=== PATIENT | male | born 1960 | race Hispanic/Latino ===

== ENCOUNTER 2016-04-27 18:21 | Inpatient (IN) | payer MEDICAID ==
[2016-04-27] MEDS ORDERED: NACL 0.9% 1000 ML 1,000 ML IV ONE ×2 (19:23→22:28)
[2016-04-27 20:42] LABS: Basophils % (Auto) 0.6 % (0.0-1.8); Eosinophils % (Auto) 0.1 % (0.0-4.3); Hematocrit 34.6 % (35.5-45.6); Hemoglobin 11.7 gm/dl (11.8-15.2); Mean Corpuscular HGB Conc 34 % (32-34); Mean Corpuscular Hemoglobin 34 pg (28-32); Mean Corpuscular Volume 100 fl (84-94); Platelet Count 194 K/mm3 (140-440); Red Blood Count 3.46 M/mm3 (3.65-5.03); Red Cell Distribution Width 13.5 % (13.2-15.2); White Blood Count 9.5 K/mm3 (4.5-11.0)
[2016-04-27 20:55] LABS: INR 0.94 (0.87-1.13)
[2016-04-27 20:56] LABS: Partial Thromboplastin Time 25.5 Sec. (24.2-36.6)
[2016-04-27 21:08] LABS: Alanine Aminotransferase 14 units/L (7-56); Albumin 2.6 g/dL (3.9-5); Albumin/Globulin Ratio 1.2 %; Alkaline Phosphatase 87 units/L (35-129); Anion Gap 9 mmol/L; BUN/Creatinine Ratio 45.71; Bilirubin,Total 0.4 mg/dL (0.1-1.2); Blood Urea Nitrogen 32 mg/dL (9-20); Calcium 9.8 mg/dL (8.4-10.2); Carbon Dioxide 40 mmol/L (22-30); Chloride 85.2 mmol/L (98-107); Glucose 121 mg/dL (75-100); Lipase 40 units/L (13-60); Potassium 5.2 mmol/L (3.6-5.0); Sodium 129 mmol/L (137-145); Total Protein 4.8 g/dL (6.3-8.2)
[2016-04-27] MEDS ORDERED: PROTONIX IV ONE (22:14)
--- NOTE | 2016-04-27 22:14 | Emergency Department Report ---
HPI - General Chief Complaint: GI Bleed Time Seen by Provider: 04/27/16 21:39 - HPI HPI: Room 8 The patient is a 56-year-old male presenting with a chief complaint of hematochezia. The patient states since 02:00 this morning his lower abdominal cramping that feels as though he has to have a bowel movement and when he does he states dark red blood comes out. Patient denies rectal pain except with frequent BMs. Patient denies nausea or vomiting. Patient states the abdominal pain is cramping in nature and gives a score of 8/10. Patient denies any previous episodes of the same Location: Gastrointestinal system Duration: Since 02:00 Quality: Cramping abdominal pain, maroon colored blood Severity: 8/10 Modifying factors: [see above] Context: [see above] Mode of transportation: [not driving] ED Past Medical Hx - Past Medical History Previous Medical History?: Yes Hx COPD: Yes (no home O2) Hx HIV: Yes (no tx x ~september 2015. Unknown CD4 count ) - Surgical History Past Surgical History?: Yes Additional Surgical History: left hip surgery - Family History Family history: no significant - Social History Smoking Status: Current Every Day Smoker Substance Use Type: None (denies illicit drug use), Alcohol (occasional) - Medications Home Medications: Home Medications Medication Instructions Recorded Confirmed Last Taken Type ALBUTEROL Inhaler [ProAir HFA 2 puff IH QID PRN #1 inhalation 04/16/15 Unknown Rx Inhaler] Azithromycin [Zithromax Z-DAMON] 250 mg PO DAILY #6 tab 04/16/15 Unknown Rx predniSONE [Deltasone] 20 mg PO BID #10 tab 04/16/15 Unknown Rx ED Review of Systems ROS: Stated complaint: BLOOD IN STOOL Other details as noted in HPI Comment: All other systems reviewed and negative Constitutional: denies: chills, fever Eyes: denies: eye pain, eye discharge, vision change ENT: denies: ear pain, throat pain Respiratory: denies: cough, shortness of breath, wheezing Cardiovascular: denies: chest pain, palpitations Endocrine: no symptoms reported Gastrointestinal: abdominal pain, diarrhea, hematochezia. denies: nausea, vomiting Genitourinary: denies: urgency, dysuria Musculoskeletal: denies: back pain, joint swelling, arthralgia Skin: denies: rash, lesions Neurological: denies: headache, weakness, paresthesias Psychiatric: denies: anxiety, depression Hematological/Lymphatic: denies: easy bleeding, easy bruising Physical Exam - Physical Exam Vital Signs: Vital Signs 04/27/16 19:18 Temperature 98.0 F Pulse Rate 107 H Respiratory 24 Rate Blood Pressure 84/52 O2 Sat by Pulse 91 Oximetry Physical Exam: GENERAL: The patient is well-developed well-nourished male lying on stretcher not appearing to be in acute distress. [] HEENT: Normocephalic. Atraumatic. Extraocular motions are intact. Patient has moist mucous membranes. NECK: Supple. Trachea midline CHEST/LUNGS: Clear to auscultation. There is no respiratory distress noted. HEART/CARDIOVASCULAR: Regular. There is no tachycardia. There is no gallop rub or murmur. ABDOMEN: Abdomen is soft, with mild discomfort in the lower abdomen to palpation. There is no rebound or guarding. Patient has normal bowel sounds. There is no abdominal distention. SKIN: There is no rash. There is no edema. There is no diaphoresis. NEURO: The patient is awake, alert, and oriented. The patient is cooperative. The patient has normal speech MUSCULOSKELETAL: There is no evidence of acute injury. ED Course Vital Signs 04/27/16 19:18 Temperature 98.0 F Pulse Rate 107 H Respiratory 24 Rate Blood Pressure 84/52 O2 Sat by Pulse 91 Oximetry - Consultations Consultation #1: 04/27/16 22:32 Gastroenterology paged- case discussed with Dr. Hdz. Recommends that the hospitalist orders a bleeding scan. Will consult 04/27/16 22:46 ED Medical Decision Making - Lab Data Result diagrams: 04/27/16 20:21 04/27/16 20:21 Laboratory Tests 04/27/16 04/27/16 04/27/16 20:21 20:21 20:21 WBC 9.5 RBC 3.46 L Hgb 11.7 L Hct 34.6 L MCV 100 H MCH 34 H MCHC 34 RDW 13.5 Plt Count 194 Lymph % (Auto) 13.3 L [place] % (Auto) 13.5 H Eos % (Auto) 0.1 Baso % (Auto) 0.6 Lymph # 1.3 [place] # 1.3 H Eos # 0.0 Baso # 0.1 Seg Neutrophils % 72.5 H Seg Neutrophils # 6.9 PT 12.5 INR 0.94 APTT 25.5 Sodium 129 L Potassium 5.2 H Chloride 85.2 L Carbon Dioxide 40 H Anion Gap 9 BUN 32 H Creatinine 0.7 L Estimated GFR > 60 BUN/Creatinine Ratio 45.71 Glucose 121 H Calcium 9.8 Total Bilirubin 0.4 AST 31 ALT 14 Alkaline Phosphatase 87 Total Protein 4.8 L Albumin 2.6 L Albumin/Globulin Ratio 1.2 Lipase 40 Blood Type Antibody Screen 04/27/16 20:21 WBC RBC Hgb Hct MCV MCH MCHC RDW Plt Count Lymph % (Auto) [place] % (Auto) Eos % (Auto) Baso % (Auto) Lymph # [place] # Eos # Baso # Seg Neutrophils % Seg Neutrophils # PT INR APTT Sodium Potassium Chloride Carbon Dioxide Anion Gap BUN Creatinine Estimated GFR BUN/Creatinine Ratio Glucose Calcium Total Bilirubin AST ALT Alkaline Phosphatase Total Protein Albumin Albumin/Globulin Ratio Lipase Blood Type A POSITIVE Antibody Screen Negative Critical care attestation.: If time is entered above; I have spent that time in minutes in the direct care of this critically ill patient, excluding procedure time. ED Disposition Clinical Impression: GI bleed, HIV disease Disposition: OP ADMITTED IP TO THIS HOSP Is pt being admited?: Yes Does the pt Need Aspirin: No Condition: Serious Referrals: PRIMARY CARE, [Primary Care Provider] - 3-5 Days Forms: Accompanied Note Time of Disposition: 22:33 (GI paged. Hospitalist paged)
[2016-04-27] MEDS ORDERED: NACL 0.9% 500 ML 500 ML IV ONE (22:29)
[2016-04-27] MEDS ORDERED: PROTONIX 80 MG in NACL 0.9% 100 ML IV SCH (23:00)
[2016-04-27] MEDS ORDERED: FLUSH HEPARIN IV ONE (23:34)
[2016-04-27 23:49] LABS: Bacteria,Urine 2+ /HPF (Negative); Bilirubin,Urine NEG (Negative); Blood,Urine SM (Negative); Ketones,Urine NEG (Negative); Leukocyte Esterase,Urine LG (Negative); Nitrite,Urine NEG (Negative); Urobilinogen,Urine < 2.0 mg/dL (<2.0)
[2016-04-27 23:58] LABS: WBC,Urine > 182.0 /HPF (0.0-6.0)
[2016-04-28] MEDS ORDERED: ZOFRAN IV PRN
--- NOTE | 2016-04-28 00:20 | History and Physical Report ---
History of Present Illness Date of examination: 04/27/16 History of present illness: 56-year-old man with a history of HIV, COPD history emergency room because he had lower abdominal pain this morning around 2:00 followed by blood per rectum. Abdominal pain he describes as sharp, intermittent in nature lasting 10-15 minutes, intensity 9/10, no radiation any cannot identify exacerbating or relieving factors. He had 3 episodes of blood per rectum here in the emergency room. No previous bleeding. patient non-compliant with HIV medications Patient denies chest pain, palpitation, shortness of breath, cough, abdominal pain, hematochezia, dysuria, frequency, focal weakness, dysarthria, fever chills , polydipsia polyuria, hot or cold intolerance, easy bruisability, or rash or bleeding from mucosal membrane, rhinorrhea, epistaxis, earache, tinnitus, blurry vision, eye discharge, anxiety, depression. Other review of systems negative PAST SURGICAL HISTORY: Hip surgery SOCIAL HISTORY: Admits to alcohol, tobacco, no drugs FAMILY HISTORY: Hypertension Medications and Allergies Allergies Allergy/AdvReac Type Severity Reaction Status Date / Time No Known Allergies Allergy Verified 04/16/15 01:31 Home Medications Medication Instructions Recorded Confirmed Last Taken Type ALBUTEROL Inhaler [ProAir HFA 2 puff IH QID PRN #1 inhalation 04/16/15 04/28/16 Unknown Rx Inhaler] Azithromycin [Zithromax Z-DAMON] 250 mg PO DAILY #6 tab 04/16/15 04/28/16 Unknown Rx predniSONE [Deltasone] 20 mg PO BID #10 tab 04/16/15 04/28/16 Unknown Rx Active Meds: Active Medications Pantoprazole Sodium 80 mg/ (Sodium Chloride) 100 mls @ 10 mls/hr IV DIRECT ARUNA PRN Reason: 8 MG/HR Sodium Chloride (Nacl 0.9% 1000 Ml) 1,000 mls @ 150 mls/hr IV DIRECT ARUNA Ondansetron HCl (Zofran) 4 mg IV Q4H PRN PRN Reason: N/V unrelieved by Reglan Exam - Physical Exam Narrative exam: Gen. appearance: Patient lying in bed, no apparent distress HEENT: Normocephalic, atraumatic, pupils equally round and reactive to light, extraocular movement intact, and no sclericterus,. No JVD or thyromegaly or nodule,neck supple, no carotid bruit ,mucous membranes moist, no exudate or erythema Heart: S1, S2, regular rate and rhythm Lungs: Clear to auscultation bilaterally, breathing comfortable Abdomen: Positive bowel sounds, nontender, nondistended, no organomegaly Extremity: No edema, cyanosis, clubbing Skin: No rash, nodules, warm, dry Neuro: Oriented 3, cranial nerves II-12 intact, speech is fluent, motor and sensory intact - Constitutional Vitals: Temp Pulse Resp BP Pulse Ox 98.0 F 83 24 117/73 91 04/27/16 19:18 04/27/16 23:22 04/27/16 19:18 04/27/16 23:22 04/27/16 19:18 Results - Labs CBC & Chem 7: 04/27/16 20:21 04/27/16 20:21 Labs: Abnormal lab results 04/27/16 04/27/16 04/27/16 Range/Units 20:21 20:21 20:21 RBC 3.46 L (3.65-5.03) M/mm3 Hgb 11.7 L (11.8-15.2) gm/dl Hct 34.6 L (35.5-45.6) % MCV 100 H (84-94) fl MCH 34 H (28-32) pg Lymph % (Auto) 13.3 L (13.4-35.0) % [place] % (Auto) 13.5 H (0.0-7.3) % [place] # 1.3 H (0.0-0.8) K/mm3 Seg Neutrophils % 72.5 H (40.0-70.0) % Sodium 129 L (137-145) mmol/L Potassium 5.2 H (3.6-5.0) mmol/L Chloride 85.2 L (98-107) mmol/L Carbon Dioxide 40 H (22-30) mmol/L BUN 32 H (9-20) mg/dL Creatinine 0.7 L (0.8-1.5) mg/dL Glucose 121 H (75-100) mg/dL Total Protein 4.8 L (6.3-8.2) g/dL Albumin 2.6 L (3.9-5) g/dL Urine pH (5.0-7.0) Urine WBC (Auto) (0.0-6.0) /HPF Crossmatch See Detail 04/27/16 Range/Units 21:00 RBC (3.65-5.03) M/mm3 Hgb (11.8-15.2) gm/dl Hct (35.5-45.6) % MCV (84-94) fl MCH (28-32) pg Lymph % (Auto) (13.4-35.0) % [place] % (Auto) (0.0-7.3) % [place] # (0.0-0.8) K/mm3 Seg Neutrophils % (40.0-70.0) % Sodium (137-145) mmol/L Potassium (3.6-5.0) mmol/L Chloride (98-107) mmol/L Carbon Dioxide (22-30) mmol/L BUN (9-20) mg/dL Creatinine (0.8-1.5) mg/dL Glucose (75-100) mg/dL Total Protein (6.3-8.2) g/dL Albumin (3.9-5) g/dL Urine pH 9.0 H (5.0-7.0) Urine WBC (Auto) > 182.0 H (0.0-6.0) /HPF Crossmatch Assessment and Plan Lower GI bleed, most likely diverticular UTI HIV COPD Admits medicine Start IV fluid, check serial hemoglobin, bleeding scan is pending Consult GI, Dr. Navas is aware the patient, start Levaquin Start DVT prophylaxis with SCD, continue protonix drip
[2016-04-28] MEDS ORDERED: LEVAQUIN 500MG/100ML 500 MG/100 ML BAG IV ONE (00:53)
--- NOTE | 2016-04-28 01:26 | Nuclear Medicine Report ---
FINAL REPORT PROCEDURE: NM GI BLEEDING SCAN TECHNIQUE: Arterial flow and static planar gamma camera images of the abdomen and pelvis were obtained after the IV administration of 20 mCi Tc-99m tagged red blood cells. Injection site: RIGHT antecubital fossa. CPT 13239 HISTORY: hematochezia, hypotension COMPARISON: No prior studies are available for comparison. FINDINGS: Small and Large bowel activity: Normal. Organs and soft tissues: Normal. IMPRESSION: No active gastrointestinal hemorrhage is identified.
[2016-04-28] MEDS: LEVAQUIN 500MG/100ML 500 MG/100 ML BAG IV SCH (01:45)
[2016-04-28] MEDS: NACL 0.9% 1000 ML 1,000 ML IV SCH ×3 (03:34→18:30)
[2016-04-28 06:09] LABS: Hematocrit 29.9 % (35.5-45.6)
[2016-04-28 07:57] LABS: Hematocrit 30.4 % (35.5-45.6); Hemoglobin 10.2 gm/dl (11.8-15.2)
[2016-04-28 13:35] LABS: Hematocrit 31.1 % (35.5-45.6); Hemoglobin 10.3 gm/dl (11.8-15.2)
--- NOTE | 2016-04-28 15:23 | Progress Note ---
Assessment and Plan Assessment and plan: 56-year-old man with a history of HIV, COPD history emergency room because he had lower abdominal pain this morning around 2:00 followed by blood per rectum. Abdominal pain he describes as sharp, intermittent in nature lasting 10-15 minutes, intensity 9/10, no radiation any cannot identify exacerbating or relieving factors. He had 3 episodes of blood per rectum here in the emergency room. No previous bleeding. patient non-compliant with HIV medications Patient denies chest pain, palpitation, shortness of breath, cough, abdominal pain, hematochezia, dysuria, frequency, focal weakness, dysarthria, fever chills , polydipsia polyuria, hot or cold intolerance, easy bruisability, or rash or bleeding from mucosal membrane, rhinorrhea, epistaxis, earache, tinnitus, blurry vision, eye discharge, anxiety, depression. Other review of systems negative * Lower GI bleed, most likely diverticular * Anemia secondary to blood loss * UTI * Alcohol abuse * Tobacco abuse * Hyponatremia * HIV * COPD * Hyperkalemia * Metabolic alkalosis Plan * Bleeding Scan is negative, awaiting GI evaluation * Clear liquid diet for now * Continue antibiotics with Levaquin monitor for urine cultures * Extensive counseling on alcohol abuse and tobacco abuse greater than 15 minutes spent resources provided with the patient. * Monitor sodium and potassium levels * Monitor H&H * Seizure precautions * [place] CIWA protocol * DVT and GI prophylaxis with SCDs and Protonix * Also recommended an outpatient follow-up with infectious disease for HIV status. * Case discussed in detail with the patient's. History Interval history: Follow-up rectal bleeding Patient seen and examined this morning in no acute distress, was a little upset this morning wants to eat. A little tremulous. Denies any chest pain, nausea, vomiting, diarrhea No fever noted blood pressure on the low side No adverse events reported to me by nursing staff. Patient had refused transfusion Hospitalist Physical - Physical exam Narrative exam: VITAL SIGNS: Reviewed. GENERAL: The patient appeared disheveled appearing, mildly cachectic. Vital signs as documented. HEAD: No signs of head trauma. Temporal wasting EYES: Pupils are equal. Extraocular motions intact. EARS: Hearing grossly intact. MOUTH: Oropharynx is normal. NECK: No adenopathy, no JVD. CHEST: Chest with clear breath sounds bilaterally. No wheezes, rales, or rhonchi. CARDIAC: Regular rate and rhythm. S1 and S2, without murmurs, gallops, or rubs. VASCULAR: No Edema. Peripheral pulses normal and equal in all extremities. ABDOMEN: Soft, without detectable tenderness. No sign of distention. No rebound or guarding, and no masses palpated. Bowel Sounds normal. MUSCULOSKELETAL: Good range of motion of all major joints. Extremities without clubbing, cyanosis or edema. NEUROLOGIC EXAM: Alert and oriented x 3. No focal sensory or strength deficits. Speech normal. Follows commands. PSYCHIATRIC: Mood normal. SKIN: Old crusted lesions bilateral upper extremities - Constitutional Vitals: Temp Pulse Resp BP Pulse Ox 98.0 F 86 20 95/60 94 04/28/16 08:50 04/28/16 08:50 04/28/16 08:50 04/28/16 08:50 04/28/16 10:00 Results - Labs CBC & Chem 7: 04/28/16 12:43 04/27/16 20:21 Labs: Laboratory Last Values WBC 9.5 K/mm3 (4.5-11.0) 04/27/16 20:21 RBC 3.46 M/mm3 (3.65-5.03) L 04/27/16 20:21 Hgb 10.3 gm/dl (11.8-15.2) L 04/28/16 12:43 Hct 31.1 % (35.5-45.6) L 04/28/16 12:43 MCV 100 fl (84-94) H 04/27/16 20:21 MCH 34 pg (28-32) H 04/27/16 20:21 MCHC 34 % (32-34) 04/27/16 20:21 RDW 13.5 % (13.2-15.2) 04/27/16 20:21 Plt Count 194 K/mm3 (140-440) 04/27/16 20:21 Lymph % (Auto) 13.3 % (13.4-35.0) L 04/27/16 20:21 [place] % (Auto) 13.5 % (0.0-7.3) H 04/27/16 20:21 Eos % (Auto) 0.1 % (0.0-4.3) 04/27/16 20:21 Baso % (Auto) 0.6 % (0.0-1.8) 04/27/16 20:21 Lymph # 1.3 K/mm3 (1.2-5.4) 04/27/16 20:21 [place] # 1.3 K/mm3 (0.0-0.8) H 04/27/16 20:21 Eos # 0.0 K/mm3 (0.0-0.4) 04/27/16 20:21 Baso # 0.1 K/mm3 (0.0-0.1) 04/27/16 20:21 Seg Neutrophils % 72.5 % (40.0-70.0) H 04/27/16 20:21 Seg Neutrophils # 6.9 K/mm3 (1.8-7.7) 04/27/16 20:21 PT 12.5 Sec. (12.2-14.9) 04/27/16 20:21 INR 0.94 (0.87-1.13) 04/27/16 20:21 APTT 25.5 Sec. (24.2-36.6) 04/27/16 20:21 Sodium 129 mmol/L (137-145) L 04/27/16 20:21 Potassium 5.2 mmol/L (3.6-5.0) H 04/27/16 20:21 Chloride 85.2 mmol/L (98-107) L 04/27/16 20:21 Carbon Dioxide 40 mmol/L (22-30) H 04/27/16 20:21 Anion Gap 9 mmol/L 04/27/16 20:21 BUN 32 mg/dL (9-20) H 04/27/16 20:21 Creatinine 0.7 mg/dL (0.8-1.5) L 04/27/16 20:21 Estimated GFR > 60 ml/min 04/27/16 20:21 BUN/Creatinine Ratio 45.71 % 04/27/16 20:21 Glucose 121 mg/dL (75-100) H 04/27/16 20:21 Calcium 9.8 mg/dL (8.4-10.2) 04/27/16 20:21 Total Bilirubin 0.4 mg/dL (0.1-1.2) 04/27/16 20:21 AST 31 units/L (5-40) 04/27/16 20:21 ALT 14 units/L (7-56) 04/27/16 20:21 Alkaline Phosphatase 87 units/L (35-129) 04/27/16 20:21 Total Protein 4.8 g/dL (6.3-8.2) L 04/27/16 20:21 Albumin 2.6 g/dL (3.9-5) L 04/27/16 20:21 Albumin/Globulin Ratio 1.2 % 04/27/16 20:21 Lipase 40 units/L (13-60) 04/27/16 20:21 Urine Color Yellow (Yellow) 04/27/16 21:00 Urine Turbidity Turbid (Clear) 04/27/16 21:00 Urine pH 9.0 (5.0-7.0) H 04/27/16 21:00 Ur Specific [place] 1.014 (1.003-1.030) 04/27/16 21:00 Urine Protein 100 mg/dl mg/dL (Negative) 04/27/16 21:00 Urine Glucose (UA) Neg mg/dL (Negative) 04/27/16 21:00 Urine Ketones Neg mg/dL (Negative) 04/27/16 21:00 Urine Blood Sm (Negative) 04/27/16 21:00 Urine Nitrite Neg (Negative) 04/27/16 21:00 Urine Bilirubin Neg (Negative) 04/27/16 21:00 Urine Urobilinogen < 2.0 mg/dL (<2.0) 04/27/16 21:00 Ur Leukocyte Esterase Lg (Negative) 04/27/16 21:00 Urine WBC (Auto) > 182.0 /HPF (0.0-6.0) H 04/27/16 21:00 Urine RBC (Auto) 25.0 /HPF (0.0-6.0) 04/27/16 21:00 U Epithel Cells (Auto) 3.0 /HPF (0-13.0) 04/27/16 21:00 Urine Bacteria (Auto) 2+ /HPF (Negative) 04/27/16 21:00 Plasma/Serum Alcohol < 0.01 gm% (0-0.07) 04/28/16 12:43 Blood Type A POSITIVE 04/27/16 20:21 Antibody Screen Negative 04/27/16 20:21 Crossmatch See Detail 04/27/16 20:21
[2016-04-28] MEDS ORDERED: GOLYTELY PO ONE (18:00)
--- NOTE | 2016-04-28 22:54 | Consultation ---
INDICATION: Rectal bleeding. HISTORY OF PRESENT ILLNESS: The patient is a 56-year-old white male with history of HIV positive and COPD being seen for rectal bleeding. The patient has a known history of HIV and with a reported history of being noncompliant with medication. The patient reports overnight he developed some mild lower abdominal cramping followed by bright red blood per rectum. He reports no fevers or chills. He reports no nausea or vomiting. The patient reports he had a colonoscopy years ago, but he is unclear as to the results. He reports no upper GI symptoms including nausea, vomiting, heartburn, reflux, or ingestion. The patient subsequently came to the Emergency Room where he was noted to have some more rectal bleeding and a bleeding scan was performed, which was negative. The patient subsequently was admitted to the internal medicine service and GI consulted. PAST MEDICAL HISTORY: 1. HIV positive. 2. COPD. PAST SURGICAL HISTORY: Hip. MEDICATIONS: See chart. ALLERGIES: No known drug allergies. SOCIAL HISTORY: Positive alcohol, positive tobacco use. FAMILY HISTORY: Negative for colon cancer, IBD, or liver disease. REVIEW OF SYSTEMS: GENERAL: Reports mild weakness. HEENT: No visual complaints or tinnitus. PULMONARY: Denies shortness of breath. CARDIOVASCULAR: Denies chest pain. GASTROINTESTINAL: Reports rectal bleeding and some abdominal pain. All points of 13-point review of systems otherwise negative. PHYSICAL EXAMINATION: VITAL SIGNS: Temperature of 98.0, pulse 90, respirations 20, blood pressure 150/70. GENERAL: Fairly thin white male, in no acute distress. HEENT: Pupils equal, round, reactive to light and accommodation. Extraocular muscles intact. PULMONARY: Clear to auscultation bilaterally. CARDIOVASCULAR: Regular rate and rhythm. Normal S1, S2. ABDOMEN: Positive bowel sounds. Soft. Mild lower abdominal cramping. No guarding, no rebound. SKIN: No obvious rashes. LABORATORY DATA: Pertinent for white count of 9.5, hemoglobin and hematocrit of 11.7 and 34.6, platelet count of 194. Chem-7: Sodium of 129, potassium 5.2, chloride 85, CO2 of 40, BUN and creatinine of 32 and 1.7. LFTs within normal limits. Coags within normal limits. ASSESSMENT AND PLAN: A 56-year-old HIV positive male presents with rectal bleeding, with mild lower abdominal cramping. Hemoglobin and hematocrit, though anemic is somewhat stable. The patient has a history of HIV and reportedly is noncompliant with medications thereof. Concern for lower gastrointestinal bleed. PLAN: 1. Follow hematocrit and transfuse as needed. 2. Clear liquid diet, n.p.o. after midnight. 3. Plan for colonoscopy in a.m. 4. Consider further intervention sooner based on progress. JOB# [id number] CAB/NTS
[2016-04-29] MEDS: LEVAQUIN 500MG/100ML 500 MG/100 ML BAG IV SCH (01:28)
[2016-04-29 06:30] LABS: Hematocrit 28.1 % (35.5-45.6); Hemoglobin 9.4 gm/dl (11.8-15.2); Mean Corpuscular HGB Conc 33 % (32-34); Mean Corpuscular Hemoglobin 34 pg (28-32); Mean Corpuscular Volume 102 fl (84-94); Platelet Count 145 K/mm3 (140-440); Red Blood Count 2.75 M/mm3 (3.65-5.03); Red Cell Distribution Width 13.5 % (13.2-15.2); White Blood Count 5.4 K/mm3 (4.5-11.0)
[2016-04-29] MEDS: NACL 0.9% 1000 ML 1,000 ML IV SCH ×3 (06:36→15:07)
[2016-04-29 06:47] LABS: Blood Urea Nitrogen 9 mg/dL (9-20); Calcium 7.2 mg/dL (8.4-10.2); Carbon Dioxide 31 mmol/L (22-30); Chloride 94.8 mmol/L (98-107); Glucose 78 mg/dL (75-100); Potassium 3.5 mmol/L (3.6-5.0); Sodium 132 mmol/L (137-145)
[2016-04-29 06:48] LABS: Anion Gap 10 mmol/L
[2016-04-29 08:08] LABS: Blastocytes % (Manual) 0 %; Diff Status Complete; Eosinophils % (Manual) 0 % (0.0-4.3); Hypochromasia Few; Macrocytosis Few; Platelet Estimate Appears Decreased; Polychromasia Few
[2016-04-29] MEDS ORDERED: WATER FOR IRRIG STERILE IR ONE (16:02)
[2016-04-29] MEDS ORDERED: DIPRIVAN 10 MG/ML IV ONE ×2 (16:07)
--- NOTE | 2016-04-29 16:41 | Post Operative Note ---
Pre-op diagnosis: gi bleed Post-op diagnosis: same Findings: Colonoscopy: scattered few diverticulosis - medium internal hemorrhoids - negative other Procedure: colonoscopy Anesthesia: MAC Surgeon: MEJIA LAWS Estimated blood loss: none Condition: stable Disposition: floor
[2016-04-29 16:58] VITALS: BP 110/71
--- NOTE | 2016-04-29 18:24 | Discharge Summary ---
Providers - Providers Date of Admission: 04/27/16 23:59 Date of discharge: 04/29/16 Attending physician: DARSHANA MURPHY MD Primary care physician: JAR FILLER Hospitalization Reason for admission: Rectal bleed Condition: Stable Hospital course: 56-year-old man with a history of HIV, COPD history emergency room because he had lower abdominal pain this morning around 2:00 followed by blood per rectum. Abdominal pain he describes as sharp, intermittent in nature lasting 10-15 minutes, intensity 9/10, no radiation any cannot identify exacerbating or relieving factors. He had 3 episodes of blood per rectum here in the emergency room. No previous bleeding. patient non-compliant with HIV medications Patient denies chest pain, palpitation, shortness of breath, cough, abdominal pain, hematochezia, dysuria, frequency, focal weakness, dysarthria, fever chills , polydipsia polyuria, hot or cold intolerance, easy bruisability, or rash or bleeding from mucosal membrane, rhinorrhea, epistaxis, earache, tinnitus, blurry vision, eye discharge, anxiety, depression. Other review of systems negative. On admission the patient was started on GI bleed protocol with PPI. Gastroenterology was consulted. Patient proceeded to have a colonoscopy which revealed multiple diverticulosis and internal hemorrhoid but no obvious bleed. GI recommended the patient be observed overnight and if hemoglobin remains stable, discharge plan the patient refused and demanded to leave the hospital since there was no evidence of cancer did inform the patient that pathology samples were taken and a decreased the city followed up. At this point he is very insistent on leaving the hospital I did inform him if he has any further bleeding he is to return to the hospital. I also provided counseling about his HIV status and the need to follow-up with primary care physician for establishment with infectious disease and started on treatment. Will also provided extensive counseling greater than 15 minutes on alcohol and tobacco cessation resources were also provided to the patient. Discharge diagnosis * Lower GI bleed, most likely diverticular * Anemia secondary to blood loss * Pyuria * Alcohol abuse * Tobacco abuse * Hyponatremia * HIV * COPD * Hyperkalemia * Metabolic alkalosis Disposition: DISCHARGED TO HOME OR SELFCARE Time spent for discharge: 35 mins Core Measure Documentation - Palliative Care Palliative Care/ Comfort Measures: Not Applicable - Core Measures Any of the following diagnoses?: none - VTE Discharge Requirements Deep Vein Thrombosis/Pulmonary Embolism Present on Admission: No Exam - Physical Exam Narrative exam: VITAL SIGNS: Reviewed. GENERAL: The patient appeared disheveled appearing, cachectic. Vital signs as documented. HEAD: No signs of head trauma. Temporal wasting EYES: Pupils are equal. Extraocular motions intact. EARS: Hearing grossly intact. MOUTH: Oropharynx is normal. NECK: No adenopathy, no JVD. CHEST: Chest with clear breath sounds bilaterally. No wheezes, rales, or rhonchi. CARDIAC: Regular rate and rhythm. S1 and S2, without murmurs, gallops, or rubs. VASCULAR: No Edema. Peripheral pulses normal and equal in all extremities. ABDOMEN: Soft, without detectable tenderness. No sign of distention. No rebound or guarding, and no masses palpated. Bowel Sounds normal. MUSCULOSKELETAL: Good range of motion of all major joints. Extremities without clubbing, cyanosis or edema. NEUROLOGIC EXAM: Alert and oriented x 3. No focal sensory or strength deficits. Speech normal. Follows commands. PSYCHIATRIC: Mood normal. SKIN: Old crusted lesions bilateral upper extremities - Constitutional Vitals: Temp Pulse Resp BP Pulse Ox 97.3 F L 79 20 110/71 98 04/29/16 16:35 04/29/16 16:50 04/29/16 16:50 04/29/16 16:50 04/29/16 16:50 Plan Activity: advance as tolerated, fall precautions Special Instructions: smoking cessation Additional Instructions: Should follow with pcp for Infectious disease referral. Follow up with: PRIMARY CAREMD [Primary Care Provider] - 3-5 Days Forms: Accompanied Note
--- NOTE | 2016-04-30 02:29 | Operative Report ---
PROCEDURE: Colonoscopy. INDICATION: 1. Rectal bleeding. 2. Anemia. MEDICATIONS: Propofol per [employer] SERVICES MANAGER. COMPLICATIONS: None. DESCRIPTION OF PROCEDURE: The patient was brought to the procedure suite. The patient had the procedure discussed with him at length. All risks, complications, and benefits discussed, to which the patient signed for the procedure to be performed. The patient was placed in left lateral decubitus position. Rectal exam was performed prior to insertion of scope. After adequate sedation medication as above, colonoscope inserted into the rectum and brought to the level of the cecum. Ileocecal valve and appendiceal orifice, cecal strap were adequately visualized. Colonoscope was then removed and mucosa visualized. Prep quality was fair. The patient's vital signs remained stable throughout the procedure. FINDINGS: There were no mass lesions or polyps noted during this procedure. There were a few small to medium scattered diverticula. No signs of bleeding was noted throughout the procedure. Retroflexion showed medium to large internal hemorrhoids. Whether or not, this is the source of bleeding was unclear. The patient tolerated the procedure well. No complications during the procedure. ASSESSMENT: 1. Scattered diverticulosis. 2. Internal hemorrhoids. 3. Otherwise, normal colonoscopy with no signs of bleeding noted. RECOMMENDATIONS: 1. High fiber diet. 2. Continue current medication. 3. Follow hematocrit and transfuse as needed. 4. Okay to discharge from GI standpoint if H and H stable in a.m. JOB# [id number] CAB/NTS
[2016-04-30] MEDS ORDERED: PROTONIX PO SCH (10:00)
== END 2016-04-29 20:12 | disposition home or self-care (01) | DRG 378 ==
LOC: ED 18:21 → 4A 23:59
PROVIDERS: ADMIT Internal Medicine; ATTEND Internal Medicine
PROC: 0DJD8ZZ Inspection of Lower Intestinal Tract, Via Natural or Artificial Opening Endoscopic (ICD-10-PCS; principal; 2016-04-29)
DX: K57.91 Diverticulosis of intestine, part unspecified, without perforation or abscess with bleeding (principal); N39.0 Urinary tract infection, site not specified; D62 Acute posthemorrhagic anemia; E87.1 Hypo-osmolality and hyponatremia; E87.3 Alkalosis; J44.9 Chronic obstructive pulmonary disease, unspecified; F17.200 Nicotine dependence, unspecified, uncomplicated; Z96.642 Presence of left artificial hip joint; Z21 Asymptomatic human immunodeficiency virus [HIV] infection status; E87.5 Hyperkalemia; K64.9 Unspecified hemorrhoids; Z71.6 Tobacco abuse counseling; Z82.49 Family history of ischemic heart disease and other diseases of the circulatory system
CPT/HCPCS: 36415; 78278; 80048; 80053; 80320; 81001; 83690; 85007; 85014; 85018; 85025; 85610; 85730; 86850; 86900; 86901; 86920; 87086; 93005; 93010; 96374; 96375; A9560; C9113; G0480; J1642; J1956; J2704; J7030; J7040

== ENCOUNTER 2016-05-09 11:48 | Inpatient (IN) | payer MEDICAID ==
[2016-05-09] MEDS: XYLOCAINE 1%/ EPI 1:100,000 INFILTRATI ONE ×2 (08:30→19:06)
[2016-05-09] MEDS ORDERED: NACL 0.9% 1000 ML 1,000 ML IV ONE (11:58)
[2016-05-09] MEDS ORDERED: NACL 0.9% 1000 ML IV ONE (12:13)
[2016-05-09 12:33] LABS: Mean Corpuscular HGB Conc 30 % (32-34); Mean Corpuscular Hemoglobin 31 pg (28-32); Mean Corpuscular Volume 102 fl (84-94); Platelet Count 104 K/mm3 (140-440); Red Blood Count 1.89 M/mm3 (3.65-5.03); Red Cell Distribution Width 15.8 % (13.2-15.2); White Blood Count 8.2 K/mm3 (4.5-11.0)
[2016-05-09 12:42] LABS: INR 1.35 (0.87-1.13)
[2016-05-09 12:43] LABS: Partial Thromboplastin Time 27.4 Sec. (24.2-36.6)
[2016-05-09] MEDS ORDERED: NACL 0.9% 500 ML 500 ML IV ONE ×2 (12:47→16:52)
[2016-05-09 12:54] LABS: Hemoglobin 5.8 gm/dl (11.8-15.2)
[2016-05-09 12:55] LABS: Hematocrit 19.2 % (35.5-45.6)
[2016-05-09 12:56] LABS: Urine Drugs of Abuse Note Disclamer
[2016-05-09] MEDS ORDERED: SandoSTATIN 500 MCG in NACL 0.9% 100 ML IV ONE (12:57)
[2016-05-09 13:03] LABS: Alanine Aminotransferase 18 units/L (7-56); Albumin 1.9 g/dL (3.9-5); Albumin/Globulin Ratio 1.3 %; Alkaline Phosphatase 68 units/L (35-129); Anion Gap 24 mmol/L; Bilirubin,Total 0.3 mg/dL (0.1-1.2); Blood Urea Nitrogen 17 mg/dL (9-20); Calcium 6.5 mg/dL (8.4-10.2); Carbon Dioxide 20 mmol/L (22-30); Chloride 99.7 mmol/L (98-107); Creatine Kinase 72 units/L (55-170); Creatine Kinase MB 4.9 ng/mL (0.0-4.0); Glucose 191 mg/dL (75-100); Lipase 82 units/L (13-60); Potassium 4.8 mmol/L (3.6-5.0); Sodium 139 mmol/L (137-145); Total Protein 3.4 g/dL (6.3-8.2)
--- NOTE | 2016-05-09 13:11 | Emergency Department Report ---
HPI - General Chief Complaint: Altered Mental Status Time Seen by Provider: 05/09/16 12:10 - HPI HPI: Chief complaint: Altered mental status HPI: Patient with a history of HIV and recent admission for rectal bleeding with diverticulosis he signed out AGAINST MEDICAL ADVICE was noted by bystanders to be unresponsive and EMS was called. EMS states that there was a long [place] bloody emesis from the patient's apartment down the humphries and down the stairs. Patient is known to have HIV and be a heavy drinker. Patient is uncooperative and unwilling to give any history upon his arrival. IO was placed in patient's left tibia by EMS and a left EJ was placed. Patient given IV fluids and upon arrival to the emergency department was becoming more alert. EMS stated they had wide complex rhythm initially which converted prior to arrival in the emergency department. Mode of arrival: EMS Source: Old chart and EMS Began: Unable to assess Duration: Unable to assess Context: See above Quality: Unable to assess Severity: Unable to assess Improved with: Unable to assess Worsened with: Associated signs and symptoms: ED Past Medical Hx - Past Medical History Previous Medical History?: Yes Hx COPD: Yes Hx HIV: Yes - Surgical History Additional Surgical History: left hip surgery - Social History Smoking Status: Current Every Day Smoker Substance Use Type: Alcohol - Medications Home Medications: Home Medications Medication Instructions Recorded Confirmed Last Taken Type ALBUTEROL Inhaler [ProAir HFA 2 puff IH QID PRN #1 inhalation 04/16/15 04/28/16 Unknown Rx Inhaler] ED Review of Systems ROS: Stated complaint: PASSED OUT Other details as noted in HPI Comment: Unobtainable due to pts medical conditions (patient is uncooperative and not fully oriented) Physical Exam - Physical Exam Vital Signs: Vital Signs 05/09/16 05/09/16 05/09/16 11:53 11:56 12:00 Temperature 95.4 F L Pulse Rate 125 H 134 H 127 H Respiratory 14 46 H Rate Blood Pressure 66/46 98/82 O2 Sat by Pulse 97 86 Oximetry Physical Exam: GENERAL: The patient is an emaciated white male with abdominal wheezes and is oriented to his name but still confused as to where he is and what is going on. HEENT: Normocephalic. Atraumatic. Extraocular motions are intact. Patient has moist mucous membranes. Edentulous with occasional bloody emesis. NECK: Supple. No meningitic signs are noted. There is no adenopathy noted. CHEST/LUNGS: He is wheezing. Patient was placed on a Ventimask the pulse ox of 100%. HEART/CARDIOVASCULAR: Regular. There is tachycardia. There is no gallop rub or murmur. ABDOMEN: Abdomen is soft, nontender. Patient has normal bowel sounds. There is no abdominal distention. Patient had brown guaiac-negative stool on the initial exam. SKIN: There is no rash. There is 1+ bilateral pedal edema. There is no diaphoresis. NEURO: The patient is lethargic but arouses to voice oriented to name but not time or situation. Patient complains of being called and asked to be left alone. The patient patient moves all extremities MUSCULOSKELETAL: There is no tenderness or deformity. There is no limitation range of motion. ED Course Vital Signs 05/09/16 05/09/16 05/09/16 11:53 11:56 12:00 Temperature 95.4 F L Pulse Rate 125 H 134 H 127 H Respiratory 14 46 H Rate Blood Pressure 66/46 98/82 O2 Sat by Pulse 97 86 Oximetry - Reevaluation(s) Reevaluation #1: 05/09/16 13:[address] Najera who will come in to see the patient today. 05/09/16 Pt was given 2 liters of ns wide open upon arrival and this was followed by PRBC x2. Pt started on a protonix drip and an octreatide drip and admitted to the hospitalist. - EJ/Peripheral Line Neck R Time Out Performed: No Indications: multiple IV sites needed Skin Cleansed in Sterile Fashion: Yes Size: 20 Dressing Placed: Tegaderm, tape Patient Tolerated Procedure: no complications ED Medical Decision Making - Lab Data Result diagrams: 05/09/16 12:06 05/09/16 12:06 Laboratory Tests 05/09/16 05/09/16 05/09/16 12:06 12:06 12:22 PT 16.6 H INR 1.35 H Lactic Acid 11.4 H* Calcium 6.5 L Ammonia CK-MB (CK-2) 4.9 H CK-MB (CK-2) Rel Index 6.8 H Troponin T 0.095 H Total Protein 3.4 L Albumin 1.9 L Lipase 82 H Plasma/Serum Alcohol 05/09/16 05/09/16 12:22 12:24 PT INR Lactic Acid Calcium Ammonia 41.0 CK-MB (CK-2) CK-MB (CK-2) Rel Index Troponin T Total Protein Albumin Lipase Plasma/Serum Alcohol < 0.01 UDS is negative - EKG Data -: EKG Interpreted by Me EKG shows normal: sinus rhythm Rate: tachycardia (121) - EKG Data Interpretation: other (significant artifact unable to assess baseline appears to be sinus tachycardia.) Critical care time in (mins) excluding proc time.: 45 Critical care attestation.: If time is entered above; I have spent that time in minutes in the direct care of this critically ill patient, excluding procedure time. ED Disposition Clinical Impression: HIV disease GI bleed Qualifiers: GI bleed type/associated pathology: gastrointestinal hemorrhage with hematemesis Qualified Code(s): K92.0 - Hematemesis Disposition: OP ADMITTED IP TO THIS HOSP Is pt being admited?: Yes Does the pt Need Aspirin: No Condition: Critical Time of Disposition: 13:03 (admit to the hospitalist)
[2016-05-09 13:13] LABS: Bacteria,Urine 1+ /HPF (Negative); Bilirubin,Urine NEG (Negative); Blood,Urine NEG (Negative); Ketones,Urine NEG (Negative); Leukocyte Esterase,Urine MOD (Negative); Mucus,Urine FEW /HPF; Nitrite,Urine NEG (Negative); Urobilinogen,Urine < 2.0 mg/dL (<2.0)
[2016-05-09] MEDS ORDERED: NACL 0.9% 250ML 250 ML ONE (13:14)
--- NOTE | 2016-05-09 13:14 | XRay Report ---
Chest: Compared to 04/15/15. History: Shortness of breath. Findings: Normal cardiomediastinal silhouette. Trachea is midline. No consolidation, pneumothorax or pleural effusion. Impression: No acute cardiopulmonary findings.
[2016-05-09 13:15] LABS: WBC,Urine > 182.0 /HPF (0.0-6.0)
[2016-05-09] MEDS ORDERED: ALUM-MAG HYDROX-SIMETH 200-200-20MG/5ML PO PRN (13:20)
[2016-05-09] MEDS ORDERED: REGLAN IV PRN (13:20)
[2016-05-09] MEDS ORDERED: DULCOLAX PR PRN (13:20)
[2016-05-09] MEDS ORDERED: ZOFRAN IV PRN (13:20)
[2016-05-09] MEDS ORDERED: MILK OF MAGNESIA PO PRN (13:20)
--- NOTE | 2016-05-09 13:20 | History and Physical Report ---
History of Present Illness Date of examination: 05/09/16 History of present illness: Dissection male with history of HIV and COPD presents to the hospital with weakness and black stools. Patient stated he recently been in the hospital for rectal bleeding returned today because of weakness and black stools. Patient state that this is gone on for a couple of days where he just was feeling progressively weak and not able to regain his strength. Patient denies any fever or chills. Patient denies chest pain. No shortness of breath. No palpitation. No fever no chills. Past History Past Medical History: COPD, HIV/AIDS Medications and Allergies Allergies Allergy/AdvReac Type Severity Reaction Status Date / Time No Known Allergies Allergy Verified 04/16/15 01:31 Home Medications Medication Instructions Recorded Confirmed Last Taken Type ALBUTEROL Inhaler [ProAir HFA 2 puff IH QID PRN #1 inhalation 04/16/15 04/28/16 Unknown Rx Inhaler] Active Meds: Active Medications Sodium Chloride (Nacl 0.9% 1000 Ml) 1,000 mls @ 250 mls/hr IV ONCE ONE Stop: 05/09/16 15:57 Last Admin: 05/09/16 12:07 Dose: 250 mls/hr Octreotide Acetate 500 mcg/ (Sodium Chloride) 101 mls @ 5.05 mls/hr IV ONCE.ED ONE; 25 MCG/HR PRN Reason: Protocol Stop: 05/10/16 08:56 Pantoprazole Sodium 80 mg/ (Sodium Chloride) 100 mls @ 10 mls/hr IV Q10H ARUNA PRN Reason: 8 MG/HR Review of Systems Constitutional: weakness Gastrointestinal: hematochezia Exam - Constitutional Vitals: Temp Pulse Resp BP Pulse Ox 95.4 F L 127 H 46 H 98/82 86 05/09/16 11:53 05/09/16 12:00 05/09/16 12:00 05/09/16 12:00 05/09/16 11:56 General appearance: Present: mild distress - EENT Eyes: Present: PERRL, EOM intact ENT: hearing intact, clear oral mucosa - Neck Neck: Present: supple, normal ROM - Respiratory Respiratory effort: normal Respiratory: bilateral: CTA - Cardiovascular Rhythm: regular Heart Sounds: Present: S1 & S2 - Abdominal General gastrointestinal: Present: soft, tender, non-distended, normal bowel sounds Localized gastrointestinal: tender: diffuse - Psychiatric Psychiatric: appropriate mood/affect - Neurologic Neurologic: CNII-XII intact Results - Labs CBC & Chem 7: 05/09/16 12:06 05/09/16 12:06 Labs: Laboratory Last Values WBC 8.2 K/mm3 (4.5-11.0) 05/09/16 12:06 RBC 1.89 M/mm3 (3.65-5.03) L 05/09/16 12:06 Hgb 5.8 gm/dl (11.8-15.2) L* 05/09/16 12:06 Hct 19.2 % (35.5-45.6) L* 05/09/16 12:06 MCV 102 fl (84-94) H 05/09/16 12:06 MCH 31 pg (28-32) 05/09/16 12:06 MCHC 30 % (32-34) L 05/09/16 12:06 RDW 15.8 % (13.2-15.2) H 05/09/16 12:06 Plt Count 104 K/mm3 (140-440) L 05/09/16 12:06 PT 16.6 Sec. (12.2-14.9) H 05/09/16 12:06 INR 1.35 (0.87-1.13) H 05/09/16 12:06 APTT 27.4 Sec. (24.2-36.6) 05/09/16 12:06 Sodium 139 mmol/L (137-145) 05/09/16 12:06 Potassium 4.8 mmol/L (3.6-5.0) 05/09/16 12:06 Chloride 99.7 mmol/L (98-107) 05/09/16 12:06 Carbon Dioxide 20 mmol/L (22-30) L 05/09/16 12:06 Anion Gap 24 mmol/L 05/09/16 12:06 BUN 17 mg/dL (9-20) 05/09/16 12:06 Creatinine 1.0 mg/dL (0.8-1.5) 05/09/16 12:06 Estimated GFR > 60 ml/min 05/09/16 12:06 BUN/Creatinine Ratio 17.00 % 05/09/16 12:06 Glucose 191 mg/dL (75-100) H 05/09/16 12:06 Lactic Acid 11.4 mmol/L (0.7-2.0) H* 05/09/16 12:22 Calcium 6.5 mg/dL (8.4-10.2) L 05/09/16 12:06 Total Bilirubin 0.3 mg/dL (0.1-1.2) 05/09/16 12:06 AST 36 units/L (5-40) 05/09/16 12:06 ALT 18 units/L (7-56) 05/09/16 12:06 Alkaline Phosphatase 68 units/L (35-129) 05/09/16 12:06 Ammonia 41.0 umol/L (25-60) 05/09/16 12:22 Total Creatine Kinase 72 units/L (55-170) 05/09/16 12:06 CK-MB (CK-2) 4.9 ng/mL (0.0-4.0) H 05/09/16 12:06 CK-MB (CK-2) Rel Index 6.8 (0-4) H 05/09/16 12:06 Troponin T 0.095 ng/mL (0.00-0.029) H 05/09/16 12:06 Total Protein 3.4 g/dL (6.3-8.2) L 05/09/16 12:06 Albumin 1.9 g/dL (3.9-5) L 05/09/16 12:06 Albumin/Globulin Ratio 1.3 % 05/09/16 12:06 Lipase 82 units/L (13-60) H 05/09/16 12:06 Urine Color Yellow (Yellow) 05/09/16 12:51 Urine Turbidity Slightly-cloudy (Clear) 05/09/16 12:51 Urine pH 6.0 (5.0-7.0) 05/09/16 12:51 Ur Specific [place] 1.019 (1.003-1.030) 05/09/16 12:51 Urine Protein 100 mg/dl mg/dL (Negative) 05/09/16 12:51 Urine Glucose (UA) Neg mg/dL (Negative) 05/09/16 12:51 Urine Ketones Neg mg/dL (Negative) 05/09/16 12:51 Urine Blood Neg (Negative) 05/09/16 12:51 Urine Nitrite Neg (Negative) 05/09/16 12:51 Urine Bilirubin Neg (Negative) 05/09/16 12:51 Urine Urobilinogen < 2.0 mg/dL (<2.0) 05/09/16 12:51 Ur Leukocyte Esterase Mod (Negative) 05/09/16 12:51 Urine WBC (Auto) > 182.0 /HPF (0.0-6.0) H 05/09/16 12:51 Urine RBC (Auto) 9.0 /HPF (0.0-6.0) 05/09/16 12:51 U Epithel Cells (Auto) 1.0 /HPF (0-13.0) 05/09/16 12:51 Urine Bacteria (Auto) 1+ /HPF (Negative) 05/09/16 12:51 Urine Mucus Few /HPF 05/09/16 12:51 Plasma/Serum Alcohol < 0.01 gm% (0-0.07) 05/09/16 12:24 Blood Type A POSITIVE 05/09/16 12:06 Antibody Screen Negative 05/09/16 12:06 Crossmatch See Detail 05/09/16 12:06 Assessment and Plan Assessment and plan: 1. GI bleed--- patient will be started on octreotide drip and Protonix drip. We'll get GI consult. Patient will also transfuse 2 units of blood. We will give aggressive IV fluid hydration. Patient will be admitted to the intensive care unit 2. HIV--we'll get infectious disease consult after the patient is more stable 3. COPD--we'll start her on Atrovent nebulized treatment. 4. EtOH abuse--Will start CIWA protocol
[2016-05-09 13:26] LABS: ISTAT Base Excess -6; ISTAT HCO3 21.4; ISTAT PCO2 51.1 (35-45); ISTAT PH 7.229 (7.35-7.45); ISTAT PO2 125 (80-105); ISTAT SO2 98; ISTAT TCO2 23
[2016-05-09 13:26] LABS: ISTAT Base Excess -9; ISTAT HCO3 20.3; ISTAT PCO2 60.5 (35-45); ISTAT PH 7.132 (7.35-7.45); ISTAT PO2 29 (80-105); ISTAT SO2 38; ISTAT TCO2 22
[2016-05-09] MEDS ORDERED: NACL 0.9% 1000 ML 1,000 ML IV SCH (14:00)
[2016-05-09] MEDS: PROTONIX 80 MG in NACL 0.9% 100 ML IV SCH (14:03)
--- NOTE | 2016-05-09 14:27 | Gastroenterology Consultation ---
History of Present Illness - Reason for Consult Consult date: 05/09/16 Hematemesis Requesting physician: RACHNA BARAKAT - History of Present Illness The patient is a 56 yo male who was here 2 weeks ago with rectal bleeding; a colonoscopy was done that showed tics. He left AMA and no further w/u was done. He returns for a 6-hour onset of hematemesis. This has never happened before, and was large volume/multiple episodes. He has only mild abdominal pain ; it was primarily nausea. He has no CP or SOB. He denies NSAIDs or a hx of PUD. He is not sure if he has ever had an EGD (and I saw none in the old records). He is noncompliant with HIV and other medications. His CD4 is not currently in the chart. He has had no GI surgery. He does drink heavily and daily, and his last EtOH was yesterday. He also smokes heavily on a daily basis , but does not require supplemental oxygen. Past History Past Medical History: COPD, HIV/AIDS (CD4 unknown), other (Noncompliance) Past Surgical History: Other (Hip Surgery). denies: appendectomy, CABG, bowel surgery Social history: smoking, alcohol abuse, full code. denies: prescription drug abuse Family history: no significant family history Medications and Allergies Allergies Allergy/AdvReac Type Severity Reaction Status Date / Time No Known Allergies Allergy Verified 04/16/15 01:31 Home Medications Medication Instructions Recorded Confirmed Last Taken Type ALBUTEROL Inhaler [ProAir HFA 2 puff IH QID PRN #1 inhalation 04/16/15 04/28/16 Unknown Rx Inhaler] Active Meds: Active Medications Al Hydrox/Mg Hydrox/Simethicone (Alum-Mag Hydrox-Simeth 687-943-36ad/5ml) 30 ml PO Q4H PRN PRN Reason: Indigestion Bisacodyl (Dulcolax) 10 mg DE QDAY PRN PRN Reason: constipation unrelieved by MOM Sodium Chloride (Nacl 0.9% 1000 Ml) 1,000 mls @ 250 mls/hr IV ONCE ONE Stop: 05/09/16 15:57 Last Admin: 05/09/16 12:07 Dose: 250 mls/hr Octreotide Acetate 500 mcg/ (Sodium Chloride) 101 mls @ 5.05 mls/hr IV ONCE.ED ONE; 25 MCG/HR PRN Reason: Protocol Stop: 05/10/16 08:56 Last Admin: 05/09/16 13:56 Dose: 5.05 mls/hr Pantoprazole Sodium 80 mg/ (Sodium Chloride) 100 mls @ 10 mls/hr IV Q10H ARUNA PRN Reason: 8 MG/HR Last Admin: 05/09/16 14:03 Dose: 10 mls/hr Sodium Chloride (Nacl 0.9% 1000 Ml) 1,000 mls @ 125 mls/hr IV DIRECT ARUNA Magnesium Hydroxide (Milk Of Magnesia) 30 ml PO Q4H PRN PRN Reason: Constipation Metoclopramide HCl (Reglan) 10 mg IV Q6H PRN PRN Reason: Nausea And Vomiting Ondansetron HCl (Zofran) 4 mg IV Q8H PRN PRN Reason: N/V unrelieved by Reglan Review of Systems - Review of Systems ROS unobtainable: due to mental status Exam - Constitutional Vital Signs: Temp Pulse Resp BP Pulse Ox 97 F L 91 H 16 111/72 100 05/09/16 13:42 05/09/16 13:57 05/09/16 13:57 05/09/16 13:57 05/09/16 13:57 General appearance: temporal muscle wasting, disheveled - EENT Eyes: PERRL, EOM intact ENT: hearing intact, poor dentition, no thrush, other (Blood in mouth) - Neck Neck: supple, normal ROM - Respiratory Respiratory effort: normal Respiratory: bilateral: CTA - Cardiovascular Rhythm: regular Heart Sounds: Present: S1 & S2 Extremities: no ischemia Extremity abnormal: other (IO catheter in place) - Gastrointestinal General gastrointestinal: Present: soft, non-tender, non-distended - Integumentary Integumentary: Present: dry, pale - Neurologic Neurological: oriented to person, oriented to place, strength equal bilaterally - Labs CBC & Chem 7: 05/09/16 12:06 05/09/16 12:06 Assessment and Plan - Patient Problems (1) Hematemesis Current Visit: Yes Status: Acute Qualifiers: Nausea presence: N Plan to address problem: - Likely varices v ulcer. - Continue transfusion to stabilize. - Octreotide and protonix. - EGD when clinically stable. 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 - Continue CIWA and octreotide/MVI/protonix. (3) HIV disease Current Visit: Yes Status: Chronic
[2016-05-09] MEDS ORDERED: ADRENALINE P/F IV ONE (15:45)
[2016-05-09] MEDS ORDERED: DIPRIVAN 10 MG/ML IV ONE (15:45)
[2016-05-09] MEDS ORDERED: XYLOCAINE MPF 2% ONE (15:45)
[2016-05-09 15:48] LABS: Anisocytosis 1+; Blastocytes % (Manual) 0 %; Diff Status Complete; Eosinophils % (Manual) 0 % (0.0-4.3); Platelet Estimate Consistent w Auto
[2016-05-09] MEDS ORDERED: AMIDATE IV ONE (16:15)
[2016-05-09 16:24] LABS: Phosphorous 5.5 mg/dL (2.5-4.5)
[2016-05-09] MEDS ORDERED: NEO SYNEPHRINE/NS Syringe(OR USE) IV ONE ×2 (16:35→20:31)
--- NOTE | 2016-05-09 16:38 | Anesthesia Consultation ---
Anesthesia Consult and Med Hx Date of service: 05/09/16 - Airway Anesthetic Teeth Evaluation: Poor ROM Head & Neck: Adequate Mental/Hyoid Distance: Adequate Intubation Access Assessment: Probably Good - Pulmonary Exam CTA: Yes - Cardiac Exam Cardiac Exam: RRR - Pre-Operative Health Status ASA Pre-Surgery Classification: ASA4, Emergency Proposed Anesthetic Plan: MAC - Pre-Anesthesia Comment Pre-Anesthesia Comments: GI bleeding - Pulmonary Hx Smoking: Yes (every day smoker) Hx Asthma: No COPD: Yes Hx Pneumonia: No - Endocrine Hx End Stage Renal Disease: No - Hematic Hx Anemia: Yes (admitting hgb 5.8. has received 4 units RBC's) - Other Systems Hx Alcohol Use: Yes (heavy)
--- NOTE | 2016-05-09 16:39 | Anesthesia Day of Surgery ---
Anesthesia Day of Surgery - Day of Surgery Patient Examined: Yes Patient H&P Reviewed: Yes Patient is NPO: Yes (FSP , upper GI bleeding)
--- NOTE | 2016-05-09 17:07 | Post Operative Note ---
Pre-op diagnosis: Hematemesis Post-op diagnosis: other (DU (actively bleeding), blood in stomach/duodenum, No varices) Findings: 1. 2cm cratered DU in the bulb (appeared posterior) with a large VV and gross blood in duodenum - Attempted clipping (x1) and submucosal epinephrine (4ml) but ulcer still oozing 2. Large amount of dried blood in fundus, but no obvious ulcer or gastric varices 3. No esophageal varices 4. Blood in oropharynx and cords noted at start of procedure (likely aspirated at home and in ER) Procedure: EGD with endoscopic clipping and epinephrine injection Anesthesia: MAC Surgeon: GABRIELLA FABIAN Estimated blood loss: other (Actively bleeding ulcer, no loss from procedure) Pathology: list (1. Gastric antrum) Specimen disposition: to lab Condition: critical Disposition: ICU (Recs: 1. Discussed with IR. Actively bleeding ulcer in DU; will need further therapy. 2. Consulted IR; given comorbids, would be best served if this was able to control bleeding. 3. If unable to control with IR, will need surgery. 4. Continue NPO and protonix/octreotide gtts. 5. Continue transfusion given hypotension. 6. ICU monitoring. 7. Note made of blood in oropharynx and esophagus (patient probably aspirated at home; will start broad- spectrum abx to cover for pneumonia).)
[2016-05-09] MEDS ORDERED: NACL 0.9% 1000 ML 0 ML ONE (17:21)
[2016-05-09] MEDS ORDERED: VERSED IV ONE (17:43)
[2016-05-09] MEDS ORDERED: HEPARIN/NS 5000 UNIT/500ML(CATH LAB) 1,000 ML IR ONE (17:57)
[2016-05-09] MEDS ORDERED: NACL 0.9% 1000 ML 1,000 ML ONE (17:58)
--- NOTE | 2016-05-09 18:01 | Consultation ---
History of Present Illness - Reason for Consult Consult date: 05/09/16 GI bleed Requesting physician: GABRIELLA RONDON - History of Present Illness 56-year-old male with HIV (CD4 not available, possible AIDS), alcohol abuse, smoking abuse, who denies NSAID abuse who previously presented 2 weeks ago with rectal bleeding, left AMA, and now re-presented with hematemesis. He received 2 unit packed red blood cells, is receiving a third unit now, and will be receiving a fourth unit afterwards. He just had an endoscopy by Dr. rondon demonstrating the following 1. 2cm cratered DU in the bulb (appeared posterior) with a large VV and gross blood in duodenum - Attempted clipping (x1) and submucosal epinephrine (4ml) but ulcer still oozing 2. Large amount of dried blood in fundus, but no obvious ulcer or gastric varices 3. No esophageal varices 4. Blood in oropharynx and cords noted at start of procedure (likely aspirated at home and in ER) I was then contacted by Dr. Rondon for possible embolization. Past History Past Medical History: COPD, HIV/AIDS (CD4 unknown), other (Noncompliance) Past Surgical History: Other (Hip Surgery). denies: appendectomy, CABG, bowel surgery Social history: smoking, alcohol abuse, full code. denies: prescription drug abuse Family history: no significant family history Medications and Allergies Allergies Allergy/AdvReac Type Severity Reaction Status Date / Time No Known Allergies Allergy Verified 04/16/15 01:31 Home Medications Medication Instructions Recorded Confirmed Last Taken Type ALBUTEROL Inhaler [ProAir HFA 2 puff IH QID PRN #1 inhalation 04/16/15 04/28/16 Unknown Rx Inhaler] Active Meds: Active Medications Al Hydrox/Mg Hydrox/Simethicone (Alum-Mag Hydrox-Simeth 184-335-81gb/5ml) 30 ml PO Q4H PRN PRN Reason: Indigestion Bisacodyl (Dulcolax) 10 mg [place] QDAY PRN PRN Reason: constipation unrelieved by MOM Octreotide Acetate 500 mcg/ (Sodium Chloride) 101 mls @ 5.05 mls/hr IV ONCE.ED ONE; 25 MCG/HR PRN Reason: Protocol Stop: 05/10/16 08:56 Last Admin: 05/09/16 13:56 Dose: 5.05 mls/hr Pantoprazole Sodium 80 mg/ (Sodium Chloride) 100 mls @ 10 mls/hr IV Q10H ARUNA PRN Reason: 8 MG/HR Last Admin: 05/09/16 14:03 Dose: 10 mls/hr Sodium Chloride (Nacl 0.9% 1000 Ml) 1,000 mls @ 125 mls/hr IV DIRECT ARUNA Piperacillin Sod/Tazobactam Sod (Zosyn/Ns 4.5gm/100ml) 4.5 gm in 100 mls @ 200 mls/hr IV Q8H ARUNA PRN Reason: Protocol Lorazepam (Ativan) 2 mg PO Q1H PRN PRN Reason: CIWA-Ar 8-15 Lorazepam (Ativan) 4 mg IV Q1H PRN PRN Reason: CIWA-Ar 16-25 Magnesium Hydroxide (Milk Of Magnesia) 30 ml PO Q4H PRN PRN Reason: Constipation Metoclopramide HCl (Reglan) 10 mg IV Q6H PRN PRN Reason: Nausea And Vomiting Ondansetron HCl (Zofran) 4 mg IV Q8H PRN PRN Reason: N/V unrelieved by Reglan Review of Systems ROS unobtainable: due to mental status (slightly drowsy from sedation) Exam - Constitutional Vitals: Temp Pulse Resp BP Pulse Ox 97.1 F L 96 H 14 109/79 100 05/09/16 14:59 05/09/16 15:50 05/09/16 15:50 05/09/16 15:50 05/09/16 15:50 General appearance: Present: no acute distress - EENT ENT: hearing intact - Neck Neck: Present: supple - Respiratory Respiratory effort: other (laying on his side in the position, but breathing nonlabored and regularly with an O2 face mask) - Psychiatric Psychiatric: appropriate mood/affect, cooperative Results - Labs CBC & Chem 7: 05/09/16 12:06 05/09/16 12:06 Assessment and Plan 56-year-old male with HIV (possible AIDS, CD4 not available) who previously presented with rectal bleeding, and now has presented with hematemesis with a 2cm cratered ulcer in the duodenal bulb still bleeding despite clipping and epinephrine injection. Patient is receiving a third unit of packed red blood cells currently, and will subsequently be receiving a fourth unit of packed blood cells. I was contacted by Dr. Rondon for possible embolization. I agree with Dr. Rondon and the patient will be brought down for emergency GI angiography and probable GDA embolization. Anesthesia was at bedside, and will provide assistance during the procedure. Unfortunately, there is no working phone number for a next of kin available. The patient is slightly drowsy, but understood the risks, benefits, and alternatives of the procedure and has agreed to the procedure. Given the emergent nature of the procedure, 2 physician consent was obtained since the patient has been recently sedated. Dr. Rondon also contact general surgery to notify them of the patient's status. If he decompensates further, then patient will need possible open/surgical treatment of the ulcer.
[2016-05-09 19:14] LABS: Hematocrit 36.4 % (35.5-45.6); Hemoglobin 11.8 gm/dl (11.8-15.2)
--- NOTE | 2016-05-09 19:45 | Operative Report ---
Operative Report Operative Report: EXAM: 1. Ultrasound-guided access of the left common femoral artery 2. Selection of the celiac artery with angiography 3. Selection of the right gastroepiploic artery with angiography 4. Selection of the gastroduodenal artery with angiography 5. Coil embolization of the gastroduodenal artery with a 4 mm x 8 cm coil 2, 4 mm x 15 cm coil 1 and 3 mm x 12 mm coil 1 6. Selection of the SMA with angiography 7. Ultrasound-guided access of the right common femoral vein 8. Fluoroscopic guided placement of 7 Angolan non-tunneled non-cuffed triple lumen catheter 9. Selection of the IVC with venography DATE: 05/09/16 [employer] OPERATOR: LUANNE SHOOK MD INDICATION: Duodenal ulcer actively bleeding refractory to endoscopic care with request for embolization. MEDICATIONS: Please see anesthesia report for full details. CONTRAST: 60 mL nonionic contrast DEVICES: 4 mm x 15 cm interlock x 1 4 mm x 8 cm interlock x 2 3 mm x 12 cm interlock x 1 PROCEDURE: The risks, benefits, and alternatives were discussed with the patient. Unfortunately, since the patient had been recently sedated, 2 physician consent was obtained with Dr. Najera. No family was available to provide consent. The phone numbers listed in the chart did not reach any family members. The patient was transported from the operating room from endoscopy to the angiography suite in stable condition. The patient's groins were prepped and draped in a sterile fashion. Under direct ultrasound guidance, the right common femoral artery was evaluated under ultrasound and there are numerous large atherosclerotic plaques. Under direct ultrasound guidance, the left common femoral artery was evaluated and was patent. The area was anesthetized, and a 21-gauge micropuncture needle was inserted into the left common femoral artery. 0.018 inch wire was advanced through the needle into the aorta and the needle was exchanged for transitional dilator. A Esquivel wire was advanced through the transitional dilator after the wire and inner dilator were removed. 5 Angolan sheath was advanced over the Bentson wire. Omni flush catheter was advanced over the Bentson wire and the wire was used to select the right superficial femoral artery. The catheter was exchanged for a Dukes 1 catheter which was formed over the iliac bifurcation. The Dukes 1 catheter was used to select the celiac artery and digital subtraction angiography was performed. Celiac artery demonstrated diminutive size of the vessels arising from the celiac trunk compatible with hemorrhagic shock. The splenic artery, left gastric artery, inferior phrenic arteries, common hepatic artery, hepatic vessels, and gastroduodenal artery was visualized. At this point, no extravasation or pseudoaneurysm was identified. The renegade STC and Choice PT floppy wire were used to select the gastroduodenal artery and then the right gastroepipoloic artery. Digital subtraction angiography was performed which demonstrated no evidence of extravasation or pseudoaneurysm from the right gastroepiploic artery. Then, the gastroduodenal artery was selected distally and digital subtraction angiography was performed which demonstrated no evidence of extravasation or pseudoaneurysm. Catheter was retracted into the proximal gastroduodenal artery and digital subtraction angiography demonstrated some staining of contrast in the expected area of the duodenal bulb. The distal gastroduodenal artery was reselected. Multiple coils listed above were used to occlude the gastroduodenal artery. Microcatheter was retracted into the common hepatic artery and digital subtraction angiography was performed. There was still flow through the gastroduodenal artery and therefore I reselected the gastroduodenal artery with the microcatheter. 3 mm x 12 cm coil was deployed. Microcatheter was retracted back into the common hepatic artery and digital subtraction angiography was performed demonstrating decreased flow through the gastroduodenal artery. Microcatheter was removed. Digital subtraction angiography was performed to the base catheter after the base catheter was double flushed. Digital subtraction angiography demonstrated the beginning of stasis in the gastroduodenal artery. Angiography was performed a few minutes later demonstrating occlusion of the gastroduodenal artery. Base catheter was then used to select the SMA and digital subtraction angiography was performed demonstrating no evidence of pseudoaneurysm or extravasation. No bleeding was identified through pancreaticoduodenal collaterals. Dukes 1 catheter was then removed over Bentson wire. Digital subtraction angiography was performed to the sheath demonstrating patency of the left common iliac artery, but moderate spasm of the left internal iliac artery, external iliac artery, common femoral artery, profunda femoral artery, and proximal superficial femoral artery. This spasm was secondary to recent hemorrhagic shock, and made the vessel not amenable to a closure device due to the high risk of occlusion of a closure device was used. Ultrasound was used to identify the right common femoral vein. The right common femoral vein area was anesthetized with 1% lidocaine, and subsequently a 21-gauge micropuncture needle was passed into the right common femoral vein. 0.018 inch wire was passed into the IVC. This was exchanged for a transitional dilator. Wire was exchanged for 0.035 inch J wire. Transitional dilator was exchanged for serial dilator and subsequently a 7 Angolan triple lumen catheter. The tip of the TLC catheter was used in the IVC, selecting the IVC. Digital subtraction angiography was performed through the triple-lumen catheter with the tip in the IVC demonstrating patency of the IVC in proper position of the catheter. The catheter was secured with 2-0 Ethilon. Biopatch and sterile dressing applied. Left common femoral artery sheath was then removed and pressure was held for 10 minutes until hemostasis was achieved. Mild pressure dressing applied. The patient tolerated the procedure without incident. Patient was transported back to the intensive care unit without issue. FINDINGS: Please see the procedure report above IMPRESSION: 1. Extravasation from the gastroduodenal artery status post coil embolization of the gastroduodenal artery with occlusion of the gastroduodenal artery. Access was from the left common femoral artery. 2. Successful placement of a 7 Angolan triple-lumen catheter in the right common femoral vein.
--- NOTE | 2016-05-09 19:47 | Operative Report ---
PROCEDURE PERFORMED: Esophagogastroduodenoscopy with endoscopic clipping and epinephrine injection. PREOPERATIVE DIAGNOSIS: Hematemesis. POSTOPERATIVE DIAGNOSES: Actively bleeding duodenal ulcer, no evidence of varices, probable aspiration events based on blood in the oropharynx and at the vocal cords at the start of the procedure. ENDOSCOPIST: Neil Najera MD INSTRUMENT: SIGFOX video endoscope. MEDICATIONS: MAC anesthesia by Anesthesia Services. COMPLICATIONS: No apparent complications. ESTIMATED BLOOD LOSS: Minimal. SPECIMENS: Gastric antrum. COMPLICATIONS: No apparent complications. IMPLANTS: Endoscopic clipping x1. ASSISTANTS: None. CONDITION AT COMPLETION: Critical, but no change from baseline. TECHNIQUE: The patient was informed of the risks and benefits of the procedure. He signed the informed consent to proceed. He was placed in the left lateral decubitus position. The above sedative medications were given. His vital signs remained stable throughout the procedure. The instrument was advanced from the mouth to the second portion of the duodenum under direct visualization. At that point, the bowel was insufflated and the endoscope was slowly withdrawn. FINDINGS: 1. A 2 cm cratered duodenal ulcer in the bulb that appeared to be in the posterior area. A. There was a large visible vessel and gross bleeding in the duodenum. B. We attempted endoscopic clipping x1 as well as submucosal epinephrine, 4 mL, but the ulcer was still actively bleeding at the time of the end of the procedure. 2. Large amount of dried blood in the fundus, but no obvious ulcer or gastric varices. 3. No evidence of esophageal varices. 4. Blood in the oropharynx and vocal cords noted at the start of the procedure and the patient likely aspirated either at home or in the Emergency Room. RECOMMENDATIONS: 1. Discussed the case with Interventional Radiology. Given his active bleeding of a duodenal ulcer and he will need further therapy. 2. Given his comorbidities, I would favor interventional radiology rather than General Surgery at the present time. 3. Continue nothing by mouth status with Protonix and octreotide drips. 4. Continue transfusion given the patient's relative hypotension. 5. ICU monitoring. 6. Note made of blood in the oropharynx and the vocal cords at the start of the procedure; the patient probably aspirated at home and we will start broad-spectrum antibiotics to cover for pneumonia. JOB# [id number] JENN/NTS
--- NOTE | 2016-05-09 19:51 | Event Note ---
Date: 05/09/16 H&H provided at the end of the procedure. H&H demonstrates excellent response to blood. Tolerated procedure well. Will need to keep left leg flat until tomorrow AM. Will need to be in restraints until tomorrow AM. If he moves leg in the next 6 hrs, then he may bleed at the arterial puncture site. Discussed with the nurse. TLC okay for use. Discussed findings with Dr. Najera.
[2016-05-09] MEDS ORDERED: LASIX IV ONE (22:59)
[2016-05-09 23:52] LABS: Hematocrit 45.8 % (35.5-45.6); Hemoglobin 14.4 gm/dl (11.8-15.2)
[2016-05-10] MEDS: ATIVAN IV PRN ×2 (00:15→17:58)
[2016-05-10] MEDS: ZOSYN/NS 4.5GM/100ML 4.5 GM/100 ML VIAL IV SCH ×3 (01:04→13:01)
[2016-05-10] MEDS: PROTONIX 80 MG in NACL 0.9% 100 ML IV SCH ×3 (02:05→21:55)
[2016-05-10 03:09] LABS: Hematocrit 44.5 % (35.5-45.6); Mean Corpuscular HGB Conc 32 % (32-34); Mean Corpuscular Hemoglobin 28 pg (28-32); Mean Corpuscular Volume 88 fl (84-94); Red Blood Count 5.05 M/mm3 (3.65-5.03); Red Cell Distribution Width 17.9 % (13.2-15.2)
[2016-05-10 03:10] LABS: Platelet Count 70 K/mm3 (140-440); White Blood Count 22.4 K/mm3 (4.5-11.0)
[2016-05-10 04:40] LABS: Hematocrit 41.5 % (35.5-45.6); Hemoglobin 13.2 gm/dl (11.8-15.2); Mean Corpuscular HGB Conc 32 % (32-34); Mean Corpuscular Hemoglobin 28 pg (28-32); Mean Corpuscular Volume 88 fl (84-94); Red Blood Count 4.74 M/mm3 (3.65-5.03)
[2016-05-10 04:42] LABS: Platelet Count 68 K/mm3 (140-440); White Blood Count 20.7 K/mm3 (4.5-11.0)
[2016-05-10 05:00] LABS: Alanine Aminotransferase 18 units/L (7-56); Albumin 1.8 g/dL (3.9-5); Albumin/Globulin Ratio 1.1 %; Alkaline Phosphatase 54 units/L (35-129); Anion Gap 13 mmol/L; BUN/Creatinine Ratio 26.25; Bilirubin,Total 0.5 mg/dL (0.1-1.2); Blood Urea Nitrogen 21 mg/dL (9-20); Carbon Dioxide 25 mmol/L (22-30); Chloride 110.4 mmol/L (98-107); Glucose 47 mg/dL (75-100); Potassium 4.4 mmol/L (3.6-5.0); Sodium 144 mmol/L (137-145); Total Protein 3.4 g/dL (6.3-8.2)
[2016-05-10 05:03] LABS: Calcium 5.7 mg/dL (8.4-10.2)
[2016-05-10] MEDS: PITRESSin 20 UNIT in NACL 0.9% 100 ML IV SCH ×4 (05:23→20:32)
[2016-05-10 05:51] LABS: Blastocytes % (Manual) 0 %
[2016-05-10 05:52] LABS: Anisocytosis 1+; Basophils % (Manual) 0 % (0.0-1.8); Diff Status Complete; Eosinophils % (Manual) 0 % (0.0-4.3); Platelet Estimate Appears Decreased
[2016-05-10 06:32] LABS: Basophils % (Manual) 0 % (0.0-1.8); Blastocytes % (Manual) 0 %; Eosinophils % (Manual) 0 % (0.0-4.3)
[2016-05-10 06:33] LABS: Anisocytosis 1+
[2016-05-10 06:36] LABS: Diff Status Complete; Platelet Estimate Appears Decreased
--- NOTE | 2016-05-10 08:48 | Consultation ---
History of Present Illness Consult date: 05/10/16 History of present illness: Called to evaluate patient admitted to the ICU with a history of GI bleeding, severe anemia, sepsis, HIV, AMS. Patient currently nonresponsive and sedated from prior procedure and no family available at the bedside. History obtained from chart review. 56-year-old male with HIV (CD4 not available, possible AIDS), alcohol abuse, smoking abuse, who denies NSAID abuse who previously presented 2 weeks ago with rectal bleeding, left AMA, and now re-presented with hematemesis. He received 2 unit packed red blood cells, is receiving a third unit now, and will be receiving a fourth unit afterwards. Probably noncompliant to prior treatments based on prior admission notes. He had an endoscopy by Dr. rondon demonstrating the following 1. 2cm cratered DU in the bulb (appeared posterior) with a large VV and gross blood in duodenum - Attempted clipping (x1) and submucosal epinephrine (4ml) but ulcer still oozing 2. Large amount of dried blood in fundus, but no obvious ulcer or gastric varices 3. No esophageal varices 4. Blood in oropharynx and cords noted at start of procedure (likely aspirated at home and in ER) Interventional radiology was called and the patient had an embolectomy procedure. Currently he is at the ICU on a vasopressin drip after at least 3 units PRBC been transfused. Past History Past Medical History: COPD, HIV/AIDS (CD4 unknown), other (Noncompliance recent GI bleeding,) Past Surgical History: Other (Hip Surgery). denies: appendectomy, CABG, bowel surgery Social history: smoking, alcohol abuse, full code. denies: prescription drug abuse Family history: no significant family history Medications and Allergies Allergies Allergy/AdvReac Type Severity Reaction Status Date / Time No Known Allergies Allergy Verified 04/16/15 01:31 Home Medications Medication Instructions Recorded Confirmed Last Taken Type ALBUTEROL Inhaler [ProAir HFA 2 puff IH QID PRN #1 inhalation 04/16/15 04/28/16 Unknown Rx Inhaler] Active Meds: Active Medications Al Hydrox/Mg Hydrox/Simethicone (Alum-Mag Hydrox-Simeth [id number]/5ml) 30 ml PO Q4H PRN PRN Reason: Indigestion Bisacodyl (Dulcolax) 10 mg NV QDAY PRN PRN Reason: constipation unrelieved by MOM Octreotide Acetate 500 mcg/ (Sodium Chloride) 101 mls @ 5.05 mls/hr IV ONCE.ED ONE; 25 MCG/HR PRN Reason: Protocol Stop: 05/10/16 08:56 Last Admin: 05/09/16 13:56 Dose: 5.05 mls/hr Pantoprazole Sodium 80 mg/ (Sodium Chloride) 100 mls @ 10 mls/hr IV Q10H ARUNA PRN Reason: 8 MG/HR Last Admin: 05/10/16 02:05 Dose: 8 mg/hr, 10 mls/hr Sodium Chloride (Nacl 0.9% 1000 Ml) 1,000 mls @ 0 mls/hr IV DIRECT ARUNA PRN Reason: Wide Open Last Admin: 05/10/16 03:36 Dose: 999 mls/hr Piperacillin Sod/Tazobactam Sod (Zosyn/Ns 4.5gm/100ml) 4.5 gm in 100 mls @ 200 mls/hr IV Q8H ARUNA PRN Reason: Protocol Last Admin: 05/10/16 03:39 Dose: Not Given Vasopressin 20 unit/ Sodium (Chloride) 101 mls @ 12.12 mls/hr IV TITR ARUNA; 0.04 UNITS/MIN PRN Reason: Protocol Last Admin: 05/10/16 05:24 Dose: 0.04 units/min, 12.12 mls/hr Lorazepam (Ativan) 2 mg PO Q1H PRN PRN Reason: CIWA-Ar 8-15 Lorazepam (Ativan) 4 mg IV Q1H PRN PRN Reason: CIWA-Ar 16-25 Last Admin: 05/10/16 00:15 Dose: 2 mg Magnesium Hydroxide (Milk Of Magnesia) 30 ml PO Q4H PRN PRN Reason: Constipation Metoclopramide HCl (Reglan) 10 mg IV Q6H PRN PRN Reason: Nausea And Vomiting Ondansetron HCl (Zofran) 4 mg IV Q8H PRN PRN Reason: N/V unrelieved by Reglan Review of Systems ROS unobtainable: due to mental status Physical Examination Vital signs: Vital Signs Temp Pulse BP Pulse Ox 95.4 F L 125 H 66/46 97 05/09/16 11:53 05/09/16 11:53 05/09/16 11:53 05/09/16 11:53 General appearance: lethargic, appears uncomfortable, other (mild to moderate distress noted) Eyes: non-icteric ENT: oropharynx dry Neck: supple, no JVD Effort: mildly labored Ascultation: Bilateral: clear, rhonchi (occasional transmitted) Cardiovascular: regular rate and rhythm Gastrointestinal: hypoactive bowel sounds, other (possible ascites) Extremities: no cyanosis, edema (+1 both lower extremities) other (lethargic, prior lorazepam on CIOH protocol) Results - Laboratory Findings CBC and BMP: 05/10/16 04:25 05/10/16 04:25 ABG POC ABG pH 7.229 (7.35-7.45) L 05/09/16 13:19 POC ABG pCO2 51.1 (35-45) H 05/09/16 13:19 POC ABG pO2 125 (80-105) H 05/09/16 13:19 POC ABG HCO3 21.4 05/09/16 13:19 POC ABG Total CO2 23 05/09/16 13:19 POC ABG O2 Sat 98 05/09/16 13:19 PT/INR, D-dimer PT 16.6 Sec. (12.2-14.9) H 05/09/16 12:06 INR 1.35 (0.87-1.13) H 05/09/16 12:06 Abnormal lab findings: Abnormal Labs 05/09/16 05/10/16 05/10/16 23:00 02:46 04:25 WBC 22.4 H 20.7 H RBC 5.05 H Hct 45.8 H D RDW 17.9 H 18.0 H Plt Count 70 L 68 L Seg Neuts % (Manual) 92.0 H 92.0 H Lymphocytes % (Manual) 1.0 L 0 L Seg Neutrophils # Man 20.6 H 19.0 H Lymphocytes # (Manual) 0.2 L 0.0 L Chloride BUN Glucose Calcium Total Protein Albumin 05/10/16 04:25 WBC RBC Hct RDW Plt Count Seg Neuts % (Manual) Lymphocytes % (Manual) Seg Neutrophils # Man Lymphocytes # (Manual) Chloride 110.4 H BUN 21 H Glucose 47 L Calcium 5.7 L* Total Protein 3.4 L Albumin 1.8 L - Diagnostic Findings Chest x-ray: image reviewed Assessment and Plan Severe sepsis. Source unknown. Leukocytosis could also be reactive to GI bleeding episodes Shock. Multifactorial GI bleeding episode AMS HIV. Not on treatment Prior history of alcohol abuse. Recommendations Continue pressors. Checks her BP from current central line maintained around 10 Epinephrine drip, maintain MEP over 60 Monitor MAXINE Update lactate Update ABGs Serial H&H and watch for bleeding Albumin replacement Agree with Zosyn will consider adding a second time or ciprofloxacin/Levaquin Monitor cultures and adjust treatment based on culture results Check CD3/CD4 Prognosis poor Critical care time was 40 minutes in oski-zo-flux evaluation and coordination of care
--- NOTE | 2016-05-10 09:38 | Consultation ---
History of Present Illness Consult date: 05/10/16 Requesting physician: RACHNA MARAVILLA Consult reason: elevated troponin History of present illness: The patient is a 56 year old male with a history of COPD, HIV, etoh abuse who was noted by bystanders to be unresponsive and EMS was called. Per ER documentation, there was a long trail of bloody emesis from his apartment down the hallway. He is known to be a heavy drinker and was recently admitted for rectal bleeding and diverticulosis but signed out AMA. Hemoglobin on arrival was 5.8 with a hematocrit of 19.2. INR 1.35. Troponin level is mildly elevated. EGD revealed a bleeding duodenal ulcer and he underwent coil embolization of the gastroduodenal artery. Currently he is minimally responsive on bipap. No acute distress noted. Past History Past Medical History: COPD, HIV/AIDS (CD4 unknown), other (Noncompliance recent GI bleeding) Past Surgical History: Other (Hip Surgery) Social history: smoking, alcohol abuse, full code. denies: prescription drug abuse Family history: no significant family history Medications and Allergies Allergies Allergy/AdvReac Type Severity Reaction Status Date / Time No Known Allergies Allergy Verified 04/16/15 01:31 Home Medications Medication Instructions Recorded Confirmed Last Taken Type ALBUTEROL Inhaler [ProAir HFA 2 puff IH QID PRN #1 inhalation 04/16/15 04/28/16 Unknown Rx Inhaler] Active Meds: Active Medications Al Hydrox/Mg Hydrox/Simethicone (Alum-Mag Hydrox-Simeth [phone]/5ml) 30 ml PO Q4H PRN PRN Reason: Indigestion Bisacodyl (Dulcolax) 10 mg NV QDAY PRN PRN Reason: constipation unrelieved by MOM Pantoprazole Sodium 80 mg/ (Sodium Chloride) 100 mls @ 10 mls/hr IV Q10H ARUNA PRN Reason: 8 MG/HR Last Admin: 05/10/16 02:05 Dose: 8 mg/hr, 10 mls/hr Sodium Chloride (Nacl 0.9% 1000 Ml) 1,000 mls @ 0 mls/hr IV DIRECT ARUNA PRN Reason: Wide Open Last Admin: 05/10/16 03:36 Dose: 999 mls/hr Piperacillin Sod/Tazobactam Sod (Zosyn/Ns 4.5gm/100ml) 4.5 gm in 100 mls @ 200 mls/hr IV Q8H ARUNA PRN Reason: Protocol Last Admin: 05/10/16 03:39 Dose: Not Given Vasopressin 20 unit/ Sodium (Chloride) 101 mls @ 12.12 mls/hr IV TITR ARUNA; 0.04 UNITS/MIN PRN Reason: Protocol Last Admin: 05/10/16 05:24 Dose: 0.04 units/min, 12.12 mls/hr Lorazepam (Ativan) 2 mg PO Q1H PRN PRN Reason: CIWA-Ar 8-15 Lorazepam (Ativan) 4 mg IV Q1H PRN PRN Reason: CIWA-Ar 16-25 Last Admin: 05/10/16 00:15 Dose: 2 mg Magnesium Hydroxide (Milk Of Magnesia) 30 ml PO Q4H PRN PRN Reason: Constipation Metoclopramide HCl (Reglan) 10 mg IV Q6H PRN PRN Reason: Nausea And Vomiting Ondansetron HCl (Zofran) 4 mg IV Q8H PRN PRN Reason: N/V unrelieved by Reglan Review of Systems ROS unobtainable: due to mental status Physical Examination Last Vital Signs Temp 98.4 F 05/10/16 04:25 Pulse 96 H 05/10/16 10:10 Resp 38 H 05/10/16 10:10 BP 86/51 05/10/16 10:10 Pulse Ox 94 05/10/16 10:10 General appearance: no acute distress (minimally responsive on bipap) HEENT: Positive: Normocephaly, Mucus Membranes Moist Neck: Positive: neck supple, trachea midline Cardiac: Positive: Reg Rate and Rhythm, S1/S2 Lungs: Positive: Rhonchi Neuro: Positive: Other (minimally responsive on bipap) Abdomen: Positive: Soft Extremities: Absent: edema Results 05/10/16 04:25 05/10/16 04:25 Cardiac Enzymes 05/10/16 Range/Units 04:25 AST 30 (5-40) units/L CBC 05/09/16 05/09/16 05/10/16 Range/Units 18:59 23:00 02:46 WBC 22.4 H (4.5-11.0) K/mm3 RBC 5.05 H (3.65-5.03) M/mm3 Hgb 11.8 D 14.4 14.0 (11.8-15.2) gm/dl Hct 36.4 D 45.8 H D 44.5 (35.5-45.6) % Plt Count 70 L (140-440) K/mm3 05/10/16 Range/Units 04:25 WBC 20.7 H (4.5-11.0) K/mm3 RBC 4.74 (3.65-5.03) M/mm3 Hgb 13.2 (11.8-15.2) gm/dl Hct 41.5 (35.5-45.6) % Plt Count 68 L (140-440) K/mm3 Comprehensive Metabolic Panel 05/10/16 Range/Units 04:25 Sodium 144 (137-145) mmol/L Potassium 4.4 (3.6-5.0) mmol/L Chloride 110.4 H (98-107) mmol/L Carbon Dioxide 25 (22-30) mmol/L BUN 21 H (9-20) mg/dL Creatinine 0.8 (0.8-1.5) mg/dL Glucose 47 L (75-100) mg/dL Calcium 5.7 L* (8.4-10.2) mg/dL AST 30 (5-40) units/L ALT 18 (7-56) units/L Alkaline Phosphatase 54 (35-129) units/L Total Protein 3.4 L (6.3-8.2) g/dL Albumin 1.8 L (3.9-5) g/dL - Imaging and Cardiology Echo: pending EKG: image reviewed EKG interpretations - Telemetry EKG Rhythm: Sinus Tachycardia - EKG Sinus rhythms and dysrhythmias: sinus rhythm Repolarization changes or abnormalities: nonspecific abnormality, ST segment, and/or T wave Assessment and Plan Elevated troponin-->may be due to demand ischemia will obtain additional sets of enzymes obtain echocardiogram Bleeding duodenal ulcer/Anemia s/p coil embolization of gastroduodenal artery ETOH abuse Tobacco abuse HIV Will obtain additional sets of cardiac enzymes. Obtain echocardiogram. Further recommendations to follow. The patient has been seen in conjunction with Dr. Dias who agrees with the assessment and plan of care. Thank you Dr. Maravilla for allowing us to participate in the care of this patient.
[2016-05-10] MEDS ORDERED: NACL 0.9% 500 ML 500 ML IV SCH ×2 (10:00→13:00)
[2016-05-10 10:37] LABS: Creatine Kinase MB 11.5 ng/mL (0.0-4.0)
[2016-05-10 11:43] LABS: ISTAT Base Excess -6; ISTAT HCO3 22.9; ISTAT PCO2 65.4 (35-45); ISTAT PH 7.152 (7.35-7.45); ISTAT PO2 48 (80-105); ISTAT SO2 70; ISTAT TCO2 25
[2016-05-10] MEDS ORDERED: LEVOPHED 8 MG in NACL 0.9% 250ML 242 ML IV SCH (13:00)
[2016-05-10] MEDS ORDERED: D50W (25GM) IV ONE (13:29)
--- NOTE | 2016-05-10 13:32 | Admit Criteria Form ---
Admission Criteria Documentation: GASTROINTESTINAL BLEEDING Clinical Indications for Inpatient Care (Place 'X' for any and all applicable criteria): Ongoing inpatient care may be indicated for gastrointestinal bleeding with ANY ONE of the following (4)(20)(21)(22)(23)(24): [X]I. Active bleeding (eg, fresh voluminous blood in emesis or nasogastric aspirate, or per rectum) [ ]II. Hemodynamic instability [ ]III. Anticoagulation therapy or coagulopathy ((eg, advanced liver disease, irreversible anticoagulation) [ ]IV. Ischemic colitis (22) [ ]V. Endoscopy showing arterial bleeding, adherent clot, nonbleeding visible vessel, varices, flat red spots, ulcer size greater than 2 cm, or portal hypertensive gastropathy [ ]. High-risk low platelet count [X]VII. Anemia requiring inpatient care as indicated by ANY ONE of the following a)[ ] Cognitive impairment b)[X] Syncope c)[ ] Heart failure d)[ ] Chest pain e)[ ] Dyspnea f)[X] Other findings suggesting inadequate perfusion (eg, peripheral or myocardial ischemia, end organ dysfunction) [ ]VIII. High-risk low platelet count [ ]IX. Suspected variceal cause of bleeding as indicated by ANY ONE of the following(27)(28): a)[ ] Known varices b)[ ] Hepatomegaly or splenomegaly c)[ ] Ascites d)[ ] Jaundice or scleral icterus e)[ ] History of liver disease (eg, cirrhosis) f)[ ] Physical findings of portal hypertension (eg, caput medusa) g)[ ] Comorbid disorder indicating risk for portal vein thrombosis (eg , abdominal surgery, sepsis, shock, exchange transfusion, prior umbilical vein catheterization) Extended stay may be needed until ALL of the following are present(20)(38)(47): [ ]a) Hemodynamic stability [ ]b) No evidence of active bleeding (eg, stable Hematocrit) [ ]c) Platelet count, prothrombin time, and partial thromboplastin time acceptable for next level of care [ ]d) Surgical or other acute intervention not needed [ ]e) Oral hydration and diet tolerated The original [facility] content created by [employer] has been revised. The portions of the content which have been revised are identified through the use of italic text or in bold, and [facility] has neither reviewed nor approved the modified material. All other unmodified content is copyright [facility]. Please see references footnoted in the original [facility] edition 2016 Admission Criteria Met: Yes
--- NOTE | 2016-05-10 13:59 | XRay Report ---
AP CHEST: HISTORY: Endotracheal tube placement. An endotracheal tube has been inserted which terminates 3 cm superior to the madhu. Patchy infiltrate has developed in the left upper lobe and medial left lower lobe since 05/09/16. The right lung remains clear. Heart size is within normal limits. IMPRESSION: Adequate placement of the endotracheal tube. Possible left lung pneumonia as described.
[2016-05-10] MEDS ORDERED: NACL 0.9% 1000 ML 1,000 ML IV SCH (14:00)
--- NOTE | 2016-05-10 14:10 | Gastroenterology Progress Note ---
Assessment and Plan 56yo man with HIV a/w acute blood loss/anemia/hematemesis; s/p EGD with large cratered duodenal ulcer, not amenable to endoscopic therapy. He is s/p IR intervention yesterday with GDA embolization. He became hypotensive and acidotic overnight and is now intubated and on pressors. Rec: 1) Check STAT CT A/P w/o contrast to r/u full thickness perforation from DU; if + for perforation, pt will need emergency surgery 2) STAT Hb 3) D/W Dr. Villalba, who states unlikely for additional IR intervention to be successful from an upper GI standpoint 4) Ischemic colitis is also possible, from low flow state 5) No need to continue Octreotide 6) Cont Protonix Subjective Date of service: 05/10/16 Principal diagnosis: Acute blood loss/anemia/duodenal ulcer Interval history: Pt seen/examined. S/P GDA embolization yesterday. Overnight, pt was hypotensive and was given fluid bolus with unsatisfactory response. Subsequently started on pressors. Pt was intubated at 12 PM today and pH was 7.11 on ABG. Noted to have bloody BM once again, which I was able to see; stool appears more maroon, rather than melenic. Objective - Constitutional Vitals: Temp Pulse Resp BP Pulse Ox 98.4 F 96 H 13 98/56 100 05/10/16 04:25 05/10/16 13:00 05/10/16 13:00 05/10/16 13:00 05/10/16 12:33 General appearance: other (Intubated) - EENT ENT: other (+ETT) - Neck Neck: supple - Respiratory Respiratory: bilateral: other (coarse BS B/L) - Cardiovascular Rhythm: regular Heart Sounds: Present: S1 & S2 (tachycardic) - Extremities Extremities: No edema - Gastrointestinal General gastrointestinal: Present: soft, non-distended, normal bowel sounds - Labs CBC & Chem 7: 05/10/16 04:25 05/10/16 04:25 Labs: Laboratory Results - last 24 hr 05/09/16 05/09/16 05/09/16 18:59 23:00 23:00 WBC RBC Hgb 11.8 D Hct 36.4 D MCV MCH MCHC RDW Plt Count Add Manual Diff Total Counted Seg Neuts % (Manual) Band Neutrophils % Lymphocytes % (Manual) Reactive Lymphs % (Man) Monocytes % (Manual) Eosinophils % (Manual) Basophils % (Manual) Metamyelocytes % Myelocytes % Promyelocytes % Blast Cells % Nucleated RBC % Seg Neutrophils # Man Band Neutrophils # Lymphocytes # (Manual) Abs React Lymphs (Man) Monocytes # (Manual) Eosinophils # (Manual) Basophils # (Manual) Metamyelocytes # Myelocytes # Promyelocytes # Blast Cells # WBC Morphology Hypersegmented Neuts Hyposegmented Neuts Hypogranular Neuts Smudge Cells Toxic Granulation Toxic Vacuolation Dohle Bodies Pelger-Huet Anomaly Amari Rods Platelet Estimate Clumped Platelets Plt Clumps, EDTA Large Platelets Giant Platelets Platelet Satelliting Plt Morphology Comment RBC Morphology Dimorphic RBCs Polychromasia Hypochromasia Poikilocytosis Anisocytosis Microcytosis Macrocytosis Spherocytes Pappenheimer Bodies Sickle Cells Target Cells Tear Drop Cells Ovalocytes Helmet Cells Fenton-[place] Bodies [place] Rings Ron Cells Bite Cells Crenated Cell Elliptocytes Acanthocytes (Spur) Rouleaux Hemoglobin C Crystals Schistocytes Malaria parasites Kasi Bodies Hem Pathologist Commnt POC ABG pH POC ABG pCO2 POC ABG pO2 POC ABG HCO3 POC ABG Total CO2 POC ABG O2 Sat POC ABG Base Excess FiO2 Sodium Potassium Chloride Carbon Dioxide Anion Gap BUN Creatinine Estimated GFR BUN/Creatinine Ratio Glucose Lactic Acid 1.1 Calcium Total Bilirubin AST ALT Alkaline Phosphatase Ammonia 33.0 Total Creatine Kinase CK-MB (CK-2) CK-MB (CK-2) Rel Index Troponin T Total Protein Albumin Albumin/Globulin Ratio Triglycerides Cholesterol LDL Cholesterol Direct HDL Cholesterol Cholesterol/HDL Ratio Hep Bs Antigen Hepatitis C Antibody 05/09/16 05/10/16 05/10/16 23:00 02:46 04:25 WBC 22.4 H 20.7 H RBC 5.05 H 4.74 Hgb 14.4 14.0 13.2 Hct 45.8 H D 44.5 41.5 MCV 88 D 88 MCH 28 28 MCHC 32 32 RDW 17.9 H 18.0 H Plt Count 70 L 68 L Add Manual Diff Complete Complete Total Counted 100 100 Seg Neuts % (Manual) 92.0 H 92.0 H Band Neutrophils % 6.0 3.0 Lymphocytes % (Manual) 1.0 L 0 L Reactive Lymphs % (Man) 0 0 Monocytes % (Manual) 1.0 4.0 Eosinophils % (Manual) 0 0 Basophils % (Manual) 0 0 Metamyelocytes % 0 0 Myelocytes % 0 1.0 Promyelocytes % 0 0 Blast Cells % 0 0 Nucleated RBC % Not Reportable Not Reportable Seg Neutrophils # Man 20.6 H 19.0 H Band Neutrophils # 1.3 0.6 Lymphocytes # (Manual) 0.2 L 0.0 L Abs React Lymphs (Man) 0.0 0.0 Monocytes # (Manual) 0.2 0.8 Eosinophils # (Manual) 0.0 0.0 Basophils # (Manual) 0.0 0.0 Metamyelocytes # 0.0 0.0 Myelocytes # 0.0 0.2 Promyelocytes # 0.0 0.0 Blast Cells # 0.0 0.0 WBC Morphology Not Reportable Not Reportable Hypersegmented Neuts Not Reportable Not Reportable Hyposegmented Neuts Not Reportable Not Reportable Hypogranular Neuts Not Reportable Not Reportable Smudge Cells Not Reportable Not Reportable Toxic Granulation Not Reportable Not Reportable Toxic Vacuolation Not Reportable Not Reportable Dohle Bodies Not Reportable Not Reportable Pelger-Huet Anomaly Not Reportable Not Reportable Amari Rods Not Reportable Not Reportable Platelet Estimate Appears decreased Appears decreased Clumped Platelets Not Reportable Not Reportable Plt Clumps, EDTA Not Reportable Not Reportable Large Platelets Not Reportable Not Reportable Giant Platelets Not Reportable Not Reportable Platelet Satelliting Not Reportable Not Reportable Plt Morphology Comment Not Reportable Not Reportable RBC Morphology Not Reportable Not Reportable Dimorphic RBCs Not Reportable Not Reportable Polychromasia Not Reportable Not Reportable Hypochromasia Not Reportable Not Reportable Poikilocytosis Not Reportable Not Reportable Anisocytosis 1+ 1+ Microcytosis Not Reportable Not Reportable Macrocytosis Not Reportable Not Reportable Spherocytes Not Reportable Not Reportable Pappenheimer Bodies Not Reportable Not Reportable Sickle Cells Not Reportable Not Reportable Target Cells Not Reportable Not Reportable Tear Drop Cells Not Reportable Not Reportable Ovalocytes Not Reportable Not Reportable Helmet Cells Not Reportable Not Reportable Fenton-[place] Bodies Not Reportable Not Reportable [place] Rings Not Reportable Not Reportable Ron Cells Not Reportable Not Reportable Bite Cells Not Reportable Not Reportable Crenated Cell Not Reportable Not Reportable Elliptocytes Not Reportable Not Reportable Acanthocytes (Spur) Not Reportable Not Reportable Rouleaux Not Reportable Not Reportable Hemoglobin C Crystals Not Reportable Not Reportable Schistocytes Not Reportable Not Reportable Malaria parasites Not Reportable Not Reportable Kasi Bodies Not Reportable Not Reportable Hem Pathologist Commnt No No POC ABG pH POC ABG pCO2 POC ABG pO2 POC ABG HCO3 POC ABG Total CO2 POC ABG O2 Sat POC ABG Base Excess FiO2 Sodium Potassium Chloride Carbon Dioxide Anion Gap BUN Creatinine Estimated GFR BUN/Creatinine Ratio Glucose Lactic Acid Calcium Total Bilirubin AST ALT Alkaline Phosphatase Ammonia Total Creatine Kinase CK-MB (CK-2) CK-MB (CK-2) Rel Index Troponin T Total Protein Albumin Albumin/Globulin Ratio Triglycerides Cholesterol LDL Cholesterol Direct HDL Cholesterol Cholesterol/HDL Ratio Hep Bs Antigen Hepatitis C Antibody 05/10/16 05/10/16 05/10/16 04:25 04:25 04:25 WBC RBC Hgb Hct MCV MCH MCHC RDW Plt Count Add Manual Diff Total Counted Seg Neuts % (Manual) Band Neutrophils % Lymphocytes % (Manual) Reactive Lymphs % (Man) Monocytes % (Manual) Eosinophils % (Manual) Basophils % (Manual) Metamyelocytes % Myelocytes % Promyelocytes % Blast Cells % Nucleated RBC % Seg Neutrophils # Man Band Neutrophils # Lymphocytes # (Manual) Abs React Lymphs (Man) Monocytes # (Manual) Eosinophils # (Manual) Basophils # (Manual) Metamyelocytes # Myelocytes # Promyelocytes # Blast Cells # WBC Morphology Hypersegmented Neuts Hyposegmented Neuts Hypogranular Neuts Smudge Cells Toxic Granulation Toxic Vacuolation Dohle Bodies Pelger-Huet Anomaly Amari Rods Platelet Estimate Clumped Platelets Plt Clumps, EDTA Large Platelets Giant Platelets Platelet Satelliting Plt Morphology Comment RBC Morphology Dimorphic RBCs Polychromasia Hypochromasia Poikilocytosis Anisocytosis Microcytosis Macrocytosis Spherocytes Pappenheimer Bodies Sickle Cells Target Cells Tear Drop Cells Ovalocytes Helmet Cells [place] Bodies [place] Rings Ron Cells Bite Cells Crenated Cell Elliptocytes Acanthocytes (Spur) Rouleaux Hemoglobin C Crystals Schistocytes Malaria parasites Kasi Bodies Hem Pathologist Commnt POC ABG pH POC ABG pCO2 POC ABG pO2 POC ABG HCO3 POC ABG Total CO2 POC ABG O2 Sat POC ABG Base Excess FiO2 Sodium 144 Potassium 4.4 Chloride 110.4 H Carbon Dioxide 25 Anion Gap 13 BUN 21 H Creatinine 0.8 Estimated GFR > 60 BUN/Creatinine Ratio 26.25 Glucose 47 L Lactic Acid Calcium 5.7 L* Total Bilirubin 0.5 AST 30 ALT 18 Alkaline Phosphatase 54 Ammonia Total Creatine Kinase CK-MB (CK-2) CK-MB (CK-2) Rel Index Troponin T Total Protein 3.4 L Albumin 1.8 L Albumin/Globulin Ratio 1.1 Triglycerides Cholesterol LDL Cholesterol Direct HDL Cholesterol Cholesterol/HDL Ratio Hep Bs Antigen Non-reactive Hepatitis C Antibody Non-reactive 05/10/16 05/10/16 05/10/16 09:55 09:55 11:13 WBC RBC Hgb Hct MCV MCH MCHC RDW Plt Count Add Manual Diff Total Counted Seg Neuts % (Manual) Band Neutrophils % Lymphocytes % (Manual) Reactive Lymphs % (Man) Monocytes % (Manual) Eosinophils % (Manual) Basophils % (Manual) Metamyelocytes % Myelocytes % Promyelocytes % Blast Cells % Nucleated RBC % Seg Neutrophils # Man Band Neutrophils # Lymphocytes # (Manual) Abs React Lymphs (Man) Monocytes # (Manual) Eosinophils # (Manual) Basophils # (Manual) Metamyelocytes # Myelocytes # Promyelocytes # Blast Cells # WBC Morphology Hypersegmented Neuts Hyposegmented Neuts Hypogranular Neuts Smudge Cells Toxic Granulation Toxic Vacuolation Dohle Bodies Pelger-Huet Anomaly Amari Rods Platelet Estimate Clumped Platelets Plt Clumps, EDTA Large Platelets Giant Platelets Platelet Satelliting Plt Morphology Comment RBC Morphology Dimorphic RBCs Polychromasia Hypochromasia Poikilocytosis Anisocytosis Microcytosis Macrocytosis Spherocytes Pappenheimer Bodies Sickle Cells Target Cells Tear Drop Cells Ovalocytes Helmet Cells Fenton-[place] Bodies [place] Rings Ron Cells Bite Cells Crenated Cell Elliptocytes Acanthocytes (Spur) Rouleaux Hemoglobin C Crystals Schistocytes Malaria parasites Kasi Bodies Hem Pathologist Commnt POC ABG pH 7.152 L POC ABG pCO2 65.4 H POC ABG pO2 48 L POC ABG HCO3 22.9 POC ABG Total CO2 25 POC ABG O2 Sat 70 POC ABG Base Excess -6 FiO2 55 Sodium Potassium Chloride Carbon Dioxide Anion Gap BUN Creatinine Estimated GFR BUN/Creatinine Ratio Glucose Lactic Acid 1.0 Calcium Total Bilirubin AST ALT Alkaline Phosphatase Ammonia Total Creatine Kinase 151 CK-MB (CK-2) 11.5 H CK-MB (CK-2) Rel Index 7.6 H Troponin T 0.105 H* Total Protein Albumin Albumin/Globulin Ratio Triglycerides 77 Cholesterol 56 LDL Cholesterol Direct 13 L HDL Cholesterol 28 L Cholesterol/HDL Ratio 2.00 Hep Bs Antigen Hepatitis C Antibody 05/10/16 11:24 WBC RBC Hgb Hct MCV MCH MCHC RDW Plt Count Add Manual Diff Total Counted Seg Neuts % (Manual) Band Neutrophils % Lymphocytes % (Manual) Reactive Lymphs % (Man) Monocytes % (Manual) Eosinophils % (Manual) Basophils % (Manual) Metamyelocytes % Myelocytes % Promyelocytes % Blast Cells % Nucleated RBC % Seg Neutrophils # Man Band Neutrophils # Lymphocytes # (Manual) Abs React Lymphs (Man) Monocytes # (Manual) Eosinophils # (Manual) Basophils # (Manual) Metamyelocytes # Myelocytes # Promyelocytes # Blast Cells # WBC Morphology Hypersegmented Neuts Hyposegmented Neuts Hypogranular Neuts Smudge Cells Toxic Granulation Toxic Vacuolation Dohle Bodies Pelger-Huet Anomaly Amari Rods Platelet Estimate Clumped Platelets Plt Clumps, EDTA Large Platelets Giant Platelets Platelet Satelliting Plt Morphology Comment RBC Morphology Dimorphic RBCs Polychromasia Hypochromasia Poikilocytosis Anisocytosis Microcytosis Macrocytosis Spherocytes Pappenheimer Bodies Sickle Cells Target Cells Tear Drop Cells Ovalocytes Helmet Cells Fenton-[place] Bodies [place] Rings Ron Cells Bite Cells Crenated Cell Elliptocytes Acanthocytes (Spur) Rouleaux Hemoglobin C Crystals Schistocytes Malaria parasites Kasi Bodies Hem Pathologist Commnt POC ABG pH 7.119 L POC ABG pCO2 71.4 H POC ABG pO2 48 L POC ABG HCO3 23.1 POC ABG Total CO2 25 POC ABG O2 Sat 68 POC ABG Base Excess -6 FiO2 55 Sodium Potassium Chloride Carbon Dioxide Anion Gap BUN Creatinine Estimated GFR BUN/Creatinine Ratio Glucose Lactic Acid Calcium Total Bilirubin AST ALT Alkaline Phosphatase Ammonia Total Creatine Kinase CK-MB (CK-2) CK-MB (CK-2) Rel Index Troponin T Total Protein Albumin Albumin/Globulin Ratio Triglycerides Cholesterol LDL Cholesterol Direct HDL Cholesterol Cholesterol/HDL Ratio Hep Bs Antigen Hepatitis C Antibody
[2016-05-10 14:33] LABS: ISTAT Base Excess -6; ISTAT HCO3 22.2; ISTAT PCO2 56.9 (35-45); ISTAT PH 7.199 (7.35-7.45); ISTAT PO2 67 (80-105); ISTAT SO2 88; ISTAT TCO2 24
[2016-05-10] MEDS ORDERED: FLUARIX QUAD 2016-2017(36 MOS+) IM ONE (15:38)
[2016-05-10] MEDS ORDERED: PREVNAR 13 IM ONE (15:39)
[2016-05-10 16:13] LABS: ISTAT Base Excess -4; ISTAT HCO3 22.2; ISTAT PCO2 44.3 (35-45); ISTAT PH 7.307 (7.35-7.45); ISTAT PO2 97 (80-105); ISTAT SO2 97; ISTAT TCO2 23
[2016-05-10 16:14] LABS: ISTAT Base Excess TNR; ISTAT HCO3 TNR; ISTAT PCO2 TNR (35-45); ISTAT PH TNR (7.35-7.45); ISTAT PO2 TNR (80-105)
[2016-05-10 16:15] LABS: ISTAT SO2 TNR; ISTAT TCO2 TNR
--- NOTE | 2016-05-10 17:24 | Progress Note ---
Assessment and Plan Assessment and plan: 58M who is presented with GIB, and acute blood loss anemia, s/p EGD with large cratered duodenal ulcer, not amenable to endoscopic therapy. He is s/p IR intervention yesterday with GDA embolization. He became hypotensive and acidotic overnight and is now intubated and on pressors. 1. GIB repeat Angiogram is unlikely to be helpful, obtain CT A/P 2. Acute blood loss anemia transfuse to keep Hg above 10 3. Septic Shock -continue levophod, continue IVF, concern for bowel perforation, fup CT abdomen -cont broad spectrum abx -concern for bowel related sepsis, UA concerning for UTI -fup urine and blood cx 4. Hypoglycemia start d5 1/2NS drip critical care time; 32 minutes History Interval history: patient has been hypotensive overnight, has been on and off levophed, intubated and ventilated Hospitalist Physical - Physical exam Narrative exam: General: toxic appearance, sedate and intubated HEENT: MMM, EOMI cardiac: S1-S2 heard lungs: ventilated breath sounds, abdomen: soft, nontender, nondistended bowel sounds positive extremities: no edema clubbing or cyanosis Skin: no rash or lesion Neuro: intubated, drowsy - Constitutional Vitals: Temp Pulse Resp BP Pulse Ox 98.4 F 90 13 110/66 100 05/10/16 04:25 05/10/16 15:46 05/10/16 13:00 05/10/16 15:46 05/10/16 15:46 General appearance: Present: no acute distress (minimally responsive on bipap) Results - Labs CBC & Chem 7: 05/10/16 04:25 05/10/16 04:25 Labs: Laboratory Last Values WBC 20.7 K/mm3 (4.5-11.0) H 05/10/16 04:25 RBC 4.74 M/mm3 (3.65-5.03) 05/10/16 04:25 Hgb 13.2 gm/dl (11.8-15.2) 05/10/16 04:25 Hct 41.5 % (35.5-45.6) 05/10/16 04:25 MCV 88 fl (84-94) 05/10/16 04:25 MCH 28 pg (28-32) 05/10/16 04:25 MCHC 32 % (32-34) 05/10/16 04:25 RDW 18.0 % (13.2-15.2) H 05/10/16 04:25 Plt Count 68 K/mm3 (140-440) L 05/10/16 04:25 Add Manual Diff Complete 05/10/16 04:25 Total Counted 100 05/10/16 04:25 Seg Neuts % (Manual) 92.0 % (40.0-70.0) H 05/10/16 04:25 Band Neutrophils % 3.0 % 05/10/16 04:25 Lymphocytes % (Manual) 0 % (13.4-35.0) L 05/10/16 04:25 Reactive Lymphs % (Man) 0 % 05/10/16 04:25 Monocytes % (Manual) 4.0 % (0.0-7.3) 05/10/16 04:25 Eosinophils % (Manual) 0 % (0.0-4.3) 05/10/16 04:25 Basophils % (Manual) 0 % (0.0-1.8) 05/10/16 04:25 Metamyelocytes % 0 % 05/10/16 04:25 Myelocytes % 1.0 % 05/10/16 04:25 Promyelocytes % 0 % 05/10/16 04:25 Blast Cells % 0 % 05/10/16 04:25 Nucleated RBC % Not Reportable 05/10/16 04:25 Seg Neutrophils # Man 19.0 K/mm3 (1.8-7.7) H 05/10/16 04:25 Band Neutrophils # 0.6 K/mm3 05/10/16 04:25 Lymphocytes # (Manual) 0.0 K/mm3 (1.2-5.4) L 05/10/16 04:25 Abs React Lymphs (Man) 0.0 K/mm3 05/10/16 04:25 Monocytes # (Manual) 0.8 K/mm3 (0.0-0.8) 05/10/16 04:25 Eosinophils # (Manual) 0.0 K/mm3 (0.0-0.4) 05/10/16 04:25 Basophils # (Manual) 0.0 K/mm3 (0.0-0.1) 05/10/16 04:25 Metamyelocytes # 0.0 K/mm3 05/10/16 04:25 Myelocytes # 0.2 K/mm3 05/10/16 04:25 Promyelocytes # 0.0 K/mm3 05/10/16 04:25 Blast Cells # 0.0 K/mm3 05/10/16 04:25 WBC Morphology Not Reportable 05/10/16 04:25 Hypersegmented Neuts Not Reportable 05/10/16 04:25 Hyposegmented Neuts Not Reportable 05/10/16 04:25 Hypogranular Neuts Not Reportable 05/10/16 04:25 Smudge Cells Not Reportable 05/10/16 04:25 Toxic Granulation Not Reportable 05/10/16 04:25 Toxic Vacuolation Not Reportable 05/10/16 04:25 Dohle Bodies Not Reportable 05/10/16 04:25 Pelger-Huet Anomaly Not Reportable 05/10/16 04:25 Amari Rods Not Reportable 05/10/16 04:25 Platelet Estimate Appears decreased 05/10/16 04:25 Clumped Platelets Not Reportable 05/10/16 04:25 Plt Clumps, EDTA Not Reportable 05/10/16 04:25 Large Platelets Not Reportable 05/10/16 04:25 Giant Platelets Not Reportable 05/10/16 04:25 Platelet Satelliting Not Reportable 05/10/16 04:25 Plt Morphology Comment Not Reportable 05/10/16 04:25 RBC Morphology Not Reportable 05/10/16 04:25 Dimorphic RBCs Not Reportable 05/10/16 04:25 Polychromasia Not Reportable 05/10/16 04:25 Hypochromasia Not Reportable 05/10/16 04:25 Poikilocytosis Not Reportable 05/10/16 04:25 Anisocytosis 1+ 05/10/16 04:25 Microcytosis Not Reportable 05/10/16 04:25 Macrocytosis Not Reportable 05/10/16 04:25 Spherocytes Not Reportable 05/10/16 04:25 Pappenheimer Bodies Not Reportable 05/10/16 04:25 Sickle Cells Not Reportable 05/10/16 04:25 Target Cells Not Reportable 05/10/16 04:25 Tear Drop Cells Not Reportable 05/10/16 04:25 Ovalocytes Not Reportable 05/10/16 04:25 Helmet Cells Not Reportable 05/10/16 04:25 Fetnon-[place] Bodies Not Reportable 05/10/16 04:25 [place] Rings Not Reportable 05/10/16 04:25 Ron Cells Not Reportable 05/10/16 04:25 Bite Cells Not Reportable 05/10/16 04:25 Crenated Cell Not Reportable 05/10/16 04:25 Elliptocytes Not Reportable 05/10/16 04:25 Acanthocytes (Spur) Not Reportable 05/10/16 04:25 Rouleaux Not Reportable 05/10/16 04:25 Hemoglobin C Crystals Not Reportable 05/10/16 04:25 Schistocytes Not Reportable 05/10/16 04:25 Malaria parasites Not Reportable 05/10/16 04:25 Kasi Bodies Not Reportable 05/10/16 04:25 Hem Pathologist Commnt No 05/10/16 04:25 PT 16.6 Sec. (12.2-14.9) H 05/09/16 12:06 INR 1.35 (0.87-1.13) H 05/09/16 12:06 APTT 27.4 Sec. (24.2-36.6) 05/09/16 12:06 POC ABG pH 7.307 (7.35-7.45) L 05/10/16 16:02 POC ABG pCO2 44.3 (35-45) 05/10/16 16:02 POC ABG pO2 97 (80-105) 05/10/16 16:02 POC ABG HCO3 22.2 05/10/16 16:02 POC ABG Total CO2 23 05/10/16 16:02 POC ABG O2 Sat 97 05/10/16 16:02 POC ABG Base Excess -4 05/10/16 16:02 FiO2 60 % 05/10/16 16:02 Sodium 144 mmol/L (137-145) 05/10/16 04:25 Potassium 4.4 mmol/L (3.6-5.0) 05/10/16 04:25 Chloride 110.4 mmol/L (98-107) H 05/10/16 04:25 Carbon Dioxide 25 mmol/L (22-30) 05/10/16 04:25 Anion Gap 13 mmol/L 05/10/16 04:25 BUN 21 mg/dL (9-20) H 05/10/16 04:25 Creatinine 0.8 mg/dL (0.8-1.5) 05/10/16 04:25 Estimated GFR > 60 ml/min 05/10/16 04:25 BUN/Creatinine Ratio 26.25 % 05/10/16 04:25 Glucose 47 mg/dL (75-100) L 05/10/16 04:25 Lactic Acid 1.0 mmol/L (0.7-2.0) 05/10/16 09:55 Calcium 5.7 mg/dL (8.4-10.2) L* 05/10/16 04:25 Phosphorus 5.5 mg/dL (2.5-4.5) H 05/09/16 12:07 Magnesium 2.0 mg/dL (1.7-2.3) 05/09/16 12:07 Total Bilirubin 0.5 mg/dL (0.1-1.2) 05/10/16 04:25 AST 30 units/L (5-40) 05/10/16 04:25 ALT 18 units/L (7-56) 05/10/16 04:25 Alkaline Phosphatase 54 units/L (35-129) 05/10/16 04:25 Ammonia 33.0 umol/L (25-60) 05/09/16 23:00 Total Creatine Kinase 151 units/L (55-170) 05/10/16 09:55 CK-MB (CK-2) 11.5 ng/mL (0.0-4.0) H 05/10/16 09:55 CK-MB (CK-2) Rel Index 7.6 (0-4) H 05/10/16 09:55 Troponin T 0.105 ng/mL (0.00-0.029) H* 05/10/16 09:55 Total Protein 3.4 g/dL (6.3-8.2) L 05/10/16 04:25 Albumin 1.8 g/dL (3.9-5) L 05/10/16 04:25 Albumin/Globulin Ratio 1.1 % 05/10/16 04:25 Triglycerides 77 mg/dL (2-149) 05/10/16 09:55 Cholesterol 56 mg/dL (50-199) 05/10/16 09:55 LDL Cholesterol Direct 13 mg/dL (50-130) L 05/10/16 09:55 HDL Cholesterol 28 mg/dL (40-59) L 05/10/16 09:55 Cholesterol/HDL Ratio 2.00 % 05/10/16 09:55 Lipase 82 units/L (13-60) H 05/09/16 12:06 Urine Color Yellow (Yellow) 05/09/16 12:51 Urine Turbidity Slightly-cloudy (Clear) 05/09/16 12:51 Urine pH 6.0 (5.0-7.0) 05/09/16 12:51 Ur Specific [place] 1.019 (1.003-1.030) 05/09/16 12:51 Urine Protein 100 mg/dl mg/dL (Negative) 05/09/16 12:51 Urine Glucose (UA) Neg mg/dL (Negative) 05/09/16 12:51 Urine Ketones Neg mg/dL (Negative) 05/09/16 12:51 Urine Blood Neg (Negative) 05/09/16 12:51 Urine Nitrite Neg (Negative) 05/09/16 12:51 Urine Bilirubin Neg (Negative) 05/09/16 12:51 Urine Urobilinogen < 2.0 mg/dL (<2.0) 05/09/16 12:51 Ur Leukocyte Esterase Mod (Negative) 05/09/16 12:51 Urine WBC (Auto) > 182.0 /HPF (0.0-6.0) H 05/09/16 12:51 Urine RBC (Auto) 9.0 /HPF (0.0-6.0) 05/09/16 12:51 U Epithel Cells (Auto) 1.0 /HPF (0-13.0) 05/09/16 12:51 Urine Bacteria (Auto) 1+ /HPF (Negative) 05/09/16 12:51 Urine Mucus Few /HPF 05/09/16 12:51 Urine Opiates Screen Presumptive negative 05/09/16 12:51 Urine Methadone Screen Presumptive negative 05/09/16 12:51 Ur Barbiturates Screen Presumptive negative 05/09/16 12:51 Ur Phencyclidine Scrn Presumptive negative 05/09/16 12:51 Ur Amphetamines Screen Presumptive negative 05/09/16 12:51 U Benzodiazepines Scrn Presumptive negative 05/09/16 12:51 Urine Cocaine Screen Presumptive negative 05/09/16 12:51 U Marijuana (THC) Screen Presumptive negative 05/09/16 12:51 Drugs of Abuse Note Disclamer 05/09/16 12:51 Plasma/Serum Alcohol < 0.01 gm% (0-0.07) 05/09/16 12:24 Hep Bs Antigen Non-reactive (Negative) 05/10/16 04:25 Hepatitis C Antibody Non-reactive (NonReactive) 05/10/16 04:25 Blood Type A POSITIVE 05/09/16 12:06 Antibody Screen Negative 05/09/16 12:06 Crossmatch See Detail 05/09/16 12:06
[2016-05-10] MEDS ORDERED: VANCOMYCIN/NS 1 GM/250 ML 1 GM/250 ML BAG IV ONE (18:00)
[2016-05-10] MEDS ORDERED: VANCOMYCIN PHARMACY TO DOSE IV SCH (18:00)
[2016-05-10 18:11] LABS: Hematocrit 34.9 % (35.5-45.6); Hemoglobin 11.1 gm/dl (11.8-15.2)
[2016-05-10 18:40] LABS: Creatine Kinase MB 12.2 ng/mL (0.0-4.0)
--- NOTE | 2016-05-10 18:42 | Event Note ---
Date: 05/10/16 CT was ordered with and without IV contrast, but was performed without contrast because no consent was obtainable ; radiology will not perform exam with contrast without consent.
[2016-05-10] MEDS: D5/0.45NS 1,000 ML IV SCH (18:50)
--- NOTE | 2016-05-10 18:54 | Cat Scan Report ---
FINAL REPORT PROCEDURE: CT abdomen and pelvis without contrast. TECHNIQUE: Computerized axial tomography of the abdomen and pelvis was performed without intravenous contrast. This study is performed without intravascular contrast material and its sensitivity for abdominal and pelvic pathology, including neoplasms, inflammation, abscess, free fluid, thrombosis, arterial dissection and infarction, is reduced compared with a contrast enhanced study. HISTORY: Bloody stool and anemia, gastrointestinal bleed. COMPARISON: No prior studies are available for comparison. FINDINGS: There are small bilateral pleural effusions. There is opacity in the left lower lobe. This may represent compressive atelectasis or pneumonia. Clinical correlation is recommended. The heart size is normal. The liver, spleen and pancreas appear normal. The gallbladder is present. The gallbladder lumen has increased attenuation. This is fairly homogeneous and may represent vicarious excretion of contrast from a previous study. Clinical correlation is recommended. There is no biliary dilatation. There are numerous metallic coils near the pancreatic head. These may represent embolization coils within the gastroduodenal artery. The adrenal glands are not enlarged. Both kidneys appear normal in size and configuration. The abdominal aorta has a normal caliber. There is no retroperitoneal adenopathy. The unopacified gastrointestinal tract is unremarkable. A normal appendix is visible. There is a moderate amount of ascites in the abdomen and pelvis. The bladder is decompressed with a Hernández catheter. There is a small amount of contrast within the bladder, presumably from a previous study. There is a right inguinal catheter that terminates in the right common iliac vein. The seminal vesicles and prostate are unremarkable. There is internal fixation hardware in the proximal left femur. IMPRESSION: Bilateral pleural effusions. Left lower lobe atelectasis or pneumonia. Moderate amount of ascites. Right inguinal venous catheter. Probable previous visceral artery embolization.
[2016-05-10] MEDS ORDERED: TPN ADULT 1,800 ML IV SCH (20:00)
--- NOTE | 2016-05-10 20:31 | Consultation ---
History of Present Illness - Reason for Consult Consult date: 05/10/16 SEPSIS Requesting physician: RACHNA BARAKAT - History of Present Illness Patient is a 56 yo man with h/o HIV/AIDS and copd who is admitted to the icu because of severe GI Bleed. Patient is unresponsive at this point and unable to give history. Per documentation, patient said he has been having rectal bleeds and has become severly weak hence he came to the hospital. Systemic review could not be done. PMH copd hiv/aid. PHYSICAL EAXAM Obtunded. Unresponsive. Chest - b/l rhonchi cvs - s1s2 abd - bs+ assessment Sepsis pneumonia hiv/aids respiratory failure copd GI Bleed. Recommendation 1. d/c zosyn and start clindamycin and levaquin 2. cd4 count and hiv vl 3. sputum culture Past History Past Medical History: COPD, HIV/AIDS (CD4 unknown), other (Noncompliance recent GI bleeding) Past Surgical History: Other (Hip Surgery) Social history: smoking, alcohol abuse, full code. denies: prescription drug abuse Family history: no significant family history Medications and Allergies Allergies Allergy/AdvReac Type Severity Reaction Status Date / Time No Known Allergies Allergy Verified 04/16/15 01:31 Home Medications Medication Instructions Recorded Confirmed Last Taken Type ALBUTEROL Inhaler [ProAir HFA 2 puff IH QID PRN #1 inhalation 04/16/15 04/28/16 Unknown Rx Inhaler] Active Meds: Active Medications Al Hydrox/Mg Hydrox/Simethicone (Alum-Mag Hydrox-Simeth [id number]/5ml) 30 ml PO Q4H PRN PRN Reason: Indigestion Bisacodyl (Dulcolax) 10 mg NV QDAY PRN PRN Reason: constipation unrelieved by MOM Pantoprazole Sodium 80 mg/ (Sodium Chloride) 100 mls @ 10 mls/hr IV Q10H ARUNA PRN Reason: 8 MG/HR Last Admin: 05/10/16 13:00 Dose: 8 mg/hr, 10 mls/hr Piperacillin Sod/Tazobactam Sod (Zosyn/Ns 4.5gm/100ml) 4.5 gm in 100 mls @ 200 mls/hr IV Q8H ARUNA PRN Reason: Protocol Last Admin: 05/10/16 13:01 Dose: 200 mls/hr Vasopressin 20 unit/ Sodium (Chloride) 101 mls @ 12.12 mls/hr IV TITR ARUNA; 0.04 UNITS/MIN PRN Reason: Protocol Last Admin: 05/10/16 12:58 Dose: 0.04 units/min, 12.12 mls/hr Sodium Chloride (Nacl 0.9% 500 Ml) 500 mls @ 999 mls/hr IV DIRECT ARUNA Last Admin: 05/10/16 13:04 Dose: 999 mls/hr Norepinephrine 8 mg/ Sodium (Chloride) 250 mls @ 3.75 mls/hr IV TITR ARUNA; 2 MCG /MIN PRN Reason: Protocol Last Admin: 05/10/16 13:50 Dose: 2 mcg/min, 3.75 mls/hr Amino Acids/Electrolytes/Dextrose (Tpn Adult) 1,800 mls @ 75 mls/hr IV DAILY@ 2000 ARUNA PRN Reason: Protocol Stop: 05/11/16 19:59 Dextrose/Sodium Chloride (D5/0.45ns) 1,000 mls @ 100 mls/hr IV DIRECT ARUNA Last Admin: 05/10/16 18:50 Dose: 100 mls/hr Vancomycin HCl 750 mg/ Sodium (Chloride) 250 mls @ 166.667 mls/hr IV Q12H ARUNA Lorazepam (Ativan) 2 mg PO Q1H PRN PRN Reason: CIWA-Ar 8-15 Lorazepam (Ativan) 4 mg IV Q1H PRN PRN Reason: CIWA-Ar 16-25 Last Admin: 05/10/16 17:58 Dose: 4 mg Magnesium Hydroxide (Milk Of Magnesia) 30 ml PO Q4H PRN PRN Reason: Constipation Metoclopramide HCl (Reglan) 10 mg IV Q6H PRN PRN Reason: Nausea And Vomiting Ondansetron HCl (Zofran) 4 mg IV Q8H PRN PRN Reason: N/V unrelieved by Reglan Vancomycin HCl (Vancomycin Pharmacy To Dose) 1 each IV PKCONSULT ARUNA PRN Reason: Protocol Physical Examination - Constitutional Vitals: Vital Signs Temp Pulse Resp BP Pulse Ox 98.4 F 74 16 95/60 100 05/10/16 04:25 05/10/16 17:30 05/10/16 17:30 05/10/16 17:30 05/10/16 17:30 Temperature -Last 24 Hours Temperature 98.4 F Temperature 97.7 F Results - Labs CBC & Chem 7: 05/10/16 17:30 05/10/16 04:25 Labs: Abnormal lab results 05/09/16 05/10/16 05/10/16 Range/Units 23:00 02:46 04:25 WBC 22.4 H 20.7 H (4.5-11.0) K/mm3 RBC 5.05 H (3.65-5.03) M/mm3 Hgb (11.8-15.2) gm/dl Hct 45.8 H D (35.5-45.6) % RDW 17.9 H 18.0 H (13.2-15.2) % Plt Count 70 L 68 L (140-440) K/mm3 Seg Neuts % (Manual) 92.0 H 92.0 H (40.0-70.0) % Lymphocytes % (Manual) 1.0 L 0 L (13.4-35.0) % Seg Neutrophils # Man 20.6 H 19.0 H (1.8-7.7) K/mm3 Lymphocytes # (Manual) 0.2 L 0.0 L (1.2-5.4) K/mm3 POC ABG pH (7.35-7.45) POC ABG pCO2 (35-45) POC ABG pO2 (80-105) Chloride (98-107) mmol/L BUN (9-20) mg/dL Glucose (75-100) mg/dL POC Glucose (70-105) Calcium (8.4-10.2) mg/dL Total Creatine Kinase (55-170) units/L CK-MB (CK-2) (0.0-4.0) ng/mL CK-MB (CK-2) Rel Index (0-4) Troponin T (0.00-0.029) ng/mL Total Protein (6.3-8.2) g/dL Albumin (3.9-5) g/dL LDL Cholesterol Direct (50-130) mg/dL HDL Cholesterol (40-59) mg/dL 05/10/16 05/10/16 05/10/16 Range/Units 04:25 09:55 11:13 WBC (4.5-11.0) K/mm3 RBC (3.65-5.03) M/mm3 Hgb (11.8-15.2) gm/dl Hct (35.5-45.6) % RDW (13.2-15.2) % Plt Count (140-440) K/mm3 Seg Neuts % (Manual) (40.0-70.0) % Lymphocytes % (Manual) (13.4-35.0) % Seg Neutrophils # Man (1.8-7.7) K/mm3 Lymphocytes # (Manual) (1.2-5.4) K/mm3 POC ABG pH 7.152 L (7.35-7.45) POC ABG pCO2 65.4 H (35-45) POC ABG pO2 48 L (80-105) Chloride 110.4 H (98-107) mmol/L BUN 21 H (9-20) mg/dL Glucose 47 L (75-100) mg/dL POC Glucose (70-105) Calcium 5.7 L* (8.4-10.2) mg/dL Total Creatine Kinase (55-170) units/L CK-MB (CK-2) 11.5 H (0.0-4.0) ng/mL CK-MB (CK-2) Rel Index 7.6 H (0-4) Troponin T 0.105 H* (0.00-0.029) ng/mL Total Protein 3.4 L (6.3-8.2) g/dL Albumin 1.8 L (3.9-5) g/dL LDL Cholesterol Direct 13 L (50-130) mg/dL HDL Cholesterol 28 L (40-59) mg/dL 05/10/16 05/10/16 05/10/16 Range/Units 13:28 14:05 14:18 WBC (4.5-11.0) K/mm3 RBC (3.65-5.03) M/mm3 Hgb (11.8-15.2) gm/dl Hct (35.5-45.6) % RDW (13.2-15.2) % Plt Count (140-440) K/mm3 Seg Neuts % (Manual) (40.0-70.0) % Lymphocytes % (Manual) (13.4-35.0) % Seg Neutrophils # Man (1.8-7.7) K/mm3 Lymphocytes # (Manual) (1.2-5.4) K/mm3 POC ABG pH 7.199 L (7.35-7.45) POC ABG pCO2 56.9 H (35-45) POC ABG pO2 67 L (80-105) Chloride (98-107) mmol/L BUN (9-20) mg/dL Glucose (75-100) mg/dL POC Glucose < 40 L 109 H (70-105) Calcium (8.4-10.2) mg/dL Total Creatine Kinase (55-170) units/L CK-MB (CK-2) (0.0-4.0) ng/mL CK-MB (CK-2) Rel Index (0-4) Troponin T (0.00-0.029) ng/mL Total Protein (6.3-8.2) g/dL Albumin (3.9-5) g/dL LDL Cholesterol Direct (50-130) mg/dL HDL Cholesterol (40-59) mg/dL 05/10/16 05/10/16 05/10/16 Range/Units 16:02 17:30 17:30 WBC (4.5-11.0) K/mm3 RBC (3.65-5.03) M/mm3 Hgb 11.1 L (11.8-15.2) gm/dl Hct 34.9 L D (35.5-45.6) % RDW (13.2-15.2) % Plt Count (140-440) K/mm3 Seg Neuts % (Manual) (40.0-70.0) % Lymphocytes % (Manual) (13.4-35.0) % Seg Neutrophils # Man (1.8-7.7) K/mm3 Lymphocytes # (Manual) (1.2-5.4) K/mm3 POC ABG pH 7.307 L (7.35-7.45) POC ABG pCO2 (35-45) POC ABG pO2 (80-105) Chloride (98-107) mmol/L BUN (9-20) mg/dL Glucose (75-100) mg/dL POC Glucose (70-105) Calcium (8.4-10.2) mg/dL Total Creatine Kinase 193 H (55-170) units/L CK-MB (CK-2) 12.2 H (0.0-4.0) ng/mL CK-MB (CK-2) Rel Index 6.3 H (0-4) Troponin T 0.092 H (0.00-0.029) ng/mL Total Protein (6.3-8.2) g/dL Albumin (3.9-5) g/dL LDL Cholesterol Direct (50-130) mg/dL HDL Cholesterol (40-59) mg/dL 05/10/16 Range/Units 18:42 WBC (4.5-11.0) K/mm3 RBC (3.65-5.03) M/mm3 Hgb (11.8-15.2) gm/dl Hct (35.5-45.6) % RDW (13.2-15.2) % Plt Count (140-440) K/mm3 Seg Neuts % (Manual) (40.0-70.0) % Lymphocytes % (Manual) (13.4-35.0) % Seg Neutrophils # Man (1.8-7.7) K/mm3 Lymphocytes # (Manual) (1.2-5.4) K/mm3 POC ABG pH (7.35-7.45) POC ABG pCO2 (35-45) POC ABG pO2 (80-105) Chloride (98-107) mmol/L BUN (9-20) mg/dL Glucose (75-100) mg/dL POC Glucose 113 H (70-105) Calcium (8.4-10.2) mg/dL Total Creatine Kinase (55-170) units/L CK-MB (CK-2) (0.0-4.0) ng/mL CK-MB (CK-2) Rel Index (0-4) Troponin T (0.00-0.029) ng/mL Total Protein (6.3-8.2) g/dL Albumin (3.9-5) g/dL LDL Cholesterol Direct (50-130) mg/dL HDL Cholesterol (40-59) mg/dL
[2016-05-10] MEDS: CLEOCIN 600 MG/50 mL 600 MG/50 ML BAG IV SCH (21:53)
[2016-05-10] MEDS: LEVAQUIN 750MG/150ML 750 MG/150 ML BAG IV SCH (21:53)
[2016-05-11] MEDS: PITRESSin 20 UNIT in NACL 0.9% 100 ML IV SCH ×2 (04:45→14:10)
[2016-05-11 04:48] LABS: Hematocrit 32.3 % (35.5-45.6); Hemoglobin 10.3 gm/dl (11.8-15.2); Mean Corpuscular HGB Conc 32 % (32-34); Mean Corpuscular Hemoglobin 28 pg (28-32); Mean Corpuscular Volume 88 fl (84-94); Red Blood Count 3.68 M/mm3 (3.65-5.03); Red Cell Distribution Width 18.2 % (13.2-15.2); White Blood Count 14.9 K/mm3 (4.5-11.0)
[2016-05-11 05:03] LABS: Platelet Count 97 K/mm3 (140-440)
[2016-05-11 05:10] LABS: Anion Gap 14 mmol/L; Blood Urea Nitrogen 26 mg/dL (9-20); Calcium 6.4 mg/dL (8.4-10.2); Carbon Dioxide 22 mmol/L (22-30); Chloride 111.5 mmol/L (98-107); Glucose 207 mg/dL (75-100); Magnesium 1.4 mg/dL (1.7-2.3); Phosphorous 2.5 mg/dL (2.5-4.5); Potassium 4.1 mmol/L (3.6-5.0); Sodium 143 mmol/L (137-145)
[2016-05-11] MEDS: CLEOCIN 600 MG/50 mL 600 MG/50 ML BAG IV SCH ×3 (06:35→21:26)
[2016-05-11] MEDS: VANCOMYCIN VIAL 750 MG in NACL 0.9% 250ML 250 ML IV SCH ×2 (06:36→17:58)
--- NOTE | 2016-05-11 09:26 | Progress Note ---
Assessment and Plan Acute respiratory failure Hypotension wean pressors to maintain MAP > 65 Sepsis Elevated troponin-->may be due to demand ischemia minimally elevated but flat await echo findings Bleeding duodenal ulcer/Anemia s/p coil embolization of gastroduodenal artery ETOH abuse Tobacco abuse HIV The patient has been seen in conjunction with Dr. Dias who agrees with the assessment and plan of care. Subjective Date of service: 05/11/16 Principal diagnosis: Acute blood loss/anemia/duodenal ulcer Interval history: The patient is intubated but arousable. On 2 pressors. Sinus alia on the monitor. Objective Last Vital Signs Temp 99.4 F 05/11/16 08:00 Pulse 54 L 05/11/16 08:41 Resp 11 L 05/11/16 08:41 BP 134/69 05/11/16 08:41 Pulse Ox 99 05/11/16 08:41 - Physical Examination General: No Apparent Distress (intubated) HEENT: Positive: Normocephaly, Mucus Membranes Moist Neck: Positive: neck supple, trachea midline Cardiac: Positive: Reg Rate and Rhythm, S1/S2 Lungs: Positive: Rhonchi Neuro: Positive: Other (intubated but arosuable) Abdomen: Positive: Soft Extremities: Absent: edema - Labs and Meds Cardiac Enzymes 05/10/16 05/10/16 Range/Units 09:55 17:30 CK-MB (CK-2) 11.5 H 12.2 H (0.0-4.0) ng/mL Lipids 05/10/16 Range/Units 09:55 Triglycerides 77 (2-149) mg/dL Cholesterol 56 (50-199) mg/dL HDL Cholesterol 28 L (40-59) mg/dL Cholesterol/HDL Ratio 2.00 % CBC 05/10/16 05/11/16 Range/Units 17:30 03:00 WBC 14.9 H (4.5-11.0) K/mm3 RBC 3.68 (3.65-5.03) M/mm3 Hgb 11.1 L 10.3 L (11.8-15.2) gm/dl Hct 34.9 L D 32.3 L (35.5-45.6) % Plt Count 97 L (140-440) K/mm3 Comprehensive Metabolic Panel 05/11/16 Range/Units 04:00 Sodium 143 (137-145) mmol/L Potassium 4.1 (3.6-5.0) mmol/L Chloride 111.5 H (98-107) mmol/L Carbon Dioxide 22 (22-30) mmol/L BUN 26 H (9-20) mg/dL Creatinine 0.8 (0.8-1.5) mg/dL Glucose 207 H (75-100) mg/dL Calcium 6.4 L (8.4-10.2) mg/dL - Imaging and Cardiology EKG: image reviewed Echo: pending - Telemetry EKG Rhythm: Sinus Bradycardia - EKG Sinus rhythms and dysrhythmias: sinus rhythm Repolarization changes or abnormalities: nonspecific abnormality, ST segment, and/or T wave
--- NOTE | 2016-05-11 10:01 | Progress Note ---
Assessment and Plan Acute respiratory failure. Patient was intubated yesterday for ever protection after progressive deterioration in the setting of shock. Improved Severe sepsis. Source unknown. Leukocytosis could also be reactive to GI bleeding episodes Shock. Multifactorial. Improved GI bleeding episode. Stable H&H AMS HIV. Not on treatment. CD3 count treatment available Prior history of alcohol abuse. Recommendations Off pressors. Update ABGs Watch for seizures and signs of withdrawal activity Continue antibiotics and monitor cultures Critical care time was 31 minutes in [id number] evaluation and coordination of care Subjective Date of service: 05/11/16 Principal diagnosis: Resp failure/Acute blood loss/anemia/duodenal ulcer Interval history: Intubated Objective Vital Signs - 12hr 05/10/16 05/10/16 05/10/16 22:00 22:11 22:21 Temperature Pulse Rate 62 59 L 63 Pulse Rate [ From Monitor] Respiratory 18 14 11 L Rate Blood Pressure 129/65 129/65 115/61 O2 Sat by Pulse 100 100 100 Oximetry 05/10/16 05/10/16 05/10/16 22:30 22:41 22:51 Temperature Pulse Rate 59 L 58 L 56 L Pulse Rate [ From Monitor] Respiratory 18 18 18 Rate Blood Pressure 120/62 120/62 128/65 O2 Sat by Pulse 100 100 100 Oximetry 05/10/16 05/10/16 05/10/16 23:00 23:11 23:21 Temperature Pulse Rate 62 53 L 49 L Pulse Rate [ From Monitor] Respiratory 17 18 18 Rate Blood Pressure 126/68 126/68 125/69 O2 Sat by Pulse 100 100 100 Oximetry 05/10/16 05/10/16 05/10/16 23:30 23:41 23:51 Temperature Pulse Rate 56 L 52 L 44 L Pulse Rate [ From Monitor] Respiratory 19 15 18 Rate Blood Pressure 127/79 127/79 128/65 O2 Sat by Pulse 100 100 100 Oximetry 05/11/16 05/11/16 05/11/16 00:00 00:04 00:11 Temperature Pulse Rate 46 L 52 L 53 L Pulse Rate [ From Monitor] Respiratory 16 16 20 Rate Blood Pressure 121/67 121/67 121/67 O2 Sat by Pulse 100 100 100 Oximetry 05/11/16 05/11/16 05/11/16 00:15 00:21 00:30 Temperature Pulse Rate 52 L 52 L 47 L Pulse Rate [ From Monitor] Respiratory 20 13 16 Rate Blood Pressure 137/64 137/64 139/66 O2 Sat by Pulse 100 100 100 Oximetry 05/11/16 05/11/16 05/11/16 00:41 00:51 01:01 Temperature Pulse Rate 46 L 44 L 49 L Pulse Rate [ From Monitor] Respiratory 16 18 23 Rate Blood Pressure 139/66 137/66 139/66 O2 Sat by Pulse 100 100 100 Oximetry 05/11/16 05/11/16 05/11/16 01:11 01:21 01:31 Temperature Pulse Rate 48 L 82 54 L Pulse Rate [ From Monitor] Respiratory 20 17 13 Rate Blood Pressure 139/66 131/69 131/69 O2 Sat by Pulse 100 100 100 Oximetry 05/11/16 05/11/16 05/11/16 01:37 01:41 01:51 Temperature Pulse Rate 56 L 57 L 59 L Pulse Rate [ From Monitor] Respiratory 10 L 13 Rate Blood Pressure 129/77 129/72 128/71 O2 Sat by Pulse 100 100 100 Oximetry 05/11/16 05/11/16 05/11/16 02:01 02:11 02:21 Temperature Pulse Rate 52 L 56 L 48 L Pulse Rate [ From Monitor] Respiratory 16 12 13 Rate Blood Pressure 131/71 131/71 132/66 O2 Sat by Pulse 100 100 100 Oximetry 05/11/16 05/11/16 05/11/16 02:31 02:41 02:51 Temperature Pulse Rate 44 L 43 L 53 L Pulse Rate [ From Monitor] Respiratory 18 16 14 Rate Blood Pressure 137/65 137/65 126/79 O2 Sat by Pulse 100 100 100 Oximetry 05/11/16 05/11/16 05/11/16 03:01 03:11 03:21 Temperature Pulse Rate 52 L 53 L 53 L Pulse Rate [ From Monitor] Respiratory 18 18 12 Rate Blood Pressure 99/72 99/72 112/73 O2 Sat by Pulse 100 100 99 Oximetry 05/11/16 05/11/16 05/11/16 03:31 03:41 03:49 Temperature Pulse Rate 56 L 51 L Pulse Rate [ 54 L From Monitor] Respiratory 17 12 Rate Blood Pressure 137/71 137/71 O2 Sat by Pulse 100 100 100 Oximetry 05/11/16 05/11/16 05/11/16 03:51 04:00 04:11 Temperature Pulse Rate 55 L 46 L 57 L Pulse Rate [ From Monitor] Respiratory 12 17 11 L Rate Blood Pressure 139/70 137/67 137/67 O2 Sat by Pulse 100 100 99 Oximetry 05/11/16 05/11/16 05/11/16 04:21 04:30 04:41 Temperature Pulse Rate 45 L 47 L 64 Pulse Rate [ From Monitor] Respiratory 18 18 20 Rate Blood Pressure 129/63 132/63 132/63 O2 Sat by Pulse 100 100 100 Oximetry 05/11/16 05/11/16 05/11/16 04:51 05:00 05:11 Temperature Pulse Rate 47 L 61 46 L Pulse Rate [ From Monitor] Respiratory 18 18 13 Rate Blood Pressure 127/64 125/65 122/67 O2 Sat by Pulse 100 100 100 Oximetry 05/11/16 05/11/16 05/11/16 05:21 05:30 05:40 Temperature Pulse Rate 48 L 51 L 55 L Pulse Rate [ From Monitor] Respiratory 18 15 18 Rate Blood Pressure 129/63 131/66 131/66 O2 Sat by Pulse 100 100 100 Oximetry 05/11/16 05/11/16 05/11/16 05:51 06:00 06:11 Temperature Pulse Rate 60 66 72 Pulse Rate [ From Monitor] Respiratory 25 H 16 21 Rate Blood Pressure 125/65 117/71 125/65 O2 Sat by Pulse 100 98 99 Oximetry 05/11/16 05/11/16 05/11/16 06:21 06:30 06:41 Temperature Pulse Rate 62 45 L 43 L Pulse Rate [ From Monitor] Respiratory 15 18 18 Rate Blood Pressure 125/63 124/67 125/63 O2 Sat by Pulse 98 99 99 Oximetry 05/11/16 05/11/16 05/11/16 06:51 07:01 07:11 Temperature Pulse Rate 56 L 59 L 56 L Pulse Rate [ From Monitor] Respiratory 17 17 18 Rate Blood Pressure 123/63 122/57 124/67 O2 Sat by Pulse 99 100 98 Oximetry 05/11/16 05/11/16 05/11/16 07:21 07:31 07:41 Temperature Pulse Rate 52 L 64 49 L Pulse Rate [ From Monitor] Respiratory 17 11 L 18 Rate Blood Pressure 131/87 131/87 O2 Sat by Pulse 99 97 99 Oximetry 05/11/16 05/11/16 05/11/16 07:51 08:00 08:01 Temperature 99.4 F Pulse Rate 51 L 51 L Pulse Rate [ From Monitor] Respiratory 13 17 Rate Blood Pressure 122/69 130/69 O2 Sat by Pulse 100 Oximetry 05/11/16 05/11/16 05/11/16 08:08 08:11 08:21 Temperature Pulse Rate 52 L 50 L 47 L Pulse Rate [ From Monitor] Respiratory 19 14 Rate Blood Pressure 130/69 120/84 O2 Sat by Pulse 99 100 99 Oximetry 05/11/16 05/11/16 05/11/16 08:31 08:41 08:51 Temperature Pulse Rate 50 L 54 L 43 L Pulse Rate [ From Monitor] Respiratory 17 11 L 18 Rate Blood Pressure 134/69 134/69 117/71 O2 Sat by Pulse 100 99 99 Oximetry 05/11/16 05/11/16 05/11/16 09:01 09:11 09:21 Temperature Pulse Rate 58 L 52 L 81 Pulse Rate [ From Monitor] Respiratory 20 14 13 Rate Blood Pressure 113/70 113/70 117/60 O2 Sat by Pulse 100 100 99 Oximetry 05/11/16 09:30 Temperature Pulse Rate 58 L Pulse Rate [ From Monitor] Respiratory 13 Rate Blood Pressure 106/62 O2 Sat by Pulse 98 Oximetry Constitutional: alert, appears uncomfortable, other (endotracheal tube in position at 24 cm) Eyes: non-icteric Neck: supple, no JVD Effort: mildly labored Ascultation: Bilateral: clear, rhonchi (occasional left-sided) Cardiovascular: regular rate and rhythm Gastrointestinal: hypoactive bowel sounds, other (possible ascites) Extremities: no cyanosis, edema (+1 both lower extremities) Neurologic: other (for all are slightly confused) CBC and BMP: 05/11/16 03:00 05/11/16 04:00 ABG, PT/INR, D-dimer: ABG POC ABG pH 7.307 (7.35-7.45) L 05/10/16 16:02 POC ABG pCO2 44.3 (35-45) 05/10/16 16:02 POC ABG pO2 97 (80-105) 05/10/16 16:02 POC ABG HCO3 22.2 05/10/16 16:02 POC ABG Total CO2 23 05/10/16 16:02 POC ABG O2 Sat 97 05/10/16 16:02 PT/INR, D-dimer PT 16.6 Sec. (12.2-14.9) H 05/09/16 12:06 INR 1.35 (0.87-1.13) H 05/09/16 12:06 Abnormal lab findings: Abnormal Labs 05/09/16 05/10/16 05/10/16 23:00 02:46 04:25 WBC 22.4 H 20.7 H RBC 5.05 H Hgb Hct 45.8 H D RDW 17.9 H 18.0 H Plt Count 70 L 68 L Seg Neuts % (Manual) 92.0 H 92.0 H Lymphocytes % (Manual) 1.0 L 0 L Seg Neutrophils # Man 20.6 H 19.0 H Lymphocytes # (Manual) 0.2 L 0.0 L POC ABG pH POC ABG pCO2 POC ABG pO2 Chloride BUN Glucose POC Glucose Calcium Magnesium Total Creatine Kinase CK-MB (CK-2) CK-MB (CK-2) Rel Index Troponin T Total Protein Albumin LDL Cholesterol Direct HDL Cholesterol 05/10/16 05/10/16 05/10/16 04:25 09:55 11:13 WBC RBC Hgb Hct RDW Plt Count Seg Neuts % (Manual) Lymphocytes % (Manual) Seg Neutrophils # Man Lymphocytes # (Manual) POC ABG pH 7.152 L POC ABG pCO2 65.4 H POC ABG pO2 48 L Chloride 110.4 H BUN 21 H Glucose 47 L POC Glucose Calcium 5.7 L* Magnesium Total Creatine Kinase CK-MB (CK-2) 11.5 H CK-MB (CK-2) Rel Index 7.6 H Troponin T 0.105 H* Total Protein 3.4 L Albumin 1.8 L LDL Cholesterol Direct 13 L HDL Cholesterol 28 L 05/10/16 05/10/16 05/10/16 13:28 14:05 14:18 WBC RBC Hgb Hct RDW Plt Count Seg Neuts % (Manual) Lymphocytes % (Manual) Seg Neutrophils # Man Lymphocytes # (Manual) POC ABG pH 7.199 L POC ABG pCO2 56.9 H POC ABG pO2 67 L Chloride BUN Glucose POC Glucose < 40 L 109 H Calcium Magnesium Total Creatine Kinase CK-MB (CK-2) CK-MB (CK-2) Rel Index Troponin T Total Protein Albumin LDL Cholesterol Direct HDL Cholesterol 05/10/16 05/10/16 05/10/16 16:02 17:30 17:30 WBC RBC Hgb 11.1 L Hct 34.9 L D RDW Plt Count Seg Neuts % (Manual) Lymphocytes % (Manual) Seg Neutrophils # Man Lymphocytes # (Manual) POC ABG pH 7.307 L POC ABG pCO2 POC ABG pO2 Chloride BUN Glucose POC Glucose Calcium Magnesium Total Creatine Kinase 193 H CK-MB (CK-2) 12.2 H CK-MB (CK-2) Rel Index 6.3 H Troponin T 0.092 H Total Protein Albumin LDL Cholesterol Direct HDL Cholesterol 05/10/16 05/10/16 05/11/16 18:42 23:03 03:00 WBC 14.9 H RBC Hgb 10.3 L Hct 32.3 L RDW 18.2 H Plt Count 97 L Seg Neuts % (Manual) Lymphocytes % (Manual) Seg Neutrophils # Man Lymphocytes # (Manual) POC ABG pH POC ABG pCO2 POC ABG pO2 Chloride BUN Glucose POC Glucose 113 H 204 H Calcium Magnesium Total Creatine Kinase CK-MB (CK-2) CK-MB (CK-2) Rel Index Troponin T Total Protein Albumin LDL Cholesterol Direct HDL Cholesterol 05/11/16 05/11/16 03:21 04:00 WBC RBC Hgb Hct RDW Plt Count Seg Neuts % (Manual) Lymphocytes % (Manual) Seg Neutrophils # Man Lymphocytes # (Manual) POC ABG pH POC ABG pCO2 POC ABG pO2 Chloride 111.5 H BUN 26 H Glucose 207 H POC Glucose 217 H Calcium 6.4 L Magnesium 1.4 L Total Creatine Kinase CK-MB (CK-2) CK-MB (CK-2) Rel Index Troponin T Total Protein Albumin LDL Cholesterol Direct HDL Cholesterol
[2016-05-11] MEDS: PROTONIX 80 MG in NACL 0.9% 100 ML IV SCH ×2 (11:09→21:27)
[2016-05-11 11:15] LABS: ISTAT Base Excess -1; ISTAT HCO3 23.6; ISTAT PCO2 38.8 (35-45); ISTAT PH 7.391 (7.35-7.45); ISTAT PO2 46 (80-105); ISTAT SO2 81; ISTAT TCO2 25
[2016-05-11 12:33] LABS: ISTAT Base Excess -4; ISTAT HCO3 21.5; ISTAT PCO2 37.3 (35-45); ISTAT PH 7.369 (7.35-7.45); ISTAT PO2 75 (80-105); ISTAT SO2 95; ISTAT TCO2 23
--- NOTE | 2016-05-11 15:00 | Progress Note ---
Assessment and Plan 1. Acute GI bleeding from a duodenal cratered ulcer per EGD report. s/p IR embolization. D/samuel octreotide for possible ischemia. S/p blood transfusion. Stable. On PPI, NPO 2. Acute respiratory failure. Intubated. On Bronchodilators Patient was intubated yesterday for ever protection after progressive deterioration in the setting of shock. Improved 3. Severe sepsis. Mutifactorial: On Levaquin, cleocin and Vanc. ID following. 4. Septic Shock. From GI bleeding and sepsis. Continue with IV hydration, 5. HIV. Not on treatment. f/u with CD3 count 6. Prior history of alcohol abuse. 7. Hold DVT PPx with anticoagulation b/c of GI bleeding Subjective Date of service: 05/11/16 Principal diagnosis: Acute blood loss/anemia/duodenal ulcer Interval history: still obtunded Objective - Constitutional Vitals: Vital Signs - 12hr 05/11/16 05/11/16 05/11/16 03:01 03:11 03:21 Temperature Pulse Rate 52 L 53 L 53 L Pulse Rate [ From Monitor] Respiratory 18 18 12 Rate Blood Pressure 99/72 99/72 112/73 O2 Sat by Pulse 100 100 99 Oximetry 05/11/16 05/11/16 05/11/16 03:31 03:41 03:49 Temperature Pulse Rate 56 L 51 L Pulse Rate [ 54 L From Monitor] Respiratory 17 12 Rate Blood Pressure 137/71 137/71 O2 Sat by Pulse 100 100 100 Oximetry 05/11/16 05/11/16 05/11/16 03:51 04:00 04:11 Temperature Pulse Rate 55 L 46 L 57 L Pulse Rate [ From Monitor] Respiratory 12 17 11 L Rate Blood Pressure 139/70 137/67 137/67 O2 Sat by Pulse 100 100 99 Oximetry 05/11/16 05/11/16 05/11/16 04:21 04:30 04:41 Temperature Pulse Rate 45 L 47 L 64 Pulse Rate [ From Monitor] Respiratory 18 18 20 Rate Blood Pressure 129/63 132/63 132/63 O2 Sat by Pulse 100 100 100 Oximetry 05/11/16 05/11/16 05/11/16 04:51 05:00 05:11 Temperature Pulse Rate 47 L 61 46 L Pulse Rate [ From Monitor] Respiratory 18 18 13 Rate Blood Pressure 127/64 125/65 122/67 O2 Sat by Pulse 100 100 100 Oximetry 05/11/16 05/11/16 05/11/16 05:21 05:30 05:40 Temperature Pulse Rate 48 L 51 L 55 L Pulse Rate [ From Monitor] Respiratory 18 15 18 Rate Blood Pressure 129/63 131/66 131/66 O2 Sat by Pulse 100 100 100 Oximetry 05/11/16 05/11/16 05/11/16 05:51 06:00 06:11 Temperature Pulse Rate 60 66 72 Pulse Rate [ From Monitor] Respiratory 25 H 16 21 Rate Blood Pressure 125/65 117/71 125/65 O2 Sat by Pulse 100 98 99 Oximetry 05/11/16 05/11/16 05/11/16 06:21 06:30 06:41 Temperature Pulse Rate 62 45 L 43 L Pulse Rate [ From Monitor] Respiratory 15 18 18 Rate Blood Pressure 125/63 124/67 125/63 O2 Sat by Pulse 98 99 99 Oximetry 05/11/16 05/11/16 05/11/16 06:51 07:01 07:11 Temperature Pulse Rate 56 L 59 L 56 L Pulse Rate [ From Monitor] Respiratory 17 17 18 Rate Blood Pressure 123/63 122/57 124/67 O2 Sat by Pulse 99 100 98 Oximetry 05/11/16 05/11/16 05/11/16 07:21 07:31 07:41 Temperature Pulse Rate 52 L 64 49 L Pulse Rate [ From Monitor] Respiratory 17 11 L 18 Rate Blood Pressure 131/87 131/87 O2 Sat by Pulse 99 97 99 Oximetry 05/11/16 05/11/16 05/11/16 07:51 08:00 08:01 Temperature 99.4 F Pulse Rate 51 L 51 L Pulse Rate [ 50 L From Monitor] Respiratory 13 24 17 Rate Blood Pressure 122/69 130/69 O2 Sat by Pulse 100 100 Oximetry 05/11/16 05/11/16 05/11/16 08:08 08:11 08:21 Temperature Pulse Rate 52 L 50 L 47 L Pulse Rate [ From Monitor] Respiratory 19 14 Rate Blood Pressure 130/69 120/84 O2 Sat by Pulse 99 100 99 Oximetry 05/11/16 05/11/16 05/11/16 08:31 08:41 08:51 Temperature Pulse Rate 50 L 54 L 43 L Pulse Rate [ From Monitor] Respiratory 17 11 L 18 Rate Blood Pressure 134/69 134/69 117/71 O2 Sat by Pulse 100 99 99 Oximetry 05/11/16 05/11/16 05/11/16 09:01 09:11 09:21 Temperature Pulse Rate 58 L 52 L 81 Pulse Rate [ From Monitor] Respiratory 20 14 13 Rate Blood Pressure 113/70 113/70 117/60 O2 Sat by Pulse 100 100 99 Oximetry 05/11/16 05/11/16 05/11/16 09:30 09:41 09:51 Temperature Pulse Rate 58 L 57 L 62 Pulse Rate [ From Monitor] Respiratory 13 13 13 Rate Blood Pressure 106/62 106/62 110/76 O2 Sat by Pulse 98 99 99 Oximetry 05/11/16 05/11/16 05/11/16 10:00 10:11 10:21 Temperature Pulse Rate 67 47 L 46 L Pulse Rate [ From Monitor] Respiratory 14 16 17 Rate Blood Pressure 109/82 109/82 113/58 O2 Sat by Pulse 100 99 100 Oximetry 05/11/16 05/11/16 05/11/16 10:30 10:41 10:51 Temperature Pulse Rate 59 L 67 70 Pulse Rate [ From Monitor] Respiratory 12 18 15 Rate Blood Pressure 125/65 125/65 122/64 O2 Sat by Pulse 100 97 97 Oximetry 05/11/16 05/11/16 05/11/16 11:00 11:11 11:21 Temperature Pulse Rate 53 L 52 L 52 L Pulse Rate [ From Monitor] Respiratory 21 14 11 L Rate Blood Pressure 114/61 114/61 115/63 O2 Sat by Pulse 98 98 98 Oximetry 05/11/16 05/11/16 05/11/16 11:31 11:40 11:41 Temperature Pulse Rate 53 L 52 L 52 L Pulse Rate [ From Monitor] Respiratory 14 16 Rate Blood Pressure 83/61 83/61 83/61 O2 Sat by Pulse 100 99 99 Oximetry 05/11/16 05/11/16 05/11/16 11:51 12:00 12:11 Temperature Pulse Rate 54 L 47 L 48 L Pulse Rate [ From Monitor] Respiratory 9 L 13 11 L Rate Blood Pressure 116/67 121/63 121/63 O2 Sat by Pulse 100 100 Oximetry 05/11/16 05/11/16 05/11/16 12:21 12:30 12:41 Temperature Pulse Rate 52 L 48 L 55 L Pulse Rate [ From Monitor] Respiratory 15 12 25 H Rate Blood Pressure 123/65 116/63 116/63 O2 Sat by Pulse 98 100 99 Oximetry 05/11/16 05/11/16 05/11/16 12:51 13:00 13:11 Temperature Pulse Rate 49 L 54 L 52 L Pulse Rate [ From Monitor] Respiratory 14 12 15 Rate Blood Pressure 125/63 120/64 120/64 O2 Sat by Pulse 100 100 100 Oximetry 05/11/16 05/11/16 05/11/16 13:21 13:30 13:41 Temperature Pulse Rate 72 59 L 64 Pulse Rate [ From Monitor] Respiratory 17 18 16 Rate Blood Pressure 113/60 103/63 103/63 O2 Sat by Pulse 99 97 97 Oximetry 05/11/16 05/11/16 05/11/16 13:51 14:00 14:11 Temperature Pulse Rate 69 63 48 L Pulse Rate [ From Monitor] Respiratory 15 14 18 Rate Blood Pressure 109/60 104/64 104/64 O2 Sat by Pulse 96 99 100 Oximetry 05/11/16 14:21 Temperature Pulse Rate 58 L Pulse Rate [ From Monitor] Respiratory 13 Rate Blood Pressure 111/69 O2 Sat by Pulse 97 Oximetry - EENT Eyes: PERRL - Neck Neck: supple - Respiratory Respiratory: bilateral: CTA - Cardiovascular Rhythm: regular Heart Sounds: Present: S1 & S2 Extremities: no ischemia - Gastrointestinal General gastrointestinal: Present: soft, non-tender, non-distended - Integumentary Integumentary: clear, warm - Labs CBC & Chem 7: 05/11/16 03:00 05/11/16 04:00 Labs: Abnormal lab results 05/10/16 05/10/16 05/10/16 Range/Units 13:28 14:18 16:02 WBC (4.5-11.0) K/mm3 Hgb (11.8-15.2) gm/dl Hct (35.5-45.6) % RDW (13.2-15.2) % Plt Count (140-440) K/mm3 POC ABG pH 7.307 L (7.35-7.45) POC ABG pO2 (80-105) Chloride (98-107) mmol/L BUN (9-20) mg/dL Glucose (75-100) mg/dL POC Glucose < 40 L 109 H (70-105) Calcium (8.4-10.2) mg/dL Magnesium (1.7-2.3) mg/dL Total Creatine Kinase (55-170) units/L CK-MB (CK-2) (0.0-4.0) ng/mL CK-MB (CK-2) Rel Index (0-4) Troponin T (0.00-0.029) ng/mL 05/10/16 05/10/16 05/10/16 Range/Units 17:30 17:30 18:42 WBC (4.5-11.0) K/mm3 Hgb 11.1 L (11.8-15.2) gm/dl Hct 34.9 L D (35.5-45.6) % RDW (13.2-15.2) % Plt Count (140-440) K/mm3 POC ABG pH (7.35-7.45) POC ABG pO2 (80-105) Chloride (98-107) mmol/L BUN (9-20) mg/dL Glucose (75-100) mg/dL POC Glucose 113 H (70-105) Calcium (8.4-10.2) mg/dL Magnesium (1.7-2.3) mg/dL Total Creatine Kinase 193 H (55-170) units/L CK-MB (CK-2) 12.2 H (0.0-4.0) ng/mL CK-MB (CK-2) Rel Index 6.3 H (0-4) Troponin T 0.092 H (0.00-0.029) ng/mL 05/10/16 05/11/16 05/11/16 Range/Units 23:03 03:00 03:21 WBC 14.9 H (4.5-11.0) K/mm3 Hgb 10.3 L (11.8-15.2) gm/dl Hct 32.3 L (35.5-45.6) % RDW 18.2 H (13.2-15.2) % Plt Count 97 L (140-440) K/mm3 POC ABG pH (7.35-7.45) POC ABG pO2 (80-105) Chloride (98-107) mmol/L BUN (9-20) mg/dL Glucose (75-100) mg/dL POC Glucose 204 H 217 H (70-105) Calcium (8.4-10.2) mg/dL Magnesium (1.7-2.3) mg/dL Total Creatine Kinase (55-170) units/L CK-MB (CK-2) (0.0-4.0) ng/mL CK-MB (CK-2) Rel Index (0-4) Troponin T (0.00-0.029) ng/mL 05/11/16 05/11/16 05/11/16 Range/Units 04:00 10:57 11:48 WBC (4.5-11.0) K/mm3 Hgb (11.8-15.2) gm/dl Hct (35.5-45.6) % RDW (13.2-15.2) % Plt Count (140-440) K/mm3 POC ABG pH (7.35-7.45) POC ABG pO2 46 L 75 L (80-105) Chloride 111.5 H (98-107) mmol/L BUN 26 H (9-20) mg/dL Glucose 207 H (75-100) mg/dL POC Glucose (70-105) Calcium 6.4 L (8.4-10.2) mg/dL Magnesium 1.4 L (1.7-2.3) mg/dL Total Creatine Kinase (55-170) units/L CK-MB (CK-2) (0.0-4.0) ng/mL CK-MB (CK-2) Rel Index (0-4) Troponin T (0.00-0.029) ng/mL 05/11/16 Range/Units 12:17 WBC (4.5-11.0) K/mm3 Hgb (11.8-15.2) gm/dl Hct (35.5-45.6) % RDW (13.2-15.2) % Plt Count (140-440) K/mm3 POC ABG pH (7.35-7.45) POC ABG pO2 (80-105) Chloride (98-107) mmol/L BUN (9-20) mg/dL Glucose (75-100) mg/dL POC Glucose 232 H (70-105) Calcium (8.4-10.2) mg/dL Magnesium (1.7-2.3) mg/dL Total Creatine Kinase (55-170) units/L CK-MB (CK-2) (0.0-4.0) ng/mL CK-MB (CK-2) Rel Index (0-4) Troponin T (0.00-0.029) ng/mL
--- NOTE | 2016-05-11 17:15 | Gastroenterology Progress Note ---
Assessment and Plan 56yo man with HIV a/w acute blood loss/anemia/hematemesis; s/p EGD with large cratered duodenal ulcer, not amenable to endoscopic therapy. He is s/p IR intervention yesterday with GDA embolization. He became hypotensive and acidotic overnight and is now intubated and on pressors. 1) Duodenal Ulcer 2) CT did not show perforation of ulcer, done without contrast 2/2 consent issues. 3) H/H stable with mild decrease 4) Ischemic colitis is also possible, from low flow state 5) Octreotide discontinued 6) Cont Protonix gtt x 72 hours. Subjective Date of service: 05/11/16 Principal diagnosis: Acute blood loss/anemia/duodenal ulcer Interval history: Patient remains intubated. NO bleeding today, however maroon stool mixed reported to nursing overnight. Objective - Constitutional Vitals: Temp Pulse Resp BP Pulse Ox 97.7 F 56 L 11 L 111/63 100 05/11/16 16:00 05/11/16 16:41 05/11/16 16:41 05/11/16 16:41 05/11/16 16:41 General appearance: other (intubated) - Cardiovascular Rhythm: regular Heart Sounds: Present: S1 & S2 - Extremities Extremities: pulses intact - Gastrointestinal General gastrointestinal: Present: soft, non-distended, hypoactive bowel sounds - Integumentary Integumentary: Present: warm, dry - Psychiatric Psychiatric: agitated - Labs CBC & Chem 7: 05/11/16 03:00 05/11/16 04:00 Labs: Laboratory Results - last 24 hr 05/10/16 05/10/16 05/10/16 13:28 14:18 17:30 WBC RBC Hgb Hct MCV MCH MCHC RDW Plt Count POC ABG pH POC ABG pCO2 POC ABG pO2 POC ABG HCO3 POC ABG Total CO2 POC ABG O2 Sat POC ABG Base Excess FiO2 Sodium Potassium Chloride Carbon Dioxide Anion Gap BUN Creatinine Estimated GFR BUN/Creatinine Ratio Glucose POC Glucose < 40 L 109 H Calcium Phosphorus Magnesium Total Creatine Kinase 193 H CK-MB (CK-2) 12.2 H CK-MB (CK-2) Rel Index 6.3 H Troponin T 0.092 H 05/10/16 05/10/16 05/10/16 17:30 18:42 23:03 WBC RBC Hgb 11.1 L Hct 34.9 L D MCV MCH MCHC RDW Plt Count POC ABG pH POC ABG pCO2 POC ABG pO2 POC ABG HCO3 POC ABG Total CO2 POC ABG O2 Sat POC ABG Base Excess FiO2 Sodium Potassium Chloride Carbon Dioxide Anion Gap BUN Creatinine Estimated GFR BUN/Creatinine Ratio Glucose POC Glucose 113 H 204 H Calcium Phosphorus Magnesium Total Creatine Kinase CK-MB (CK-2) CK-MB (CK-2) Rel Index Troponin T 05/11/16 05/11/16 05/11/16 03:00 03:21 04:00 WBC 14.9 H RBC 3.68 Hgb 10.3 L Hct 32.3 L MCV 88 MCH 28 MCHC 32 RDW 18.2 H Plt Count 97 L POC ABG pH POC ABG pCO2 POC ABG pO2 POC ABG HCO3 POC ABG Total CO2 POC ABG O2 Sat POC ABG Base Excess FiO2 Sodium 143 Potassium 4.1 Chloride 111.5 H Carbon Dioxide 22 Anion Gap 14 BUN 26 H Creatinine 0.8 Estimated GFR > 60 BUN/Creatinine Ratio 32.50 Glucose 207 H POC Glucose 217 H Calcium 6.4 L Phosphorus 2.5 Magnesium 1.4 L Total Creatine Kinase CK-MB (CK-2) CK-MB (CK-2) Rel Index Troponin T 05/11/16 05/11/16 05/11/16 10:57 11:48 12:17 WBC RBC Hgb Hct MCV MCH MCHC RDW Plt Count POC ABG pH 7.391 7.369 POC ABG pCO2 38.8 37.3 POC ABG pO2 46 L 75 L POC ABG HCO3 23.6 21.5 POC ABG Total CO2 25 23 POC ABG O2 Sat 81 95 POC ABG Base Excess -1 -4 FiO2 50 50 Sodium Potassium Chloride Carbon Dioxide Anion Gap BUN Creatinine Estimated GFR BUN/Creatinine Ratio Glucose POC Glucose 232 H Calcium Phosphorus Magnesium Total Creatine Kinase CK-MB (CK-2) CK-MB (CK-2) Rel Index Troponin T
[2016-05-11] MEDS: NOVOLOG SUB-Q SCH (17:57)
--- NOTE | 2016-05-11 19:26 | Progress Note ---
Subjective Principal diagnosis: Acute blood loss/anemia/duodenal ulcer Interval history: Patient remain unresponsive. VS - No fever cHEST - B/L MILD RHONCHI CVS - S1S2 abd - bs+ assessment 1. Sepsis 2. Pneumonia 3. hiv/aids 4.resp failure 5. copd 6.GI Bleed. recommendation will continue current iv antibiotics cbc/bmp in am Objective - Constitutional Vitals: Vital Signs Temp Pulse Resp BP Pulse Ox 97.7 F 64 19 116/71 99 05/11/16 16:00 05/11/16 19:00 05/11/16 19:00 05/11/16 19:00 05/11/16 19:00 Temperature -Last 24 Hours Temperature 97.7 F Temperature 99.4 F - Labs CBC & Chem 7: 05/11/16 03:00 05/11/16 04:00 Labs: Abnormal lab results 05/10/16 05/11/16 05/11/16 Range/Units 23:03 03:00 03:21 WBC 14.9 H (4.5-11.0) K/mm3 Hgb 10.3 L (11.8-15.2) gm/dl Hct 32.3 L (35.5-45.6) % RDW 18.2 H (13.2-15.2) % Plt Count 97 L (140-440) K/mm3 POC ABG pO2 (80-105) Chloride (98-107) mmol/L BUN (9-20) mg/dL Glucose (75-100) mg/dL POC Glucose 204 H 217 H (70-105) Calcium (8.4-10.2) mg/dL Magnesium (1.7-2.3) mg/dL 05/11/16 05/11/16 05/11/16 Range/Units 04:00 10:57 11:48 WBC (4.5-11.0) K/mm3 Hgb (11.8-15.2) gm/dl Hct (35.5-45.6) % RDW (13.2-15.2) % Plt Count (140-440) K/mm3 POC ABG pO2 46 L 75 L (80-105) Chloride 111.5 H (98-107) mmol/L BUN 26 H (9-20) mg/dL Glucose 207 H (75-100) mg/dL POC Glucose (70-105) Calcium 6.4 L (8.4-10.2) mg/dL Magnesium 1.4 L (1.7-2.3) mg/dL 05/11/16 Range/Units 12:17 WBC (4.5-11.0) K/mm3 Hgb (11.8-15.2) gm/dl Hct (35.5-45.6) % RDW (13.2-15.2) % Plt Count (140-440) K/mm3 POC ABG pO2 (80-105) Chloride (98-107) mmol/L BUN (9-20) mg/dL Glucose (75-100) mg/dL POC Glucose 232 H (70-105) Calcium (8.4-10.2) mg/dL Magnesium (1.7-2.3) mg/dL
[2016-05-11] MEDS ORDERED: TPN ADULT 1,800 ML IV SCH (20:00)
[2016-05-11] MEDS: LEVAQUIN 750MG/150ML 750 MG/150 ML BAG IV SCH (22:00)
[2016-05-12 05:59] LABS: ISTAT Base Excess -1; ISTAT HCO3 24.6; ISTAT PCO2 43.1 (35-45); ISTAT PH 7.364 (7.35-7.45); ISTAT PO2 64 (80-105); ISTAT SO2 91; ISTAT TCO2 26
[2016-05-12] MEDS: NOVOLOG SUB-Q SCH ×4 (06:05→18:40)
[2016-05-12 06:06] LABS: Basophils % (Auto) 0.1 % (0.0-1.8); Eosinophils % (Auto) 0.1 % (0.0-4.3); Hemoglobin 8.9 gm/dl (11.8-15.2); Mean Corpuscular HGB Conc 33 % (32-34); Mean Corpuscular Hemoglobin 29 pg (28-32); Mean Corpuscular Volume 87 fl (84-94); Red Blood Count 3.12 M/mm3 (3.65-5.03); Red Cell Distribution Width 17.8 % (13.2-15.2); White Blood Count 9.6 K/mm3 (4.5-11.0)
[2016-05-12 06:07] LABS: Platelet Count 72 K/mm3 (140-440)
[2016-05-12] MEDS: CLEOCIN 600 MG/50 mL 600 MG/50 ML BAG IV SCH ×3 (06:08→21:36)
[2016-05-12] MEDS: VANCOMYCIN VIAL 750 MG in NACL 0.9% 250ML 250 ML IV SCH ×2 (06:12→17:40)
[2016-05-12 06:34] LABS: Alanine Aminotransferase 15 units/L (7-56); Albumin 1.7 g/dL (3.9-5); Albumin/Globulin Ratio 0.9 %; Alkaline Phosphatase 41 units/L (35-129); Anion Gap 11 mmol/L; Bilirubin,Total 0.3 mg/dL (0.1-1.2); Blood Urea Nitrogen 23 mg/dL (9-20); Calcium 7.3 mg/dL (8.4-10.2); Carbon Dioxide 26 mmol/L (22-30); Chloride 110.2 mmol/L (98-107); Glucose 172 mg/dL (75-100); Potassium 3.4 mmol/L (3.6-5.0); Sodium 144 mmol/L (137-145); Total Protein 3.7 g/dL (6.3-8.2)
--- NOTE | 2016-05-12 06:45 | Gastroenterology Progress Note ---
Assessment and Plan 56yo man with HIV a/w acute blood loss/anemia/hematemesis; s/p EGD with large cratered duodenal ulcer, not amenable to endoscopic therapy. He is s/p IR intervention with GDA embolization. He was hypotensive 2 days ago and was thus intubated and on pressors; he is stable, but guarded overall. Possible component of ischemic colitis, given hypotensive episode. Rec: 1) Possible extubation today as per ICU team 2) Change Protonix gtt to 40mg IV 2x/day 3) Monitor Hb 4) Carafate 4x/day once extubated and able to tolerate PO Subjective Date of service: 05/12/16 Principal diagnosis: Acute blood loss/anemia/duodenal ulcer Interval history: Pt seen/examined this AM. Remains intubated and on Vasopressin. Hb down to 8.9 today; no bloody stools noted. No other acute events. Objective - Constitutional Vitals: Temp Pulse Resp BP Pulse Ox 98.7 F 75 15 116/70 96 05/12/16 05:56 05/12/16 04:56 05/12/16 02:51 05/12/16 04:56 05/12/16 04:56 General appearance: other (intubated) - EENT ENT: other (+ETT) - Neck Neck: supple - Respiratory Respiratory: bilateral: other (coarse BS B/L) - Cardiovascular Rhythm: regular Heart Sounds: Present: S1 & S2 (bradycardic) - Extremities Extremities: No edema - Gastrointestinal General gastrointestinal: Present: soft, non-distended, normal bowel sounds - Labs CBC & Chem 7: 05/12/16 05:00 05/12/16 05:00 Labs: Laboratory Results - last 24 hr 05/11/16 05/11/16 05/11/16 10:57 11:48 12:17 WBC RBC Hgb Hct MCV MCH MCHC RDW Plt Count Lymph % (Auto) [place] % (Auto) Eos % (Auto) Baso % (Auto) Lymph # [place] # Eos # Baso # Seg Neutrophils % Seg Neutrophils # POC ABG pH 7.391 7.369 POC ABG pCO2 38.8 37.3 POC ABG pO2 46 L 75 L POC ABG HCO3 23.6 21.5 POC ABG Total CO2 25 23 POC ABG O2 Sat 81 95 POC ABG Base Excess -1 -4 FiO2 50 50 Sodium Potassium Chloride Carbon Dioxide Anion Gap BUN Creatinine Estimated GFR BUN/Creatinine Ratio Glucose POC Glucose 232 H Calcium Total Bilirubin AST ALT Alkaline Phosphatase Total Protein Albumin Albumin/Globulin Ratio 05/11/16 05/12/16 05/12/16 23:38 05:00 05:00 WBC 9.6 RBC 3.12 L Hgb 8.9 L Hct 27.0 L MCV 87 MCH 29 MCHC 33 RDW 17.8 H Plt Count 72 L Lymph % (Auto) 9.2 L [place] % (Auto) 6.6 Eos % (Auto) 0.1 Baso % (Auto) 0.1 Lymph # 0.9 L [place] # 0.6 Eos # 0.0 Baso # 0.0 Seg Neutrophils % 84.0 H Seg Neutrophils # 8.1 H POC ABG pH POC ABG pCO2 POC ABG pO2 POC ABG HCO3 POC ABG Total CO2 POC ABG O2 Sat POC ABG Base Excess FiO2 Sodium 144 Potassium 3.4 L Chloride 110.2 H Carbon Dioxide 26 Anion Gap 11 BUN 23 H Creatinine 0.5 L Estimated GFR > 60 BUN/Creatinine Ratio 46.00 Glucose 172 H POC Glucose 126 H Calcium 7.3 L Total Bilirubin 0.3 AST 20 ALT 15 Alkaline Phosphatase 41 Total Protein 3.7 L Albumin 1.7 L Albumin/Globulin Ratio 0.9 05/12/16 05:44 WBC RBC Hgb Hct MCV MCH MCHC RDW Plt Count Lymph % (Auto) [place] % (Auto) Eos % (Auto) Baso % (Auto) Lymph # [place] # Eos # Baso # Seg Neutrophils % Seg Neutrophils # POC ABG pH 7.364 POC ABG pCO2 43.1 POC ABG pO2 64 L POC ABG HCO3 24.6 POC ABG Total CO2 26 POC ABG O2 Sat 91 POC ABG Base Excess -1 FiO2 50 Sodium Potassium Chloride Carbon Dioxide Anion Gap BUN Creatinine Estimated GFR BUN/Creatinine Ratio Glucose POC Glucose Calcium Total Bilirubin AST ALT Alkaline Phosphatase Total Protein Albumin Albumin/Globulin Ratio
[2016-05-12 07:00] LABS: Magnesium 1.6 mg/dL (1.7-2.3); Phosphorous 1.5 mg/dL (2.5-4.5)
[2016-05-12] MEDS: PITRESSin 20 UNIT in NACL 0.9% 100 ML IV SCH (08:40)
[2016-05-12] MEDS: PROTONIX 80 MG in NACL 0.9% 100 ML IV SCH ×2 (08:41→17:40)
--- NOTE | 2016-05-12 08:44 | Progress Note ---
Assessment and Plan Acute respiratory failure vent weaning per pulmonary Hypotension wean pressors to maintain MAP > 65 Sepsis Elevated troponin-->may be due to demand ischemia minimally elevated but flat Echo: EF 30-35%, mild AR, mild MR, mild-moderate TR, RVSP 48mmHg Cardiomyopathy EF 30-35% possibly alcoholic no BB or ACEI due to hypotension Bleeding duodenal ulcer/Anemia s/p coil embolization of gastroduodenal artery ETOH abuse Tobacco abuse HIV The patient has been seen in conjunction with Dr. Dias who agrees with the assessment and plan of care. Subjective Date of service: 05/12/16 Principal diagnosis: Acute blood loss/anemia/duodenal ulcer Interval history: The patient remains intubated. He is awake and follows commands. Sinus alia on the monitor. Objective Last Vital Signs Temp 98.4 F 05/12/16 07:52 Pulse 41 L 05/12/16 08:31 Resp 12 05/12/16 08:31 BP 120/81 05/12/16 08:31 Pulse Ox 99 05/12/16 08:31 - Physical Examination General: No Apparent Distress (intubated) HEENT: Positive: Normocephaly, Mucus Membranes Moist Neck: Positive: neck supple, trachea midline Cardiac: Positive: Regular Rhythm, S1/S2, Bradycardia Lungs: Positive: Rhonchi Neuro: Positive: Other (intubated but arosuable) Abdomen: Positive: Soft Extremities: Absent: edema - Labs and Meds Cardiac Enzymes 05/12/16 Range/Units 05:00 AST 20 (5-40) units/L CBC 05/12/16 Range/Units 05:00 WBC 9.6 (4.5-11.0) K/mm3 RBC 3.12 L (3.65-5.03) M/mm3 Hgb 8.9 L (11.8-15.2) gm/dl Hct 27.0 L (35.5-45.6) % Plt Count 72 L (140-440) K/mm3 Lymph # 0.9 L (1.2-5.4) K/mm3 Cloud # 0.6 (0.0-0.8) K/mm3 Eos # 0.0 (0.0-0.4) K/mm3 Baso # 0.0 (0.0-0.1) K/mm3 Comprehensive Metabolic Panel 02/22/17 Range/Units 05:00 Sodium 144 (137-145) mmol/L Potassium 3.4 L (3.6-5.0) mmol/L Chloride 110.2 H (98-107) mmol/L Carbon Dioxide 26 (22-30) mmol/L BUN 23 H (9-20) mg/dL Creatinine 0.5 L (0.8-1.5) mg/dL Glucose 172 H (75-100) mg/dL Calcium 7.3 L (8.4-10.2) mg/dL AST 20 (5-40) units/L ALT 15 (7-56) units/L Alkaline Phosphatase 41 (35-129) units/L Total Protein 3.7 L (6.3-8.2) g/dL Albumin 1.7 L (3.9-5) g/dL - Imaging and Cardiology EKG: image reviewed Echo: report reviewed (04/2016: EF 30-35%, mild AR, mild MR, mild-moderate TR, RVSP 48mmHg) - Telemetry EKG Rhythm: Sinus Bradycardia - EKG Sinus rhythms and dysrhythmias: sinus rhythm Repolarization changes or abnormalities: nonspecific abnormality, ST segment, and/or T wave
--- NOTE | 2016-05-12 10:04 | Progress Note ---
Assessment and Plan Acute respiratory failure. Clinically improved. Appear to be ready for weaning. COPD. Currently wheezing mildly Severe sepsis. Clinically improving Shock. Multifactorial. Improved. Been wean off the maintaining pressors GI bleeding episode. Monitoring H&H. 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 Improving HIV. Not on treatment. Noncompliant with prior treatment Prior history of alcohol abuse. Recommendations Off vasopressin Ordering an initial albuterol nebulization for wheezing Initiate pressure support 10/CPAP 5 for initial spontaneous breathing trial assessment If tolerated continue to 8/5 cm H2O and do ABGs for possible extubation Continue antibiotics and monitor cultures Follow-up on cardiology recommendations for cardiomyopathy management Critical care time was 31 minutes in [id number] evaluation and coordination of care Subjective Date of service: 05/12/16 Principal diagnosis: Acute blood loss/anemia/duodenal ulcer Interval history: Restless but following commands. Minimal secretions. Vasopressin being weaned off Objective Vital Signs - 12hr 05/11/16 05/11/16 05/11/16 22:11 22:21 22:31 Temperature Pulse Rate 53 L 67 55 L Pulse Rate [ From Monitor] Respiratory 19 11 L 21 Rate Blood Pressure 111/62 112/65 109/59 O2 Sat by Pulse 98 100 100 Oximetry 05/11/16 05/11/16 05/11/16 22:41 22:51 23:01 Temperature Pulse Rate 58 L 57 L 56 L Pulse Rate [ From Monitor] Respiratory 16 14 11 L Rate Blood Pressure 109/59 109/59 99/67 O2 Sat by Pulse 99 98 98 Oximetry 05/11/16 05/11/16 05/11/16 23:11 23:21 23:26 Temperature Pulse Rate 63 54 L 59 L Pulse Rate [ From Monitor] Respiratory 16 16 19 Rate Blood Pressure 99/67 114/63 114/63 O2 Sat by Pulse 99 99 99 Oximetry 05/11/16 05/11/16 05/11/16 23:30 23:33 23:41 Temperature Pulse Rate 54 L 49 L 53 L Pulse Rate [ From Monitor] Respiratory 16 20 21 Rate Blood Pressure 109/68 109/68 109/68 O2 Sat by Pulse 98 100 99 Oximetry 05/11/16 05/11/16 05/12/16 23:51 23:57 00:00 Temperature Pulse Rate 66 59 L Pulse Rate [ 52 L From Monitor] Respiratory 13 18 Rate Blood Pressure 103/56 103/56 O2 Sat by Pulse 98 100 Oximetry 05/12/16 05/12/16 05/12/16 00:01 00:11 00:21 Temperature Pulse Rate 48 L 56 L 53 L Pulse Rate [ From Monitor] Respiratory 23 13 14 Rate Blood Pressure 100/58 100/58 103/60 O2 Sat by Pulse 99 98 98 Oximetry 05/12/16 05/12/16 05/12/16 00:31 00:41 00:44 Temperature 97.1 F L Pulse Rate 52 L 49 L Pulse Rate [ From Monitor] Respiratory 16 21 Rate Blood Pressure 116/68 116/68 O2 Sat by Pulse 99 98 Oximetry 05/12/16 05/12/16 05/12/16 00:51 01:00 01:11 Temperature Pulse Rate 47 L 59 L 50 L Pulse Rate [ From Monitor] Respiratory 18 20 17 Rate Blood Pressure 112/59 103/69 103/69 O2 Sat by Pulse 98 99 99 Oximetry 05/12/16 05/12/16 05/12/16 01:21 01:27 01:30 Temperature Pulse Rate 50 L 52 L 54 L Pulse Rate [ From Monitor] Respiratory 20 22 Rate Blood Pressure 110/71 110/71 118/69 O2 Sat by Pulse 99 99 100 Oximetry 05/12/16 05/12/16 05/12/16 01:41 01:51 02:00 Temperature Pulse Rate 54 L 54 L 48 L Pulse Rate [ From Monitor] Respiratory 19 16 19 Rate Blood Pressure 118/69 112/56 115/59 O2 Sat by Pulse 100 99 100 Oximetry 05/12/16 05/12/16 05/12/16 02:11 02:21 02:31 Temperature Pulse Rate 39 L 58 L 47 L Pulse Rate [ From Monitor] Respiratory 18 16 15 Rate Blood Pressure 115/59 112/63 117/62 O2 Sat by Pulse 100 100 99 Oximetry 05/12/16 05/12/16 05/12/16 02:41 02:51 03:01 Temperature Pulse Rate 43 L 50 L 47 L Pulse Rate [ From Monitor] Respiratory 14 15 16 Rate Blood Pressure 117/62 120/69 111/60 O2 Sat by Pulse 99 99 100 Oximetry 05/12/16 05/12/16 05/12/16 03:11 03:21 03:31 Temperature Pulse Rate 51 L 45 L 54 L Pulse Rate [ From Monitor] Respiratory 22 19 17 Rate Blood Pressure 111/60 115/62 108/72 O2 Sat by Pulse 99 99 100 Oximetry 05/12/16 05/12/16 05/12/16 03:41 03:51 04:00 Temperature Pulse Rate 56 L 70 57 L Pulse Rate [ From Monitor] Respiratory 15 14 21 Rate Blood Pressure 108/72 116/62 121/71 O2 Sat by Pulse 98 99 100 Oximetry 05/12/16 05/12/16 05/12/16 04:11 04:21 04:30 Temperature Pulse Rate 50 L 56 L 57 L Pulse Rate [ From Monitor] Respiratory 14 13 22 Rate Blood Pressure 121/71 117/68 116/70 O2 Sat by Pulse 98 98 97 Oximetry 05/12/16 05/12/16 05/12/16 04:41 04:51 04:56 Temperature Pulse Rate 52 L 53 L 75 Pulse Rate [ From Monitor] Respiratory 22 15 Rate Blood Pressure 116/70 121/99 116/70 O2 Sat by Pulse 98 99 96 Oximetry 05/12/16 05/12/16 05/12/16 05:01 05:11 05:21 Temperature Pulse Rate 62 60 81 Pulse Rate [ From Monitor] Respiratory 16 19 16 Rate Blood Pressure 99/52 99/52 120/64 O2 Sat by Pulse 100 99 99 Oximetry 05/12/16 05/12/16 05/12/16 05:31 05:41 05:51 Temperature Pulse Rate 55 L 44 L 51 L Pulse Rate [ From Monitor] Respiratory 17 6 L 14 Rate Blood Pressure 125/68 120/64 120/66 O2 Sat by Pulse 98 100 99 Oximetry 05/12/16 05/12/16 05/12/16 05:56 06:01 06:11 Temperature 98.7 F Pulse Rate 70 69 Pulse Rate [ From Monitor] Respiratory 18 15 Rate Blood Pressure 114/68 125/68 O2 Sat by Pulse 94 97 Oximetry 05/12/16 05/12/16 05/12/16 06:21 06:30 06:41 Temperature Pulse Rate 47 L 50 L 45 L Pulse Rate [ From Monitor] Respiratory 18 12 18 Rate Blood Pressure 104/60 106/64 106/64 O2 Sat by Pulse 100 99 100 Oximetry 05/12/16 05/12/16 05/12/16 06:51 07:01 07:11 Temperature Pulse Rate 42 L 39 L 49 L Pulse Rate [ From Monitor] Respiratory 18 18 13 Rate Blood Pressure 116/63 114/60 116/63 O2 Sat by Pulse 100 93 100 Oximetry 05/12/16 05/12/16 05/12/16 07:21 07:31 07:41 Temperature Pulse Rate 50 L 49 L 45 L Pulse Rate [ From Monitor] Respiratory 11 L 16 12 Rate Blood Pressure 121/69 123/66 121/69 O2 Sat by Pulse 100 100 100 Oximetry 05/12/16 05/12/16 05/12/16 07:51 07:52 08:00 Temperature 98.4 F Pulse Rate 56 L Pulse Rate [ 57 L From Monitor] Respiratory 20 Rate Blood Pressure 125/65 O2 Sat by Pulse 100 100 Oximetry 05/12/16 05/12/16 05/12/16 08:01 08:08 08:11 Temperature Pulse Rate 73 45 L 44 L Pulse Rate [ From Monitor] Respiratory 17 18 Rate Blood Pressure 122/79 122/79 122/79 O2 Sat by Pulse 100 96 100 Oximetry 05/12/16 05/12/16 08:21 08:31 Temperature Pulse Rate 50 L 41 L Pulse Rate [ From Monitor] Respiratory 19 12 Rate Blood Pressure 121/76 120/81 O2 Sat by Pulse 99 99 Oximetry Constitutional: alert, appears uncomfortable, other (endotracheal tube in position at 24 cm) Eyes: non-icteric ENT: oropharynx dry Neck: supple, no JVD Effort: mildly labored Ascultation: Bilateral: clear, wheezes, rhonchi (occasional left-sided) Cardiovascular: regular rate and rhythm Gastrointestinal: hypoactive bowel sounds, other (possible ascites) Extremities: no cyanosis, edema (+1 both lower extremities) Neurologic: normal mental status, non-focal exam, pupils equal and round, other (for all are slightly confused) CBC and BMP: 05/12/16 05:00 05/12/16 05:00 ABG, PT/INR, D-dimer: ABG POC ABG pH 7.364 (7.35-7.45) 05/12/16 05:44 POC ABG pCO2 43.1 (35-45) 05/12/16 05:44 POC ABG pO2 64 (80-105) L 05/12/16 05:44 POC ABG HCO3 24.6 05/12/16 05:44 POC ABG Total CO2 26 05/12/16 05:44 POC ABG O2 Sat 91 05/12/16 05:44 PT/INR, D-dimer PT 16.6 Sec. (12.2-14.9) H 05/09/16 12:06 INR 1.35 (0.87-1.13) H 05/09/16 12:06 Abnormal lab findings: Abnormal Labs 05/09/16 05/10/16 05/10/16 23:00 02:46 04:25 WBC 22.4 H 20.7 H RBC 5.05 H Hgb Hct 45.8 H D RDW 17.9 H 18.0 H Plt Count 70 L 68 L Lymph % (Auto) Lymph # Seg Neutrophils % Seg Neuts % (Manual) 92.0 H 92.0 H Lymphocytes % (Manual) 1.0 L 0 L Seg Neutrophils # Seg Neutrophils # Man 20.6 H 19.0 H Lymphocytes # (Manual) 0.2 L 0.0 L POC ABG pH POC ABG pCO2 POC ABG pO2 Potassium Chloride BUN Creatinine Glucose POC Glucose Calcium Phosphorus Magnesium Total Creatine Kinase CK-MB (CK-2) CK-MB (CK-2) Rel Index Troponin T Total Protein Albumin LDL Cholesterol Direct HDL Cholesterol 05/10/16 05/10/16 05/10/16 04:25 09:55 11:13 WBC RBC Hgb Hct RDW Plt Count Lymph % (Auto) Lymph # Seg Neutrophils % Seg Neuts % (Manual) Lymphocytes % (Manual) Seg Neutrophils # Seg Neutrophils # Man Lymphocytes # (Manual) POC ABG pH 7.152 L POC ABG pCO2 65.4 H POC ABG pO2 48 L Potassium Chloride 110.4 H BUN 21 H Creatinine Glucose 47 L POC Glucose Calcium 5.7 L* Phosphorus Magnesium Total Creatine Kinase CK-MB (CK-2) 11.5 H CK-MB (CK-2) Rel Index 7.6 H Troponin T 0.105 H* Total Protein 3.4 L Albumin 1.8 L LDL Cholesterol Direct 13 L HDL Cholesterol 28 L 05/10/16 05/10/16 05/10/16 13:28 14:05 14:18 WBC RBC Hgb Hct RDW Plt Count Lymph % (Auto) Lymph # Seg Neutrophils % Seg Neuts % (Manual) Lymphocytes % (Manual) Seg Neutrophils # Seg Neutrophils # Man Lymphocytes # (Manual) POC ABG pH 7.199 L POC ABG pCO2 56.9 H POC ABG pO2 67 L Potassium Chloride BUN Creatinine Glucose POC Glucose < 40 L 109 H Calcium Phosphorus Magnesium Total Creatine Kinase CK-MB (CK-2) CK-MB (CK-2) Rel Index Troponin T Total Protein Albumin LDL Cholesterol Direct HDL Cholesterol 05/10/16 05/10/16 05/10/16 16:02 17:30 17:30 WBC RBC Hgb 11.1 L Hct 34.9 L D RDW Plt Count Lymph % (Auto) Lymph # Seg Neutrophils % Seg Neuts % (Manual) Lymphocytes % (Manual) Seg Neutrophils # Seg Neutrophils # Man Lymphocytes # (Manual) POC ABG pH 7.307 L POC ABG pCO2 POC ABG pO2 Potassium Chloride BUN Creatinine Glucose POC Glucose Calcium Phosphorus Magnesium Total Creatine Kinase 193 H CK-MB (CK-2) 12.2 H CK-MB (CK-2) Rel Index 6.3 H Troponin T 0.092 H Total Protein Albumin LDL Cholesterol Direct HDL Cholesterol 05/10/16 05/10/16 05/11/16 18:42 23:03 03:00 WBC 14.9 H RBC Hgb 10.3 L Hct 32.3 L RDW 18.2 H Plt Count 97 L Lymph % (Auto) Lymph # Seg Neutrophils % Seg Neuts % (Manual) Lymphocytes % (Manual) Seg Neutrophils # Seg Neutrophils # Man Lymphocytes # (Manual) POC ABG pH POC ABG pCO2 POC ABG pO2 Potassium Chloride BUN Creatinine Glucose POC Glucose 113 H 204 H Calcium Phosphorus Magnesium Total Creatine Kinase CK-MB (CK-2) CK-MB (CK-2) Rel Index Troponin T Total Protein Albumin LDL Cholesterol Direct HDL Cholesterol 05/11/16 05/11/16 05/11/16 03:21 04:00 10:57 WBC RBC Hgb Hct RDW Plt Count Lymph % (Auto) Lymph # Seg Neutrophils % Seg Neuts % (Manual) Lymphocytes % (Manual) Seg Neutrophils # Seg Neutrophils # Man Lymphocytes # (Manual) POC ABG pH POC ABG pCO2 POC ABG pO2 46 L Potassium Chloride 111.5 H BUN 26 H Creatinine Glucose 207 H POC Glucose 217 H Calcium 6.4 L Phosphorus Magnesium 1.4 L Total Creatine Kinase CK-MB (CK-2) CK-MB (CK-2) Rel Index Troponin T Total Protein Albumin LDL Cholesterol Direct HDL Cholesterol 05/11/16 05/11/16 05/11/16 11:48 12:17 17:11 WBC RBC Hgb Hct RDW Plt Count Lymph % (Auto) Lymph # Seg Neutrophils % Seg Neuts % (Manual) Lymphocytes % (Manual) Seg Neutrophils # Seg Neutrophils # Man Lymphocytes # (Manual) POC ABG pH POC ABG pCO2 POC ABG pO2 75 L Potassium Chloride BUN Creatinine Glucose POC Glucose 232 H 204 H Calcium Phosphorus Magnesium Total Creatine Kinase CK-MB (CK-2) CK-MB (CK-2) Rel Index Troponin T Total Protein Albumin LDL Cholesterol Direct HDL Cholesterol 05/11/16 05/12/16 05/12/16 23:38 05:00 05:00 WBC RBC 3.12 L Hgb 8.9 L Hct 27.0 L RDW 17.8 H Plt Count 72 L Lymph % (Auto) 9.2 L Lymph # 0.9 L Seg Neutrophils % 84.0 H Seg Neuts % (Manual) Lymphocytes % (Manual) Seg Neutrophils # 8.1 H Seg Neutrophils # Man Lymphocytes # (Manual) POC ABG pH POC ABG pCO2 POC ABG pO2 Potassium Chloride BUN Creatinine Glucose POC Glucose 126 H Calcium Phosphorus 1.5 L D Magnesium 1.6 L Total Creatine Kinase CK-MB (CK-2) CK-MB (CK-2) Rel Index Troponin T Total Protein Albumin LDL Cholesterol Direct HDL Cholesterol 05/12/16 05/12/16 05/12/16 05:00 05:18 05:44 WBC RBC Hgb Hct RDW Plt Count Lymph % (Auto) Lymph # Seg Neutrophils % Seg Neuts % (Manual) Lymphocytes % (Manual) Seg Neutrophils # Seg Neutrophils # Man Lymphocytes # (Manual) POC ABG pH POC ABG pCO2 POC ABG pO2 64 L Potassium 3.4 L Chloride 110.2 H BUN 23 H Creatinine 0.5 L Glucose 172 H POC Glucose 183 H Calcium 7.3 L Phosphorus Magnesium Total Creatine Kinase CK-MB (CK-2) CK-MB (CK-2) Rel Index Troponin T Total Protein 3.7 L Albumin 1.7 L LDL Cholesterol Direct HDL Cholesterol
[2016-05-12] MEDS: PROVENTIL IH SCH ×4 (10:41→23:38)
[2016-05-12] MEDS: KCL 20MEQ/100ML 20 MEQ/100 ML BAG IV SCH ×2 (10:49→12:00)
[2016-05-12] MEDS ORDERED: DUONEB 0.5 MG-3 MG/3 ML SOLN IH SCH (14:00)
[2016-05-12] MEDS: ATIVAN IV PRN ×2 (15:09→22:23)
--- NOTE | 2016-05-12 17:56 | Progress Note ---
Subjective Principal diagnosis: Acute blood loss/anemia/duodenal ulcer Interval history: Patient is awake.. VS - No fever cHEST - B/L MILD RHONCHI CVS - S1S2 abd - bs+ assessment 1. Sepsis 2. Pneumonia 3. hiv/aids 4.resp failure 5. copd 6.GI Bleed. recommendation Continue current iv abx. Objective - Constitutional Vitals: Vital Signs Temp Pulse Resp BP Pulse Ox 98.1 F 96 H 16 116/69 100 05/12/16 16:40 05/12/16 17:53 05/12/16 17:53 05/12/16 16:01 05/12/16 16:01 Temperature -Last 24 Hours Temperature 98.1 F Temperature 97.9 F Temperature 98.4 F Temperature 98.7 F Temperature 97.1 F - Labs CBC & Chem 7: 05/12/16 05:00 05/12/16 05:00 Labs: Abnormal lab results 05/11/16 05/11/16 05/12/16 Range/Units 17:11 23:38 05:00 RBC (3.65-5.03) M/mm3 Hgb (11.8-15.2) gm/dl Hct (35.5-45.6) % RDW (13.2-15.2) % Plt Count (140-440) K/mm3 Lymph % (Auto) (13.4-35.0) % Lymph # (1.2-5.4) K/mm3 Seg Neutrophils % (40.0-70.0) % Seg Neutrophils # (1.8-7.7) K/mm3 POC ABG pO2 (80-105) Potassium (3.6-5.0) mmol/L Chloride (98-107) mmol/L BUN (9-20) mg/dL Creatinine (0.8-1.5) mg/dL Glucose (75-100) mg/dL POC Glucose 204 H 126 H (70-105) Calcium (8.4-10.2) mg/dL Phosphorus 1.5 L D (2.5-4.5) mg/dL Magnesium 1.6 L (1.7-2.3) mg/dL Total Protein (6.3-8.2) g/dL Albumin (3.9-5) g/dL 05/12/16 05/12/16 05/12/16 Range/Units 05:00 05:00 05:18 RBC 3.12 L (3.65-5.03) M/mm3 Hgb 8.9 L (11.8-15.2) gm/dl Hct 27.0 L (35.5-45.6) % RDW 17.8 H (13.2-15.2) % Plt Count 72 L (140-440) K/mm3 Lymph % (Auto) 9.2 L (13.4-35.0) % Lymph # 0.9 L (1.2-5.4) K/mm3 Seg Neutrophils % 84.0 H (40.0-70.0) % Seg Neutrophils # 8.1 H (1.8-7.7) K/mm3 POC ABG pO2 (80-105) Potassium 3.4 L (3.6-5.0) mmol/L Chloride 110.2 H (98-107) mmol/L BUN 23 H (9-20) mg/dL Creatinine 0.5 L (0.8-1.5) mg/dL Glucose 172 H (75-100) mg/dL POC Glucose 183 H (70-105) Calcium 7.3 L (8.4-10.2) mg/dL Phosphorus (2.5-4.5) mg/dL Magnesium (1.7-2.3) mg/dL Total Protein 3.7 L (6.3-8.2) g/dL Albumin 1.7 L (3.9-5) g/dL 05/12/16 05/12/16 Range/Units 05:44 12:26 RBC (3.65-5.03) M/mm3 Hgb (11.8-15.2) gm/dl Hct (35.5-45.6) % RDW (13.2-15.2) % Plt Count (140-440) K/mm3 Lymph % (Auto) (13.4-35.0) % Lymph # (1.2-5.4) K/mm3 Seg Neutrophils % (40.0-70.0) % Seg Neutrophils # (1.8-7.7) K/mm3 POC ABG pO2 64 L (80-105) Potassium (3.6-5.0) mmol/L Chloride (98-107) mmol/L BUN (9-20) mg/dL Creatinine (0.8-1.5) mg/dL Glucose (75-100) mg/dL POC Glucose 134 H (70-105) Calcium (8.4-10.2) mg/dL Phosphorus (2.5-4.5) mg/dL Magnesium (1.7-2.3) mg/dL Total Protein (6.3-8.2) g/dL Albumin (3.9-5) g/dL
--- NOTE | 2016-05-12 18:49 | Progress Note ---
Assessment and Plan 1. Acute GI bleeding from a duodenal cratered ulcer per EGD report. s/p IR embolization. D/samuel octreotide for possible ischemia. S/p blood transfusion. Stable. On PPI, NPO 2. Acute respiratory failure. Intubated. On Bronchodilators Patient was intubated for airway protection after progressive deterioration in the setting of shock. Improved 3. Severe sepsis. Mutifactorial: On Levaquin, cleocin and Vanc. ID following. 4. Septic Shock. From GI bleeding and sepsis. Continue with IV hydration, 5. HIV. Not on treatment. f/u with CD3 count 6. Prior history of alcohol abuse. 7. Hold DVT PPx with anticoagulation b/c of GI bleeding Subjective Date of service: 05/12/16 Principal diagnosis: Acute blood loss/anemia/duodenal ulcer Interval history: Remains intubated Objective - Constitutional Vitals: Vital Signs - 12hr 05/12/16 05/12/16 05/12/16 06:51 07:01 07:11 Temperature Pulse Rate 42 L 39 L 49 L Pulse Rate [ From Monitor] Pulse Rate [ Left Throughout ] Respiratory 18 18 13 Rate Respiratory Rate [Left Throughout] Blood Pressure 116/63 114/60 116/63 O2 Sat by Pulse 100 93 100 Oximetry 05/12/16 05/12/16 05/12/16 07:21 07:31 07:41 Temperature Pulse Rate 50 L 49 L 45 L Pulse Rate [ From Monitor] Pulse Rate [ Left Throughout ] Respiratory 11 L 16 12 Rate Respiratory Rate [Left Throughout] Blood Pressure 121/69 123/66 121/69 O2 Sat by Pulse 100 100 100 Oximetry 05/12/16 05/12/16 05/12/16 07:51 07:52 08:00 Temperature 98.4 F Pulse Rate 56 L Pulse Rate [ 57 L From Monitor] Pulse Rate [ Left Throughout ] Respiratory 20 Rate Respiratory Rate [Left Throughout] Blood Pressure 125/65 O2 Sat by Pulse 100 100 Oximetry 05/12/16 05/12/16 05/12/16 08:01 08:08 08:11 Temperature Pulse Rate 73 45 L 44 L Pulse Rate [ From Monitor] Pulse Rate [ Left Throughout ] Respiratory 17 18 Rate Respiratory Rate [Left Throughout] Blood Pressure 122/79 122/79 122/79 O2 Sat by Pulse 100 96 100 Oximetry 05/12/16 05/12/16 05/12/16 08:21 08:31 08:41 Temperature Pulse Rate 50 L 41 L 47 L Pulse Rate [ From Monitor] Pulse Rate [ Left Throughout ] Respiratory 19 12 14 Rate Respiratory Rate [Left Throughout] Blood Pressure 121/76 120/81 120/81 O2 Sat by Pulse 99 99 100 Oximetry 05/12/16 05/12/16 05/12/16 08:51 09:01 09:11 Temperature Pulse Rate 51 L 47 L 62 Pulse Rate [ From Monitor] Pulse Rate [ Left Throughout ] Respiratory 15 19 17 Rate Respiratory Rate [Left Throughout] Blood Pressure 117/73 126/66 126/66 O2 Sat by Pulse 98 97 96 Oximetry 05/12/16 05/12/16 05/12/16 09:21 09:30 09:41 Temperature Pulse Rate 59 L 60 71 Pulse Rate [ From Monitor] Pulse Rate [ Left Throughout ] Respiratory 11 L 14 21 Rate Respiratory Rate [Left Throughout] Blood Pressure 127/64 111/63 111/63 O2 Sat by Pulse 97 96 96 Oximetry 05/12/16 05/12/16 05/12/16 09:51 10:00 10:01 Temperature Pulse Rate 88 93 H 90 Pulse Rate [ 96 H From Monitor] Pulse Rate [ Left Throughout ] Respiratory 18 34 H Rate Respiratory Rate [Left Throughout] Blood Pressure 107/68 97/72 O2 Sat by Pulse 97 94 Oximetry 05/12/16 05/12/16 05/12/16 10:11 10:21 10:31 Temperature Pulse Rate 84 95 H 98 H Pulse Rate [ From Monitor] Pulse Rate [ Left Throughout ] Respiratory 17 18 22 Rate Respiratory Rate [Left Throughout] Blood Pressure 97/72 104/69 96/66 O2 Sat by Pulse 96 93 87 Oximetry 05/12/16 05/12/16 05/12/16 10:41 10:42 10:51 Temperature Pulse Rate 93 H 98 H Pulse Rate [ From Monitor] Pulse Rate [ 91 H Left Throughout ] Respiratory 21 24 Rate Respiratory 26 H Rate [Left Throughout] Blood Pressure 96/66 97/62 O2 Sat by Pulse 92 93 Oximetry 05/12/16 05/12/16 05/12/16 11:00 11:01 11:11 Temperature Pulse Rate 106 H 85 Pulse Rate [ From Monitor] Pulse Rate [ 94 H Left Throughout ] Respiratory 21 20 Rate Respiratory 16 Rate [Left Throughout] Blood Pressure 97/70 97/70 O2 Sat by Pulse 92 94 Oximetry 05/12/16 05/12/16 05/12/16 11:21 11:30 11:41 Temperature Pulse Rate 91 H 91 H 77 Pulse Rate [ From Monitor] Pulse Rate [ Left Throughout ] Respiratory 18 22 17 Rate Respiratory Rate [Left Throughout] Blood Pressure 111/67 107/75 107/75 O2 Sat by Pulse 94 97 96 Oximetry 05/12/16 05/12/16 05/12/16 11:51 12:00 12:01 Temperature 97.9 F Pulse Rate 62 76 Pulse Rate [ 90 From Monitor] Pulse Rate [ Left Throughout ] Respiratory 17 18 Rate Respiratory Rate [Left Throughout] Blood Pressure 111/67 111/67 O2 Sat by Pulse 98 96 97 Oximetry 05/12/16 05/12/16 05/12/16 12:10 12:11 12:21 Temperature Pulse Rate 108 H 97 H 99 H Pulse Rate [ From Monitor] Pulse Rate [ Left Throughout ] Respiratory 23 27 H Rate Respiratory Rate [Left Throughout] Blood Pressure 111/67 111/67 109/59 O2 Sat by Pulse 94 89 89 Oximetry 05/12/16 05/12/16 05/12/16 12:30 12:41 12:51 Temperature Pulse Rate 93 H 97 H 72 Pulse Rate [ From Monitor] Pulse Rate [ Left Throughout ] Respiratory 36 H 37 H 24 Rate Respiratory Rate [Left Throughout] Blood Pressure 111/69 111/69 109/59 O2 Sat by Pulse 94 95 97 Oximetry 05/12/16 05/12/16 05/12/16 13:00 13:11 13:21 Temperature Pulse Rate 75 93 H 85 Pulse Rate [ From Monitor] Pulse Rate [ Left Throughout ] Respiratory 19 27 H 30 H Rate Respiratory Rate [Left Throughout] Blood Pressure 106/72 106/72 110/83 O2 Sat by Pulse 96 96 94 Oximetry 05/12/16 05/12/16 05/12/16 13:31 13:41 13:51 Temperature Pulse Rate 87 64 86 Pulse Rate [ From Monitor] Pulse Rate [ Left Throughout ] Respiratory 26 H 21 20 Rate Respiratory Rate [Left Throughout] Blood Pressure 105/78 105/78 119/75 O2 Sat by Pulse 93 96 96 Oximetry 05/12/16 05/12/16 05/12/16 14:00 14:11 14:17 Temperature Pulse Rate 64 74 96 H Pulse Rate [ From Monitor] Pulse Rate [ Left Throughout ] Respiratory 28 H 20 Rate Respiratory Rate [Left Throughout] Blood Pressure 121/69 121/69 121/69 O2 Sat by Pulse 98 95 97 Oximetry 05/12/16 05/12/16 05/12/16 14:21 14:31 14:41 Temperature Pulse Rate 104 H 69 87 Pulse Rate [ From Monitor] Pulse Rate [ Left Throughout ] Respiratory 18 30 H 17 Rate Respiratory Rate [Left Throughout] Blood Pressure 115/64 105/66 105/66 O2 Sat by Pulse 94 94 96 Oximetry 05/12/16 05/12/16 05/12/16 14:51 15:01 15:11 Temperature Pulse Rate 83 89 68 Pulse Rate [ From Monitor] Pulse Rate [ Left Throughout ] Respiratory 26 H 21 22 Rate Respiratory Rate [Left Throughout] Blood Pressure 112/75 114/74 114/74 O2 Sat by Pulse 95 94 97 Oximetry 05/12/16 05/12/16 05/12/16 15:21 15:31 15:41 Temperature Pulse Rate 59 L 57 L 51 L Pulse Rate [ From Monitor] Pulse Rate [ Left Throughout ] Respiratory 20 15 20 Rate Respiratory Rate [Left Throughout] Blood Pressure 121/78 119/70 119/70 O2 Sat by Pulse 97 95 100 Oximetry 05/12/16 05/12/16 05/12/16 15:51 16:00 16:01 Temperature Pulse Rate 55 L 53 L Pulse Rate [ 54 L From Monitor] Pulse Rate [ Left Throughout ] Respiratory 16 17 Rate Respiratory Rate [Left Throughout] Blood Pressure 123/68 116/69 O2 Sat by Pulse 100 100 100 Oximetry 05/12/16 05/12/16 05/12/16 16:40 17:53 17:54 Temperature 98.1 F Pulse Rate 83 Pulse Rate [ From Monitor] Pulse Rate [ 96 H Left Throughout ] Respiratory Rate Respiratory 16 Rate [Left Throughout] Blood Pressure 117/91 O2 Sat by Pulse 97 Oximetry General appearance: Present: no acute distress - EENT Eyes: PERRL - Neck Neck: supple - Respiratory Respiratory: bilateral: CTA - Cardiovascular Rhythm: regular Extremities: no ischemia - Gastrointestinal General gastrointestinal: Present: soft, non-tender, non-distended - Integumentary Integumentary: clear, warm - Musculoskeletal Musculoskeletal: other (intubated and sedated) - Neurologic Neurologic: other (intubated and sedated) - Psychiatric Psychiatric: other (intubated and sedated) - Labs CBC & Chem 7: 02/22/17 05:00 05/12/16 05:00 Labs: Abnormal lab results 05/11/16 05/11/16 05/12/16 Range/Units 17:11 23:38 05:00 RBC (3.65-5.03) M/mm3 Hgb (11.8-15.2) gm/dl Hct (35.5-45.6) % RDW (13.2-15.2) % Plt Count (140-440) K/mm3 Lymph % (Auto) (13.4-35.0) % Lymph # (1.2-5.4) K/mm3 Seg Neutrophils % (40.0-70.0) % Seg Neutrophils # (1.8-7.7) K/mm3 POC ABG pO2 (80-105) Potassium (3.6-5.0) mmol/L Chloride (98-107) mmol/L BUN (9-20) mg/dL Creatinine (0.8-1.5) mg/dL Glucose (75-100) mg/dL POC Glucose 204 H 126 H (70-105) Calcium (8.4-10.2) mg/dL Phosphorus 1.5 L D (2.5-4.5) mg/dL Magnesium 1.6 L (1.7-2.3) mg/dL Total Protein (6.3-8.2) g/dL Albumin (3.9-5) g/dL 05/12/16 05/12/16 05/12/16 Range/Units 05:00 05:00 05:18 RBC 3.12 L (3.65-5.03) M/mm3 Hgb 8.9 L (11.8-15.2) gm/dl Hct 27.0 L (35.5-45.6) % RDW 17.8 H (13.2-15.2) % Plt Count 72 L (140-440) K/mm3 Lymph % (Auto) 9.2 L (13.4-35.0) % Lymph # 0.9 L (1.2-5.4) K/mm3 Seg Neutrophils % 84.0 H (40.0-70.0) % Seg Neutrophils # 8.1 H (1.8-7.7) K/mm3 POC ABG pO2 (80-105) Potassium 3.4 L (3.6-5.0) mmol/L Chloride 110.2 H (98-107) mmol/L BUN 23 H (9-20) mg/dL Creatinine 0.5 L (0.8-1.5) mg/dL Glucose 172 H (75-100) mg/dL POC Glucose 183 H (70-105) Calcium 7.3 L (8.4-10.2) mg/dL Phosphorus (2.5-4.5) mg/dL Magnesium (1.7-2.3) mg/dL Total Protein 3.7 L (6.3-8.2) g/dL Albumin 1.7 L (3.9-5) g/dL 05/12/16 05/12/16 05/12/16 Range/Units 05:44 12:26 18:28 RBC (3.65-5.03) M/mm3 Hgb (11.8-15.2) gm/dl Hct (35.5-45.6) % RDW (13.2-15.2) % Plt Count (140-440) K/mm3 Lymph % (Auto) (13.4-35.0) % Lymph # (1.2-5.4) K/mm3 Seg Neutrophils % (40.0-70.0) % Seg Neutrophils # (1.8-7.7) K/mm3 POC ABG pO2 64 L (80-105) Potassium (3.6-5.0) mmol/L Chloride (98-107) mmol/L BUN (9-20) mg/dL Creatinine (0.8-1.5) mg/dL Glucose (75-100) mg/dL POC Glucose 134 H 119 H (70-105) Calcium (8.4-10.2) mg/dL Phosphorus (2.5-4.5) mg/dL Magnesium (1.7-2.3) mg/dL Total Protein (6.3-8.2) g/dL Albumin (3.9-5) g/dL
[2016-05-12] MEDS ORDERED: TPN ADULT 1,800 ML IV SCH (20:00)
[2016-05-12] MEDS: ZOSYN/NS 4.5GM/100ML 4.5 GM/100 ML VIAL IV SCH (20:20)
[2016-05-12] MEDS: KCL 10MEQ/100ML 10 MEQ/100 ML BAG IV SCH ×2 (20:28→21:32)
[2016-05-12] MEDS ORDERED: KPHOS 15 MMOL in NACL 0.9% 250ML 250 ML IV ONE (20:30)
[2016-05-12] MEDS: LEVAQUIN 750MG/150ML 750 MG/150 ML BAG IV SCH (21:37)
[2016-05-13] MEDS: NOVOLOG SUB-Q SCH ×4 (00:12→18:08)
[2016-05-13] MEDS: PROTONIX 80 MG in NACL 0.9% 100 ML IV SCH ×3 (04:00→18:04)
[2016-05-13] MEDS: PROVENTIL IH SCH ×5 (04:25→19:42)
[2016-05-13 05:30] LABS: ISTAT Base Excess 2; ISTAT HCO3 26.9; ISTAT PCO2 42.7 (35-45); ISTAT PH 7.408 (7.35-7.45); ISTAT PO2 66 (80-105); ISTAT SO2 93; ISTAT TCO2 28
[2016-05-13] MEDS: CLEOCIN 600 MG/50 mL 600 MG/50 ML BAG IV SCH ×3 (06:06→21:32)
[2016-05-13] MEDS: VANCOMYCIN VIAL 750 MG in NACL 0.9% 250ML 250 ML IV SCH (06:06)
[2016-05-13 06:49] LABS: BUN/Creatinine Ratio 36.66; Blood Urea Nitrogen 11 mg/dL (9-20); Carbon Dioxide 28 mmol/L (22-30); Glucose 105 mg/dL (75-100)
[2016-05-13 06:50] LABS: Anion Gap 13 mmol/L; Calcium 7.3 mg/dL (8.4-10.2); Magnesium 1.5 mg/dL (1.7-2.3); Phosphorous 3.2 mg/dL (2.5-4.5); Potassium 3.5 mmol/L (3.6-5.0); Sodium 141 mmol/L (137-145)
[2016-05-13 08:07] LABS: HIV-1 RNA QN PCR 5.42 Log cps/mL (<1.30)
--- NOTE | 2016-05-13 08:25 | Progress Note ---
Assessment and Plan Acute respiratory failure vent weaning per pulmonary Hypotension-->resolved Sepsis antibiotics per ID Elevated troponin-->may be due to demand ischemia minimally elevated but flat Echo: EF 30-35%, mild AR, mild MR, mild-moderate TR, RVSP 48mmHg Cardiomyopathy EF 30-35% possibly alcoholic will hold off on initiation of BB or ACEI due to recent hypotension Hypokalemia replace to keep potassium ~ 4 Hypomagnesemia replace to keep magnesium ~ 2 Bleeding duodenal ulcer/Anemia s/p coil embolization of gastroduodenal artery ETOH abuse Tobacco abuse HIV The patient has been seen in conjunction with Dr. Dias who agrees with the assessment and plan of care. Subjective Date of service: 05/13/16 Principal diagnosis: Acute blood loss/anemia/duodenal ulcer Interval history: The patient remains intubated but arousable. Off pressors. Sinus alia on the monitor. Objective Last Vital Signs Temp 98.1 F 05/13/16 06:00 Pulse 53 L 05/13/16 07:14 Resp 16 05/13/16 07:12 BP 112/65 05/13/16 07:14 Pulse Ox 100 05/13/16 07:14 - Physical Examination General: No Apparent Distress (intubated) HEENT: Positive: Normocephaly, Mucus Membranes Moist Neck: Positive: neck supple, trachea midline Cardiac: Positive: Reg Rate and Rhythm, S1/S2 Lungs: Positive: Rhonchi Neuro: Positive: Other (intubated but arosuable) Abdomen: Positive: Soft Extremities: Absent: edema - Labs and Meds Comprehensive Metabolic Panel 05/13/16 Range/Units 06:00 Sodium 141 (137-145) mmol/L Potassium 3.5 L (3.6-5.0) mmol/L Chloride 104.0 (98-107) mmol/L Carbon Dioxide 28 (22-30) mmol/L BUN 11 (9-20) mg/dL Creatinine 0.3 L (0.8-1.5) mg/dL Glucose 105 H (75-100) mg/dL Calcium 7.3 L (8.4-10.2) mg/dL - Imaging and Cardiology EKG: image reviewed Echo: report reviewed (04/2016: EF 30-35%, mild AR, mild MR, mild-moderate TR, RVSP 48mmHg) - Telemetry EKG Rhythm: Sinus Bradycardia - EKG Sinus rhythms and dysrhythmias: sinus rhythm Repolarization changes or abnormalities: nonspecific abnormality, ST segment, and/or T wave
[2016-05-13] MEDS ORDERED: KCL 20MEQ/100ML 20 MEQ/100 ML BAG IV ONE (09:00)
[2016-05-13] MEDS ORDERED: MAGNESIUM SULFATE 2GM/50ML 2 GM/50 ML BAG IV ONE (09:00)
--- NOTE | 2016-05-13 10:52 | Progress Note ---
Assessment and Plan Acute respiratory failure. Clinically improved. Appear to be ready for weaning , for some reason, but fullyprogressed yesterday. Likely agitation limited COPD. improved Severe sepsis. Clinically improving Shock. Multifactorial. Resolved GI bleeding episode. Monitoring H&H. 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 Cardiology is following AMS. Improving HIV. CD4 200. Infectious disease is following. Reportedly on hospice, noncompliant with prior treatment Prior history of alcohol abuse. Recommendations Off sedation Spontaneous breathing trial and progress to extubation if tolerated Critical care time was 35 minutes in [id number] evaluation and coordination of care. Subjective Date of service: 05/13/16 Principal diagnosis: Acute blood loss/anemia/duodenal ulcer Interval history: Uncomfortable with ETT Objective Vital Signs - 12hr 05/12/16 05/12/16 05/12/16 23:00 23:03 23:23 Temperature Pulse Rate 61 67 65 Pulse Rate [ Anterior Bilateral Throughout] Pulse Rate [ From Monitor] Respiratory 18 17 Rate Respiratory Rate [Anterior Bilateral Throughout] Blood Pressure 96/59 96/59 O2 Sat by Pulse 99 99 Oximetry 05/12/16 05/12/16 05/12/16 23:30 23:38 23:50 Temperature Pulse Rate 59 L 57 L Pulse Rate [ 57 L 59 L Anterior Bilateral Throughout] Pulse Rate [ From Monitor] Respiratory 17 Rate Respiratory 19 23 Rate [Anterior Bilateral Throughout] Blood Pressure 101/58 101/58 O2 Sat by Pulse 100 99 Oximetry 05/13/16 05/13/16 05/13/16 00:00 00:01 00:30 Temperature Pulse Rate 58 L 56 L Pulse Rate [ Anterior Bilateral Throughout] Pulse Rate [ 58 L From Monitor] Respiratory 18 18 18 Rate Respiratory Rate [Anterior Bilateral Throughout] Blood Pressure 110/59 104/60 O2 Sat by Pulse 100 100 98 Oximetry 05/13/16 05/13/16 05/13/16 01:00 01:30 02:00 Temperature Pulse Rate 60 87 82 Pulse Rate [ Anterior Bilateral Throughout] Pulse Rate [ From Monitor] Respiratory 22 21 19 Rate Respiratory Rate [Anterior Bilateral Throughout] Blood Pressure 107/61 110/68 88/56 O2 Sat by Pulse 99 98 97 Oximetry 05/13/16 05/13/16 05/13/16 02:30 03:00 03:30 Temperature Pulse Rate 68 63 70 Pulse Rate [ 71 Anterior Bilateral Throughout] Pulse Rate [ 63 From Monitor] Respiratory 23 18 13 Rate Respiratory 27 H Rate [Anterior Bilateral Throughout] Blood Pressure 101/69 98/59 98/59 O2 Sat by Pulse 100 98 96 Oximetry 05/13/16 05/13/16 05/13/16 04:00 04:19 04:30 Temperature Pulse Rate 87 59 L 72 Pulse Rate [ Anterior Bilateral Throughout] Pulse Rate [ From Monitor] Respiratory 17 18 Rate Respiratory Rate [Anterior Bilateral Throughout] Blood Pressure 117/74 117/71 117/71 O2 Sat by Pulse 95 99 99 Oximetry 05/13/16 05/13/16 05/13/16 05:00 05:30 06:00 Temperature 98.1 F Pulse Rate 73 57 L 73 Pulse Rate [ Anterior Bilateral Throughout] Pulse Rate [ From Monitor] Respiratory 15 13 22 Rate Respiratory Rate [Anterior Bilateral Throughout] Blood Pressure 113/61 125/62 121/91 O2 Sat by Pulse 99 99 Oximetry 05/13/16 05/13/16 05/13/16 06:30 07:00 07:12 Temperature Pulse Rate 63 57 L Pulse Rate [ 93 H Anterior Bilateral Throughout] Pulse Rate [ From Monitor] Respiratory 18 18 Rate Respiratory 16 Rate [Anterior Bilateral Throughout] Blood Pressure 106/65 112/65 O2 Sat by Pulse 98 97 Oximetry 05/13/16 05/13/16 05/13/16 07:14 07:30 08:00 Temperature 97.3 F L Pulse Rate 53 L 55 L 53 L Pulse Rate [ Anterior Bilateral Throughout] Pulse Rate [ 61 From Monitor] Respiratory 19 21 Rate Respiratory Rate [Anterior Bilateral Throughout] Blood Pressure 112/65 121/65 126/67 O2 Sat by Pulse 100 100 Oximetry 05/13/16 05/13/16 05/13/16 08:30 09:00 09:24 Temperature Pulse Rate 59 L 65 Pulse Rate [ Anterior Bilateral Throughout] Pulse Rate [ From Monitor] Respiratory 15 18 Rate Respiratory Rate [Anterior Bilateral Throughout] Blood Pressure 117/66 115/66 113/73 O2 Sat by Pulse 100 99 98 Oximetry Constitutional: alert, appears uncomfortable, other (endotracheal tube in position ) Eyes: non-icteric ENT: oropharynx dry Neck: supple, no JVD Effort: mildly labored Ascultation: Bilateral: clear, diminished breath sounds Cardiovascular: regular rate and rhythm Gastrointestinal: hypoactive bowel sounds Extremities: no cyanosis, no edema Neurologic: normal mental status, non-focal exam, pupils equal and round, CN II- XII normal CBC and BMP: 05/12/16 05:00 05/13/16 06:00 ABG, PT/INR, D-dimer: ABG POC ABG pH 7.408 (7.35-7.45) 05/13/16 04:49 POC ABG pCO2 42.7 (35-45) 05/13/16 04:49 POC ABG pO2 66 (80-105) L 05/13/16 04:49 POC ABG HCO3 26.9 05/13/16 04:49 POC ABG Total CO2 28 05/13/16 04:49 POC ABG O2 Sat 93 05/13/16 04:49 PT/INR, D-dimer PT 16.6 Sec. (12.2-14.9) H 05/09/16 12:06 INR 1.35 (0.87-1.13) H 05/09/16 12:06 Abnormal lab findings: Abnormal Labs 05/09/16 05/10/16 05/10/16 23:00 02:46 04:25 WBC 22.4 H 20.7 H RBC 5.05 H Hgb Hct 45.8 H D RDW 17.9 H 18.0 H Plt Count 70 L 68 L Lymph % (Auto) Lymph # Seg Neutrophils % Seg Neuts % (Manual) 92.0 H 92.0 H Lymphocytes % (Manual) 1.0 L 0 L Seg Neutrophils # Seg Neutrophils # Man 20.6 H 19.0 H Lymphocytes # (Manual) 0.2 L 0.0 L POC ABG pH POC ABG pCO2 POC ABG pO2 Potassium Chloride BUN Creatinine Glucose POC Glucose Calcium Phosphorus Magnesium Total Creatine Kinase CK-MB (CK-2) CK-MB (CK-2) Rel Index Troponin T Total Protein Albumin LDL Cholesterol Direct HDL Cholesterol Lymph Enumerat CD4/CD8 % CD3 Cells % CD4 Cells Absolute CD4 Count % CD8 Cells % CD19 Cells Absolute CD19 Count HIV-1 RNA PCR copies/ml HIV-1 RNA (PCR) log 05/10/16 05/10/16 05/10/16 04:25 09:55 11:13 WBC RBC Hgb Hct RDW Plt Count Lymph % (Auto) Lymph # Seg Neutrophils % Seg Neuts % (Manual) Lymphocytes % (Manual) Seg Neutrophils # Seg Neutrophils # Man Lymphocytes # (Manual) POC ABG pH 7.152 L POC ABG pCO2 65.4 H POC ABG pO2 48 L Potassium Chloride 110.4 H BUN 21 H Creatinine Glucose 47 L POC Glucose Calcium 5.7 L* Phosphorus Magnesium Total Creatine Kinase CK-MB (CK-2) 11.5 H CK-MB (CK-2) Rel Index 7.6 H Troponin T 0.105 H* Total Protein 3.4 L Albumin 1.8 L LDL Cholesterol Direct 13 L HDL Cholesterol 28 L Lymph Enumerat CD4/CD8 % CD3 Cells % CD4 Cells Absolute CD4 Count % CD8 Cells % CD19 Cells Absolute CD19 Count HIV-1 RNA PCR copies/ml HIV-1 RNA (PCR) log 05/10/16 05/10/16 05/10/16 13:28 14:05 14:18 WBC RBC Hgb Hct RDW Plt Count Lymph % (Auto) Lymph # Seg Neutrophils % Seg Neuts % (Manual) Lymphocytes % (Manual) Seg Neutrophils # Seg Neutrophils # Man Lymphocytes # (Manual) POC ABG pH 7.199 L POC ABG pCO2 56.9 H POC ABG pO2 67 L Potassium Chloride BUN Creatinine Glucose POC Glucose < 40 L 109 H Calcium Phosphorus Magnesium Total Creatine Kinase CK-MB (CK-2) CK-MB (CK-2) Rel Index Troponin T Total Protein Albumin LDL Cholesterol Direct HDL Cholesterol Lymph Enumerat CD4/CD8 % CD3 Cells % CD4 Cells Absolute CD4 Count % CD8 Cells % CD19 Cells Absolute CD19 Count HIV-1 RNA PCR copies/ml HIV-1 RNA (PCR) log 05/10/16 05/10/16 05/10/16 16:02 17:30 17:30 WBC RBC Hgb 11.1 L Hct 34.9 L D RDW Plt Count Lymph % (Auto) Lymph # Seg Neutrophils % Seg Neuts % (Manual) Lymphocytes % (Manual) Seg Neutrophils # Seg Neutrophils # Man Lymphocytes # (Manual) POC ABG pH 7.307 L POC ABG pCO2 POC ABG pO2 Potassium Chloride BUN Creatinine Glucose POC Glucose Calcium Phosphorus Magnesium Total Creatine Kinase 193 H CK-MB (CK-2) 12.2 H CK-MB (CK-2) Rel Index 6.3 H Troponin T 0.092 H Total Protein Albumin LDL Cholesterol Direct HDL Cholesterol Lymph Enumerat CD4/CD8 % CD3 Cells % CD4 Cells Absolute CD4 Count % CD8 Cells % CD19 Cells Absolute CD19 Count HIV-1 RNA PCR copies/ml HIV-1 RNA (PCR) log 05/10/16 05/10/16 05/11/16 18:42 23:03 03:00 WBC 14.9 H RBC Hgb 10.3 L Hct 32.3 L RDW 18.2 H Plt Count 97 L Lymph % (Auto) Lymph # Seg Neutrophils % Seg Neuts % (Manual) Lymphocytes % (Manual) Seg Neutrophils # Seg Neutrophils # Man Lymphocytes # (Manual) POC ABG pH POC ABG pCO2 POC ABG pO2 Potassium Chloride BUN Creatinine Glucose POC Glucose 113 H 204 H Calcium Phosphorus Magnesium Total Creatine Kinase CK-MB (CK-2) CK-MB (CK-2) Rel Index Troponin T Total Protein Albumin LDL Cholesterol Direct HDL Cholesterol Lymph Enumerat CD4/CD8 % CD3 Cells % CD4 Cells Absolute CD4 Count % CD8 Cells % CD19 Cells Absolute CD19 Count HIV-1 RNA PCR copies/ml HIV-1 RNA (PCR) log 05/11/16 05/11/16 05/11/16 03:21 04:00 06:55 WBC RBC Hgb Hct RDW Plt Count Lymph % (Auto) Lymph # Seg Neutrophils % Seg Neuts % (Manual) Lymphocytes % (Manual) Seg Neutrophils # Seg Neutrophils # Man Lymphocytes # (Manual) POC ABG pH POC ABG pCO2 POC ABG pO2 Potassium Chloride 111.5 H BUN 26 H Creatinine Glucose 207 H POC Glucose 217 H Calcium 6.4 L Phosphorus Magnesium 1.4 L Total Creatine Kinase CK-MB (CK-2) CK-MB (CK-2) Rel Index Troponin T Total Protein Albumin LDL Cholesterol Direct HDL Cholesterol Lymph Enumerat CD4/CD8 0.24 L % CD3 Cells 89 H % CD4 Cells 17 L Absolute CD4 Count 200 L % CD8 Cells 73 H % CD19 Cells 5 L Absolute CD19 Count 59 L HIV-1 RNA PCR copies/ml HIV-1 RNA (PCR) log 05/11/16 05/11/16 05/11/16 06:55 10:57 11:48 WBC RBC Hgb Hct RDW Plt Count Lymph % (Auto) Lymph # Seg Neutrophils % Seg Neuts % (Manual) Lymphocytes % (Manual) Seg Neutrophils # Seg Neutrophils # Man Lymphocytes # (Manual) POC ABG pH POC ABG pCO2 POC ABG pO2 46 L 75 L Potassium Chloride BUN Creatinine Glucose POC Glucose Calcium Phosphorus Magnesium Total Creatine Kinase CK-MB (CK-2) CK-MB (CK-2) Rel Index Troponin T Total Protein Albumin LDL Cholesterol Direct HDL Cholesterol Lymph Enumerat CD4/CD8 % CD3 Cells % CD4 Cells Absolute CD4 Count % CD8 Cells % CD19 Cells Absolute CD19 Count HIV-1 RNA PCR copies/ml [id number] H HIV-1 RNA (PCR) log 5.42 H 05/11/16 05/11/16 05/11/16 12:17 17:11 23:38 WBC RBC Hgb Hct RDW Plt Count Lymph % (Auto) Lymph # Seg Neutrophils % Seg Neuts % (Manual) Lymphocytes % (Manual) Seg Neutrophils # Seg Neutrophils # Man Lymphocytes # (Manual) POC ABG pH POC ABG pCO2 POC ABG pO2 Potassium Chloride BUN Creatinine Glucose POC Glucose 232 H 204 H 126 H Calcium Phosphorus Magnesium Total Creatine Kinase CK-MB (CK-2) CK-MB (CK-2) Rel Index Troponin T Total Protein Albumin LDL Cholesterol Direct HDL Cholesterol Lymph Enumerat CD4/CD8 % CD3 Cells % CD4 Cells Absolute CD4 Count % CD8 Cells % CD19 Cells Absolute CD19 Count HIV-1 RNA PCR copies/ml HIV-1 RNA (PCR) log 05/12/16 05/12/16 05/12/16 05:00 05:00 05:00 WBC RBC 3.12 L Hgb 8.9 L Hct 27.0 L RDW 17.8 H Plt Count 72 L Lymph % (Auto) 9.2 L Lymph # 0.9 L Seg Neutrophils % 84.0 H Seg Neuts % (Manual) Lymphocytes % (Manual) Seg Neutrophils # 8.1 H Seg Neutrophils # Man Lymphocytes # (Manual) POC ABG pH POC ABG pCO2 POC ABG pO2 Potassium 3.4 L Chloride 110.2 H BUN 23 H Creatinine 0.5 L Glucose 172 H POC Glucose Calcium 7.3 L Phosphorus 1.5 L D Magnesium 1.6 L Total Creatine Kinase CK-MB (CK-2) CK-MB (CK-2) Rel Index Troponin T Total Protein 3.7 L Albumin 1.7 L LDL Cholesterol Direct HDL Cholesterol Lymph Enumerat CD4/CD8 % CD3 Cells % CD4 Cells Absolute CD4 Count % CD8 Cells % CD19 Cells Absolute CD19 Count HIV-1 RNA PCR copies/ml HIV-1 RNA (PCR) log 05/12/16 05/12/16 05/12/16 05:18 05:44 12:26 WBC RBC Hgb Hct RDW Plt Count Lymph % (Auto) Lymph # Seg Neutrophils % Seg Neuts % (Manual) Lymphocytes % (Manual) Seg Neutrophils # Seg Neutrophils # Man Lymphocytes # (Manual) POC ABG pH POC ABG pCO2 POC ABG pO2 64 L Potassium Chloride BUN Creatinine Glucose POC Glucose 183 H 134 H Calcium Phosphorus Magnesium Total Creatine Kinase CK-MB (CK-2) CK-MB (CK-2) Rel Index Troponin T Total Protein Albumin LDL Cholesterol Direct HDL Cholesterol Lymph Enumerat CD4/CD8 % CD3 Cells % CD4 Cells Absolute CD4 Count % CD8 Cells % CD19 Cells Absolute CD19 Count HIV-1 RNA PCR copies/ml HIV-1 RNA (PCR) log 05/12/16 05/13/16 05/13/16 18:28 00:10 04:49 WBC RBC Hgb Hct RDW Plt Count Lymph % (Auto) Lymph # Seg Neutrophils % Seg Neuts % (Manual) Lymphocytes % (Manual) Seg Neutrophils # Seg Neutrophils # Man Lymphocytes # (Manual) POC ABG pH POC ABG pCO2 POC ABG pO2 66 L Potassium Chloride BUN Creatinine Glucose POC Glucose 119 H 152 H Calcium Phosphorus Magnesium Total Creatine Kinase CK-MB (CK-2) CK-MB (CK-2) Rel Index Troponin T Total Protein Albumin LDL Cholesterol Direct HDL Cholesterol Lymph Enumerat CD4/CD8 % CD3 Cells % CD4 Cells Absolute CD4 Count % CD8 Cells % CD19 Cells Absolute CD19 Count HIV-1 RNA PCR copies/ml HIV-1 RNA (PCR) log 05/13/16 05/13/16 06:00 06:22 WBC RBC Hgb Hct RDW Plt Count Lymph % (Auto) Lymph # Seg Neutrophils % Seg Neuts % (Manual) Lymphocytes % (Manual) Seg Neutrophils # Seg Neutrophils # Man Lymphocytes # (Manual) POC ABG pH POC ABG pCO2 POC ABG pO2 Potassium 3.5 L Chloride BUN Creatinine 0.3 L Glucose 105 H POC Glucose 114 H Calcium 7.3 L Phosphorus Magnesium 1.5 L Total Creatine Kinase CK-MB (CK-2) CK-MB (CK-2) Rel Index Troponin T Total Protein Albumin LDL Cholesterol Direct HDL Cholesterol Lymph Enumerat CD4/CD8 % CD3 Cells % CD4 Cells Absolute CD4 Count % CD8 Cells % CD19 Cells Absolute CD19 Count HIV-1 RNA PCR copies/ml HIV-1 RNA (PCR) log
[2016-05-13 12:43] LABS: Basophils % (Auto) 0.3 % (0.0-1.8); Eosinophils % (Auto) 0.4 % (0.0-4.3); Hematocrit 30.9 % (35.5-45.6); Hemoglobin 9.8 gm/dl (11.8-15.2); Mean Corpuscular HGB Conc 32 % (32-34); Mean Corpuscular Hemoglobin 28 pg (28-32); Mean Corpuscular Volume 88 fl (84-94); Red Blood Count 3.53 M/mm3 (3.65-5.03); Red Cell Distribution Width 17.6 % (13.2-15.2); White Blood Count 5.7 K/mm3 (4.5-11.0)
[2016-05-13 12:46] LABS: Platelet Count 88 K/mm3 (140-440)
[2016-05-13 13:03] LABS: Alanine Aminotransferase 13 units/L (7-56); Albumin 1.8 g/dL (3.9-5); Albumin/Globulin Ratio 0.7 %; Alkaline Phosphatase 53 units/L (35-129); Anion Gap 11 mmol/L; BUN/Creatinine Ratio 33.33; Bilirubin,Total 0.4 mg/dL (0.1-1.2); Blood Urea Nitrogen 10 mg/dL (9-20); Calcium 7.2 mg/dL (8.4-10.2); Carbon Dioxide 29 mmol/L (22-30); Chloride 104.5 mmol/L (98-107); Glucose 113 mg/dL (75-100); Potassium 4.3 mmol/L (3.6-5.0); Sodium 140 mmol/L (137-145); Total Protein 4.4 g/dL (6.3-8.2)
[2016-05-13] MEDS: ATIVAN IV PRN ×2 (14:06→19:07)
--- NOTE | 2016-05-13 16:12 | Gastroenterology Progress Note ---
Assessment and Plan 56yo man with HIV a/w acute blood loss/anemia/hematemesis; s/p EGD with large cratered duodenal ulcern S/P embolization. Remains intubated. 1) Duodenal Ulcer 2) CT did not show perforation of ulcer, done without contrast 2/2 consent issues. 3) H/H stable 4) Ischemic colitis is also possible, from low flow state 5) Protonix IV BID Subjective Date of service: 05/13/16 Principal diagnosis: Acute blood loss/anemia/duodenal ulcer Interval history: Patient remains intubated. Per nursing no bleeding today. Objective - Constitutional Vitals: Temp Pulse Resp BP Pulse Ox 98.2 F 70 30 H 128/68 98 05/13/16 12:00 05/13/16 15:47 05/13/16 15:47 05/13/16 15:00 05/13/16 15:00 General appearance: other (intubated) - Respiratory Respiratory: bilateral: other (coarse breath sounds) - Gastrointestinal General gastrointestinal: Present: distended, normal bowel sounds - Integumentary Integumentary: Present: dry - Neurologic Neurological: other (intubated) - Labs CBC & Chem 7: 05/13/16 12:30 05/13/16 12:30 Labs: Laboratory Results - last 24 hr 05/10/16 05/11/16 05/11/16 04:25 06:55 06:55 WBC RBC Hgb Hct MCV MCH MCHC RDW Plt Count Lymph % (Auto) [place] % (Auto) Eos % (Auto) Baso % (Auto) Lymph # [place] # Eos # Baso # Seg Neutrophils % Seg Neutrophils # Abs Lymphs (Manual) 1169 POC ABG pH POC ABG pCO2 POC ABG pO2 POC ABG HCO3 POC ABG Total CO2 POC ABG O2 Sat POC ABG Base Excess FiO2 Sodium Potassium Chloride Carbon Dioxide Anion Gap BUN Creatinine Estimated GFR BUN/Creatinine Ratio Glucose POC Glucose Calcium Phosphorus Magnesium Total Bilirubin AST ALT Alkaline Phosphatase Total Protein Albumin Albumin/Globulin Ratio Vancomycin Trough Lymph Enumerat CD4/CD8 0.24 L % CD3 Cells 89 H Absolute CD3 Count 1035 % CD4 Cells 17 L Absolute CD4 Count 200 L % CD8 Cells 73 H Absolute CD8 Count 838 % CD19 Cells 5 L Absolute CD19 Count 59 L Hep B Core Total Ab Nonreactive HIV-1 RNA PCR copies/ml [id number] H HIV-1 RNA (PCR) log 5.42 H 05/12/16 05/13/16 05/13/16 18:28 00:10 04:49 WBC RBC Hgb Hct MCV MCH MCHC RDW Plt Count Lymph % (Auto) [place] % (Auto) Eos % (Auto) Baso % (Auto) Lymph # [place] # Eos # Baso # Seg Neutrophils % Seg Neutrophils # Abs Lymphs (Manual) POC ABG pH 7.408 POC ABG pCO2 42.7 POC ABG pO2 66 L POC ABG HCO3 26.9 POC ABG Total CO2 28 POC ABG O2 Sat 93 POC ABG Base Excess 2 FiO2 45 Sodium Potassium Chloride Carbon Dioxide Anion Gap BUN Creatinine Estimated GFR BUN/Creatinine Ratio Glucose POC Glucose 119 H 152 H Calcium Phosphorus Magnesium Total Bilirubin AST ALT Alkaline Phosphatase Total Protein Albumin Albumin/Globulin Ratio Vancomycin Trough Lymph Enumerat CD4/CD8 % CD3 Cells Absolute CD3 Count % CD4 Cells Absolute CD4 Count % CD8 Cells Absolute CD8 Count % CD19 Cells Absolute CD19 Count Hep B Core Total Ab HIV-1 RNA PCR copies/ml HIV-1 RNA (PCR) log 05/13/16 05/13/16 05/13/16 06:00 06:00 06:22 WBC RBC Hgb Hct MCV MCH MCHC RDW Plt Count Lymph % (Auto) [place] % (Auto) Eos % (Auto) Baso % (Auto) Lymph # [place] # Eos # Baso # Seg Neutrophils % Seg Neutrophils # Abs Lymphs (Manual) POC ABG pH POC ABG pCO2 POC ABG pO2 POC ABG HCO3 POC ABG Total CO2 POC ABG O2 Sat POC ABG Base Excess FiO2 Sodium 141 Potassium 3.5 L Chloride 104.0 Carbon Dioxide 28 Anion Gap 13 BUN 11 Creatinine 0.3 L Estimated GFR > 60 BUN/Creatinine Ratio 36.66 Glucose 105 H POC Glucose 114 H Calcium 7.3 L Phosphorus 3.2 D Magnesium 1.5 L Total Bilirubin AST ALT Alkaline Phosphatase Total Protein Albumin Albumin/Globulin Ratio Vancomycin Trough 7.5 Lymph Enumerat CD4/CD8 % CD3 Cells Absolute CD3 Count % CD4 Cells Absolute CD4 Count % CD8 Cells Absolute CD8 Count % CD19 Cells Absolute CD19 Count Hep B Core Total Ab HIV-1 RNA PCR copies/ml HIV-1 RNA (PCR) log 05/13/16 05/13/16 05/13/16 12:30 12:30 12:30 WBC 5.7 RBC 3.53 L Hgb 9.8 L Hct 30.9 L MCV 88 MCH 28 MCHC 32 RDW 17.6 H Plt Count 88 L Lymph % (Auto) 9.6 L [place] % (Auto) 9.8 H Eos % (Auto) 0.4 Baso % (Auto) 0.3 Lymph # 0.5 L [place] # 0.6 Eos # 0.0 Baso # 0.0 Seg Neutrophils % 79.9 H Seg Neutrophils # 4.5 Abs Lymphs (Manual) POC ABG pH POC ABG pCO2 POC ABG pO2 POC ABG HCO3 POC ABG Total CO2 POC ABG O2 Sat POC ABG Base Excess FiO2 Sodium 140 Potassium 4.3 D Chloride 104.5 Carbon Dioxide 29 Anion Gap 11 BUN 10 Creatinine 0.3 L Estimated GFR > 60 BUN/Creatinine Ratio 33.33 Glucose 113 H POC Glucose Calcium 7.2 L Phosphorus Magnesium 2.1 Total Bilirubin 0.4 AST 19 ALT 13 Alkaline Phosphatase 53 Total Protein 4.4 L Albumin 1.8 L Albumin/Globulin Ratio 0.7 Vancomycin Trough Lymph Enumerat CD4/CD8 % CD3 Cells Absolute CD3 Count % CD4 Cells Absolute CD4 Count % CD8 Cells Absolute CD8 Count % CD19 Cells Absolute CD19 Count Hep B Core Total Ab HIV-1 RNA PCR copies/ml HIV-1 RNA (PCR) log
[2016-05-13] MEDS: VANCOMYCIN VIAL 1,250 MG in NACL 0.9% 250ML 250 ML IV SCH (18:07)
--- NOTE | 2016-05-13 19:04 | Progress Note ---
Subjective Date of service: 05/13/16 Principal diagnosis: Acute blood loss/anemia/duodenal ulcer Interval history: Patient is awake.. VS - No fever cHEST - B/L MILD RHONCHI CVS - S1S2 abd - bs+ assessment 1. Sepsis 2. Pneumonia 3. hiv/aids 4.resp failure 5. copd 6.GI Bleed. 7. Bacteremia sec to bacteroides ( patient already on clindamycin) recommendation Continue current iv abx. Repeat blood culture x2 Objective - Constitutional Vitals: Vital Signs Temp Pulse Resp BP Pulse Ox 98.4 F 64 28 H 134/74 100 05/13/16 16:00 05/13/16 17:30 05/13/16 17:30 05/13/16 17:30 05/13/16 17:30 Temperature -Last 24 Hours Temperature 98.4 F Temperature 98.2 F Temperature 97.3 F Temperature 98.1 F Temperature 98.4 F - Labs CBC & Chem 7: 05/13/16 12:30 05/13/16 12:30 Labs: Abnormal lab results 05/11/16 05/11/16 05/13/16 Range/Units 06:55 06:55 00:10 RBC (3.65-5.03) M/mm3 Hgb (11.8-15.2) gm/dl Hct (35.5-45.6) % RDW (13.2-15.2) % Plt Count (140-440) K/mm3 Lymph % (Auto) (13.4-35.0) % [place] % (Auto) (0.0-7.3) % Lymph # (1.2-5.4) K/mm3 Seg Neutrophils % (40.0-70.0) % POC ABG pO2 (80-105) Potassium (3.6-5.0) mmol/L Creatinine (0.8-1.5) mg/dL Glucose (75-100) mg/dL POC Glucose 152 H (70-105) Calcium (8.4-10.2) mg/dL Magnesium (1.7-2.3) mg/dL Total Protein (6.3-8.2) g/dL Albumin (3.9-5) g/dL Lymph Enumerat CD4/CD8 0.24 L (0.86-5.00) % CD3 Cells 89 H (57-85) % % CD4 Cells 17 L (30-61) % Absolute CD4 Count 200 L (490-1740) cells/uL % CD8 Cells 73 H (12-42) % % CD19 Cells 5 L (6-29) % Absolute CD19 Count 59 L (110-660) cells/uL HIV-1 RNA PCR copies/ml [id number] H (<20) copies/mL HIV-1 RNA (PCR) log 5.42 H (<1.30) Log cps/mL 05/13/16 05/13/16 05/13/16 Range/Units 04:49 06:00 06:22 RBC (3.65-5.03) M/mm3 Hgb (11.8-15.2) gm/dl Hct (35.5-45.6) % RDW (13.2-15.2) % Plt Count (140-440) K/mm3 Lymph % (Auto) (13.4-35.0) % [place] % (Auto) (0.0-7.3) % Lymph # (1.2-5.4) K/mm3 Seg Neutrophils % (40.0-70.0) % POC ABG pO2 66 L (80-105) Potassium 3.5 L (3.6-5.0) mmol/L Creatinine 0.3 L (0.8-1.5) mg/dL Glucose 105 H (75-100) mg/dL POC Glucose 114 H (70-105) Calcium 7.3 L (8.4-10.2) mg/dL Magnesium 1.5 L (1.7-2.3) mg/dL Total Protein (6.3-8.2) g/dL Albumin (3.9-5) g/dL Lymph Enumerat CD4/CD8 (0.86-5.00) % CD3 Cells (57-85) % % CD4 Cells (30-61) % Absolute CD4 Count (490-1740) cells/uL % CD8 Cells (12-42) % % CD19 Cells (6-29) % Absolute CD19 Count (110-660) cells/uL HIV-1 RNA PCR copies/ml (<20) copies/mL HIV-1 RNA (PCR) log (<1.30) Log cps/mL 05/13/16 05/13/16 05/13/16 Range/Units 12:15 12:30 12:30 RBC 3.53 L (3.65-5.03) M/mm3 Hgb 9.8 L (11.8-15.2) gm/dl Hct 30.9 L (35.5-45.6) % RDW 17.6 H (13.2-15.2) % Plt Count 88 L (140-440) K/mm3 Lymph % (Auto) 9.6 L (13.4-35.0) % [place] % (Auto) 9.8 H (0.0-7.3) % Lymph # 0.5 L (1.2-5.4) K/mm3 Seg Neutrophils % 79.9 H (40.0-70.0) % POC ABG pO2 (80-105) Potassium (3.6-5.0) mmol/L Creatinine 0.3 L (0.8-1.5) mg/dL Glucose 113 H (75-100) mg/dL POC Glucose 128 H (70-105) Calcium 7.2 L (8.4-10.2) mg/dL Magnesium (1.7-2.3) mg/dL Total Protein 4.4 L (6.3-8.2) g/dL Albumin 1.8 L (3.9-5) g/dL Lymph Enumerat CD4/CD8 (0.86-5.00) % CD3 Cells (57-85) % % CD4 Cells (30-61) % Absolute CD4 Count (490-1740) cells/uL % CD8 Cells (12-42) % % CD19 Cells (6-29) % Absolute CD19 Count (110-660) cells/uL HIV-1 RNA PCR copies/ml (<20) copies/mL HIV-1 RNA (PCR) log (<1.30) Log cps/mL
--- NOTE | 2016-05-13 19:41 | Progress Note ---
Assessment and Plan 1. Severe sepsis. with positive blood cx for Bacteriodes. On Levaquin, cleocin and Vanc. ID following. 2. Septic Shock. From GI bleeding and sepsis. Continue with IV hydration, 3. Acute respiratory failure. Intubated. On Bronchodilators.wan off vent as tolerated. 4. Gi bleeding s/p embolization 5. HIV. Not on treatment. f/u with CD3 count 6. Prior history of alcohol abuse. 7. Hold DVT PPx with anticoagulation b/c of GI bleeding Subjective Date of service: 05/13/16 Principal diagnosis: Acute blood loss/anemia/duodenal ulcer Interval history: Remains intubated Objective - Constitutional Vitals: Vital Signs - 12hr 05/13/16 05/13/16 05/13/16 08:00 08:30 09:00 Temperature 97.3 F L Pulse Rate 53 L 59 L 65 Pulse Rate [ Anterior Bilateral Throughout] Pulse Rate [ 61 From Monitor] Respiratory 21 15 18 Rate Respiratory Rate [Anterior Bilateral Throughout] Blood Pressure 126/67 117/66 115/66 O2 Sat by Pulse 100 99 Oximetry 05/13/16 05/13/16 05/13/16 09:24 09:30 10:00 Temperature Pulse Rate 89 90 Pulse Rate [ Anterior Bilateral Throughout] Pulse Rate [ From Monitor] Respiratory 30 H 39 H Rate Respiratory Rate [Anterior Bilateral Throughout] Blood Pressure 113/73 103/66 105/63 O2 Sat by Pulse 98 97 99 Oximetry 05/13/16 05/13/16 05/13/16 10:30 11:00 11:30 Temperature Pulse Rate 67 63 99 H Pulse Rate [ Anterior Bilateral Throughout] Pulse Rate [ From Monitor] Respiratory 30 H 26 H 11 L Rate Respiratory Rate [Anterior Bilateral Throughout] Blood Pressure 107/65 116/68 115/70 O2 Sat by Pulse 98 98 94 Oximetry 05/13/16 05/13/16 05/13/16 11:53 12:00 12:26 Temperature 98.2 F Pulse Rate 96 H Pulse Rate [ 100 H Anterior Bilateral Throughout] Pulse Rate [ 100 H From Monitor] Respiratory 28 H Rate Respiratory 30 H Rate [Anterior Bilateral Throughout] Blood Pressure 113/73 108/72 O2 Sat by Pulse 92 95 Oximetry 05/13/16 05/13/16 05/13/16 12:30 13:00 13:30 Temperature Pulse Rate 100 H 125 H 96 H Pulse Rate [ Anterior Bilateral Throughout] Pulse Rate [ From Monitor] Respiratory 22 15 21 Rate Respiratory Rate [Anterior Bilateral Throughout] Blood Pressure 123/78 121/82 122/78 O2 Sat by Pulse 94 94 94 Oximetry 05/13/16 05/13/16 05/13/16 14:00 14:30 15:00 Temperature Pulse Rate 56 L 57 L 55 L Pulse Rate [ Anterior Bilateral Throughout] Pulse Rate [ From Monitor] Respiratory 19 19 19 Rate Respiratory Rate [Anterior Bilateral Throughout] Blood Pressure 124/69 124/67 125/65 O2 Sat by Pulse 99 99 Oximetry 05/13/16 05/13/16 05/13/16 15:30 15:47 16:00 Temperature 98.4 F Pulse Rate 64 66 Pulse Rate [ 70 Anterior Bilateral Throughout] Pulse Rate [ From Monitor] Respiratory 19 22 Rate Respiratory 30 H Rate [Anterior Bilateral Throughout] Blood Pressure 135/66 128/68 O2 Sat by Pulse 89 97 Oximetry 05/13/16 05/13/16 05/13/16 16:30 17:00 17:30 Temperature Pulse Rate 57 L 70 64 Pulse Rate [ Anterior Bilateral Throughout] Pulse Rate [ From Monitor] Respiratory 23 22 28 H Rate Respiratory Rate [Anterior Bilateral Throughout] Blood Pressure 123/68 118/67 134/74 O2 Sat by Pulse 97 100 Oximetry General appearance: Present: other (intubated) - EENT Eyes: PERRL - Respiratory Respiratory: bilateral: diminished - Cardiovascular Rhythm: regular Extremities: no ischemia, No edema - Gastrointestinal General gastrointestinal: Present: soft, non-tender - Integumentary Integumentary: clear - Musculoskeletal Musculoskeletal: other (intubated) - Neurologic Neurologic: moves all extremities - Psychiatric Psychiatric: appropriate mood/affect - Labs CBC & Chem 7: 05/13/16 12:30 05/13/16 12:30 Labs: Abnormal lab results 05/11/16 05/11/16 05/13/16 Range/Units 06:55 06:55 00:10 RBC (3.65-5.03) M/mm3 Hgb (11.8-15.2) gm/dl Hct (35.5-45.6) % RDW (13.2-15.2) % Plt Count (140-440) K/mm3 Lymph % (Auto) (13.4-35.0) % [place] % (Auto) (0.0-7.3) % Lymph # (1.2-5.4) K/mm3 Seg Neutrophils % (40.0-70.0) % POC ABG pO2 (80-105) Potassium (3.6-5.0) mmol/L Creatinine (0.8-1.5) mg/dL Glucose (75-100) mg/dL POC Glucose 152 H (70-105) Calcium (8.4-10.2) mg/dL Magnesium (1.7-2.3) mg/dL Total Protein (6.3-8.2) g/dL Albumin (3.9-5) g/dL Lymph Enumerat CD4/CD8 0.24 L (0.86-5.00) % CD3 Cells 89 H (57-85) % % CD4 Cells 17 L (30-61) % Absolute CD4 Count 200 L (490-1740) cells/uL % CD8 Cells 73 H (12-42) % % CD19 Cells 5 L (6-29) % Absolute CD19 Count 59 L (110-660) cells/uL HIV-1 RNA PCR copies/ml [id number] H (<20) copies/mL HIV-1 RNA (PCR) log 5.42 H (<1.30) Log cps/mL 05/13/16 05/13/16 05/13/16 Range/Units 04:49 06:00 06:22 RBC (3.65-5.03) M/mm3 Hgb (11.8-15.2) gm/dl Hct (35.5-45.6) % RDW (13.2-15.2) % Plt Count (140-440) K/mm3 Lymph % (Auto) (13.4-35.0) % [place] % (Auto) (0.0-7.3) % Lymph # (1.2-5.4) K/mm3 Seg Neutrophils % (40.0-70.0) % POC ABG pO2 66 L (80-105) Potassium 3.5 L (3.6-5.0) mmol/L Creatinine 0.3 L (0.8-1.5) mg/dL Glucose 105 H (75-100) mg/dL POC Glucose 114 H (70-105) Calcium 7.3 L (8.4-10.2) mg/dL Magnesium 1.5 L (1.7-2.3) mg/dL Total Protein (6.3-8.2) g/dL Albumin (3.9-5) g/dL Lymph Enumerat CD4/CD8 (0.86-5.00) % CD3 Cells (57-85) % % CD4 Cells (30-61) % Absolute CD4 Count (490-1740) cells/uL % CD8 Cells (12-42) % % CD19 Cells (6-29) % Absolute CD19 Count (110-660) cells/uL HIV-1 RNA PCR copies/ml (<20) copies/mL HIV-1 RNA (PCR) log (<1.30) Log cps/mL 05/13/16 05/13/16 05/13/16 Range/Units 12:15 12:30 12:30 RBC 3.53 L (3.65-5.03) M/mm3 Hgb 9.8 L (11.8-15.2) gm/dl Hct 30.9 L (35.5-45.6) % RDW 17.6 H (13.2-15.2) % Plt Count 88 L (140-440) K/mm3 Lymph % (Auto) 9.6 L (13.4-35.0) % [place] % (Auto) 9.8 H (0.0-7.3) % Lymph # 0.5 L (1.2-5.4) K/mm3 Seg Neutrophils % 79.9 H (40.0-70.0) % POC ABG pO2 (80-105) Potassium (3.6-5.0) mmol/L Creatinine 0.3 L (0.8-1.5) mg/dL Glucose 113 H (75-100) mg/dL POC Glucose 128 H (70-105) Calcium 7.2 L (8.4-10.2) mg/dL Magnesium (1.7-2.3) mg/dL Total Protein 4.4 L (6.3-8.2) g/dL Albumin 1.8 L (3.9-5) g/dL Lymph Enumerat CD4/CD8 (0.86-5.00) % CD3 Cells (57-85) % % CD4 Cells (30-61) % Absolute CD4 Count (490-1740) cells/uL % CD8 Cells (12-42) % % CD19 Cells (6-29) % Absolute CD19 Count (110-660) cells/uL HIV-1 RNA PCR copies/ml (<20) copies/mL HIV-1 RNA (PCR) log (<1.30) Log cps/mL
[2016-05-13] MEDS ORDERED: TPN ADULT 1,800 ML IV SCH (20:00)
[2016-05-13] MEDS: PROTONIX IV SCH (21:30)
[2016-05-13] MEDS: LEVAQUIN 750MG/150ML 750 MG/150 ML BAG IV SCH (21:30)
[2016-05-14] MEDS: PROVENTIL IH SCH ×7 (00:20→23:18)
[2016-05-14] MEDS: ATIVAN IV PRN ×2 (03:30→18:23)
[2016-05-14] MEDS: CLEOCIN 600 MG/50 mL 600 MG/50 ML BAG IV SCH ×3 (05:06→23:54)
[2016-05-14] MEDS: VANCOMYCIN VIAL 1,250 MG in NACL 0.9% 250ML 250 ML IV SCH ×2 (05:08→18:23)
[2016-05-14] MEDS: NOVOLOG SUB-Q SCH ×4 (05:09→18:24)
[2016-05-14 05:41] LABS: ISTAT Base Excess 8; ISTAT HCO3 31.5; ISTAT PCO2 41.1 (35-45); ISTAT PH 7.492 (7.35-7.45); ISTAT PO2 84 (80-105); ISTAT SO2 97; ISTAT TCO2 33
[2016-05-14 06:21] LABS: Anion Gap 12 mmol/L; Blood Urea Nitrogen 8 mg/dL (9-20); Calcium 7.3 mg/dL (8.4-10.2); Carbon Dioxide 31 mmol/L (22-30); Chloride 97.9 mmol/L (98-107); Glucose 231 mg/dL (75-100); Magnesium 2.2 mg/dL (1.7-2.3); Potassium 4.9 mmol/L (3.6-5.0); Sodium 136 mmol/L (137-145)
[2016-05-14] MEDS: PROTONIX IV SCH ×2 (10:24→23:57)
[2016-05-14 10:44] LABS: Basophils % (Auto) 0.3 % (0.0-1.8); Eosinophils % (Auto) 0.9 % (0.0-4.3); Hematocrit 29.3 % (35.5-45.6); Hemoglobin 9.5 gm/dl (11.8-15.2); Mean Corpuscular HGB Conc 32 % (32-34); Mean Corpuscular Hemoglobin 28 pg (28-32); Mean Corpuscular Volume 87 fl (84-94); Platelet Count 85 K/mm3 (140-440); Red Blood Count 3.39 M/mm3 (3.65-5.03); Red Cell Distribution Width 17.2 % (13.2-15.2); White Blood Count 4.9 K/mm3 (4.5-11.0)
--- NOTE | 2016-05-14 11:03 | Progress Note ---
Assessment and Plan Patient has anemia secondary to acute blood loss. He has a large duodenal ulcer by EGD. He has moderate to severe left ventricular systolic dysfunction by echocardiogram. (LVEF: 30 to 35%) To continue current management. 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 He underwent EGD and he tolerated the procedure well he was found to have a large cratered duodenal ulcer. His hemoglobin is 9.5 platelet count decreased to 85 Objective Vital Signs Temp Pulse Pulse Pulse Pulse Resp Resp 05/14/16 10:15 23 05/14/16 08:45 05/14/16 08:30 75 16 05/14/16 08:00 97.1 F L 82 17 05/14/16 07:30 46 L 18 05/14/16 07:00 55 L 15 05/14/16 06:30 56 L 19 05/14/16 06:00 52 L 18 05/14/16 05:34 61 05/14/16 05:30 53 L 18 05/14/16 05:00 66 73 18 05/14/16 04:30 05/14/16 04:00 55 L 56 L 22 05/14/16 03:30 63 25 H 05/14/16 03:00 62 25 H 05/14/16 02:30 63 15 05/14/16 02:00 59 L 22 05/14/16 01:30 56 L 16 05/14/16 01:28 69 05/14/16 01:00 55 L 18 05/14/16 00:30 53 L 19 05/14/16 00:22 62 05/14/16 00:00 97.9 F 63 64 53 L 23 05/13/16 23:44 51 L 18 05/13/16 23:30 54 L 20 05/13/16 23:00 55 L 13 05/13/16 22:30 67 20 05/13/16 22:00 86 20 05/13/16 21:30 58 L 15 05/13/16 21:00 76 16 05/13/16 20:49 49 L 05/13/16 20:30 50 L 15 05/13/16 20:00 99 F 56 L 64 19 05/13/16 19:40 51 L 05/13/16 19:32 57 L 05/13/16 19:30 69 15 05/13/16 19:00 68 27 H 05/13/16 18:30 64 22 05/13/16 18:00 62 27 H 05/13/16 17:30 64 28 H 05/13/16 17:00 70 22 05/13/16 16:30 57 L 23 05/13/16 16:00 98.4 F 66 67 16 05/13/16 15:47 70 30 H 05/13/16 15:30 64 19 05/13/16 15:00 55 L 19 05/13/16 14:30 57 L 19 05/13/16 14:00 56 L 19 05/13/16 13:30 96 H 21 05/13/16 13:00 125 H 15 05/13/16 12:30 100 H 22 05/13/16 12:26 100 H 30 H 05/13/16 12:00 98.2 F 96 H 100 H 28 H 05/13/16 11:53 05/13/16 11:30 99 H 11 L 05/13/16 11:00 63 26 H Resp BP Pulse Ox 05/14/16 10:15 134/74 97 05/14/16 08:45 96 05/14/16 08:30 112/70 99 05/14/16 08:00 112/70 97 05/14/16 07:30 127/73 100 05/14/16 07:00 124/68 100 05/14/16 06:30 127/73 98 05/14/16 06:00 127/73 100 05/14/16 05:34 120/69 99 05/14/16 05:30 117/75 99 05/14/16 05:00 28 H 117/75 99 05/14/16 04:30 117/75 90 05/14/16 04:00 117/75 99 05/14/16 03:30 133/74 99 05/14/16 03:00 133/74 97 05/14/16 02:30 128/75 100 05/14/16 02:00 128/75 98 05/14/16 01:30 122/68 99 05/14/16 01:28 15 05/14/16 01:00 122/68 100 05/14/16 00:30 131/70 100 05/14/16 00:22 131/70 98 05/14/16 00:00 18 131/70 99 05/13/16 23:44 135/72 99 05/13/16 23:30 135/72 97 05/13/16 23:00 135/72 100 05/13/16 22:30 114/75 99 05/13/16 22:00 114/75 98 05/13/16 21:30 121/72 97 05/13/16 21:00 121/72 99 05/13/16 20:49 19 05/13/16 20:30 128/68 100 05/13/16 20:00 127/70 99 05/13/16 19:40 18 05/13/16 19:32 119/66 98 05/13/16 19:30 102/54 97 05/13/16 19:00 105/64 91 05/13/16 18:30 120/71 97 05/13/16 18:00 135/75 94 05/13/16 17:30 134/74 100 05/13/16 17:00 118/67 97 05/13/16 16:30 123/68 05/13/16 16:00 128/68 97 05/13/16 15:47 05/13/16 15:30 135/66 89 05/13/16 15:00 125/65 99 05/13/16 14:30 124/67 05/13/16 14:00 124/69 99 05/13/16 13:30 122/78 94 05/13/16 13:00 121/82 94 05/13/16 12:30 123/78 94 05/13/16 12:26 05/13/16 12:00 108/72 95 05/13/16 11:53 113/73 92 05/13/16 11:30 115/70 94 05/13/16 11:00 116/68 98 - Physical Examination General: No Apparent Distress (intubated), Other (drowsy) HEENT: Positive: Normocephaly, Mucus Membranes Moist Neck: Positive: neck supple, trachea midline Cardiac: Positive: Reg Rate and Rhythm, S1/S2 Lungs: Positive: clear to auscultation, Normal Breath Sounds Neuro: Positive: Other (intubated but arosuable) Abdomen: Positive: Soft Skin: Positive: Clear. Negative: Rash Extremities: Present: upper extr. pulses, lower extr. pulses. Absent: edema - Labs and Meds Cardiac Enzymes 05/13/16 Range/Units 12:30 AST 19 (5-40) units/L CBC 05/13/16 05/14/16 Range/Units 12:30 10:30 WBC 5.7 4.9 (4.5-11.0) K/mm3 RBC 3.53 L 3.39 L (3.65-5.03) M/mm3 Hgb 9.8 L 9.5 L (11.8-15.2) gm/dl Hct 30.9 L 29.3 L (35.5-45.6) % Plt Count 88 L 85 L (140-440) K/mm3 Lymph # 0.5 L 0.7 L (1.2-5.4) K/mm3 [place] # 0.6 0.6 (0.0-0.8) K/mm3 Eos # 0.0 0.0 (0.0-0.4) K/mm3 Baso # 0.0 0.0 (0.0-0.1) K/mm3 Comprehensive Metabolic Panel 05/13/16 05/14/16 Range/Units 12:30 05:00 Sodium 140 136 L (137-145) mmol/L Potassium 4.3 D 4.9 (3.6-5.0) mmol/L Chloride 104.5 97.9 L (98-107) mmol/L Carbon Dioxide 29 31 H (22-30) mmol/L BUN 10 8 L (9-20) mg/dL Creatinine 0.3 L 0.2 L (0.8-1.5) mg/dL Glucose 113 H 231 H (75-100) mg/dL Calcium 7.2 L 7.3 L (8.4-10.2) mg/dL AST 19 (5-40) units/L ALT 13 (7-56) units/L Alkaline Phosphatase 53 (35-129) units/L Total Protein 4.4 L (6.3-8.2) g/dL Albumin 1.8 L (3.9-5) g/dL - Imaging and Cardiology EKG: report reviewed, image reviewed Echo: report reviewed (04/2016: EF 30-35%, mild AR, mild MR, mild-moderate TR, RVSP 48mmHg) - Telemetry EKG Rhythm: Sinus Rhythm - EKG Sinus rhythms and dysrhythmias: sinus rhythm Repolarization changes or abnormalities: nonspecific abnormality, ST segment, and/or T wave
--- NOTE | 2016-05-14 11:26 | Gastroenterology Progress Note ---
Assessment and Plan 56yo man with HIV a/w acute blood loss/anemia/hematemesis; s/p EGD with large cratered duodenal ulcern S/P embolization. Remains intubated. 1) Duodenal Ulcer 2) CT did not show perforation of ulcer, done without contrast 2/2 consent issues. 3) H/H stable 4) Ischemic colitis is also possible, from low flow state, no further bleeding reported 5) Protonix IV BID 6) Need to consider Dobhoff vs TPN as patient remains intubated. Subjective Date of service: 05/14/16 Principal diagnosis: Acute blood loss/anemia/duodenal ulcer Interval history: Patient remains intubated. no evidence of bleeding. H/H stable. Objective - Constitutional Vitals: Temp Pulse Resp BP Pulse Ox 97.1 F L 75 23 134/74 97 05/14/16 08:00 05/14/16 08:30 05/14/16 10:15 05/14/16 10:15 05/14/16 10:15 General appearance: other (intubated) - Respiratory Respiratory: bilateral: rhonchi - Cardiovascular Rhythm: regular - Gastrointestinal General gastrointestinal: Present: soft, non-distended, normal bowel sounds - Integumentary Integumentary: Present: warm, dry - Psychiatric Psychiatric: agitated - Labs CBC & Chem 7: 05/14/16 10:30 05/14/16 05:00 Labs: Laboratory Results - last 24 hr 05/13/16 05/13/16 05/13/16 12:15 12:30 12:30 WBC 5.7 RBC 3.53 L Hgb 9.8 L Hct 30.9 L MCV 88 MCH 28 MCHC 32 RDW 17.6 H Plt Count 88 L Lymph % (Auto) 9.6 L [place] % (Auto) 9.8 H Eos % (Auto) 0.4 Baso % (Auto) 0.3 Lymph # 0.5 L [place] # 0.6 Eos # 0.0 Baso # 0.0 Seg Neutrophils % 79.9 H Seg Neutrophils # 4.5 POC ABG pH POC ABG pCO2 POC ABG pO2 POC ABG HCO3 POC ABG Total CO2 POC ABG O2 Sat POC ABG Base Excess FiO2 Sodium 140 Potassium 4.3 D Chloride 104.5 Carbon Dioxide 29 Anion Gap 11 BUN 10 Creatinine 0.3 L Estimated GFR > 60 BUN/Creatinine Ratio 33.33 Glucose 113 H POC Glucose 128 H Calcium 7.2 L Phosphorus Magnesium Total Bilirubin 0.4 AST 19 ALT 13 Alkaline Phosphatase 53 Total Protein 4.4 L Albumin 1.8 L Albumin/Globulin Ratio 0.7 05/13/16 05/13/16 05/13/16 12:30 18:02 23:19 WBC RBC Hgb Hct MCV MCH MCHC RDW Plt Count Lymph % (Auto) [place] % (Auto) Eos % (Auto) Baso % (Auto) Lymph # [place] # Eos # Baso # Seg Neutrophils % Seg Neutrophils # POC ABG pH POC ABG pCO2 POC ABG pO2 POC ABG HCO3 POC ABG Total CO2 POC ABG O2 Sat POC ABG Base Excess FiO2 Sodium Potassium Chloride Carbon Dioxide Anion Gap BUN Creatinine Estimated GFR BUN/Creatinine Ratio Glucose POC Glucose 123 H 106 H Calcium Phosphorus Magnesium 2.1 Total Bilirubin AST ALT Alkaline Phosphatase Total Protein Albumin Albumin/Globulin Ratio 05/14/16 05/14/16 05/14/16 05:00 05:00 05:33 WBC RBC Hgb Hct MCV MCH MCHC RDW Plt Count Lymph % (Auto) [place] % (Auto) Eos % (Auto) Baso % (Auto) Lymph # [place] # Eos # Baso # Seg Neutrophils % Seg Neutrophils # POC ABG pH 7.492 H POC ABG pCO2 41.1 POC ABG pO2 84 POC ABG HCO3 31.5 POC ABG Total CO2 33 POC ABG O2 Sat 97 POC ABG Base Excess 8 FiO2 45 Sodium 136 L Potassium 4.9 Chloride 97.9 L Carbon Dioxide 31 H Anion Gap 12 BUN 8 L Creatinine 0.2 L Estimated GFR > 60 BUN/Creatinine Ratio 40.00 Glucose 231 H POC Glucose Calcium 7.3 L Phosphorus 4.8 H D Magnesium 2.2 Total Bilirubin AST ALT Alkaline Phosphatase Total Protein Albumin Albumin/Globulin Ratio 05/14/16 10:30 WBC 4.9 RBC 3.39 L Hgb 9.5 L Hct 29.3 L MCV 87 MCH 28 MCHC 32 RDW 17.2 H Plt Count 85 L Lymph % (Auto) 14.4 [place] % (Auto) 11.2 H Eos % (Auto) 0.9 Baso % (Auto) 0.3 Lymph # 0.7 L [place] # 0.6 Eos # 0.0 Baso # 0.0 Seg Neutrophils % 73.2 H Seg Neutrophils # 3.6 POC ABG pH POC ABG pCO2 POC ABG pO2 POC ABG HCO3 POC ABG Total CO2 POC ABG O2 Sat POC ABG Base Excess FiO2 Sodium Potassium Chloride Carbon Dioxide Anion Gap BUN Creatinine Estimated GFR BUN/Creatinine Ratio Glucose POC Glucose Calcium Phosphorus Magnesium Total Bilirubin AST ALT Alkaline Phosphatase Total Protein Albumin Albumin/Globulin Ratio
--- NOTE | 2016-05-14 11:37 | Progress Note ---
Assessment and Plan Acute respiratory failure. No changes. He failed weaning previously yesterday , will reattempt today off sedation. COPD. appears controlled Severe sepsis. Clinically improving. WBC normal, no fever Shock. Resolved GI bleeding episode secondary to peptic ulcer disease. Monitoring H&H. 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 Cardiology is following AMS. Improving HIV. CD4 200. Infectious disease is following. Prior history of alcohol abuse. [facility] protocol Recommendations Extubation precautions Off sedation Spontaneous breathing trial and progress to extubation if tolerated . Discussed with respiratory therapist Critical care time was 31 minutes in [id number] evaluation and coordination of care. Subjective Date of service: 05/14/16 Principal diagnosis: Acute blood loss/anemia/duodenal ulcer Interval history: Awake and intubated Objective Vital Signs - 12hr 05/13/16 05/14/16 05/14/16 23:44 00:00 00:22 Temperature 97.9 F Pulse Rate 51 L 63 62 Pulse Rate [ 64 From Monitor] Pulse Rate [ 53 L Left Throughout ] Respiratory 18 23 Rate Respiratory 18 Rate [Left Throughout] Blood Pressure 135/72 131/70 131/70 O2 Sat by Pulse 99 99 98 Oximetry 05/14/16 05/14/16 05/14/16 00:30 01:00 01:28 Temperature Pulse Rate 53 L 55 L Pulse Rate [ From Monitor] Pulse Rate [ 69 Left Throughout ] Respiratory 19 18 Rate Respiratory 15 Rate [Left Throughout] Blood Pressure 131/70 122/68 O2 Sat by Pulse 100 100 Oximetry 05/14/16 05/14/16 05/14/16 01:30 02:00 02:30 Temperature Pulse Rate 56 L 59 L 63 Pulse Rate [ From Monitor] Pulse Rate [ Left Throughout ] Respiratory 16 22 15 Rate Respiratory Rate [Left Throughout] Blood Pressure 122/68 128/75 128/75 O2 Sat by Pulse 99 98 100 Oximetry 05/14/16 05/14/16 05/14/16 03:00 03:30 04:00 Temperature Pulse Rate 62 63 55 L Pulse Rate [ 56 L From Monitor] Pulse Rate [ Left Throughout ] Respiratory 25 H 25 H 22 Rate Respiratory Rate [Left Throughout] Blood Pressure 133/74 133/74 117/75 O2 Sat by Pulse 97 99 99 Oximetry 05/14/16 05/14/16 05/14/16 04:30 05:00 05:30 Temperature Pulse Rate 66 53 L Pulse Rate [ From Monitor] Pulse Rate [ 73 Left Throughout ] Respiratory 18 18 Rate Respiratory 28 H Rate [Left Throughout] Blood Pressure 117/75 117/75 117/75 O2 Sat by Pulse 90 99 99 Oximetry 05/14/16 05/14/16 05/14/16 05:34 06:00 06:30 Temperature Pulse Rate 61 52 L 56 L Pulse Rate [ From Monitor] Pulse Rate [ Left Throughout ] Respiratory 18 19 Rate Respiratory Rate [Left Throughout] Blood Pressure 120/69 127/73 127/73 O2 Sat by Pulse 99 100 98 Oximetry 05/14/16 05/14/16 05/14/16 07:00 07:30 08:00 Temperature 97.1 F L Pulse Rate 55 L 46 L 82 Pulse Rate [ From Monitor] Pulse Rate [ Left Throughout ] Respiratory 15 18 17 Rate Respiratory Rate [Left Throughout] Blood Pressure 124/68 127/73 112/70 O2 Sat by Pulse 100 100 97 Oximetry 05/14/16 05/14/16 05/14/16 08:30 08:45 10:15 Temperature Pulse Rate 75 Pulse Rate [ From Monitor] Pulse Rate [ Left Throughout ] Respiratory 16 23 Rate Respiratory Rate [Left Throughout] Blood Pressure 112/70 134/74 O2 Sat by Pulse 99 96 97 Oximetry Constitutional: alert, appears uncomfortable, other (endotracheal tube in position ) Eyes: non-icteric ENT: oropharynx dry Neck: supple, no JVD Effort: mildly labored Ascultation: Bilateral: clear, diminished breath sounds Cardiovascular: regular rate and rhythm Gastrointestinal: hypoactive bowel sounds Extremities: no cyanosis, no edema Neurologic: normal mental status, non-focal exam, pupils equal and round, CN II- XII normal CBC and BMP: 05/14/16 10:30 05/14/16 05:00 ABG, PT/INR, D-dimer: ABG POC ABG pH 7.492 (7.35-7.45) H 05/14/16 05:33 POC ABG pCO2 41.1 (35-45) 05/14/16 05:33 POC ABG pO2 84 (80-105) 05/14/16 05:33 POC ABG HCO3 31.5 05/14/16 05:33 POC ABG Total CO2 33 05/14/16 05:33 POC ABG O2 Sat 97 05/14/16 05:33 PT/INR, D-dimer PT 16.6 Sec. (12.2-14.9) H 05/09/16 12:06 INR 1.35 (0.87-1.13) H 05/09/16 12:06 Abnormal lab findings: Abnormal Labs 05/09/16 05/10/16 05/10/16 23:00 02:46 04:25 WBC 22.4 H 20.7 H RBC 5.05 H Hgb Hct 45.8 H D RDW 17.9 H 18.0 H Plt Count 70 L 68 L Lymph % (Auto) [place] % (Auto) Lymph # Seg Neutrophils % Seg Neuts % (Manual) 92.0 H 92.0 H Lymphocytes % (Manual) 1.0 L 0 L Seg Neutrophils # Seg Neutrophils # Man 20.6 H 19.0 H Lymphocytes # (Manual) 0.2 L 0.0 L POC ABG pH POC ABG pCO2 POC ABG pO2 Sodium Potassium Chloride Carbon Dioxide BUN Creatinine Glucose POC Glucose Calcium Phosphorus Magnesium Total Creatine Kinase CK-MB (CK-2) CK-MB (CK-2) Rel Index Troponin T Total Protein Albumin LDL Cholesterol Direct HDL Cholesterol Lymph Enumerat CD4/CD8 % CD3 Cells % CD4 Cells Absolute CD4 Count % CD8 Cells % CD19 Cells Absolute CD19 Count HIV-1 RNA PCR copies/ml HIV-1 RNA (PCR) log 05/10/16 05/10/16 05/10/16 04:25 09:55 11:13 WBC RBC Hgb Hct RDW Plt Count Lymph % (Auto) [place] % (Auto) Lymph # Seg Neutrophils % Seg Neuts % (Manual) Lymphocytes % (Manual) Seg Neutrophils # Seg Neutrophils # Man Lymphocytes # (Manual) POC ABG pH 7.152 L POC ABG pCO2 65.4 H POC ABG pO2 48 L Sodium Potassium Chloride 110.4 H Carbon Dioxide BUN 21 H Creatinine Glucose 47 L POC Glucose Calcium 5.7 L* Phosphorus Magnesium Total Creatine Kinase CK-MB (CK-2) 11.5 H CK-MB (CK-2) Rel Index 7.6 H Troponin T 0.105 H* Total Protein 3.4 L Albumin 1.8 L LDL Cholesterol Direct 13 L HDL Cholesterol 28 L Lymph Enumerat CD4/CD8 % CD3 Cells % CD4 Cells Absolute CD4 Count % CD8 Cells % CD19 Cells Absolute CD19 Count HIV-1 RNA PCR copies/ml HIV-1 RNA (PCR) log 05/10/16 05/10/16 05/10/16 13:28 14:05 14:18 WBC RBC Hgb Hct RDW Plt Count Lymph % (Auto) [place] % (Auto) Lymph # Seg Neutrophils % Seg Neuts % (Manual) Lymphocytes % (Manual) Seg Neutrophils # Seg Neutrophils # Man Lymphocytes # (Manual) POC ABG pH 7.199 L POC ABG pCO2 56.9 H POC ABG pO2 67 L Sodium Potassium Chloride Carbon Dioxide BUN Creatinine Glucose POC Glucose < 40 L 109 H Calcium Phosphorus Magnesium Total Creatine Kinase CK-MB (CK-2) CK-MB (CK-2) Rel Index Troponin T Total Protein Albumin LDL Cholesterol Direct HDL Cholesterol Lymph Enumerat CD4/CD8 % CD3 Cells % CD4 Cells Absolute CD4 Count % CD8 Cells % CD19 Cells Absolute CD19 Count HIV-1 RNA PCR copies/ml HIV-1 RNA (PCR) log 05/10/16 05/10/16 05/10/16 16:02 17:30 17:30 WBC RBC Hgb 11.1 L Hct 34.9 L D RDW Plt Count Lymph % (Auto) [place] % (Auto) Lymph # Seg Neutrophils % Seg Neuts % (Manual) Lymphocytes % (Manual) Seg Neutrophils # Seg Neutrophils # Man Lymphocytes # (Manual) POC ABG pH 7.307 L POC ABG pCO2 POC ABG pO2 Sodium Potassium Chloride Carbon Dioxide BUN Creatinine Glucose POC Glucose Calcium Phosphorus Magnesium Total Creatine Kinase 193 H CK-MB (CK-2) 12.2 H CK-MB (CK-2) Rel Index 6.3 H Troponin T 0.092 H Total Protein Albumin LDL Cholesterol Direct HDL Cholesterol Lymph Enumerat CD4/CD8 % CD3 Cells % CD4 Cells Absolute CD4 Count % CD8 Cells % CD19 Cells Absolute CD19 Count HIV-1 RNA PCR copies/ml HIV-1 RNA (PCR) log 05/10/16 05/10/16 05/11/16 18:42 23:03 03:00 WBC 14.9 H RBC Hgb 10.3 L Hct 32.3 L RDW 18.2 H Plt Count 97 L Lymph % (Auto) [place] % (Auto) Lymph # Seg Neutrophils % Seg Neuts % (Manual) Lymphocytes % (Manual) Seg Neutrophils # Seg Neutrophils # Man Lymphocytes # (Manual) POC ABG pH POC ABG pCO2 POC ABG pO2 Sodium Potassium Chloride Carbon Dioxide BUN Creatinine Glucose POC Glucose 113 H 204 H Calcium Phosphorus Magnesium Total Creatine Kinase CK-MB (CK-2) CK-MB (CK-2) Rel Index Troponin T Total Protein Albumin LDL Cholesterol Direct HDL Cholesterol Lymph Enumerat CD4/CD8 % CD3 Cells % CD4 Cells Absolute CD4 Count % CD8 Cells % CD19 Cells Absolute CD19 Count HIV-1 RNA PCR copies/ml HIV-1 RNA (PCR) log 05/11/16 05/11/16 05/11/16 03:21 04:00 06:55 WBC RBC Hgb Hct RDW Plt Count Lymph % (Auto) [place] % (Auto) Lymph # Seg Neutrophils % Seg Neuts % (Manual) Lymphocytes % (Manual) Seg Neutrophils # Seg Neutrophils # Man Lymphocytes # (Manual) POC ABG pH POC ABG pCO2 POC ABG pO2 Sodium Potassium Chloride 111.5 H Carbon Dioxide BUN 26 H Creatinine Glucose 207 H POC Glucose 217 H Calcium 6.4 L Phosphorus Magnesium 1.4 L Total Creatine Kinase CK-MB (CK-2) CK-MB (CK-2) Rel Index Troponin T Total Protein Albumin LDL Cholesterol Direct HDL Cholesterol Lymph Enumerat CD4/CD8 0.24 L % CD3 Cells 89 H % CD4 Cells 17 L Absolute CD4 Count 200 L % CD8 Cells 73 H % CD19 Cells 5 L Absolute CD19 Count 59 L HIV-1 RNA PCR copies/ml HIV-1 RNA (PCR) log 05/11/16 05/11/16 05/11/16 06:55 10:57 11:48 WBC RBC Hgb Hct RDW Plt Count Lymph % (Auto) [place] % (Auto) Lymph # Seg Neutrophils % Seg Neuts % (Manual) Lymphocytes % (Manual) Seg Neutrophils # Seg Neutrophils # Man Lymphocytes # (Manual) POC ABG pH POC ABG pCO2 POC ABG pO2 46 L 75 L Sodium Potassium Chloride Carbon Dioxide BUN Creatinine Glucose POC Glucose Calcium Phosphorus Magnesium Total Creatine Kinase CK-MB (CK-2) CK-MB (CK-2) Rel Index Troponin T Total Protein Albumin LDL Cholesterol Direct HDL Cholesterol Lymph Enumerat CD4/CD8 % CD3 Cells % CD4 Cells Absolute CD4 Count % CD8 Cells % CD19 Cells Absolute CD19 Count HIV-1 RNA PCR copies/ml [id number] H HIV-1 RNA (PCR) log 5.42 H 05/11/16 05/11/16 05/11/16 12:17 17:11 23:38 WBC RBC Hgb Hct RDW Plt Count Lymph % (Auto) [place] % (Auto) Lymph # Seg Neutrophils % Seg Neuts % (Manual) Lymphocytes % (Manual) Seg Neutrophils # Seg Neutrophils # Man Lymphocytes # (Manual) POC ABG pH POC ABG pCO2 POC ABG pO2 Sodium Potassium Chloride Carbon Dioxide BUN Creatinine Glucose POC Glucose 232 H 204 H 126 H Calcium Phosphorus Magnesium Total Creatine Kinase CK-MB (CK-2) CK-MB (CK-2) Rel Index Troponin T Total Protein Albumin LDL Cholesterol Direct HDL Cholesterol Lymph Enumerat CD4/CD8 % CD3 Cells % CD4 Cells Absolute CD4 Count % CD8 Cells % CD19 Cells Absolute CD19 Count HIV-1 RNA PCR copies/ml HIV-1 RNA (PCR) log 05/12/16 05/12/16 05/12/16 05:00 05:00 05:00 WBC RBC 3.12 L Hgb 8.9 L Hct 27.0 L RDW 17.8 H Plt Count 72 L Lymph % (Auto) 9.2 L [place] % (Auto) Lymph # 0.9 L Seg Neutrophils % 84.0 H Seg Neuts % (Manual) Lymphocytes % (Manual) Seg Neutrophils # 8.1 H Seg Neutrophils # Man Lymphocytes # (Manual) POC ABG pH POC ABG pCO2 POC ABG pO2 Sodium Potassium 3.4 L Chloride 110.2 H Carbon Dioxide BUN 23 H Creatinine 0.5 L Glucose 172 H POC Glucose Calcium 7.3 L Phosphorus 1.5 L D Magnesium 1.6 L Total Creatine Kinase CK-MB (CK-2) CK-MB (CK-2) Rel Index Troponin T Total Protein 3.7 L Albumin 1.7 L LDL Cholesterol Direct HDL Cholesterol Lymph Enumerat CD4/CD8 % CD3 Cells % CD4 Cells Absolute CD4 Count % CD8 Cells % CD19 Cells Absolute CD19 Count HIV-1 RNA PCR copies/ml HIV-1 RNA (PCR) log 05/12/16 05/12/16 05/12/16 05:18 05:44 12:26 WBC RBC Hgb Hct RDW Plt Count Lymph % (Auto) [place] % (Auto) Lymph # Seg Neutrophils % Seg Neuts % (Manual) Lymphocytes % (Manual) Seg Neutrophils # Seg Neutrophils # Man Lymphocytes # (Manual) POC ABG pH POC ABG pCO2 POC ABG pO2 64 L Sodium Potassium Chloride Carbon Dioxide BUN Creatinine Glucose POC Glucose 183 H 134 H Calcium Phosphorus Magnesium Total Creatine Kinase CK-MB (CK-2) CK-MB (CK-2) Rel Index Troponin T Total Protein Albumin LDL Cholesterol Direct HDL Cholesterol Lymph Enumerat CD4/CD8 % CD3 Cells % CD4 Cells Absolute CD4 Count % CD8 Cells % CD19 Cells Absolute CD19 Count HIV-1 RNA PCR copies/ml HIV-1 RNA (PCR) log 05/12/16 05/13/16 05/13/16 18:28 00:10 04:49 WBC RBC Hgb Hct RDW Plt Count Lymph % (Auto) [place] % (Auto) Lymph # Seg Neutrophils % Seg Neuts % (Manual) Lymphocytes % (Manual) Seg Neutrophils # Seg Neutrophils # Man Lymphocytes # (Manual) POC ABG pH POC ABG pCO2 POC ABG pO2 66 L Sodium Potassium Chloride Carbon Dioxide BUN Creatinine Glucose POC Glucose 119 H 152 H Calcium Phosphorus Magnesium Total Creatine Kinase CK-MB (CK-2) CK-MB (CK-2) Rel Index Troponin T Total Protein Albumin LDL Cholesterol Direct HDL Cholesterol Lymph Enumerat CD4/CD8 % CD3 Cells % CD4 Cells Absolute CD4 Count % CD8 Cells % CD19 Cells Absolute CD19 Count HIV-1 RNA PCR copies/ml HIV-1 RNA (PCR) log 05/13/16 05/13/16 05/13/16 06:00 06:22 12:15 WBC RBC Hgb Hct RDW Plt Count Lymph % (Auto) [place] % (Auto) Lymph # Seg Neutrophils % Seg Neuts % (Manual) Lymphocytes % (Manual) Seg Neutrophils # Seg Neutrophils # Man Lymphocytes # (Manual) POC ABG pH POC ABG pCO2 POC ABG pO2 Sodium Potassium 3.5 L Chloride Carbon Dioxide BUN Creatinine 0.3 L Glucose 105 H POC Glucose 114 H 128 H Calcium 7.3 L Phosphorus Magnesium 1.5 L Total Creatine Kinase CK-MB (CK-2) CK-MB (CK-2) Rel Index Troponin T Total Protein Albumin LDL Cholesterol Direct HDL Cholesterol Lymph Enumerat CD4/CD8 % CD3 Cells % CD4 Cells Absolute CD4 Count % CD8 Cells % CD19 Cells Absolute CD19 Count HIV-1 RNA PCR copies/ml HIV-1 RNA (PCR) log 05/13/16 05/13/16 05/13/16 12:30 12:30 18:02 WBC RBC 3.53 L Hgb 9.8 L Hct 30.9 L RDW 17.6 H Plt Count 88 L Lymph % (Auto) 9.6 L [place] % (Auto) 9.8 H Lymph # 0.5 L Seg Neutrophils % 79.9 H Seg Neuts % (Manual) Lymphocytes % (Manual) Seg Neutrophils # Seg Neutrophils # Man Lymphocytes # (Manual) POC ABG pH POC ABG pCO2 POC ABG pO2 Sodium Potassium Chloride Carbon Dioxide BUN Creatinine 0.3 L Glucose 113 H POC Glucose 123 H Calcium 7.2 L Phosphorus Magnesium Total Creatine Kinase CK-MB (CK-2) CK-MB (CK-2) Rel Index Troponin T Total Protein 4.4 L Albumin 1.8 L LDL Cholesterol Direct HDL Cholesterol Lymph Enumerat CD4/CD8 % CD3 Cells % CD4 Cells Absolute CD4 Count % CD8 Cells % CD19 Cells Absolute CD19 Count HIV-1 RNA PCR copies/ml HIV-1 RNA (PCR) log 05/13/16 05/14/16 05/14/16 23:19 05:00 05:00 WBC RBC Hgb Hct RDW Plt Count Lymph % (Auto) [place] % (Auto) Lymph # Seg Neutrophils % Seg Neuts % (Manual) Lymphocytes % (Manual) Seg Neutrophils # Seg Neutrophils # Man Lymphocytes # (Manual) POC ABG pH POC ABG pCO2 POC ABG pO2 Sodium 136 L Potassium Chloride 97.9 L Carbon Dioxide 31 H BUN 8 L Creatinine 0.2 L Glucose 231 H POC Glucose 106 H Calcium 7.3 L Phosphorus 4.8 H D Magnesium Total Creatine Kinase CK-MB (CK-2) CK-MB (CK-2) Rel Index Troponin T Total Protein Albumin LDL Cholesterol Direct HDL Cholesterol Lymph Enumerat CD4/CD8 % CD3 Cells % CD4 Cells Absolute CD4 Count % CD8 Cells % CD19 Cells Absolute CD19 Count HIV-1 RNA PCR copies/ml HIV-1 RNA (PCR) log 05/14/16 05/14/16 05:33 10:30 WBC RBC 3.39 L Hgb 9.5 L Hct 29.3 L RDW 17.2 H Plt Count 85 L Lymph % (Auto) [place] % (Auto) 11.2 H Lymph # 0.7 L Seg Neutrophils % 73.2 H Seg Neuts % (Manual) Lymphocytes % (Manual) Seg Neutrophils # Seg Neutrophils # Man Lymphocytes # (Manual) POC ABG pH 7.492 H POC ABG pCO2 POC ABG pO2 Sodium Potassium Chloride Carbon Dioxide BUN Creatinine Glucose POC Glucose Calcium Phosphorus Magnesium Total Creatine Kinase CK-MB (CK-2) CK-MB (CK-2) Rel Index Troponin T Total Protein Albumin LDL Cholesterol Direct HDL Cholesterol Lymph Enumerat CD4/CD8 % CD3 Cells % CD4 Cells Absolute CD4 Count % CD8 Cells % CD19 Cells Absolute CD19 Count HIV-1 RNA PCR copies/ml HIV-1 RNA (PCR) log
--- NOTE | 2016-05-14 15:55 | Progress Note ---
Assessment and Plan Assessment and plan: 1. Severe sepsis. with positive blood cx for Bacteriodes. Continue Levaquin, cleocin and Vanc. ID following. 2. Septic Shock. From GI bleeding and sepsis. Continue with IV hydration, 3. Acute respiratory failure. Intubated. On Bronchodilators.failed prior attempts to liberate from the vent will try again today patient remains off sedation 4. Gi bleeding s/p embolization 5. HIV. Not on treatment. f/u with CD4 200. ID following 6. Alcohol induced cardiomyopathy. 7. Thrombocytopenia 8. COPD -stable continue bronchodilators 9. Hold DVT PPx with anticoagulation b/c of GI bleeding 8. Alcohol abuse hx -No withdrawal The high probability of a clinically significant, sudden or life threatening deterioration of the [PULM] system(s) required my full and direct attention, intervention and personal management. The aggregate critical care time was [35] minutes. This time is in addition to time spent performing reported procedures but includes the following: [X] Data Review and interpretation [X] Patient assessment and monitoring of vital signs [X] Documentation [X] Medication orders and management History Interval history: Patient seen and examined remains intubated failed weaning trial yesterday No adverse events reported to me by nursing staff Hospitalist Physical - Physical exam Narrative exam: VITAL SIGNS: Reviewed. GENERAL: The patient appeared well nourished intubated vital signs as noted HEAD: No signs of head trauma. EYES: Pupils are equal. Extraocular motions intact. EARS: Hearing grossly intact. MOUTH: ET tube in place NECK: No adenopathy, no JVD. CHEST: Chest with transmitted bronchovesicular sounds. No wheezes, rales, or rhonchi. CARDIAC: Regular rate and rhythm. S1 and S2, without murmurs, gallops, or rubs. VASCULAR: No Edema. Peripheral pulses normal and equal in all extremities. ABDOMEN: Soft, without detectable tenderness. No sign of distention. No rebound or guarding, and no masses palpated. Bowel Sounds normal. MUSCULOSKELETAL: Good range of motion of all major joints. Extremities without clubbing, cyanosis or edema. NEUROLOGIC EXAM: Alert. No focal sensory or strength deficits. Follows commands. PSYCHIATRIC: Mood normal. SKIN: No rash or lesions. - Constitutional Vitals: Temp Pulse Resp BP Pulse Ox 97.8 F 62 24 126/75 96 05/14/16 12:00 05/14/16 13:30 05/14/16 14:54 05/14/16 14:54 05/14/16 14:54 General appearance: Present: other (intubated) Results - Labs CBC & Chem 7: 05/14/16 10:30 05/14/16 05:00 Labs: Laboratory Last Values WBC 4.9 K/mm3 (4.5-11.0) 05/14/16 10:30 RBC 3.39 M/mm3 (3.65-5.03) L 05/14/16 10:30 Hgb 9.5 gm/dl (11.8-15.2) L 05/14/16 10:30 Hct 29.3 % (35.5-45.6) L 05/14/16 10:30 MCV 87 fl (84-94) 05/14/16 10:30 MCH 28 pg (28-32) 05/14/16 10:30 MCHC 32 % (32-34) 05/14/16 10:30 RDW 17.2 % (13.2-15.2) H 05/14/16 10:30 Plt Count 85 K/mm3 (140-440) L 05/14/16 10:30 Lymph % (Auto) 14.4 % (13.4-35.0) 05/14/16 10:30 [place] % (Auto) 11.2 % (0.0-7.3) H 05/14/16 10:30 Eos % (Auto) 0.9 % (0.0-4.3) 05/14/16 10:30 Baso % (Auto) 0.3 % (0.0-1.8) 05/14/16 10:30 Lymph # 0.7 K/mm3 (1.2-5.4) L 05/14/16 10:30 [place] # 0.6 K/mm3 (0.0-0.8) 05/14/16 10:30 Eos # 0.0 K/mm3 (0.0-0.4) 05/14/16 10:30 Baso # 0.0 K/mm3 (0.0-0.1) 05/14/16 10:30 Add Manual Diff Complete 05/10/16 04:25 Total Counted 100 05/10/16 04:25 Seg Neutrophils % 73.2 % (40.0-70.0) H 05/14/16 10:30 Seg Neuts % (Manual) 92.0 % (40.0-70.0) H 05/10/16 04:25 Band Neutrophils % 3.0 % 05/10/16 04:25 Lymphocytes % (Manual) 0 % (13.4-35.0) L 05/10/16 04:25 Reactive Lymphs % (Man) 0 % 05/10/16 04:25 Monocytes % (Manual) 4.0 % (0.0-7.3) 05/10/16 04:25 Eosinophils % (Manual) 0 % (0.0-4.3) 05/10/16 04:25 Basophils % (Manual) 0 % (0.0-1.8) 05/10/16 04:25 Metamyelocytes % 0 % 05/10/16 04:25 Myelocytes % 1.0 % 05/10/16 04:25 Promyelocytes % 0 % 05/10/16 04:25 Blast Cells % 0 % 05/10/16 04:25 Nucleated RBC % Not Reportable 05/10/16 04:25 Seg Neutrophils # 3.6 K/mm3 (1.8-7.7) 05/14/16 10:30 Seg Neutrophils # Man 19.0 K/mm3 (1.8-7.7) H 05/10/16 04:25 Band Neutrophils # 0.6 K/mm3 05/10/16 04:25 Abs Lymphs (Manual) 1169 cells/uL (850-3900) 05/11/16 06:55 Lymphocytes # (Manual) 0.0 K/mm3 (1.2-5.4) L 05/10/16 04:25 Abs React Lymphs (Man) 0.0 K/mm3 05/10/16 04:25 Monocytes # (Manual) 0.8 K/mm3 (0.0-0.8) 05/10/16 04:25 Eosinophils # (Manual) 0.0 K/mm3 (0.0-0.4) 05/10/16 04:25 Basophils # (Manual) 0.0 K/mm3 (0.0-0.1) 05/10/16 04:25 Metamyelocytes # 0.0 K/mm3 05/10/16 04:25 Myelocytes # 0.2 K/mm3 05/10/16 04:25 Promyelocytes # 0.0 K/mm3 05/10/16 04:25 Blast Cells # 0.0 K/mm3 05/10/16 04:25 WBC Morphology Not Reportable 05/10/16 04:25 Hypersegmented Neuts Not Reportable 05/10/16 04:25 Hyposegmented Neuts Not Reportable 05/10/16 04:25 Hypogranular Neuts Not Reportable 05/10/16 04:25 Smudge Cells Not Reportable 05/10/16 04:25 Toxic Granulation Not Reportable 05/10/16 04:25 Toxic Vacuolation Not Reportable 05/10/16 04:25 Dohle Bodies Not Reportable 05/10/16 04:25 Pelger-Huet Anomaly Not Reportable 05/10/16 04:25 Amari Rods Not Reportable 05/10/16 04:25 Platelet Estimate Appears decreased 05/10/16 04:25 Clumped Platelets Not Reportable 05/10/16 04:25 Plt Clumps, EDTA Not Reportable 05/10/16 04:25 Large Platelets Not Reportable 05/10/16 04:25 Giant Platelets Not Reportable 05/10/16 04:25 Platelet Satelliting Not Reportable 05/10/16 04:25 Plt Morphology Comment Not Reportable 05/10/16 04:25 RBC Morphology Not Reportable 05/10/16 04:25 Dimorphic RBCs Not Reportable 05/10/16 04:25 Polychromasia Not Reportable 05/10/16 04:25 Hypochromasia Not Reportable 05/10/16 04:25 Poikilocytosis Not Reportable 05/10/16 04:25 Anisocytosis 1+ 05/10/16 04:25 Microcytosis Not Reportable 05/10/16 04:25 Macrocytosis Not Reportable 05/10/16 04:25 Spherocytes Not Reportable 05/10/16 04:25 Pappenheimer Bodies Not Reportable 05/10/16 04:25 Sickle Cells Not Reportable 05/10/16 04:25 Target Cells Not Reportable 05/10/16 04:25 Tear Drop Cells Not Reportable 05/10/16 04:25 Ovalocytes Not Reportable 05/10/16 04:25 Helmet Cells Not Reportable 05/10/16 04:25 [place] Bodies Not Reportable 05/10/16 04:25 [place] Rings Not Reportable 05/10/16 04:25 [place] Cells Not Reportable 05/10/16 04:25 Bite Cells Not Reportable 05/10/16 04:25 Crenated Cell Not Reportable 05/10/16 04:25 Elliptocytes Not Reportable 05/10/16 04:25 Acanthocytes (Spur) Not Reportable 05/10/16 04:25 Rouleaux Not Reportable 05/10/16 04:25 Hemoglobin C Crystals Not Reportable 05/10/16 04:25 Schistocytes Not Reportable 05/10/16 04:25 Malaria parasites Not Reportable 05/10/16 04:25 Kasi Bodies Not Reportable 05/10/16 04:25 Hem Pathologist Commnt No 05/10/16 04:25 PT 16.6 Sec. (12.2-14.9) H 05/09/16 12:06 INR 1.35 (0.87-1.13) H 05/09/16 12:06 APTT 27.4 Sec. (24.2-36.6) 05/09/16 12:06 POC ABG pH 7.492 (7.35-7.45) H 05/14/16 05:33 POC ABG pCO2 41.1 (35-45) 05/14/16 05:33 POC ABG pO2 84 (80-105) 05/14/16 05:33 POC ABG HCO3 31.5 05/14/16 05:33 POC ABG Total CO2 33 05/14/16 05:33 POC ABG O2 Sat 97 05/14/16 05:33 POC ABG Base Excess 8 05/14/16 05:33 FiO2 45 % 05/14/16 05:33 Sodium 136 mmol/L (137-145) L 05/14/16 05:00 Potassium 4.9 mmol/L (3.6-5.0) 05/14/16 05:00 Chloride 97.9 mmol/L (98-107) L 05/14/16 05:00 Carbon Dioxide 31 mmol/L (22-30) H 05/14/16 05:00 Anion Gap 12 mmol/L 05/14/16 05:00 BUN 8 mg/dL (9-20) L 05/14/16 05:00 Creatinine 0.2 mg/dL (0.8-1.5) L 05/14/16 05:00 Estimated GFR > 60 ml/min 05/14/16 05:00 BUN/Creatinine Ratio 40.00 % 05/14/16 05:00 Glucose 231 mg/dL (75-100) H 05/14/16 05:00 POC Glucose 106 (70-105) H 05/13/16 23:19 Lactic Acid 1.0 mmol/L (0.7-2.0) 05/10/16 09:55 Calcium 7.3 mg/dL (8.4-10.2) L 05/14/16 05:00 Phosphorus 4.8 mg/dL (2.5-4.5) H D 05/14/16 05:00 Magnesium 2.2 mg/dL (1.7-2.3) 05/14/16 05:00 Total Bilirubin 0.4 mg/dL (0.1-1.2) 05/13/16 12:30 AST 19 units/L (5-40) 05/13/16 12:30 ALT 13 units/L (7-56) 05/13/16 12:30 Alkaline Phosphatase 53 units/L (35-129) 05/13/16 12:30 Ammonia 33.0 umol/L (25-60) 05/09/16 23:00 Total Creatine Kinase 193 units/L (55-170) H 05/10/16 17:30 CK-MB (CK-2) 12.2 ng/mL (0.0-4.0) H 05/10/16 17:30 CK-MB (CK-2) Rel Index 6.3 (0-4) H 05/10/16 17:30 Troponin T 0.092 ng/mL (0.00-0.029) H 05/10/16 17:30 Total Protein 4.4 g/dL (6.3-8.2) L 05/13/16 12:30 Albumin 1.8 g/dL (3.9-5) L 05/13/16 12:30 Albumin/Globulin Ratio 0.7 % 05/13/16 12:30 Triglycerides 77 mg/dL (2-149) 05/10/16 09:55 Cholesterol 56 mg/dL (50-199) 05/10/16 09:55 LDL Cholesterol Direct 13 mg/dL (50-130) L 05/10/16 09:55 HDL Cholesterol 28 mg/dL (40-59) L 05/10/16 09:55 Cholesterol/HDL Ratio 2.00 % 05/10/16 09:55 Lipase 82 units/L (13-60) H 05/09/16 12:06 Urine Color Yellow (Yellow) 05/09/16 12:51 Urine Turbidity Slightly-cloudy (Clear) 05/09/16 12:51 Urine pH 6.0 (5.0-7.0) 05/09/16 12:51 Ur Specific [place] 1.019 (1.003-1.030) 05/09/16 12:51 Urine Protein 100 mg/dl mg/dL (Negative) 05/09/16 12:51 Urine Glucose (UA) Neg mg/dL (Negative) 05/09/16 12:51 Urine Ketones Neg mg/dL (Negative) 05/09/16 12:51 Urine Blood Neg (Negative) 05/09/16 12:51 Urine Nitrite Neg (Negative) 05/09/16 12:51 Urine Bilirubin Neg (Negative) 05/09/16 12:51 Urine Urobilinogen < 2.0 mg/dL (<2.0) 05/09/16 12:51 Ur Leukocyte Esterase Mod (Negative) 05/09/16 12:51 Urine WBC (Auto) > 182.0 /HPF (0.0-6.0) H 05/09/16 12:51 Urine RBC (Auto) 9.0 /HPF (0.0-6.0) 05/09/16 12:51 U Epithel Cells (Auto) 1.0 /HPF (0-13.0) 05/09/16 12:51 Urine Bacteria (Auto) 1+ /HPF (Negative) 05/09/16 12:51 Urine Mucus Few /HPF 05/09/16 12:51 Vancomycin Trough 7.5 ug/mL (5.0-20.0) 05/13/16 06:00 Urine Opiates Screen Presumptive negative 05/09/16 12:51 Urine Methadone Screen Presumptive negative 05/09/16 12:51 Ur Barbiturates Screen Presumptive negative 05/09/16 12:51 Ur Phencyclidine Scrn Presumptive negative 05/09/16 12:51 Ur Amphetamines Screen Presumptive negative 05/09/16 12:51 U Benzodiazepines Scrn Presumptive negative 05/09/16 12:51 Urine Cocaine Screen Presumptive negative 05/09/16 12:51 U Marijuana (THC) Screen Presumptive negative 05/09/16 12:51 Drugs of Abuse Note Disclamer 05/09/16 12:51 Plasma/Serum Alcohol < 0.01 gm% (0-0.07) 05/09/16 12:24 Lymph Enumerat CD4/CD8 0.24 (0.86-5.00) L 05/11/16 06:55 % CD3 Cells 89 % (57-85) H 05/11/16 06:55 Absolute CD3 Count 1035 cells/uL (840-3060) 05/11/16 06:55 % CD4 Cells 17 % (30-61) L 05/11/16 06:55 Absolute CD4 Count 200 cells/uL (490-1740) L 05/11/16 06:55 % CD8 Cells 73 % (12-42) H 05/11/16 06:55 Absolute CD8 Count 838 cells/uL (180-1170) 05/11/16 06:55 % CD19 Cells 5 % (6-29) L 05/11/16 06:55 Absolute CD19 Count 59 cells/uL (110-660) L 05/11/16 06:55 Hep Bs Antigen Non-reactive (Negative) 05/10/16 04:25 Hep B Core Total Ab Nonreactive (Nonreactive) 05/10/16 04:25 Hepatitis C Antibody Non-reactive (NonReactive) 05/10/16 04:25 HIV-1 RNA PCR copies/ml 183847 copies/mL (<20) H 05/11/16 06:55 HIV-1 RNA (PCR) log 5.42 Log cps/mL (<1.30) H 05/11/16 06:55 Blood Type A POSITIVE 05/09/16 12:06 Antibody Screen Negative 05/09/16 12:06 Crossmatch See Detail 05/09/16 12:06
[2016-05-14] MEDS ORDERED: TPN ADULT 1,800 ML IV SCH (20:00)
--- NOTE | 2016-05-14 20:58 | Progress Note ---
Subjective Date of service: 05/14/16 Principal diagnosis: Acute blood loss/anemia/duodenal ulcer Interval history: Patient is awake.. VS - No fever cHEST - B/L MILD RHONCHI CVS - S1S2 abd - bs+ assessment 1. Sepsis 2. Pneumonia 3. hiv/aids 4.resp failure 5. copd 6.GI Bleed. 7. Bacteremia sec to bacteroides ( patient already on clindamycin) recommendation Continue current iv abx. cbc/bmp in am Objective - Constitutional Vitals: Vital Signs Temp Pulse Resp BP Pulse Ox 98.5 F 57 L 18 120/76 99 05/14/16 20:00 05/14/16 19:57 05/14/16 19:57 05/14/16 19:45 05/14/16 19:45 Temperature -Last 24 Hours Temperature 98.5 F Temperature 98.5 F Temperature 97.8 F Temperature 97.8 F Temperature 97.1 F Temperature 97.9 F - Labs CBC & Chem 7: 05/14/16 10:30 05/14/16 05:00 Labs: Abnormal lab results 05/13/16 05/14/16 05/14/16 Range/Units 23:19 05:00 05:00 RBC (3.65-5.03) M/mm3 Hgb (11.8-15.2) gm/dl Hct (35.5-45.6) % RDW (13.2-15.2) % Plt Count (140-440) K/mm3 [place] % (Auto) (0.0-7.3) % Lymph # (1.2-5.4) K/mm3 Seg Neutrophils % (40.0-70.0) % POC ABG pH (7.35-7.45) Sodium 136 L (137-145) mmol/L Chloride 97.9 L (98-107) mmol/L Carbon Dioxide 31 H (22-30) mmol/L BUN 8 L (9-20) mg/dL Creatinine 0.2 L (0.8-1.5) mg/dL Glucose 231 H (75-100) mg/dL POC Glucose 106 H (70-105) Calcium 7.3 L (8.4-10.2) mg/dL Phosphorus 4.8 H D (2.5-4.5) mg/dL 02/24/17 02/24/17 Range/Units 05:33 10:30 RBC 3.39 L (3.65-5.03) M/mm3 Hgb 9.5 L (11.8-15.2) gm/dl Hct 29.3 L (35.5-45.6) % RDW 17.2 H (13.2-15.2) % Plt Count 85 L (140-440) K/mm3 [place] % (Auto) 11.2 H (0.0-7.3) % Lymph # 0.7 L (1.2-5.4) K/mm3 Seg Neutrophils % 73.2 H (40.0-70.0) % POC ABG pH 7.492 H (7.35-7.45) Sodium (137-145) mmol/L Chloride (98-107) mmol/L Carbon Dioxide (22-30) mmol/L BUN (9-20) mg/dL Creatinine (0.8-1.5) mg/dL Glucose (75-100) mg/dL POC Glucose (70-105) Calcium (8.4-10.2) mg/dL Phosphorus (2.5-4.5) mg/dL
[2016-05-14] MEDS: LEVAQUIN 750MG/150ML 750 MG/150 ML BAG IV SCH (23:57)
[2016-05-15] MEDS: PROVENTIL IH SCH ×6 (03:32→23:39)
[2016-05-15 04:18] LABS: Hematocrit 29.3 % (35.5-45.6); Hemoglobin 9.6 gm/dl (11.8-15.2); Mean Corpuscular HGB Conc 33 % (32-34); Mean Corpuscular Hemoglobin 28 pg (28-32); Mean Corpuscular Volume 86 fl (84-94); Platelet Count 102 K/mm3 (140-440); Red Blood Count 3.39 M/mm3 (3.65-5.03); Red Cell Distribution Width 16.8 % (13.2-15.2); White Blood Count 5.3 K/mm3 (4.5-11.0)
[2016-05-15 04:43] LABS: Anion Gap 11 mmol/L; Blood Urea Nitrogen 9 mg/dL (9-20); Calcium 7.6 mg/dL (8.4-10.2); Carbon Dioxide 33 mmol/L (22-30); Glucose 112 mg/dL (75-100); Magnesium 1.8 mg/dL (1.7-2.3); Phosphorous 3.2 mg/dL (2.5-4.5); Sodium 139 mmol/L (137-145)
[2016-05-15 05:07] LABS: Potassium 3.9 mmol/L (3.6-5.0)
[2016-05-15] MEDS: CLEOCIN 600 MG/50 mL 600 MG/50 ML BAG IV SCH ×3 (05:39→22:33)
[2016-05-15 05:40] LABS: ISTAT Base Excess 10; ISTAT HCO3 32.6; ISTAT PCO2 39.6 (35-45); ISTAT PH 7.524 (7.35-7.45); ISTAT PO2 86 (80-105); ISTAT SO2 97; ISTAT TCO2 34
[2016-05-15] MEDS: VANCOMYCIN VIAL 1,250 MG in NACL 0.9% 250ML 250 ML IV SCH ×2 (05:40→18:00)
[2016-05-15] MEDS: NOVOLOG SUB-Q SCH ×4 (06:26→18:06)
--- NOTE | 2016-05-15 06:56 | Gastroenterology Progress Note ---
Assessment and Plan 56yo man with HIV a/w acute blood loss/anemia/hematemesis; s/p EGD with large cratered duodenal ulcer, not amenable to endoscopic therapy. He is s/p IR intervention with GDA embolization. He was hypotensive previously and was thus intubated and on pressors. Possible component of ischemic colitis, given hypotensive episode. He has had no further bleeding and his Hb is stable. He remains intubated and is off pressors. Rec: 1) Continue daily weaning trials as per ICU team 2) If does not get extubated today, would recommending placing Dobhoff tube for feeds and to d/c TPN, as TPN carries overall higher risk of complications 3) Cont PPI No further bleeding and pt stable from GI standpoint. I will stop following daily, but please do not hesitate to contact me with any further questions. Thank you! Subjective Date of service: 05/15/16 Principal diagnosis: Acute blood loss/anemia/duodenal ulcer Interval history: Pt seen/examined this AM. Remains intubated; pt is awake on vent and in restraints. No bleeding overnight. No other acute overnight events. Objective - Constitutional Vitals: Temp Pulse Resp BP Pulse Ox 99.0 F 78 28 H 119/73 100 05/15/16 04:00 05/15/16 06:01 05/15/16 06:01 05/15/16 06:01 05/15/16 06:01 General appearance: other (Awake on vent, appears anxious) - Neck Neck: supple - Respiratory Respiratory: bilateral: other (coarse BS B/L) - Cardiovascular Rhythm: regular Heart Sounds: Present: S1 & S2 - Extremities Extremities: No edema - Gastrointestinal General gastrointestinal: Present: soft, non-tender, non-distended, normal bowel sounds - Labs CBC & Chem 7: 05/15/16 04:05 05/15/16 04:05 Labs: Laboratory Results - last 24 hr 05/14/16 05/14/16 05/14/16 05:00 10:30 12:24 WBC 4.9 RBC 3.39 L Hgb 9.5 L Hct 29.3 L MCV 87 MCH 28 MCHC 32 RDW 17.2 H Plt Count 85 L Lymph % (Auto) 14.4 [place] % (Auto) 11.2 H Eos % (Auto) 0.9 Baso % (Auto) 0.3 Lymph # 0.[address] [place] # 0.6 Eos # 0.0 Baso # 0.0 Seg Neutrophils % 73.2 H Seg Neutrophils # 3.6 POC ABG pH POC ABG pCO2 POC ABG pO2 POC ABG HCO3 POC ABG Total CO2 POC ABG O2 Sat POC ABG Base Excess FiO2 Sodium Potassium Chloride Carbon Dioxide Anion Gap BUN Creatinine Estimated GFR BUN/Creatinine Ratio Glucose POC Glucose 85 Calcium Phosphorus 4.8 H D Magnesium 05/14/16 05/15/16 05/15/16 16:39 00:28 04:05 WBC RBC Hgb Hct MCV MCH MCHC RDW Plt Count Lymph % (Auto) [place] % (Auto) Eos % (Auto) Baso % (Auto) Lymph # [place] # Eos # Baso # Seg Neutrophils % Seg Neutrophils # POC ABG pH POC ABG pCO2 POC ABG pO2 POC ABG HCO3 POC ABG Total CO2 POC ABG O2 Sat POC ABG Base Excess FiO2 Sodium 139 Potassium 3.9 D Chloride 99.0 Carbon Dioxide 33 H Anion Gap 11 BUN 9 Creatinine 0.3 L Estimated GFR > 60 BUN/Creatinine Ratio 30.00 Glucose 112 H POC Glucose 81 156 H Calcium 7.6 L Phosphorus 3.2 D Magnesium 1.8 05/15/16 05/15/16 05/15/16 04:05 05:15 06:03 WBC 5.3 RBC 3.39 L Hgb 9.6 L Hct 29.3 L MCV 86 MCH 28 MCHC 33 RDW 16.8 H Plt Count 102 L Lymph % (Auto) [place] % (Auto) Eos % (Auto) Baso % (Auto) Lymph # [place] # Eos # Baso # Seg Neutrophils % Seg Neutrophils # POC ABG pH 7.524 H POC ABG pCO2 39.6 POC ABG pO2 86 POC ABG HCO3 32.6 POC ABG Total CO2 34 POC ABG O2 Sat 97 POC ABG Base Excess 10 FiO2 45 Sodium Potassium Chloride Carbon Dioxide Anion Gap BUN Creatinine Estimated GFR BUN/Creatinine Ratio Glucose POC Glucose 125 H Calcium Phosphorus Magnesium
[2016-05-15] MEDS ORDERED: PANCREAZE DR 10,500 UNIT FEEDTUBE PRN (08:39)
[2016-05-15] MEDS ORDERED: SODIUM BICARBONATE FEEDTUBE PRN (08:39)
[2016-05-15] MEDS ORDERED: SIMPLE SYRUP FEEDTUBE PRN ×2 (08:39)
--- NOTE | 2016-05-15 09:43 | Progress Note ---
Assessment and Plan 56yo WM: Acute respiratory failure vent weaning per pulmonary Hypotension-->resolved Sepsis antibiotics per ID Elevated troponin-->may be due to demand ischemia minimally elevated but flat Echo: EF 30-35%, mild AR, mild MR, mild-moderate TR, RVSP 48mmHg Cardiomyopathy EF 30-35% possibly alcoholic will hold off on initiation of BB or ACEI due to recent hypotension Hypokalemia replace to keep potassium ~ 4 Hypomagnesemia replace to keep magnesium ~ 2 Bleeding duodenal ulcer/Anemia s/p coil embolization of gastroduodenal artery ETOH abuse Tobacco abuse HIV stable cv status Subjective Date of service: 05/15/16 Principal diagnosis: Acute blood loss/anemia/duodenal ulcer Interval history: no changes overnight Objective Vital Signs Temp Pulse Pulse Pulse Pulse Resp Resp 05/15/16 09:23 59 L 05/15/16 08:42 68 05/15/16 08:39 66 05/15/16 08:00 98.7 F 72 23 05/15/16 06:01 78 28 H 05/15/16 05:31 71 20 05/15/16 05:01 84 24 05/15/16 04:31 96 H 15 05/15/16 04:00 99.0 F 99 H 88 23 23 05/15/16 03:34 86 05/15/16 03:33 86 18 05/15/16 03:31 84 18 05/15/16 03:00 86 23 05/15/16 02:31 88 18 05/15/16 02:00 90 20 05/15/16 01:31 89 18 05/15/16 01:00 95 H 19 05/15/16 00:30 96 H 19 05/15/16 00:00 98.9 F 93 H 21 05/14/16 23:50 90 22 05/14/16 23:31 80 18 05/14/16 23:24 89 05/14/16 23:19 81 84 25 H 05/14/16 23:00 82 19 05/14/16 22:31 77 20 05/14/16 22:20 77 77 05/14/16 22:00 85 22 05/14/16 21:49 82 18 05/14/16 21:31 77 17 05/14/16 21:00 63 13 05/14/16 20:31 64 17 05/14/16 20:00 98.5 F 61 18 05/14/16 19:57 57 L 05/14/16 19:45 58 L 05/14/16 19:34 98.5 F 05/14/16 19:30 62 18 05/14/16 19:00 67 19 05/14/16 18:30 67 27 H 05/14/16 18:00 75 73 72 21 22 05/14/16 17:49 72 22 05/14/16 17:30 60 19 05/14/16 17:00 61 24 05/14/16 16:30 78 17 05/14/16 16:00 97.8 F 73 26 H 05/14/16 15:30 60 20 05/14/16 15:10 78 05/14/16 15:00 57 L 28 H 05/14/16 14:54 24 05/14/16 14:50 74 05/14/16 14:30 77 19 05/14/16 14:00 59 L 15 05/14/16 13:30 62 15 05/14/16 13:00 64 19 05/14/16 12:30 54 L 21 05/14/16 12:00 97.8 F 58 L 28 H 05/14/16 11:30 73 30 H 05/14/16 11:00 76 30 H 05/14/16 10:30 90 18 05/14/16 10:15 23 05/14/16 10:00 51 L 17 Resp Resp BP Pulse Ox 05/15/16 09:23 18 05/15/16 08:42 22 05/15/16 08:39 130/67 99 05/15/16 08:00 130/67 40 L 05/15/16 06:01 119/73 100 05/15/16 05:31 114/69 99 05/15/16 05:01 114/69 100 05/15/16 04:31 121/79 97 05/15/16 04:00 121/79 95 05/15/16 03:34 113/70 96 05/15/16 03:33 05/15/16 03:31 113/70 96 05/15/16 03:00 113/70 98 05/15/16 02:31 98/63 98 05/15/16 02:00 104/70 98 05/15/16 01:31 98/63 98 05/15/16 01:00 98/63 97 02/25/17 00:30 106/67 95 05/15/16 00:00 106/67 97 05/14/16 23:50 05/14/16 23:31 122/77 96 05/14/16 23:24 122/77 96 05/14/16 23:19 23 05/14/16 23:00 122/77 95 05/14/16 22:31 111/77 96 05/14/16 22:20 22 22 05/14/16 22:00 111/77 97 05/14/16 21:49 115/71 97 05/14/16 21:31 115/71 97 05/14/16 21:00 115/71 98 05/14/16 20:31 120/76 97 05/14/16 20:00 125/76 98 05/14/16 19:57 18 05/14/16 19:45 120/76 99 05/14/16 19:34 05/14/16 19:30 120/76 95 05/14/16 19:00 120/76 98 05/14/16 18:30 120/78 95 05/14/16 18:00 22 120/78 94 05/14/16 17:49 22 133/77 97 05/14/16 17:30 133/77 98 05/14/16 17:00 133/77 99 05/14/16 16:30 120/73 96 05/14/16 16:00 129/79 97 05/14/16 15:30 120/73 97 05/14/16 15:10 18 05/14/16 15:00 120/73 97 05/14/16 14:54 126/75 96 05/14/16 14:50 20 05/14/16 14:30 126/75 96 05/14/16 14:00 126/75 99 05/14/16 13:30 124/72 99 05/14/16 13:00 124/72 99 05/14/16 12:30 129/75 100 05/14/16 12:00 129/75 100 05/14/16 11:30 134/74 98 05/14/16 11:00 132/78 98 05/14/16 10:30 134/74 95 05/14/16 10:15 134/74 97 05/14/16 10:00 134/74 100 - Physical Examination General: No Apparent Distress (intubated), Other (drowsy) HEENT: Positive: Normocephaly, Mucus Membranes Moist Neck: Positive: neck supple, trachea midline Neuro: Positive: Other (intubated but arosuable) Abdomen: Positive: Soft Skin: Positive: Clear. Negative: Rash Extremities: Present: upper extr. pulses, lower extr. pulses. Absent: edema - Labs and Meds CBC 05/14/16 05/15/16 Range/Units 10:30 04:05 WBC 4.9 5.3 (4.5-11.0) K/mm3 RBC 3.39 L 3.39 L (3.65-5.03) M/mm3 Hgb 9.5 L 9.6 L (11.8-15.2) gm/dl Hct 29.3 L 29.3 L (35.5-45.6) % Plt Count 85 L 102 L (140-440) K/mm3 Lymph # 0.7 L (1.2-5.4) K/mm3 [place] # 0.6 (0.0-0.8) K/mm3 Eos # 0.0 (0.0-0.4) K/mm3 Baso # 0.0 (0.0-0.1) K/mm3 Comprehensive Metabolic Panel 05/15/16 Range/Units 04:05 Sodium 139 (137-145) mmol/L Potassium 3.9 D (3.6-5.0) mmol/L Chloride 99.0 (98-107) mmol/L Carbon Dioxide 33 H (22-30) mmol/L BUN 9 (9-20) mg/dL Creatinine 0.3 L (0.8-1.5) mg/dL Glucose 112 H (75-100) mg/dL Calcium 7.6 L (8.4-10.2) mg/dL - Imaging and Cardiology EKG: report reviewed, image reviewed Echo: report reviewed (04/2016: EF 30-35%, mild AR, mild MR, mild-moderate TR, RVSP 48mmHg) - EKG Sinus rhythms and dysrhythmias: sinus rhythm Repolarization changes or abnormalities: nonspecific abnormality, ST segment, and/or T wave
[2016-05-15] MEDS: ATIVAN IV PRN ×2 (10:15→20:04)
[2016-05-15] MEDS: PROTONIX IV SCH ×2 (10:42→22:33)
--- NOTE | 2016-05-15 15:52 | Progress Note ---
Assessment and Plan ssessment and Plan Acute respiratory failure. No changes. He failed weaning previously. COPD. appears controlled Severe sepsis. Clinically improving. WBC normal, no fever Shock. Resolved GI bleeding episode secondary to peptic ulcer disease. Monitoring H&H. 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 Cardiology is following AMS. Improving HIV. CD4 200. Infectious disease is following. Prior history of alcohol abuse. [facility] protocol Recommendations Extubation precautions Off sedation Daily Spontaneous breathing trial and progress to extubation if tolerated . Critical care time was 31 minutes in [id number] evaluation and coordination of care. Subjective Date of service: 05/15/16 Principal diagnosis: Acute blood loss/anemia/duodenal ulcer Interval history: No significant change patient remained intubated on mechanical ventilator. Objective Vital Signs - 12hr 05/15/16 05/15/16 05/15/16 04:00 04:31 05:01 Temperature 99.0 F Pulse Rate 99 H 96 H 84 Pulse Rate [ 88 Anterior Bilateral Throughout] Pulse Rate [ Anterior Right Throughout] Pulse Rate [ From Monitor] Pulse Rate [ Left Radial] Pulse Rate [ Right Radial] Respiratory 23 15 24 Rate Respiratory 23 Rate [Anterior Bilateral Throughout] Respiratory Rate [Anterior Right Throughout] Blood Pressure 121/79 121/79 114/69 O2 Sat by Pulse 95 97 100 Oximetry 05/15/16 05/15/16 05/15/16 05:31 06:01 08:00 Temperature 98.7 F Pulse Rate 71 78 72 Pulse Rate [ Anterior Bilateral Throughout] Pulse Rate [ Anterior Right Throughout] Pulse Rate [ 57 L From Monitor] Pulse Rate [ 55 L Left Radial] Pulse Rate [ 58 L Right Radial] Respiratory 20 28 H 19 Rate Respiratory Rate [Anterior Bilateral Throughout] Respiratory Rate [Anterior Right Throughout] Blood Pressure 114/69 119/73 130/67 O2 Sat by Pulse 99 100 99 Oximetry 05/15/16 05/15/16 05/15/16 08:39 08:42 09:23 Temperature Pulse Rate 66 Pulse Rate [ Anterior Bilateral Throughout] Pulse Rate [ 68 59 L Anterior Right Throughout] Pulse Rate [ From Monitor] Pulse Rate [ Left Radial] Pulse Rate [ Right Radial] Respiratory Rate Respiratory Rate [Anterior Bilateral Throughout] Respiratory 22 18 Rate [Anterior Right Throughout] Blood Pressure 130/67 O2 Sat by Pulse 99 Oximetry 05/15/16 05/15/16 05/15/16 11:46 11:49 12:51 Temperature 98.7 F Pulse Rate 65 Pulse Rate [ 62 Anterior Bilateral Throughout] Pulse Rate [ Anterior Right Throughout] Pulse Rate [ From Monitor] Pulse Rate [ Left Radial] Pulse Rate [ Right Radial] Respiratory Rate Respiratory 21 Rate [Anterior Bilateral Throughout] Respiratory Rate [Anterior Right Throughout] Blood Pressure 126/73 O2 Sat by Pulse 100 Oximetry 05/15/16 13:40 Temperature Pulse Rate Pulse Rate [ 76 Anterior Bilateral Throughout] Pulse Rate [ Anterior Right Throughout] Pulse Rate [ From Monitor] Pulse Rate [ Left Radial] Pulse Rate [ Right Radial] Respiratory Rate Respiratory 23 Rate [Anterior Bilateral Throughout] Respiratory Rate [Anterior Right Throughout] Blood Pressure O2 Sat by Pulse Oximetry Constitutional: alert, appears uncomfortable, other (endotracheal tube in position ) Eyes: non-icteric ENT: oropharynx dry, other (orally intubated) Neck: supple, no JVD Effort: mildly labored Ascultation: Bilateral: clear, diminished breath sounds, wheezes, rhonchi ( occasional ) Cardiovascular: regular rate and rhythm Gastrointestinal: hypoactive bowel sounds Extremities: no cyanosis, no edema Neurologic: normal mental status, non-focal exam, pupils equal and round, CN II- XII normal CBC and BMP: 05/15/16 04:05 05/15/16 04:05 ABG, PT/INR, D-dimer: ABG POC ABG pH 7.524 (7.35-7.45) H 05/15/16 05:15 POC ABG pCO2 39.6 (35-45) 05/15/16 05:15 POC ABG pO2 86 (80-105) 05/15/16 05:15 POC ABG HCO3 32.6 05/15/16 05:15 POC ABG Total CO2 34 05/15/16 05:15 POC ABG O2 Sat 97 05/15/16 05:15 PT/INR, D-dimer PT 16.6 Sec. (12.2-14.9) H 05/09/16 12:06 INR 1.35 (0.87-1.13) H 05/09/16 12:06 Abnormal lab findings: Abnormal Labs 05/09/16 05/10/16 05/10/16 23:00 02:46 04:25 WBC 22.4 H 20.7 H RBC 5.05 H Hgb Hct 45.8 H D RDW 17.9 H 18.0 H Plt Count 70 L 68 L Lymph % (Auto) [place] % (Auto) Lymph # Seg Neutrophils % Seg Neuts % (Manual) 92.0 H 92.0 H Lymphocytes % (Manual) 1.0 L 0 L Seg Neutrophils # Seg Neutrophils # Man 20.6 H 19.0 H Lymphocytes # (Manual) 0.2 L 0.0 L POC ABG pH POC ABG pCO2 POC ABG pO2 Sodium Potassium Chloride Carbon Dioxide BUN Creatinine Glucose POC Glucose Calcium Phosphorus Magnesium Total Creatine Kinase CK-MB (CK-2) CK-MB (CK-2) Rel Index Troponin T Total Protein Albumin LDL Cholesterol Direct HDL Cholesterol Lymph Enumerat CD4/CD8 % CD3 Cells % CD4 Cells Absolute CD4 Count % CD8 Cells % CD19 Cells Absolute CD19 Count HIV-1 RNA PCR copies/ml HIV-1 RNA (PCR) log 05/10/16 05/10/16 05/10/16 04:25 09:55 11:13 WBC RBC Hgb Hct RDW Plt Count Lymph % (Auto) [place] % (Auto) Lymph # Seg Neutrophils % Seg Neuts % (Manual) Lymphocytes % (Manual) Seg Neutrophils # Seg Neutrophils # Man Lymphocytes # (Manual) POC ABG pH 7.152 L POC ABG pCO2 65.4 H POC ABG pO2 48 L Sodium Potassium Chloride 110.4 H Carbon Dioxide BUN 21 H Creatinine Glucose 47 L POC Glucose Calcium 5.7 L* Phosphorus Magnesium Total Creatine Kinase CK-MB (CK-2) 11.5 H CK-MB (CK-2) Rel Index 7.6 H Troponin T 0.105 H* Total Protein 3.4 L Albumin 1.8 L LDL Cholesterol Direct 13 L HDL Cholesterol 28 L Lymph Enumerat CD4/CD8 % CD3 Cells % CD4 Cells Absolute CD4 Count % CD8 Cells % CD19 Cells Absolute CD19 Count HIV-1 RNA PCR copies/ml HIV-1 RNA (PCR) log 05/10/16 05/10/16 05/10/16 13:28 14:05 14:18 WBC RBC Hgb Hct RDW Plt Count Lymph % (Auto) [place] % (Auto) Lymph # Seg Neutrophils % Seg Neuts % (Manual) Lymphocytes % (Manual) Seg Neutrophils # Seg Neutrophils # Man Lymphocytes # (Manual) POC ABG pH 7.199 L POC ABG pCO2 56.9 H POC ABG pO2 67 L Sodium Potassium Chloride Carbon Dioxide BUN Creatinine Glucose POC Glucose < 40 L 109 H Calcium Phosphorus Magnesium Total Creatine Kinase CK-MB (CK-2) CK-MB (CK-2) Rel Index Troponin T Total Protein Albumin LDL Cholesterol Direct HDL Cholesterol Lymph Enumerat CD4/CD8 % CD3 Cells % CD4 Cells Absolute CD4 Count % CD8 Cells % CD19 Cells Absolute CD19 Count HIV-1 RNA PCR copies/ml HIV-1 RNA (PCR) log 05/10/16 05/10/16 05/10/16 16:02 17:30 17:30 WBC RBC Hgb 11.1 L Hct 34.9 L D RDW Plt Count Lymph % (Auto) [place] % (Auto) Lymph # Seg Neutrophils % Seg Neuts % (Manual) Lymphocytes % (Manual) Seg Neutrophils # Seg Neutrophils # Man Lymphocytes # (Manual) POC ABG pH 7.307 L POC ABG pCO2 POC ABG pO2 Sodium Potassium Chloride Carbon Dioxide BUN Creatinine Glucose POC Glucose Calcium Phosphorus Magnesium Total Creatine Kinase 193 H CK-MB (CK-2) 12.2 H CK-MB (CK-2) Rel Index 6.3 H Troponin T 0.092 H Total Protein Albumin LDL Cholesterol Direct HDL Cholesterol Lymph Enumerat CD4/CD8 % CD3 Cells % CD4 Cells Absolute CD4 Count % CD8 Cells % CD19 Cells Absolute CD19 Count HIV-1 RNA PCR copies/ml HIV-1 RNA (PCR) log 05/10/16 05/10/16 05/11/16 18:42 23:03 03:00 WBC 14.9 H RBC Hgb 10.3 L Hct 32.3 L RDW 18.2 H Plt Count 97 L Lymph % (Auto) [place] % (Auto) Lymph # Seg Neutrophils % Seg Neuts % (Manual) Lymphocytes % (Manual) Seg Neutrophils # Seg Neutrophils # Man Lymphocytes # (Manual) POC ABG pH POC ABG pCO2 POC ABG pO2 Sodium Potassium Chloride Carbon Dioxide BUN Creatinine Glucose POC Glucose 113 H 204 H Calcium Phosphorus Magnesium Total Creatine Kinase CK-MB (CK-2) CK-MB (CK-2) Rel Index Troponin T Total Protein Albumin LDL Cholesterol Direct HDL Cholesterol Lymph Enumerat CD4/CD8 % CD3 Cells % CD4 Cells Absolute CD4 Count % CD8 Cells % CD19 Cells Absolute CD19 Count HIV-1 RNA PCR copies/ml HIV-1 RNA (PCR) log 05/11/16 05/11/16 05/11/16 03:21 04:00 06:55 WBC RBC Hgb Hct RDW Plt Count Lymph % (Auto) [place] % (Auto) Lymph # Seg Neutrophils % Seg Neuts % (Manual) Lymphocytes % (Manual) Seg Neutrophils # Seg Neutrophils # Man Lymphocytes # (Manual) POC ABG pH POC ABG pCO2 POC ABG pO2 Sodium Potassium Chloride 111.5 H Carbon Dioxide BUN 26 H Creatinine Glucose 207 H POC Glucose 217 H Calcium 6.4 L Phosphorus Magnesium 1.4 L Total Creatine Kinase CK-MB (CK-2) CK-MB (CK-2) Rel Index Troponin T Total Protein Albumin LDL Cholesterol Direct HDL Cholesterol Lymph Enumerat CD4/CD8 0.24 L % CD3 Cells 89 H % CD4 Cells 17 L Absolute CD4 Count 200 L % CD8 Cells 73 H % CD19 Cells 5 L Absolute CD19 Count 59 L HIV-1 RNA PCR copies/ml HIV-1 RNA (PCR) log 05/11/16 05/11/16 05/11/16 06:55 10:57 11:48 WBC RBC Hgb Hct RDW Plt Count Lymph % (Auto) [place] % (Auto) Lymph # Seg Neutrophils % Seg Neuts % (Manual) Lymphocytes % (Manual) Seg Neutrophils # Seg Neutrophils # Man Lymphocytes # (Manual) POC ABG pH POC ABG pCO2 POC ABG pO2 46 L 75 L Sodium Potassium Chloride Carbon Dioxide BUN Creatinine Glucose POC Glucose Calcium Phosphorus Magnesium Total Creatine Kinase CK-MB (CK-2) CK-MB (CK-2) Rel Index Troponin T Total Protein Albumin LDL Cholesterol Direct HDL Cholesterol Lymph Enumerat CD4/CD8 % CD3 Cells % CD4 Cells Absolute CD4 Count % CD8 Cells % CD19 Cells Absolute CD19 Count HIV-1 RNA PCR copies/ml [id number] H HIV-1 RNA (PCR) log 5.42 H 05/11/16 05/11/16 05/11/16 12:17 17:11 23:38 WBC RBC Hgb Hct RDW Plt Count Lymph % (Auto) [place] % (Auto) Lymph # Seg Neutrophils % Seg Neuts % (Manual) Lymphocytes % (Manual) Seg Neutrophils # Seg Neutrophils # Man Lymphocytes # (Manual) POC ABG pH POC ABG pCO2 POC ABG pO2 Sodium Potassium Chloride Carbon Dioxide BUN Creatinine Glucose POC Glucose 232 H 204 H 126 H Calcium Phosphorus Magnesium Total Creatine Kinase CK-MB (CK-2) CK-MB (CK-2) Rel Index Troponin T Total Protein Albumin LDL Cholesterol Direct HDL Cholesterol Lymph Enumerat CD4/CD8 % CD3 Cells % CD4 Cells Absolute CD4 Count % CD8 Cells % CD19 Cells Absolute CD19 Count HIV-1 RNA PCR copies/ml HIV-1 RNA (PCR) log 05/12/16 05/12/16 05/12/16 05:00 05:00 05:00 WBC RBC 3.12 L Hgb 8.9 L Hct 27.0 L RDW 17.8 H Plt Count 72 L Lymph % (Auto) 9.2 L [place] % (Auto) Lymph # 0.9 L Seg Neutrophils % 84.0 H Seg Neuts % (Manual) Lymphocytes % (Manual) Seg Neutrophils # 8.1 H Seg Neutrophils # Man Lymphocytes # (Manual) POC ABG pH POC ABG pCO2 POC ABG pO2 Sodium Potassium 3.4 L Chloride 110.2 H Carbon Dioxide BUN 23 H Creatinine 0.5 L Glucose 172 H POC Glucose Calcium 7.3 L Phosphorus 1.5 L D Magnesium 1.6 L Total Creatine Kinase CK-MB (CK-2) CK-MB (CK-2) Rel Index Troponin T Total Protein 3.7 L Albumin 1.7 L LDL Cholesterol Direct HDL Cholesterol Lymph Enumerat CD4/CD8 % CD3 Cells % CD4 Cells Absolute CD4 Count % CD8 Cells % CD19 Cells Absolute CD19 Count HIV-1 RNA PCR copies/ml HIV-1 RNA (PCR) log 05/12/16 05/12/16 05/12/16 05:18 05:44 12:26 WBC RBC Hgb Hct RDW Plt Count Lymph % (Auto) [place] % (Auto) Lymph # Seg Neutrophils % Seg Neuts % (Manual) Lymphocytes % (Manual) Seg Neutrophils # Seg Neutrophils # Man Lymphocytes # (Manual) POC ABG pH POC ABG pCO2 POC ABG pO2 64 L Sodium Potassium Chloride Carbon Dioxide BUN Creatinine Glucose POC Glucose 183 H 134 H Calcium Phosphorus Magnesium Total Creatine Kinase CK-MB (CK-2) CK-MB (CK-2) Rel Index Troponin T Total Protein Albumin LDL Cholesterol Direct HDL Cholesterol Lymph Enumerat CD4/CD8 % CD3 Cells % CD4 Cells Absolute CD4 Count % CD8 Cells % CD19 Cells Absolute CD19 Count HIV-1 RNA PCR copies/ml HIV-1 RNA (PCR) log 05/12/16 05/13/16 05/13/16 18:28 00:10 04:49 WBC RBC Hgb Hct RDW Plt Count Lymph % (Auto) [place] % (Auto) Lymph # Seg Neutrophils % Seg Neuts % (Manual) Lymphocytes % (Manual) Seg Neutrophils # Seg Neutrophils # Man Lymphocytes # (Manual) POC ABG pH POC ABG pCO2 POC ABG pO2 66 L Sodium Potassium Chloride Carbon Dioxide BUN Creatinine Glucose POC Glucose 119 H 152 H Calcium Phosphorus Magnesium Total Creatine Kinase CK-MB (CK-2) CK-MB (CK-2) Rel Index Troponin T Total Protein Albumin LDL Cholesterol Direct HDL Cholesterol Lymph Enumerat CD4/CD8 % CD3 Cells % CD4 Cells Absolute CD4 Count % CD8 Cells % CD19 Cells Absolute CD19 Count HIV-1 RNA PCR copies/ml HIV-1 RNA (PCR) log 05/13/16 05/13/16 05/13/16 06:00 06:22 12:15 WBC RBC Hgb Hct RDW Plt Count Lymph % (Auto) [place] % (Auto) Lymph # Seg Neutrophils % Seg Neuts % (Manual) Lymphocytes % (Manual) Seg Neutrophils # Seg Neutrophils # Man Lymphocytes # (Manual) POC ABG pH POC ABG pCO2 POC ABG pO2 Sodium Potassium 3.5 L Chloride Carbon Dioxide BUN Creatinine 0.3 L Glucose 105 H POC Glucose 114 H 128 H Calcium 7.3 L Phosphorus Magnesium 1.5 L Total Creatine Kinase CK-MB (CK-2) CK-MB (CK-2) Rel Index Troponin T Total Protein Albumin LDL Cholesterol Direct HDL Cholesterol Lymph Enumerat CD4/CD8 % CD3 Cells % CD4 Cells Absolute CD4 Count % CD8 Cells % CD19 Cells Absolute CD19 Count HIV-1 RNA PCR copies/ml HIV-1 RNA (PCR) log 05/13/16 05/13/16 05/13/16 12:30 12:30 18:02 WBC RBC 3.53 L Hgb 9.8 L Hct 30.9 L RDW 17.6 H Plt Count 88 L Lymph % (Auto) 9.6 L [place] % (Auto) 9.8 H Lymph # 0.5 L Seg Neutrophils % 79.9 H Seg Neuts % (Manual) Lymphocytes % (Manual) Seg Neutrophils # Seg Neutrophils # Man Lymphocytes # (Manual) POC ABG pH POC ABG pCO2 POC ABG pO2 Sodium Potassium Chloride Carbon Dioxide BUN Creatinine 0.3 L Glucose 113 H POC Glucose 123 H Calcium 7.2 L Phosphorus Magnesium Total Creatine Kinase CK-MB (CK-2) CK-MB (CK-2) Rel Index Troponin T Total Protein 4.4 L Albumin 1.8 L LDL Cholesterol Direct HDL Cholesterol Lymph Enumerat CD4/CD8 % CD3 Cells % CD4 Cells Absolute CD4 Count % CD8 Cells % CD19 Cells Absolute CD19 Count HIV-1 RNA PCR copies/ml HIV-1 RNA (PCR) log 05/13/16 05/14/16 05/14/16 23:19 05:00 05:00 WBC RBC Hgb Hct RDW Plt Count Lymph % (Auto) [place] % (Auto) Lymph # Seg Neutrophils % Seg Neuts % (Manual) Lymphocytes % (Manual) Seg Neutrophils # Seg Neutrophils # Man Lymphocytes # (Manual) POC ABG pH POC ABG pCO2 POC ABG pO2 Sodium 136 L Potassium Chloride 97.9 L Carbon Dioxide 31 H BUN 8 L Creatinine 0.2 L Glucose 231 H POC Glucose 106 H Calcium 7.3 L Phosphorus 4.8 H D Magnesium Total Creatine Kinase CK-MB (CK-2) CK-MB (CK-2) Rel Index Troponin T Total Protein Albumin LDL Cholesterol Direct HDL Cholesterol Lymph Enumerat CD4/CD8 % CD3 Cells % CD4 Cells Absolute CD4 Count % CD8 Cells % CD19 Cells Absolute CD19 Count HIV-1 RNA PCR copies/ml HIV-1 RNA (PCR) log 05/14/16 05/14/16 05/15/16 05:33 10:30 00:28 WBC RBC 3.39 L Hgb 9.5 L Hct 29.3 L RDW 17.2 H Plt Count 85 L Lymph % (Auto) [place] % (Auto) 11.2 H Lymph # 0.7 L Seg Neutrophils % 73.2 H Seg Neuts % (Manual) Lymphocytes % (Manual) Seg Neutrophils # Seg Neutrophils # Man Lymphocytes # (Manual) POC ABG pH 7.492 H POC ABG pCO2 POC ABG pO2 Sodium Potassium Chloride Carbon Dioxide BUN Creatinine Glucose POC Glucose 156 H Calcium Phosphorus Magnesium Total Creatine Kinase CK-MB (CK-2) CK-MB (CK-2) Rel Index Troponin T Total Protein Albumin LDL Cholesterol Direct HDL Cholesterol Lymph Enumerat CD4/CD8 % CD3 Cells % CD4 Cells Absolute CD4 Count % CD8 Cells % CD19 Cells Absolute CD19 Count HIV-1 RNA PCR copies/ml HIV-1 RNA (PCR) log 05/15/16 05/15/16 05/15/16 04:05 04:05 05:15 WBC RBC 3.39 L Hgb 9.6 L Hct 29.3 L RDW 16.8 H Plt Count 102 L Lymph % (Auto) [place] % (Auto) Lymph # Seg Neutrophils % Seg Neuts % (Manual) Lymphocytes % (Manual) Seg Neutrophils # Seg Neutrophils # Man Lymphocytes # (Manual) POC ABG pH 7.524 H POC ABG pCO2 POC ABG pO2 Sodium Potassium Chloride Carbon Dioxide 33 H BUN Creatinine 0.3 L Glucose 112 H POC Glucose Calcium 7.6 L Phosphorus Magnesium Total Creatine Kinase CK-MB (CK-2) CK-MB (CK-2) Rel Index Troponin T Total Protein Albumin LDL Cholesterol Direct HDL Cholesterol Lymph Enumerat CD4/CD8 % CD3 Cells % CD4 Cells Absolute CD4 Count % CD8 Cells % CD19 Cells Absolute CD19 Count HIV-1 RNA PCR copies/ml HIV-1 RNA (PCR) log 05/15/16 05/15/16 06:03 10:47 WBC RBC Hgb Hct RDW Plt Count Lymph % (Auto) [place] % (Auto) Lymph # Seg Neutrophils % Seg Neuts % (Manual) Lymphocytes % (Manual) Seg Neutrophils # Seg Neutrophils # Man Lymphocytes # (Manual) POC ABG pH POC ABG pCO2 POC ABG pO2 Sodium Potassium Chloride Carbon Dioxide BUN Creatinine Glucose POC Glucose 125 H 107 H Calcium Phosphorus Magnesium Total Creatine Kinase CK-MB (CK-2) CK-MB (CK-2) Rel Index Troponin T Total Protein Albumin LDL Cholesterol Direct HDL Cholesterol Lymph Enumerat CD4/CD8 % CD3 Cells % CD4 Cells Absolute CD4 Count % CD8 Cells % CD19 Cells Absolute CD19 Count HIV-1 RNA PCR copies/ml HIV-1 RNA (PCR) log
--- NOTE | 2016-05-15 16:28 | Progress Note ---
Assessment and Plan Assessment and plan: 58M who is presented with GIB, and acute blood loss anemia, s/p EGD with large cratered duodenal ulcer, not amenable to endoscopic therapy. He is s/p IR intervention yesterday with GDA embolization. He became hypotensive and acidotic overnight and is now intubated and on pressors. 1. GIB s/p EGD with large cratered duodenal ulcer, not amenable to endoscopic therapy. He is s/p IR intervention with GDA embolization. Bleeding has now stopped and hemoglobin stabilized, continue PPI, advise smoking cessation 2. Acute blood loss anemia transfuse to keep Hg above 10 3. Septic Shock Patient became hypotensive, there was concern for sepsis, he was treated with broad-spectrum antibiotics and pressors. He was weaned off pressors. Blood cultures showed Bacteroides bacteremia, and his antibiotics where tailored appropriately, infectious disease input appreciated. 4. Acute respiratory failure, Studies intubated and planned to attempt to wean him off NSAIDs in the next 24 hours 5. HIV Has not been on treatments, CD4 count is 200, ID following 6. COPD Continue bronchodilators 7. Alcohol dependency and Alcohol induced cardiomyopathy Fluid status is euvolemic, has not shown any signs of alcohol withdrawal Critical care time 32 minutes History Interval history: Patient remains intubated, he has been awake and off sedation and, he has been pointing to the ET tube and staff have been under the impression that he wanted removed Hospitalist Physical - Physical exam Narrative exam: General: Nontoxic appearance and intubated HEENT: MMM, EOMI cardiac: S1-S2 heard lungs: ventilated breath sounds, abdomen: soft, nontender, nondistended bowel sounds positive extremities: no edema clubbing or cyanosis Skin: no rash or lesion Neuro: intubated, awake of being commands, moves all extremities - Constitutional Vitals: Temp Pulse Resp BP Pulse Ox 98.7 F 74 20 118/74 97 05/15/16 11:49 05/15/16 16:01 05/15/16 16:01 05/15/16 16:01 05/15/16 16:01 General appearance: Present: other (intubated) Results - Labs CBC & Chem 7: 05/15/16 04:05 05/17/16 05:40 Labs: Laboratory Last Values WBC 5.3 K/mm3 (4.5-11.0) 05/15/16 04:05 RBC 3.39 M/mm3 (3.65-5.03) L 05/15/16 04:05 Hgb 9.6 gm/dl (11.8-15.2) L 05/15/16 04:05 Hct 29.3 % (35.5-45.6) L 05/15/16 04:05 MCV 86 fl (84-94) 05/15/16 04:05 MCH 28 pg (28-32) 05/15/16 04:05 MCHC 33 % (32-34) 05/15/16 04:05 RDW 16.8 % (13.2-15.2) H 05/15/16 04:05 Plt Count 102 K/mm3 (140-440) L 05/15/16 04:05 Lymph % (Auto) 14.4 % (13.4-35.0) 05/14/16 10:30 [place] % (Auto) 11.2 % (0.0-7.3) H 05/14/16 10:30 Eos % (Auto) 0.9 % (0.0-4.3) 05/14/16 10:30 Baso % (Auto) 0.3 % (0.0-1.8) 05/14/16 10:30 Lymph # 0.7 K/mm3 (1.2-5.4) L 05/14/16 10:30 [place]cer # 0.6 K/mm3 (0.0-0.8) 05/14/16 10:30 Eos # 0.0 K/mm3 (0.0-0.4) 05/14/16 10:30 Baso # 0.0 K/mm3 (0.0-0.1) 05/14/16 10:30 Add Manual Diff Complete 05/10/16 04:25 Total Counted 100 05/10/16 04:25 Seg Neutrophils % 73.2 % (40.0-70.0) H 05/14/16 10:30 Seg Neuts % (Manual) 92.0 % (40.0-70.0) H 05/10/16 04:25 Band Neutrophils % 3.0 % 05/10/16 04:25 Lymphocytes % (Manual) 0 % (13.4-35.0) L 05/10/16 04:25 Reactive Lymphs % (Man) 0 % 05/10/16 04:25 Monocytes % (Manual) 4.0 % (0.0-7.3) 05/10/16 04:25 Eosinophils % (Manual) 0 % (0.0-4.3) 05/10/16 04:25 Basophils % (Manual) 0 % (0.0-1.8) 05/10/16 04:25 Metamyelocytes % 0 % 05/10/16 04:25 Myelocytes % 1.0 % 05/10/16 04:25 Promyelocytes % 0 % 05/10/16 04:25 Blast Cells % 0 % 05/10/16 04:25 Nucleated RBC % Not Reportable 05/10/16 04:25 Seg Neutrophils # 3.6 K/mm3 (1.8-7.7) 05/14/16 10:30 Seg Neutrophils # Man 19.0 K/mm3 (1.8-7.7) H 05/10/16 04:25 Band Neutrophils # 0.6 K/mm3 05/10/16 04:25 Abs Lymphs (Manual) 1169 cells/uL (850-3900) 05/11/16 06:55 Lymphocytes # (Manual) 0.0 K/mm3 (1.2-5.4) L 05/10/16 04:25 Abs React Lymphs (Man) 0.0 K/mm3 05/10/16 04:25 Monocytes # (Manual) 0.8 K/mm3 (0.0-0.8) 05/10/16 04:25 Eosinophils # (Manual) 0.0 K/mm3 (0.0-0.4) 05/10/16 04:25 Basophils # (Manual) 0.0 K/mm3 (0.0-0.1) 05/10/16 04:25 Metamyelocytes # 0.0 K/mm3 05/10/16 04:25 Myelocytes # 0.2 K/mm3 05/10/16 04:25 Promyelocytes # 0.0 K/mm3 05/10/16 04:25 Blast Cells # 0.0 K/mm3 05/10/16 04:25 WBC Morphology Not Reportable 05/10/16 04:25 Hypersegmented Neuts Not Reportable 05/10/16 04:25 Hyposegmented Neuts Not Reportable 05/10/16 04:25 Hypogranular Neuts Not Reportable 05/10/16 04:25 Smudge Cells Not Reportable 05/10/16 04:25 Toxic Granulation Not Reportable 05/10/16 04:25 Toxic Vacuolation Not Reportable 05/10/16 04:25 Dohle Bodies Not Reportable 05/10/16 04:25 Pelger-Huet Anomaly Not Reportable 05/10/16 04:25 Amari Rods Not Reportable 05/10/16 04:25 Platelet Estimate Appears decreased 05/10/16 04:25 Clumped Platelets Not Reportable 05/10/16 04:25 Plt Clumps, EDTA Not Reportable 05/10/16 04:25 Large Platelets Not Reportable 05/10/16 04:25 Giant Platelets Not Reportable 05/10/16 04:25 Platelet Satelliting Not Reportable 05/10/16 04:25 Plt Morphology Comment Not Reportable 05/10/16 04:25 RBC Morphology Not Reportable 05/10/16 04:25 Dimorphic RBCs Not Reportable 05/10/16 04:25 Polychromasia Not Reportable 05/10/16 04:25 Hypochromasia Not Reportable 05/10/16 04:25 Poikilocytosis Not Reportable 05/10/16 04:25 Anisocytosis 1+ 05/10/16 04:25 Microcytosis Not Reportable 05/10/16 04:25 Macrocytosis Not Reportable 05/10/16 04:25 Spherocytes Not Reportable 05/10/16 04:25 Pappenheimer Bodies Not Reportable 05/10/16 04:25 Sickle Cells Not Reportable 05/10/16 04:25 Target Cells Not Reportable 05/10/16 04:25 Tear Drop Cells Not Reportable 05/10/16 04:25 Ovalocytes Not Reportable 05/10/16 04:25 Helmet Cells Not Reportable 05/10/16 04:25 Fenton-Avis Bodies Not Reportable 05/10/16 04:25 La[place]ne Rings Not Reportable 05/10/16 04:25 [place] Cells Not Reportable 05/10/16 04:25 Bite Cells Not Reportable 05/10/16 04:25 Crenated Cell Not Reportable 05/10/16 04:25 Elliptocytes Not Reportable 05/10/16 04:25 Acanthocytes (Spur) Not Reportable 05/10/16 04:25 Rouleaux Not Reportable 05/10/16 04:25 Hemoglobin C Crystals Not Reportable 05/10/16 04:25 Schistocytes Not Reportable 05/10/16 04:25 Malaria parasites Not Reportable 05/10/16 04:25 Kasi Bodies Not Reportable 05/10/16 04:25 Hem Pathologist Commnt No 05/10/16 04:25 PT 16.6 Sec. (12.2-14.9) H 05/09/16 12:06 INR 1.35 (0.87-1.13) H 05/09/16 12:06 APTT 27.4 Sec. (24.2-36.6) 05/09/16 12:06 POC ABG pH 7.524 (7.35-7.45) H 05/15/16 05:15 POC ABG pCO2 39.6 (35-45) 05/15/16 05:15 POC ABG pO2 86 (80-105) 05/15/16 05:15 POC ABG HCO3 32.6 05/15/16 05:15 POC ABG Total CO2 34 05/15/16 05:15 POC ABG O2 Sat 97 05/15/16 05:15 POC ABG Base Excess 10 05/15/16 05:15 FiO2 45 % 05/15/16 05:15 Sodium 139 mmol/L (137-145) 05/15/16 04:05 Potassium 3.9 mmol/L (3.6-5.0) D 05/15/16 04:05 Chloride 99.0 mmol/L (98-107) 05/15/16 04:05 Carbon Dioxide 33 mmol/L (22-30) H 05/15/16 04:05 Anion Gap 11 mmol/L 05/15/16 04:05 BUN 9 mg/dL (9-20) 05/15/16 04:05 Creatinine 0.3 mg/dL (0.8-1.5) L 05/15/16 04:05 Estimated GFR > 60 ml/min 05/15/16 04:05 BUN/Creatinine Ratio 30.00 % 05/15/16 04:05 Glucose 112 mg/dL (75-100) H 05/15/16 04:05 POC Glucose 107 (70-105) H 05/15/16 10:47 Lactic Acid 1.0 mmol/L (0.7-2.0) 05/10/16 09:55 Calcium 7.6 mg/dL (8.4-10.2) L 05/15/16 04:05 Phosphorus 3.2 mg/dL (2.5-4.5) D 05/15/16 04:05 Magnesium 1.8 mg/dL (1.7-2.3) 05/15/16 04:05 Total Bilirubin 0.4 mg/dL (0.1-1.2) 05/13/16 12:30 AST 19 units/L (5-40) 05/13/16 12:30 ALT 13 units/L (7-56) 05/13/16 12:30 Alkaline Phosphatase 53 units/L (35-129) 05/13/16 12:30 Ammonia 33.0 umol/L (25-60) 05/09/16 23:00 Total Creatine Kinase 193 units/L (55-170) H 05/10/16 17:30 CK-MB (CK-2) 12.2 ng/mL (0.0-4.0) H 05/10/16 17:30 CK-MB (CK-2) Rel Index 6.3 (0-4) H 05/10/16 17:30 Troponin T 0.092 ng/mL (0.00-0.029) H 05/10/16 17:30 Total Protein 4.4 g/dL (6.3-8.2) L 05/13/16 12:30 Albumin 1.8 g/dL (3.9-5) L 05/13/16 12:30 Albumin/Globulin Ratio 0.7 % 05/13/16 12:30 Triglycerides 77 mg/dL (2-149) 05/10/16 09:55 Cholesterol 56 mg/dL (50-199) 05/10/16 09:55 LDL Cholesterol Direct 13 mg/dL (50-130) L 05/10/16 09:55 HDL Cholesterol 28 mg/dL (40-59) L 05/10/16 09:55 Cholesterol/HDL Ratio 2.00 % 05/10/16 09:55 Lipase 82 units/L (13-60) H 05/09/16 12:06 Urine Color Yellow (Yellow) 05/09/16 12:51 Urine Turbidity Slightly-cloudy (Clear) 05/09/16 12:51 Urine pH 6.0 (5.0-7.0) 05/09/16 12:51 Ur Specific [place] 1.019 (1.003-1.030) 05/09/16 12:51 Urine Protein 100 mg/dl mg/dL (Negative) 05/09/16 12:51 Urine Glucose (UA) Neg mg/dL (Negative) 05/09/16 12:51 Urine Ketones Neg mg/dL (Negative) 05/09/16 12:51 Urine Blood Neg (Negative) 05/09/16 12:51 Urine Nitrite Neg (Negative) 05/09/16 12:51 Urine Bilirubin Neg (Negative) 05/09/16 12:51 Urine Urobilinogen < 2.0 mg/dL (<2.0) 05/09/16 12:51 Ur Leukocyte Esterase Mod (Negative) 05/09/16 12:51 Urine WBC (Auto) > 182.0 /HPF (0.0-6.0) H 05/09/16 12:51 Urine RBC (Auto) 9.0 /HPF (0.0-6.0) 05/09/16 12:51 U Epithel Cells (Auto) 1.0 /HPF (0-13.0) 05/09/16 12:51 Urine Bacteria (Auto) 1+ /HPF (Negative) 05/09/16 12:51 Urine Mucus Few /HPF 05/09/16 12:51 Vancomycin Trough 7.5 ug/mL (5.0-20.0) 05/13/16 06:00 Urine Opiates Screen Presumptive negative 05/09/16 12:51 Urine Methadone Screen Presumptive negative 05/09/16 12:51 Ur Barbiturates Screen Presumptive negative 05/09/16 12:51 Ur Phencyclidine Scrn Presumptive negative 05/09/16 12:51 Ur Amphetamines Screen Presumptive negative 05/09/16 12:51 U Benzodiazepines Scrn Presumptive negative 05/09/16 12:51 Urine Cocaine Screen Presumptive negative 05/09/16 12:51 U Marijuana (THC) Screen Presumptive negative 05/09/16 12:51 Drugs of Abuse Note Disclamer 05/09/16 12:51 Plasma/Serum Alcohol < 0.01 gm% (0-0.07) 05/09/16 12:24 Lymph Enumerat CD4/CD8 0.24 (0.86-5.00) L 05/11/16 06:55 % CD3 Cells 89 % (57-85) H 05/11/16 06:55 Absolute CD3 Count 1035 cells/uL (840-3060) 05/11/16 06:55 % CD4 Cells 17 % (30-61) L 05/11/16 06:55 Absolute CD4 Count 200 cells/uL (490-1740) L 05/11/16 06:55 % CD8 Cells 73 % (12-42) H 05/11/16 06:55 Absolute CD8 Count 838 cells/uL (180-1170) 05/11/16 06:55 % CD19 Cells 5 % (6-29) L 05/11/16 06:55 Absolute CD19 Count 59 cells/uL (110-660) L 05/11/16 06:55 Hep Bs Antigen Non-reactive (Negative) 05/10/16 04:25 Hep B Core Total Ab Nonreactive (Nonreactive) 05/10/16 04:25 Hepatitis C Antibody Non-reactive (NonReactive) 05/10/16 04:25 HIV-1 RNA PCR copies/ml 065975 copies/mL (<20) H 05/11/16 06:55 HIV-1 RNA (PCR) log 5.42 Log cps/mL (<1.30) H 05/11/16 06:55 Blood Type A POSITIVE 05/09/16 12:06 Antibody Screen Negative 05/09/16 12:06 Crossmatch See Detail 05/09/16 12:06
--- NOTE | 2016-05-15 19:05 | Progress Note ---
Subjective Principal diagnosis: Acute blood loss/anemia/duodenal ulcer Interval history: Patient is awake. Continues ti improve. VS - No fever cHEST - B/L MILD RHONCHI CVS - S1S2 abd - bs+ assessment 1. Sepsis 2. Pneumonia 3. hiv/aids 4.resp failure 5. copd 6.GI Bleed. 7. Bacteremia sec to bacteroides ( patient already on clindamycin) recommendation Continue current iv abx. Objective - Constitutional Vitals: Vital Signs Temp Pulse Resp BP Pulse Ox 99.6 F 76 20 115/77 96 05/15/16 16:00 05/15/16 18:08 05/15/16 16:01 05/15/16 18:08 05/15/16 18:08 Temperature -Last 24 Hours Temperature 99.6 F Temperature 98.7 F Temperature 98.7 F Temperature 98.7 F Temperature 99.0 F Temperature 98.9 F Temperature 98.5 F Temperature 98.5 F - Labs CBC & Chem 7: 05/15/16 04:05 05/15/16 04:05 Labs: Abnormal lab results 05/15/16 05/15/16 05/15/16 Range/Units 00:28 04:05 04:05 RBC 3.39 L (3.65-5.03) M/mm3 Hgb 9.6 L (11.8-15.2) gm/dl Hct 29.3 L (35.5-45.6) % RDW 16.8 H (13.2-15.2) % Plt Count 102 L (140-440) K/mm3 POC ABG pH (7.35-7.45) Carbon Dioxide 33 H (22-30) mmol/L Creatinine 0.3 L (0.8-1.5) mg/dL Glucose 112 H (75-100) mg/dL POC Glucose 156 H (70-105) Calcium 7.6 L (8.4-10.2) mg/dL 05/15/16 05/15/16 05/15/16 Range/Units 05:15 06:03 10:47 RBC (3.65-5.03) M/mm3 Hgb (11.8-15.2) gm/dl Hct (35.5-45.6) % RDW (13.2-15.2) % Plt Count (140-440) K/mm3 POC ABG pH 7.524 H (7.35-7.45) Carbon Dioxide (22-30) mmol/L Creatinine (0.8-1.5) mg/dL Glucose (75-100) mg/dL POC Glucose 125 H 107 H (70-105) Calcium (8.4-10.2) mg/dL
[2016-05-15] MEDS ORDERED: TPN ADULT 1,800 ML IV SCH (20:00)
[2016-05-15] MEDS: LEVAQUIN 750MG/150ML 750 MG/150 ML BAG IV SCH (22:34)
[2016-05-16] MEDS: PROVENTIL IH SCH ×2 (03:33→07:42)
[2016-05-16 06:21] LABS: ISTAT Base Excess 7; ISTAT HCO3 31.1; ISTAT PH 7.468 (7.35-7.45); ISTAT PO2 60 (80-105); ISTAT SO2 92; ISTAT TCO2 32
[2016-05-16] MEDS: CLEOCIN 600 MG/50 mL 600 MG/50 ML BAG IV SCH ×3 (07:09→21:11)
[2016-05-16] MEDS: VANCOMYCIN VIAL 1,250 MG in NACL 0.9% 250ML 250 ML IV SCH ×2 (07:10→17:00)
[2016-05-16 08:50] LABS: Anion Gap 9 mmol/L; Blood Urea Nitrogen 7 mg/dL (9-20); Calcium 7.6 mg/dL (8.4-10.2); Carbon Dioxide 34 mmol/L (22-30); Chloride 94.7 mmol/L (98-107); Glucose 97 mg/dL (75-100); Magnesium 1.9 mg/dL (1.7-2.3); Phosphorous 3.6 mg/dL (2.5-4.5); Potassium 3.6 mmol/L (3.6-5.0); Sodium 134 mmol/L (137-145)
--- NOTE | 2016-05-16 10:28 | Progress Note ---
Assessment and Plan ssessment and Plan Acute respiratory failure. No changes. He failed weaning previously. COPD. appears controlled Severe sepsis. Clinically improving. WBC normal, no fever Shock. Resolved GI bleeding episode secondary to peptic ulcer disease. Monitoring H&H. 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 Cardiology is following AMS. Improving HIV. CD4 200. Infectious disease is following. Prior history of alcohol abuse. [facility] protocol Tolerating CPAP well. Recommendations Tolerating CPAP well will check arterial blood gases. Possible extubation today. Extubation precautions Off sedation . Critical care time was 31 minutes in [id number] evaluation and coordination of care. Subjective Principal diagnosis: Acute blood loss/anemia/duodenal ulcer Interval history: No significant change patient remained intubated on mechanical ventilator. Patient currently on CPAP and tolerating it well. Objective Vital Signs - 12hr 05/15/16 05/15/16 05/15/16 22:31 23:01 23:31 Temperature Pulse Rate 74 69 74 Pulse Rate [ Anterior Bilateral Throughout] Pulse Rate [ Anterior Right Throughout] Pulse Rate [ Left Throughout ] Respiratory 15 22 14 Rate Respiratory Rate [Anterior Bilateral Throughout] Respiratory Rate [Anterior Right Throughout] Respiratory Rate [Left Throughout] Blood Pressure 123/73 115/76 115/76 O2 Sat by Pulse 100 100 99 Oximetry 05/15/16 05/15/16 05/16/16 23:40 23:50 00:00 Temperature 98.6 F Pulse Rate 74 Pulse Rate [ 74 70 Anterior Bilateral Throughout] Pulse Rate [ 70 Anterior Right Throughout] Pulse Rate [ Left Throughout ] Respiratory Rate Respiratory 22 24 Rate [Anterior Bilateral Throughout] Respiratory 24 Rate [Anterior Right Throughout] Respiratory Rate [Left Throughout] Blood Pressure 115/76 O2 Sat by Pulse 99 98 Oximetry 05/16/16 05/16/16 05/16/16 00:01 00:31 01:01 Temperature Pulse Rate 64 68 71 Pulse Rate [ Anterior Bilateral Throughout] Pulse Rate [ Anterior Right Throughout] Pulse Rate [ Left Throughout ] Respiratory 21 20 16 Rate Respiratory Rate [Anterior Bilateral Throughout] Respiratory Rate [Anterior Right Throughout] Respiratory Rate [Left Throughout] Blood Pressure 125/77 125/77 123/75 O2 Sat by Pulse 100 99 98 Oximetry 05/16/16 05/16/16 05/16/16 01:31 02:01 02:31 Temperature Pulse Rate 72 77 80 Pulse Rate [ Anterior Bilateral Throughout] Pulse Rate [ Anterior Right Throughout] Pulse Rate [ Left Throughout ] Respiratory 21 20 21 Rate Respiratory Rate [Anterior Bilateral Throughout] Respiratory Rate [Anterior Right Throughout] Respiratory Rate [Left Throughout] Blood Pressure 123/75 118/74 118/74 O2 Sat by Pulse 96 96 98 Oximetry 05/16/16 05/16/16 05/16/16 03:01 03:31 03:33 Temperature Pulse Rate 67 70 78 Pulse Rate [ 74 Anterior Bilateral Throughout] Pulse Rate [ Anterior Right Throughout] Pulse Rate [ Left Throughout ] Respiratory 14 19 Rate Respiratory 26 H Rate [Anterior Bilateral Throughout] Respiratory Rate [Anterior Right Throughout] Respiratory Rate [Left Throughout] Blood Pressure 119/76 119/76 119/76 O2 Sat by Pulse 94 97 97 Oximetry 05/16/16 05/16/16 05/16/16 04:00 04:01 07:35 Temperature 98.2 F Pulse Rate 80 58 L Pulse Rate [ Anterior Bilateral Throughout] Pulse Rate [ Anterior Right Throughout] Pulse Rate [ 55 L Left Throughout ] Respiratory 11 L Rate Respiratory Rate [Anterior Bilateral Throughout] Respiratory Rate [Anterior Right Throughout] Respiratory 18 Rate [Left Throughout] Blood Pressure 111/75 111/77 O2 Sat by Pulse 99 96 99 Oximetry 05/16/16 05/16/16 07:47 08:00 Temperature 97.9 F Pulse Rate Pulse Rate [ Anterior Bilateral Throughout] Pulse Rate [ Anterior Right Throughout] Pulse Rate [ 69 Left Throughout ] Respiratory Rate Respiratory Rate [Anterior Bilateral Throughout] Respiratory Rate [Anterior Right Throughout] Respiratory 18 Rate [Left Throughout] Blood Pressure O2 Sat by Pulse Oximetry Constitutional: alert, appears uncomfortable, other (endotracheal tube in position ) Eyes: non-icteric ENT: oropharynx dry, other (orally intubated) Neck: supple, no JVD Effort: normal, mildly labored Ascultation: Bilateral: clear, diminished breath sounds, rhonchi (occasional ) Cardiovascular: regular rate and rhythm Gastrointestinal: hypoactive bowel sounds, soft, non-tender Extremities: no cyanosis, no edema Neurologic: normal mental status, non-focal exam, pupils equal and round, CN II- XII normal CBC and BMP: 05/15/16 04:05 05/16/16 08:20 ABG, PT/INR, D-dimer: ABG POC ABG pH 7.468 (7.35-7.45) H 05/16/16 05:16 POC ABG pCO2 43.0 (35-45) 05/16/16 05:16 POC ABG pO2 60 (80-105) L 05/16/16 05:16 POC ABG HCO3 31.1 05/16/16 05:16 POC ABG Total CO2 32 05/16/16 05:16 POC ABG O2 Sat 92 05/16/16 05:16 PT/INR, D-dimer PT 16.6 Sec. (12.2-14.9) H 05/09/16 12:06 INR 1.35 (0.87-1.13) H 05/09/16 12:06 Abnormal lab findings: Abnormal Labs 05/09/16 05/10/16 05/10/16 23:00 02:46 04:25 WBC 22.4 H 20.7 H RBC 5.05 H Hgb Hct 45.8 H D RDW 17.9 H 18.0 H Plt Count 70 L 68 L Lymph % (Auto) [place] % (Auto) Lymph # Seg Neutrophils % Seg Neuts % (Manual) 92.0 H 92.0 H Lymphocytes % (Manual) 1.0 L 0 L Seg Neutrophils # Seg Neutrophils # Man 20.6 H 19.0 H Lymphocytes # (Manual) 0.2 L 0.0 L POC ABG pH POC ABG pCO2 POC ABG pO2 Sodium Potassium Chloride Carbon Dioxide BUN Creatinine Glucose POC Glucose Calcium Phosphorus Magnesium Total Creatine Kinase CK-MB (CK-2) CK-MB (CK-2) Rel Index Troponin T Total Protein Albumin LDL Cholesterol Direct HDL Cholesterol Lymph Enumerat CD4/CD8 % CD3 Cells % CD4 Cells Absolute CD4 Count % CD8 Cells % CD19 Cells Absolute CD19 Count HIV-1 RNA PCR copies/ml HIV-1 RNA (PCR) log 05/10/16 05/10/16 05/10/16 04:25 09:55 11:13 WBC RBC Hgb Hct RDW Plt Count Lymph % (Auto) [place] % (Auto) Lymph # Seg Neutrophils % Seg Neuts % (Manual) Lymphocytes % (Manual) Seg Neutrophils # Seg Neutrophils # Man Lymphocytes # (Manual) POC ABG pH 7.152 L POC ABG pCO2 65.4 H POC ABG pO2 48 L Sodium Potassium Chloride 110.4 H Carbon Dioxide BUN 21 H Creatinine Glucose 47 L POC Glucose Calcium 5.7 L* Phosphorus Magnesium Total Creatine Kinase CK-MB (CK-2) 11.5 H CK-MB (CK-2) Rel Index 7.6 H Troponin T 0.105 H* Total Protein 3.4 L Albumin 1.8 L LDL Cholesterol Direct 13 L HDL Cholesterol 28 L Lymph Enumerat CD4/CD8 % CD3 Cells % CD4 Cells Absolute CD4 Count % CD8 Cells % CD19 Cells Absolute CD19 Count HIV-1 RNA PCR copies/ml HIV-1 RNA (PCR) log 05/10/16 05/10/16 05/10/16 13:28 14:05 14:18 WBC RBC Hgb Hct RDW Plt Count Lymph % (Auto) [place] % (Auto) Lymph # Seg Neutrophils % Seg Neuts % (Manual) Lymphocytes % (Manual) Seg Neutrophils # Seg Neutrophils # Man Lymphocytes # (Manual) POC ABG pH 7.199 L POC ABG pCO2 56.9 H POC ABG pO2 67 L Sodium Potassium Chloride Carbon Dioxide BUN Creatinine Glucose POC Glucose < 40 L 109 H Calcium Phosphorus Magnesium Total Creatine Kinase CK-MB (CK-2) CK-MB (CK-2) Rel Index Troponin T Total Protein Albumin LDL Cholesterol Direct HDL Cholesterol Lymph Enumerat CD4/CD8 % CD3 Cells % CD4 Cells Absolute CD4 Count % CD8 Cells % CD19 Cells Absolute CD19 Count HIV-1 RNA PCR copies/ml HIV-1 RNA (PCR) log 05/10/16 05/10/16 05/10/16 16:02 17:30 17:30 WBC RBC Hgb 11.1 L Hct 34.9 L D RDW Plt Count Lymph % (Auto) [place] % (Auto) Lymph # Seg Neutrophils % Seg Neuts % (Manual) Lymphocytes % (Manual) Seg Neutrophils # Seg Neutrophils # Man Lymphocytes # (Manual) POC ABG pH 7.307 L POC ABG pCO2 POC ABG pO2 Sodium Potassium Chloride Carbon Dioxide BUN Creatinine Glucose POC Glucose Calcium Phosphorus Magnesium Total Creatine Kinase 193 H CK-MB (CK-2) 12.2 H CK-MB (CK-2) Rel Index 6.3 H Troponin T 0.092 H Total Protein Albumin LDL Cholesterol Direct HDL Cholesterol Lymph Enumerat CD4/CD8 % CD3 Cells % CD4 Cells Absolute CD4 Count % CD8 Cells % CD19 Cells Absolute CD19 Count HIV-1 RNA PCR copies/ml HIV-1 RNA (PCR) log 05/10/16 05/10/16 05/11/16 18:42 23:03 03:00 WBC 14.9 H RBC Hgb 10.3 L Hct 32.3 L RDW 18.2 H Plt Count 97 L Lymph % (Auto) [place] % (Auto) Lymph # Seg Neutrophils % Seg Neuts % (Manual) Lymphocytes % (Manual) Seg Neutrophils # Seg Neutrophils # Man Lymphocytes # (Manual) POC ABG pH POC ABG pCO2 POC ABG pO2 Sodium Potassium Chloride Carbon Dioxide BUN Creatinine Glucose POC Glucose 113 H 204 H Calcium Phosphorus Magnesium Total Creatine Kinase CK-MB (CK-2) CK-MB (CK-2) Rel Index Troponin T Total Protein Albumin LDL Cholesterol Direct HDL Cholesterol Lymph Enumerat CD4/CD8 % CD3 Cells % CD4 Cells Absolute CD4 Count % CD8 Cells % CD19 Cells Absolute CD19 Count HIV-1 RNA PCR copies/ml HIV-1 RNA (PCR) log 05/11/16 05/11/16 05/11/16 03:21 04:00 06:55 WBC RBC Hgb Hct RDW Plt Count Lymph % (Auto) [place] % (Auto) Lymph # Seg Neutrophils % Seg Neuts % (Manual) Lymphocytes % (Manual) Seg Neutrophils # Seg Neutrophils # Man Lymphocytes # (Manual) POC ABG pH POC ABG pCO2 POC ABG pO2 Sodium Potassium Chloride 111.5 H Carbon Dioxide BUN 26 H Creatinine Glucose 207 H POC Glucose 217 H Calcium 6.4 L Phosphorus Magnesium 1.4 L Total Creatine Kinase CK-MB (CK-2) CK-MB (CK-2) Rel Index Troponin T Total Protein Albumin LDL Cholesterol Direct HDL Cholesterol Lymph Enumerat CD4/CD8 0.24 L % CD3 Cells 89 H % CD4 Cells 17 L Absolute CD4 Count 200 L % CD8 Cells 73 H % CD19 Cells 5 L Absolute CD19 Count 59 L HIV-1 RNA PCR copies/ml HIV-1 RNA (PCR) log 05/11/16 05/11/16 05/11/16 06:55 10:57 11:48 WBC RBC Hgb Hct RDW Plt Count Lymph % (Auto) [place] % (Auto) Lymph # Seg Neutrophils % Seg Neuts % (Manual) Lymphocytes % (Manual) Seg Neutrophils # Seg Neutrophils # Man Lymphocytes # (Manual) POC ABG pH POC ABG pCO2 POC ABG pO2 46 L 75 L Sodium Potassium Chloride Carbon Dioxide BUN Creatinine Glucose POC Glucose Calcium Phosphorus Magnesium Total Creatine Kinase CK-MB (CK-2) CK-MB (CK-2) Rel Index Troponin T Total Protein Albumin LDL Cholesterol Direct HDL Cholesterol Lymph Enumerat CD4/CD8 % CD3 Cells % CD4 Cells Absolute CD4 Count % CD8 Cells % CD19 Cells Absolute CD19 Count HIV-1 RNA PCR copies/ml 208781 H HIV-1 RNA (PCR) log 5.42 H 05/11/16 05/11/16 05/11/16 12:17 17:11 23:38 WBC RBC Hgb Hct RDW Plt Count Lymph % (Auto) [place] % (Auto) Lymph # Seg Neutrophils % Seg Neuts % (Manual) Lymphocytes % (Manual) Seg Neutrophils # Seg Neutrophils # Man Lymphocytes # (Manual) POC ABG pH POC ABG pCO2 POC ABG pO2 Sodium Potassium Chloride Carbon Dioxide BUN Creatinine Glucose POC Glucose 232 H 204 H 126 H Calcium Phosphorus Magnesium Total Creatine Kinase CK-MB (CK-2) CK-MB (CK-2) Rel Index Troponin T Total Protein Albumin LDL Cholesterol Direct HDL Cholesterol Lymph Enumerat CD4/CD8 % CD3 Cells % CD4 Cells Absolute CD4 Count % CD8 Cells % CD19 Cells Absolute CD19 Count HIV-1 RNA PCR copies/ml HIV-1 RNA (PCR) log 05/12/16 05/12/16 05/12/16 05:00 05:00 05:00 WBC RBC 3.12 L Hgb 8.9 L Hct 27.0 L RDW 17.8 H Plt Count 72 L Lymph % (Auto) 9.2 L [place] % (Auto) Lymph # 0.9 L Seg Neutrophils % 84.0 H Seg Neuts % (Manual) Lymphocytes % (Manual) Seg Neutrophils # 8.1 H Seg Neutrophils # Man Lymphocytes # (Manual) POC ABG pH POC ABG pCO2 POC ABG pO2 Sodium Potassium 3.4 L Chloride 110.2 H Carbon Dioxide BUN 23 H Creatinine 0.5 L Glucose 172 H POC Glucose Calcium 7.3 L Phosphorus 1.5 L D Magnesium 1.6 L Total Creatine Kinase CK-MB (CK-2) CK-MB (CK-2) Rel Index Troponin T Total Protein 3.7 L Albumin 1.7 L LDL Cholesterol Direct HDL Cholesterol Lymph Enumerat CD4/CD8 % CD3 Cells % CD4 Cells Absolute CD4 Count % CD8 Cells % CD19 Cells Absolute CD19 Count HIV-1 RNA PCR copies/ml HIV-1 RNA (PCR) log 05/12/16 05/12/16 05/12/16 05:18 05:44 12:26 WBC RBC Hgb Hct RDW Plt Count Lymph % (Auto) [place] % (Auto) Lymph # Seg Neutrophils % Seg Neuts % (Manual) Lymphocytes % (Manual) Seg Neutrophils # Seg Neutrophils # Man Lymphocytes # (Manual) POC ABG pH POC ABG pCO2 POC ABG pO2 64 L Sodium Potassium Chloride Carbon Dioxide BUN Creatinine Glucose POC Glucose 183 H 134 H Calcium Phosphorus Magnesium Total Creatine Kinase CK-MB (CK-2) CK-MB (CK-2) Rel Index Troponin T Total Protein Albumin LDL Cholesterol Direct HDL Cholesterol Lymph Enumerat CD4/CD8 % CD3 Cells % CD4 Cells Absolute CD4 Count % CD8 Cells % CD19 Cells Absolute CD19 Count HIV-1 RNA PCR copies/ml HIV-1 RNA (PCR) log 05/12/16 05/13/16 05/13/16 18:28 00:10 04:49 WBC RBC Hgb Hct RDW Plt Count Lymph % (Auto) [place] % (Auto) Lymph # Seg Neutrophils % Seg Neuts % (Manual) Lymphocytes % (Manual) Seg Neutrophils # Seg Neutrophils # Man Lymphocytes # (Manual) POC ABG pH POC ABG pCO2 POC ABG pO2 66 L Sodium Potassium Chloride Carbon Dioxide BUN Creatinine Glucose POC Glucose 119 H 152 H Calcium Phosphorus Magnesium Total Creatine Kinase CK-MB (CK-2) CK-MB (CK-2) Rel Index Troponin T Total Protein Albumin LDL Cholesterol Direct HDL Cholesterol Lymph Enumerat CD4/CD8 % CD3 Cells % CD4 Cells Absolute CD4 Count % CD8 Cells % CD19 Cells Absolute CD19 Count HIV-1 RNA PCR copies/ml HIV-1 RNA (PCR) log 05/13/16 05/13/16 05/13/16 06:00 06:22 12:15 WBC RBC Hgb Hct RDW Plt Count Lymph % (Auto) [place] % (Auto) Lymph # Seg Neutrophils % Seg Neuts % (Manual) Lymphocytes % (Manual) Seg Neutrophils # Seg Neutrophils # Man Lymphocytes # (Manual) POC ABG pH POC ABG pCO2 POC ABG pO2 Sodium Potassium 3.5 L Chloride Carbon Dioxide BUN Creatinine 0.3 L Glucose 105 H POC Glucose 114 H 128 H Calcium 7.3 L Phosphorus Magnesium 1.5 L Total Creatine Kinase CK-MB (CK-2) CK-MB (CK-2) Rel Index Troponin T Total Protein Albumin LDL Cholesterol Direct HDL Cholesterol Lymph Enumerat CD4/CD8 % CD3 Cells % CD4 Cells Absolute CD4 Count % CD8 Cells % CD19 Cells Absolute CD19 Count HIV-1 RNA PCR copies/ml HIV-1 RNA (PCR) log 05/13/16 05/13/16 05/13/16 12:30 12:30 18:02 WBC RBC 3.53 L Hgb 9.8 L Hct 30.9 L RDW 17.6 H Plt Count 88 L Lymph % (Auto) 9.6 L [place] % (Auto) 9.8 H Lymph # 0.5 L Seg Neutrophils % 79.9 H Seg Neuts % (Manual) Lymphocytes % (Manual) Seg Neutrophils # Seg Neutrophils # Man Lymphocytes # (Manual) POC ABG pH POC ABG pCO2 POC ABG pO2 Sodium Potassium Chloride Carbon Dioxide BUN Creatinine 0.3 L Glucose 113 H POC Glucose 123 H Calcium 7.2 L Phosphorus Magnesium Total Creatine Kinase CK-MB (CK-2) CK-MB (CK-2) Rel Index Troponin T Total Protein 4.4 L Albumin 1.8 L LDL Cholesterol Direct HDL Cholesterol Lymph Enumerat CD4/CD8 % CD3 Cells % CD4 Cells Absolute CD4 Count % CD8 Cells % CD19 Cells Absolute CD19 Count HIV-1 RNA PCR copies/ml HIV-1 RNA (PCR) log 05/13/16 05/14/16 05/14/16 23:19 05:00 05:00 WBC RBC Hgb Hct RDW Plt Count Lymph % (Auto) [place] % (Auto) Lymph # Seg Neutrophils % Seg Neuts % (Manual) Lymphocytes % (Manual) Seg Neutrophils # Seg Neutrophils # Man Lymphocytes # (Manual) POC ABG pH POC ABG pCO2 POC ABG pO2 Sodium 136 L Potassium Chloride 97.9 L Carbon Dioxide 31 H BUN 8 L Creatinine 0.2 L Glucose 231 H POC Glucose 106 H Calcium 7.3 L Phosphorus 4.8 H D Magnesium Total Creatine Kinase CK-MB (CK-2) CK-MB (CK-2) Rel Index Troponin T Total Protein Albumin LDL Cholesterol Direct HDL Cholesterol Lymph Enumerat CD4/CD8 % CD3 Cells % CD4 Cells Absolute CD4 Count % CD8 Cells % CD19 Cells Absolute CD19 Count HIV-1 RNA PCR copies/ml HIV-1 RNA (PCR) log 05/14/16 05/14/16 05/15/16 05:33 10:30 00:28 WBC RBC 3.39 L Hgb 9.5 L Hct 29.3 L RDW 17.2 H Plt Count 85 L Lymph % (Auto) [place] % (Auto) 11.2 H Lymph # 0.7 L Seg Neutrophils % 73.2 H Seg Neuts % (Manual) Lymphocytes % (Manual) Seg Neutrophils # Seg Neutrophils # Man Lymphocytes # (Manual) POC ABG pH 7.492 H POC ABG pCO2 POC ABG pO2 Sodium Potassium Chloride Carbon Dioxide BUN Creatinine Glucose POC Glucose 156 H Calcium Phosphorus Magnesium Total Creatine Kinase CK-MB (CK-2) CK-MB (CK-2) Rel Index Troponin T Total Protein Albumin LDL Cholesterol Direct HDL Cholesterol Lymph Enumerat CD4/CD8 % CD3 Cells % CD4 Cells Absolute CD4 Count % CD8 Cells % CD19 Cells Absolute CD19 Count HIV-1 RNA PCR copies/ml HIV-1 RNA (PCR) log 05/15/16 05/15/16 05/15/16 04:05 04:05 05:15 WBC RBC 3.39 L Hgb 9.6 L Hct 29.3 L RDW 16.8 H Plt Count 102 L Lymph % (Auto) [place] % (Auto) Lymph # Seg Neutrophils % Seg Neuts % (Manual) Lymphocytes % (Manual) Seg Neutrophils # Seg Neutrophils # Man Lymphocytes # (Manual) POC ABG pH 7.524 H POC ABG pCO2 POC ABG pO2 Sodium Potassium Chloride Carbon Dioxide 33 H BUN Creatinine 0.3 L Glucose 112 H POC Glucose Calcium 7.6 L Phosphorus Magnesium Total Creatine Kinase CK-MB (CK-2) CK-MB (CK-2) Rel Index Troponin T Total Protein Albumin LDL Cholesterol Direct HDL Cholesterol Lymph Enumerat CD4/CD8 % CD3 Cells % CD4 Cells Absolute CD4 Count % CD8 Cells % CD19 Cells Absolute CD19 Count HIV-1 RNA PCR copies/ml HIV-1 RNA (PCR) log 05/15/16 05/15/16 05/16/16 06:03 10:47 05:16 WBC RBC Hgb Hct RDW Plt Count Lymph % (Auto) [place] % (Auto) Lymph # Seg Neutrophils % Seg Neuts % (Manual) Lymphocytes % (Manual) Seg Neutrophils # Seg Neutrophils # Man Lymphocytes # (Manual) POC ABG pH 7.468 H POC ABG pCO2 POC ABG pO2 60 L Sodium Potassium Chloride Carbon Dioxide BUN Creatinine Glucose POC Glucose 125 H 107 H Calcium Phosphorus Magnesium Total Creatine Kinase CK-MB (CK-2) CK-MB (CK-2) Rel Index Troponin T Total Protein Albumin LDL Cholesterol Direct HDL Cholesterol Lymph Enumerat CD4/CD8 % CD3 Cells % CD4 Cells Absolute CD4 Count % CD8 Cells % CD19 Cells Absolute CD19 Count HIV-1 RNA PCR copies/ml HIV-1 RNA (PCR) log 05/16/16 08:20 WBC RBC Hgb Hct RDW Plt Count Lymph % (Auto) [place] % (Auto) Lymph # Seg Neutrophils % Seg Neuts % (Manual) Lymphocytes % (Manual) Seg Neutrophils # Seg Neutrophils # Man Lymphocytes # (Manual) POC ABG pH POC ABG pCO2 POC ABG pO2 Sodium 134 L Potassium Chloride 94.7 L Carbon Dioxide 34 H BUN 7 L Creatinine 0.2 L Glucose POC Glucose Calcium 7.6 L Phosphorus Magnesium Total Creatine Kinase CK-MB (CK-2) CK-MB (CK-2) Rel Index Troponin T Total Protein Albumin LDL Cholesterol Direct HDL Cholesterol Lymph Enumerat CD4/CD8 % CD3 Cells % CD4 Cells Absolute CD4 Count % CD8 Cells % CD19 Cells Absolute CD19 Count HIV-1 RNA PCR copies/ml HIV-1 RNA (PCR) log Chest x-ray: image reviewed (mild interstitial changes with small bilateral pleural effusions. ET tube in good position)
[2016-05-16] MEDS: PROTONIX IV SCH ×2 (10:41→21:15)
--- NOTE | 2016-05-16 10:57 | XRay Report ---
AP CHEST: HISTORY: Respiratory failure The endotracheal tube remains in adequate position. Patchy infiltrate in the left upper lobe has resolved since 05/10/16. Partial atelectasis has developed in both lower lobes, right greater than left. Heart size is within normal limits. No large pleural effusion or pneumothorax. IMPRESSION: Bibasilar atelectatic changes. Resolved left upper lobe infiltrate since the exam 6 days ago.
[2016-05-16] MEDS ORDERED: PROVENTIL IH PRN ×2 (11:13→13:10)
[2016-05-16 11:39] LABS: ISTAT Base Excess 9; ISTAT HCO3 32.6; ISTAT PCO2 43.7 (35-45); ISTAT PH 7.481 (7.35-7.45); ISTAT PO2 58 (80-105); ISTAT SO2 91; ISTAT TCO2 34
[2016-05-16] MEDS ORDERED: DUONEB 0.5 MG-3 MG/3 ML SOLN IH SCH (12:00)
--- NOTE | 2016-05-16 12:05 | Progress Note ---
Assessment and Plan 56yo WM: Acute respiratory failure vent weaning per pulmonary Hypotension-->resolved Sepsis antibiotics per ID Elevated troponin-->may be due to demand ischemia minimally elevated but flat Echo: EF 30-35%, mild AR, mild MR, mild-moderate TR, RVSP 48mmHg Cardiomyopathy EF 30-35% possibly alcoholic will hold off on initiation of BB or ACEI due to recent hypotension Hypokalemia replace to keep potassium ~ 4 Hypomagnesemia replace to keep magnesium ~ 2 Bleeding duodenal ulcer/Anemia s/p coil embolization of gastroduodenal artery ETOH abuse Tobacco abuse HIV stable cv status Subjective Date of service: 05/16/16 Principal diagnosis: Acute blood loss/anemia/duodenal ulcer Interval history: no changes overnight Objective Vital Signs Temp Pulse Pulse Pulse Pulse Resp Resp 05/16/16 11:11 05/16/16 10:45 28 H 05/16/16 10:31 85 30 H 05/16/16 10:01 67 18 05/16/16 10:00 85 05/16/16 09:31 66 25 H 05/16/16 09:01 67 12 05/16/16 08:31 77 14 05/16/16 08:00 97.9 F 57 L 14 05/16/16 07:47 69 05/16/16 07:35 58 L 55 L 05/16/16 07:31 60 20 05/16/16 07:01 69 14 05/16/16 06:31 65 20 05/16/16 06:01 94 H 18 05/16/16 05:31 71 18 05/16/16 05:01 94 H 17 05/16/16 04:31 68 26 H 05/16/16 04:01 80 11 L 05/16/16 04:00 98.2 F 05/16/16 03:33 78 74 26 H 05/16/16 03:31 70 19 05/16/16 03:01 67 14 05/16/16 02:31 80 21 05/16/16 02:01 77 20 05/16/16 01:31 72 21 05/16/16 01:01 71 16 05/16/16 00:31 68 20 05/16/16 00:01 64 21 05/16/16 00:00 98.6 F 05/15/16 23:50 70 70 24 05/15/16 23:40 74 74 22 05/15/16 23:31 74 14 05/15/16 23:01 69 22 05/15/16 22:31 74 15 05/15/16 22:01 72 14 05/15/16 22:00 67 05/15/16 21:31 70 18 05/15/16 21:15 73 18 05/15/16 21:00 64 18 05/15/16 20:36 71 23 05/15/16 20:34 63 05/15/16 20:31 69 21 05/15/16 20:01 62 12 05/15/16 20:00 98.6 F 05/15/16 19:31 75 14 05/15/16 19:00 65 15 05/15/16 18:31 74 12 05/15/16 18:08 76 05/15/16 18:00 85 20 05/15/16 17:31 73 18 05/15/16 17:01 81 20 05/15/16 17:00 81 05/15/16 16:31 88 18 05/15/16 16:13 70 20 05/15/16 16:01 74 20 05/15/16 16:00 99.6 F 05/15/16 15:31 84 21 05/15/16 15:00 64 17 05/15/16 14:31 62 17 05/15/16 14:00 72 22 05/15/16 13:40 76 23 05/15/16 13:31 67 23 05/15/16 13:00 71 10 L 05/15/16 12:51 62 21 05/15/16 12:31 59 L 17 Resp Resp BP Pulse Ox 05/16/16 11:11 96 05/16/16 10:45 118/68 96 05/16/16 10:31 118/68 94 05/16/16 10:01 118/68 96 05/16/16 10:00 05/16/16 09:31 120/75 95 05/16/16 09:01 120/75 97 05/16/16 08:31 111/77 94 05/16/16 08:00 131/74 99 05/16/16 07:47 18 05/16/16 07:35 18 111/77 99 05/16/16 07:31 111/77 99 05/16/16 07:01 111/77 99 05/16/16 06:31 119/77 99 02/26/17 06:01 137/86 86 05/16/16 05:31 137/86 95 05/16/16 05:01 137/86 97 05/16/16 04:31 111/75 94 05/16/16 04:01 111/75 96 05/16/16 04:00 99 05/16/16 03:33 119/76 97 05/16/16 03:31 119/76 97 05/16/16 03:01 119/76 94 05/16/16 02:31 118/74 98 05/16/16 02:01 118/74 96 05/16/16 01:31 123/75 96 05/16/16 01:01 123/75 98 05/16/16 00:31 125/77 99 05/16/16 00:01 125/77 100 05/16/16 00:00 98 05/15/16 23:50 24 05/15/16 23:40 115/76 99 05/15/16 23:31 115/76 99 05/15/16 23:01 115/76 100 05/15/16 22:31 123/73 100 05/15/16 22:01 123/73 96 05/15/16 22:00 05/15/16 21:31 124/73 99 05/15/16 21:15 05/15/16 21:00 124/76 99 05/15/16 20:36 05/15/16 20:34 124/73 97 05/15/16 20:31 124/73 98 05/15/16 20:01 124/73 100 05/15/16 20:00 100 05/15/16 19:31 131/80 95 05/15/16 19:00 131/80 99 05/15/16 18:31 115/77 96 05/15/16 18:08 115/77 96 05/15/16 18:00 115/77 96 05/15/16 17:31 118/75 96 05/15/16 17:01 118/75 97 05/15/16 17:00 05/15/16 16:31 118/74 96 05/15/16 16:13 118/74 96 05/15/16 16:01 118/74 97 05/15/16 16:00 05/15/16 15:31 122/73 95 05/15/16 15:00 122/73 98 05/15/16 14:31 128/76 99 05/15/16 14:00 128/76 95 05/15/16 13:40 05/15/16 13:31 127/71 98 05/15/16 13:00 129/78 97 05/15/16 12:51 05/15/16 12:31 127/71 98 - Physical Examination General: No Apparent Distress (intubated), Other (drowsy) HEENT: Positive: Normocephaly, Mucus Membranes Moist Neck: Positive: neck supple, trachea midline Neuro: Positive: Other (intubated but arosuable) Abdomen: Positive: Soft Skin: Positive: Clear. Negative: Rash Extremities: Present: upper extr. pulses, lower extr. pulses. Absent: edema - Labs and Meds Comprehensive Metabolic Panel 05/16/16 Range/Units 08:20 Sodium 134 L (137-145) mmol/L Potassium 3.6 (3.6-5.0) mmol/L Chloride 94.7 L (98-107) mmol/L Carbon Dioxide 34 H (22-30) mmol/L BUN 7 L (9-20) mg/dL Creatinine 0.2 L (0.8-1.5) mg/dL Glucose 97 (75-100) mg/dL Calcium 7.6 L (8.4-10.2) mg/dL - Imaging and Cardiology EKG: report reviewed, image reviewed Echo: report reviewed (04/2016: EF 30-35%, mild AR, mild MR, mild-moderate TR, RVSP 48mmHg) - EKG Sinus rhythms and dysrhythmias: sinus rhythm Repolarization changes or abnormalities: nonspecific abnormality, ST segment, and/or T wave
[2016-05-16] MEDS: NOVOLOG SUB-Q SCH ×2 (14:00→18:17)
--- NOTE | 2016-05-16 18:23 | Progress Note ---
Subjective Date of service: 05/16/16 Principal diagnosis: Acute blood loss/anemia/duodenal ulcer Interval history: Patient is awake. Continues to improve. Extubated. VS - No fever cHEST - B/L MILD RHONCHI CVS - S1S2 abd - bs+ assessment 1. Sepsis 2. Pneumonia 3. hiv/aids 4.resp failure 5. copd 6.GI Bleed. 7. Bacteremia sec to bacteroides ( patient already on clindamycin) recommendation Continue current iv abx. cbc/bmp in am Objective - Constitutional Vitals: Vital Signs Temp Pulse Resp BP Pulse Ox 97.4 F L 88 17 124/87 93 05/16/16 16:00 05/16/16 18:00 05/16/16 18:00 05/16/16 18:00 05/16/16 15:31 Temperature -Last 24 Hours Temperature 97.4 F Temperature 97.9 F Temperature 97.9 F Temperature 98.2 F Temperature 98.6 F Temperature 98.6 F - Labs CBC & Chem 7: 05/15/16 04:05 05/16/16 08:20 Labs: Abnormal lab results 05/16/16 05/16/16 05/16/16 Range/Units 05:16 08:20 10:47 POC ABG pH 7.468 H 7.481 H (7.35-7.45) POC ABG pO2 60 L 58 L (80-105) Sodium 134 L (137-145) mmol/L Chloride 94.7 L (98-107) mmol/L Carbon Dioxide 34 H (22-30) mmol/L BUN 7 L (9-20) mg/dL Creatinine 0.2 L (0.8-1.5) mg/dL Calcium 7.6 L (8.4-10.2) mg/dL
[2016-05-16] MEDS: DUONEB 0.5 MG-3 MG/3 ML SOLN IH SCH (19:44)
[2016-05-16] MEDS: BROVANA NEBU IH SCH (19:44)
[2016-05-16] MEDS: PULMICORT IH SCH (19:44)
[2016-05-16] MEDS ORDERED: TPN ADULT 1,800 ML IV SCH (20:00)
[2016-05-16] MEDS: LEVAQUIN 750MG/150ML 750 MG/150 ML BAG IV SCH (21:12)
[2016-05-16] MEDS: ATIVAN PO PRN (21:15)
[2016-05-17] MEDS: ATIVAN PO PRN (00:05)
[2016-05-17] MEDS: ATIVAN IV PRN (00:05)
[2016-05-17] MEDS: NOVOLOG SUB-Q SCH ×5 (00:26→17:26)
[2016-05-17] MEDS: DUONEB 0.5 MG-3 MG/3 ML SOLN IH SCH ×3 (01:45→20:05)
[2016-05-17] MEDS: CLEOCIN 600 MG/50 mL 600 MG/50 ML BAG IV SCH (05:29)
[2016-05-17 06:15] LABS: Anion Gap 13 mmol/L; BUN/Creatinine Ratio 16.66; Blood Urea Nitrogen 5 mg/dL (9-20); Calcium 7.4 mg/dL (8.4-10.2); Carbon Dioxide 30 mmol/L (22-30); Chloride 97.3 mmol/L (98-107); Glucose 65 mg/dL (75-100); Magnesium 1.5 mg/dL (1.7-2.3); Phosphorous 3.3 mg/dL (2.5-4.5); Potassium 3.3 mmol/L (3.6-5.0); Sodium 137 mmol/L (137-145)
[2016-05-17] MEDS: VANCOMYCIN VIAL 1,250 MG in NACL 0.9% 250ML 250 ML IV SCH (06:44)
[2016-05-17] MEDS: BROVANA NEBU IH SCH ×2 (07:07→20:05)
[2016-05-17] MEDS: PULMICORT IH SCH ×2 (07:07→20:05)
[2016-05-17] MEDS ORDERED: MAGNESIUM SULFATE 4GM/100ML 4 GM/100 ML BAG IV ONE (08:00)
[2016-05-17] MEDS: KCL 20MEQ/100ML 20 MEQ/100 ML BAG IV SCH ×2 (08:57→10:05)
--- NOTE | 2016-05-17 09:18 | Progress Note ---
Assessment and Plan 56yo WM: Acute respiratory failure-->extubated 05/16 per pulmonary Hypotension-->resolved Sepsis antibiotics per ID Elevated troponin-->may be due to demand ischemia minimally elevated but flat Echo: EF 30-35%, mild AR, mild MR, mild-moderate TR, RVSP 48mmHg Cardiomyopathy EF 30-35% possibly alcoholic will hold off on initiation of BB or ACEI due to recent hypotension Hypokalemia replace to keep potassium ~ 4 Hypomagnesemia replace to keep magnesium ~ 2 Bleeding duodenal ulcer/Anemia s/p coil embolization of gastroduodenal artery ETOH abuse Tobacco abuse HIV Stable cardiac status. Continue current management. The patient has been seen in conjunction with Dr. Calvillo who agrees with the assessment and plan of care. Subjective Date of service: 05/17/16 Principal diagnosis: Acute blood loss/anemia/duodenal ulcer Interval history: The patient is resting in bed. He is confused. No chest pain or shortness of breath. Sinus rhythm on the monitor. Objective Last Vital Signs Temp 98.1 F 05/17/16 08:00 Pulse 79 05/17/16 09:00 Resp 17 05/17/16 09:00 BP 113/76 05/17/16 09:00 Pulse Ox 93 05/17/16 09:00 - Physical Examination General: No Apparent Distress (pt. confused) HEENT: Positive: Normocephaly, Mucus Membranes Moist Neck: Positive: neck supple, trachea midline Cardiac: Positive: Reg Rate and Rhythm, S1/S2 Lungs: Positive: Rhonchi Neuro: Positive: Other (pt. awake but confused) Abdomen: Positive: Soft Skin: Positive: Clear. Negative: Rash Extremities: Present: upper extr. pulses, lower extr. pulses. Absent: edema - Labs and Meds Comprehensive Metabolic Panel 05/17/16 Range/Units 05:40 Sodium 137 (137-145) mmol/L Potassium 3.3 L (3.6-5.0) mmol/L Chloride 97.3 L (98-107) mmol/L Carbon Dioxide 30 (22-30) mmol/L BUN 5 L (9-20) mg/dL Creatinine 0.3 L (0.8-1.5) mg/dL Glucose 65 L (75-100) mg/dL Calcium 7.4 L (8.4-10.2) mg/dL - Imaging and Cardiology EKG: report reviewed, image reviewed Echo: report reviewed (04/2016: EF 30-35%, mild AR, mild MR, mild-moderate TR, RVSP 48mmHg) - Telemetry EKG Rhythm: Sinus Rhythm - EKG Sinus rhythms and dysrhythmias: sinus rhythm Repolarization changes or abnormalities: nonspecific abnormality, ST segment, and/or T wave
--- NOTE | 2016-05-17 09:41 | Progress Note ---
Assessment and Plan 56 y/o male with acute respiratory failure, systolic heart failure, and duodenal ulcer. 1. Wean supplemental O2 for sats >88%. Per patient, does not wear oxygen at home 2. Smoking cessation 3. Replace K and Mag, goal would be to keep at 4 and 2 respectively 4. HF per cards 5. Abx therapy per ID Stable for transfer out of ICU today. Subjective Date of service: 05/17/16 Principal diagnosis: Acute blood loss/anemia/duodenal ulcer Interval history: no acute events. Successful extubation on yesterday. Awake and alert. Satting 94% on 3 liters. No family at bedside. Objective Vital Signs - 12hr 05/16/16 05/16/16 05/17/16 22:00 23:00 00:00 Temperature 97.3 F L Pulse Rate 88 77 69 Pulse Rate [ Anterior Bilateral Throughout] Pulse Rate [ From Monitor] Respiratory 20 12 26 H Rate Respiratory Rate [Anterior Bilateral Throughout] Blood Pressure 104/63 112/65 112/65 O2 Sat by Pulse 100 100 100 Oximetry 05/17/16 05/17/16 05/17/16 01:00 02:00 03:00 Temperature Pulse Rate 63 69 60 Pulse Rate [ Anterior Bilateral Throughout] Pulse Rate [ From Monitor] Respiratory 26 H 16 11 L Rate Respiratory Rate [Anterior Bilateral Throughout] Blood Pressure 111/69 111/69 123/70 O2 Sat by Pulse 93 95 97 Oximetry 05/17/16 05/17/16 05/17/16 03:57 04:00 05:00 Temperature 97.9 F Pulse Rate 66 66 74 Pulse Rate [ Anterior Bilateral Throughout] Pulse Rate [ From Monitor] Respiratory 19 32 H 22 Rate Respiratory Rate [Anterior Bilateral Throughout] Blood Pressure 123/70 121/69 107/54 O2 Sat by Pulse 96 86 Oximetry 05/17/16 05/17/16 05/17/16 06:00 07:00 07:07 Temperature Pulse Rate 87 79 Pulse Rate [ 75 Anterior Bilateral Throughout] Pulse Rate [ From Monitor] Respiratory 16 22 Rate Respiratory 23 Rate [Anterior Bilateral Throughout] Blood Pressure 112/70 104/67 O2 Sat by Pulse 61 L 98 Oximetry 05/17/16 05/17/16 05/17/16 07:11 07:17 08:00 Temperature 98.1 F Pulse Rate 73 Pulse Rate [ 76 Anterior Bilateral Throughout] Pulse Rate [ From Monitor] Respiratory 24 Rate Respiratory 25 H Rate [Anterior Bilateral Throughout] Blood Pressure 104/67 O2 Sat by Pulse 95 94 Oximetry 05/17/16 05/17/16 09:00 09:08 Temperature Pulse Rate 79 Pulse Rate [ Anterior Bilateral Throughout] Pulse Rate [ 86 From Monitor] Respiratory 17 25 H Rate Respiratory Rate [Anterior Bilateral Throughout] Blood Pressure 113/76 O2 Sat by Pulse 93 96 Oximetry Constitutional: alert Eyes: non-icteric ENT: oropharynx dry Neck: supple, no JVD Effort: normal, mildly labored Ascultation: Bilateral: diminished breath sounds Cardiovascular: regular rate and rhythm Gastrointestinal: hypoactive bowel sounds, soft, non-tender Extremities: no cyanosis, no edema Neurologic: normal mental status, non-focal exam, pupils equal and round, CN II- XII normal CBC and BMP: 05/15/16 04:05 05/17/16 05:40 ABG, PT/INR, D-dimer: ABG POC ABG pH 7.481 (7.35-7.45) H 05/16/16 10:47 POC ABG pCO2 43.7 (35-45) 05/16/16 10:47 POC ABG pO2 58 (80-105) L 05/16/16 10:47 POC ABG HCO3 32.6 05/16/16 10:47 POC ABG Total CO2 34 05/16/16 10:47 POC ABG O2 Sat 91 05/16/16 10:47 PT/INR, D-dimer PT 16.6 Sec. (12.2-14.9) H 05/09/16 12:06 INR 1.35 (0.87-1.13) H 05/09/16 12:06 Abnormal lab findings: Abnormal Labs 05/09/16 05/10/16 05/10/16 23:00 02:46 04:25 WBC 22.4 H 20.7 H RBC 5.05 H Hgb Hct 45.8 H D RDW 17.9 H 18.0 H Plt Count 70 L 68 L Lymph % (Auto) [place] % (Auto) Lymph # Seg Neutrophils % Seg Neuts % (Manual) 92.0 H 92.0 H Lymphocytes % (Manual) 1.0 L 0 L Seg Neutrophils # Seg Neutrophils # Man 20.6 H 19.0 H Lymphocytes # (Manual) 0.2 L 0.0 L POC ABG pH POC ABG pCO2 POC ABG pO2 Sodium Potassium Chloride Carbon Dioxide BUN Creatinine Glucose POC Glucose Calcium Phosphorus Magnesium Total Creatine Kinase CK-MB (CK-2) CK-MB (CK-2) Rel Index Troponin T Total Protein Albumin LDL Cholesterol Direct HDL Cholesterol Lymph Enumerat CD4/CD8 % CD3 Cells % CD4 Cells Absolute CD4 Count % CD8 Cells % CD19 Cells Absolute CD19 Count HIV-1 RNA PCR copies/ml HIV-1 RNA (PCR) log 05/10/16 05/10/16 05/10/16 04:25 09:55 11:13 WBC RBC Hgb Hct RDW Plt Count Lymph % (Auto) [place] % (Auto) Lymph # Seg Neutrophils % Seg Neuts % (Manual) Lymphocytes % (Manual) Seg Neutrophils # Seg Neutrophils # Man Lymphocytes # (Manual) POC ABG pH 7.152 L POC ABG pCO2 65.4 H POC ABG pO2 48 L Sodium Potassium Chloride 110.4 H Carbon Dioxide BUN 21 H Creatinine Glucose 47 L POC Glucose Calcium 5.7 L* Phosphorus Magnesium Total Creatine Kinase CK-MB (CK-2) 11.5 H CK-MB (CK-2) Rel Index 7.6 H Troponin T 0.105 H* Total Protein 3.4 L Albumin 1.8 L LDL Cholesterol Direct 13 L HDL Cholesterol 28 L Lymph Enumerat CD4/CD8 % CD3 Cells % CD4 Cells Absolute CD4 Count % CD8 Cells % CD19 Cells Absolute CD19 Count HIV-1 RNA PCR copies/ml HIV-1 RNA (PCR) log 05/10/16 05/10/16 05/10/16 13:28 14:05 14:18 WBC RBC Hgb Hct RDW Plt Count Lymph % (Auto) [place] % (Auto) Lymph # Seg Neutrophils % Seg Neuts % (Manual) Lymphocytes % (Manual) Seg Neutrophils # Seg Neutrophils # Man Lymphocytes # (Manual) POC ABG pH 7.199 L POC ABG pCO2 56.9 H POC ABG pO2 67 L Sodium Potassium Chloride Carbon Dioxide BUN Creatinine Glucose POC Glucose < 40 L 109 H Calcium Phosphorus Magnesium Total Creatine Kinase CK-MB (CK-2) CK-MB (CK-2) Rel Index Troponin T Total Protein Albumin LDL Cholesterol Direct HDL Cholesterol Lymph Enumerat CD4/CD8 % CD3 Cells % CD4 Cells Absolute CD4 Count % CD8 Cells % CD19 Cells Absolute CD19 Count HIV-1 RNA PCR copies/ml HIV-1 RNA (PCR) log 05/10/16 05/10/1617 16:02 17:30 17:30 WBC RBC Hgb 11.1 L Hct 34.9 L D RDW Plt Count Lymph % (Auto) [place] % (Auto) Lymph # Seg Neutrophils % Seg Neuts % (Manual) Lymphocytes % (Manual) Seg Neutrophils # Seg Neutrophils # Man Lymphocytes # (Manual) POC ABG pH 7.307 L POC ABG pCO2 POC ABG pO2 Sodium Potassium Chloride Carbon Dioxide BUN Creatinine Glucose POC Glucose Calcium Phosphorus Magnesium Total Creatine Kinase 193 H CK-MB (CK-2) 12.2 H CK-MB (CK-2) Rel Index 6.3 H Troponin T 0.092 H Total Protein Albumin LDL Cholesterol Direct HDL Cholesterol Lymph Enumerat CD4/CD8 % CD3 Cells % CD4 Cells Absolute CD4 Count % CD8 Cells % CD19 Cells Absolute CD19 Count HIV-1 RNA PCR copies/ml HIV-1 RNA (PCR) log 05/10/16 05/10/16 05/11/16 18:42 23:03 03:00 WBC 14.9 H RBC Hgb 10.3 L Hct 32.3 L RDW 18.2 H Plt Count 97 L Lymph % (Auto) [place] % (Auto) Lymph # Seg Neutrophils % Seg Neuts % (Manual) Lymphocytes % (Manual) Seg Neutrophils # Seg Neutrophils # Man Lymphocytes # (Manual) POC ABG pH POC ABG pCO2 POC ABG pO2 Sodium Potassium Chloride Carbon Dioxide BUN Creatinine Glucose POC Glucose 113 H 204 H Calcium Phosphorus Magnesium Total Creatine Kinase CK-MB (CK-2) CK-MB (CK-2) Rel Index Troponin T Total Protein Albumin LDL Cholesterol Direct HDL Cholesterol Lymph Enumerat CD4/CD8 % CD3 Cells % CD4 Cells Absolute CD4 Count % CD8 Cells % CD19 Cells Absolute CD19 Count HIV-1 RNA PCR copies/ml HIV-1 RNA (PCR) log 05/11/16 05/11/16 05/11/16 03:21 04:00 06:55 WBC RBC Hgb Hct RDW Plt Count Lymph % (Auto) [place] % (Auto) Lymph # Seg Neutrophils % Seg Neuts % (Manual) Lymphocytes % (Manual) Seg Neutrophils # Seg Neutrophils # Man Lymphocytes # (Manual) POC ABG pH POC ABG pCO2 POC ABG pO2 Sodium Potassium Chloride 111.5 H Carbon Dioxide BUN 26 H Creatinine Glucose 207 H POC Glucose 217 H Calcium 6.4 L Phosphorus Magnesium 1.4 L Total Creatine Kinase CK-MB (CK-2) CK-MB (CK-2) Rel Index Troponin T Total Protein Albumin LDL Cholesterol Direct HDL Cholesterol Lymph Enumerat CD4/CD8 0.24 L % CD3 Cells 89 H % CD4 Cells 17 L Absolute CD4 Count 200 L % CD8 Cells 73 H % CD19 Cells 5 L Absolute CD19 Count 59 L HIV-1 RNA PCR copies/ml HIV-1 RNA (PCR) log 05/11/16 05/11/16 05/11/16 06:55 10:57 11:48 WBC RBC Hgb Hct RDW Plt Count Lymph % (Auto) [place] % (Auto) Lymph # Seg Neutrophils % Seg Neuts % (Manual) Lymphocytes % (Manual) Seg Neutrophils # Seg Neutrophils # Man Lymphocytes # (Manual) POC ABG pH POC ABG pCO2 POC ABG pO2 46 L 75 L Sodium Potassium Chloride Carbon Dioxide BUN Creatinine Glucose POC Glucose Calcium Phosphorus Magnesium Total Creatine Kinase CK-MB (CK-2) CK-MB (CK-2) Rel Index Troponin T Total Protein Albumin LDL Cholesterol Direct HDL Cholesterol Lymph Enumerat CD4/CD8 % CD3 Cells % CD4 Cells Absolute CD4 Count % CD8 Cells % CD19 Cells Absolute CD19 Count HIV-1 RNA PCR copies/ml 229413 H HIV-1 RNA (PCR) log 5.42 H 05/11/16 05/11/16 05/11/16 12:17 17:11 23:38 WBC RBC Hgb Hct RDW Plt Count Lymph % (Auto) [place] % (Auto) Lymph # Seg Neutrophils % Seg Neuts % (Manual) Lymphocytes % (Manual) Seg Neutrophils # Seg Neutrophils # Man Lymphocytes # (Manual) POC ABG pH POC ABG pCO2 POC ABG pO2 Sodium Potassium Chloride Carbon Dioxide BUN Creatinine Glucose POC Glucose 232 H 204 H 126 H Calcium Phosphorus Magnesium Total Creatine Kinase CK-MB (CK-2) CK-MB (CK-2) Rel Index Troponin T Total Protein Albumin LDL Cholesterol Direct HDL Cholesterol Lymph Enumerat CD4/CD8 % CD3 Cells % CD4 Cells Absolute CD4 Count % CD8 Cells % CD19 Cells Absolute CD19 Count HIV-1 RNA PCR copies/ml HIV-1 RNA (PCR) log 05/12/16 05/12/16 05/12/16 05:00 05:00 05:00 WBC RBC 3.12 L Hgb 8.9 L Hct 27.0 L RDW 17.8 H Plt Count 72 L Lymph % (Auto) 9.2 L [place] % (Auto) Lymph # 0.9 L Seg Neutrophils % 84.0 H Seg Neuts % (Manual) Lymphocytes % (Manual) Seg Neutrophils # 8.1 H Seg Neutrophils # Man Lymphocytes # (Manual) POC ABG pH POC ABG pCO2 POC ABG pO2 Sodium Potassium 3.4 L Chloride 110.2 H Carbon Dioxide BUN 23 H Creatinine 0.5 L Glucose 172 H POC Glucose Calcium 7.3 L Phosphorus 1.5 L D Magnesium 1.6 L Total Creatine Kinase CK-MB (CK-2) CK-MB (CK-2) Rel Index Troponin T Total Protein 3.7 L Albumin 1.7 L LDL Cholesterol Direct HDL Cholesterol Lymph Enumerat CD4/CD8 % CD3 Cells % CD4 Cells Absolute CD4 Count % CD8 Cells % CD19 Cells Absolute CD19 Count HIV-1 RNA PCR copies/ml HIV-1 RNA (PCR) log 05/12/16 05/12/16 05/12/16 05:18 05:44 12:26 WBC RBC Hgb Hct RDW Plt Count Lymph % (Auto) [place] % (Auto) Lymph # Seg Neutrophils % Seg Neuts % (Manual) Lymphocytes % (Manual) Seg Neutrophils # Seg Neutrophils # Man Lymphocytes # (Manual) POC ABG pH POC ABG pCO2 POC ABG pO2 64 L Sodium Potassium Chloride Carbon Dioxide BUN Creatinine Glucose POC Glucose 183 H 134 H Calcium Phosphorus Magnesium Total Creatine Kinase CK-MB (CK-2) CK-MB (CK-2) Rel Index Troponin T Total Protein Albumin LDL Cholesterol Direct HDL Cholesterol Lymph Enumerat CD4/CD8 % CD3 Cells % CD4 Cells Absolute CD4 Count % CD8 Cells % CD19 Cells Absolute CD19 Count HIV-1 RNA PCR copies/ml HIV-1 RNA (PCR) log 05/12/16 05/13/16 05/13/16 18:28 00:10 04:49 WBC RBC Hgb Hct RDW Plt Count Lymph % (Auto) [place] % (Auto) Lymph # Seg Neutrophils % Seg Neuts % (Manual) Lymphocytes % (Manual) Seg Neutrophils # Seg Neutrophils # Man Lymphocytes # (Manual) POC ABG pH POC ABG pCO2 POC ABG pO2 66 L Sodium Potassium Chloride Carbon Dioxide BUN Creatinine Glucose POC Glucose 119 H 152 H Calcium Phosphorus Magnesium Total Creatine Kinase CK-MB (CK-2) CK-MB (CK-2) Rel Index Troponin T Total Protein Albumin LDL Cholesterol Direct HDL Cholesterol Lymph Enumerat CD4/CD8 % CD3 Cells % CD4 Cells Absolute CD4 Count % CD8 Cells % CD19 Cells Absolute CD19 Count HIV-1 RNA PCR copies/ml HIV-1 RNA (PCR) log 05/13/16 05/13/16 05/13/16 06:00 06:22 12:15 WBC RBC Hgb Hct RDW Plt Count Lymph % (Auto) [place] % (Auto) Lymph # Seg Neutrophils % Seg Neuts % (Manual) Lymphocytes % (Manual) Seg Neutrophils # Seg Neutrophils # Man Lymphocytes # (Manual) POC ABG pH POC ABG pCO2 POC ABG pO2 Sodium Potassium 3.5 L Chloride Carbon Dioxide BUN Creatinine 0.3 L Glucose 105 H POC Glucose 114 H 128 H Calcium 7.3 L Phosphorus Magnesium 1.5 L Total Creatine Kinase CK-MB (CK-2) CK-MB (CK-2) Rel Index Troponin T Total Protein Albumin LDL Cholesterol Direct HDL Cholesterol Lymph Enumerat CD4/CD8 % CD3 Cells % CD4 Cells Absolute CD4 Count % CD8 Cells % CD19 Cells Absolute CD19 Count HIV-1 RNA PCR copies/ml HIV-1 RNA (PCR) log 05/13/16 05/13/16 05/13/16 12:30 12:30 18:02 WBC RBC 3.53 L Hgb 9.8 L Hct 30.9 L RDW 17.6 H Plt Count 88 L Lymph % (Auto) 9.6 L [place] % (Auto) 9.8 H Lymph # 0.5 L Seg Neutrophils % 79.9 H Seg Neuts % (Manual) Lymphocytes % (Manual) Seg Neutrophils # Seg Neutrophils # Man Lymphocytes # (Manual) POC ABG pH POC ABG pCO2 POC ABG pO2 Sodium Potassium Chloride Carbon Dioxide BUN Creatinine 0.3 L Glucose 113 H POC Glucose 123 H Calcium 7.2 L Phosphorus Magnesium Total Creatine Kinase CK-MB (CK-2) CK-MB (CK-2) Rel Index Troponin T Total Protein 4.4 L Albumin 1.8 L LDL Cholesterol Direct HDL Cholesterol Lymph Enumerat CD4/CD8 % CD3 Cells % CD4 Cells Absolute CD4 Count % CD8 Cells % CD19 Cells Absolute CD19 Count HIV-1 RNA PCR copies/ml HIV-1 RNA (PCR) log 05/13/16 05/14/16 05/14/16 23:19 05:00 05:00 WBC RBC Hgb Hct RDW Plt Count Lymph % (Auto) [place] % (Auto) Lymph # Seg Neutrophils % Seg Neuts % (Manual) Lymphocytes % (Manual) Seg Neutrophils # Seg Neutrophils # Man Lymphocytes # (Manual) POC ABG pH POC ABG pCO2 POC ABG pO2 Sodium 136 L Potassium Chloride 97.9 L Carbon Dioxide 31 H BUN 8 L Creatinine 0.2 L Glucose 231 H POC Glucose 106 H Calcium 7.3 L Phosphorus 4.8 H D Magnesium Total Creatine Kinase CK-MB (CK-2) CK-MB (CK-2) Rel Index Troponin T Total Protein Albumin LDL Cholesterol Direct HDL Cholesterol Lymph Enumerat CD4/CD8 % CD3 Cells % CD4 Cells Absolute CD4 Count % CD8 Cells % CD19 Cells Absolute CD19 Count HIV-1 RNA PCR copies/ml HIV-1 RNA (PCR) log 05/14/16 05/14/16 05/15/16 05:33 10:30 00:28 WBC RBC 3.39 L Hgb 9.5 L Hct 29.3 L RDW 17.2 H Plt Count 85 L Lymph % (Auto) [place] % (Auto) 11.2 H Lymph # 0.7 L Seg Neutrophils % 73.2 H Seg Neuts % (Manual) Lymphocytes % (Manual) Seg Neutrophils # Seg Neutrophils # Man Lymphocytes # (Manual) POC ABG pH 7.492 H POC ABG pCO2 POC ABG pO2 Sodium Potassium Chloride Carbon Dioxide BUN Creatinine Glucose POC Glucose 156 H Calcium Phosphorus Magnesium Total Creatine Kinase CK-MB (CK-2) CK-MB (CK-2) Rel Index Troponin T Total Protein Albumin LDL Cholesterol Direct HDL Cholesterol Lymph Enumerat CD4/CD8 % CD3 Cells % CD4 Cells Absolute CD4 Count % CD8 Cells % CD19 Cells Absolute CD19 Count HIV-1 RNA PCR copies/ml HIV-1 RNA (PCR) log 05/15/16 05/15/16 05/15/16 04:05 04:05 05:15 WBC RBC 3.39 L Hgb 9.6 L Hct 29.3 L RDW 16.8 H Plt Count 102 L Lymph % (Auto) [place] % (Auto) Lymph # Seg Neutrophils % Seg Neuts % (Manual) Lymphocytes % (Manual) Seg Neutrophils # Seg Neutrophils # Man Lymphocytes # (Manual) POC ABG pH 7.524 H POC ABG pCO2 POC ABG pO2 Sodium Potassium Chloride Carbon Dioxide 33 H BUN Creatinine 0.3 L Glucose 112 H POC Glucose Calcium 7.6 L Phosphorus Magnesium Total Creatine Kinase CK-MB (CK-2) CK-MB (CK-2) Rel Index Troponin T Total Protein Albumin LDL Cholesterol Direct HDL Cholesterol Lymph Enumerat CD4/CD8 % CD3 Cells % CD4 Cells Absolute CD4 Count % CD8 Cells % CD19 Cells Absolute CD19 Count HIV-1 RNA PCR copies/ml HIV-1 RNA (PCR) log 05/15/16 05/15/16 05/16/16 06:03 10:47 05:16 WBC RBC Hgb Hct RDW Plt Count Lymph % (Auto) [place] % (Auto) Lymph # Seg Neutrophils % Seg Neuts % (Manual) Lymphocytes % (Manual) Seg Neutrophils # Seg Neutrophils # Man Lymphocytes # (Manual) POC ABG pH 7.468 H POC ABG pCO2 POC ABG pO2 60 L Sodium Potassium Chloride Carbon Dioxide BUN Creatinine Glucose POC Glucose 125 H 107 H Calcium Phosphorus Magnesium Total Creatine Kinase CK-MB (CK-2) CK-MB (CK-2) Rel Index Troponin T Total Protein Albumin LDL Cholesterol Direct HDL Cholesterol Lymph Enumerat CD4/CD8 % CD3 Cells % CD4 Cells Absolute CD4 Count % CD8 Cells % CD19 Cells Absolute CD19 Count HIV-1 RNA PCR copies/ml HIV-1 RNA (PCR) log 05/16/16 05/16/16 05/17/16 08:20 10:47 05:40 WBC RBC Hgb Hct RDW Plt Count Lymph % (Auto) [place] % (Auto) Lymph # Seg Neutrophils % Seg Neuts % (Manual) Lymphocytes % (Manual) Seg Neutrophils # Seg Neutrophils # Man Lymphocytes # (Manual) POC ABG pH 7.481 H POC ABG pCO2 POC ABG pO2 58 L Sodium 134 L Potassium 3.3 L Chloride 94.7 L 97.3 L Carbon Dioxide 34 H BUN 7 L 5 L Creatinine 0.2 L 0.3 L Glucose 65 L POC Glucose Calcium 7.6 L 7.4 L Phosphorus Magnesium 1.5 L Total Creatine Kinase CK-MB (CK-2) CK-MB (CK-2) Rel Index Troponin T Total Protein Albumin LDL Cholesterol Direct HDL Cholesterol Lymph Enumerat CD4/CD8 % CD3 Cells % CD4 Cells Absolute CD4 Count % CD8 Cells % CD19 Cells Absolute CD19 Count HIV-1 RNA PCR copies/ml HIV-1 RNA (PCR) log
[2016-05-17] MEDS: PROTONIX PO SCH ×2 (10:18→22:27)
[2016-05-17] MEDS ORDERED: K-DUR PO ONE (11:39)
--- NOTE | 2016-05-17 11:43 | Progress Note ---
Assessment and Plan Assessment and plan: 58M who is presented with GIB, and acute blood loss anemia, s/p EGD with large cratered duodenal ulcer, not amenable to endoscopic therapy. He is s/p IR intervention yesterday with GDA embolization. He became hypotensive and acidotic overnight and is now intubated and on pressors. 1. GIB s/p EGD with large cratered duodenal ulcer, not amenable to endoscopic therapy. He is s/p IR intervention with GDA embolization. Bleeding has now stopped and hemoglobin stabilized, continue PPI, advise smoking cessation 2. Acute blood loss anemia transfuse to keep Hg above 10 3. Septic Shock Patient became hypotensive, there was concern for sepsis, he was treated with broad-spectrum antibiotics and pressors. He was weaned off pressors. Blood cultures showed Bacteroides bacteremia, and his antibiotics where tailored appropriately, infectious disease input appreciated. 4. Acute respiratory failure, Has now been extubated, continued to wean him off oxygen 5. HIV Has not been on treatments, CD4 count is 200, ID following 6. COPD Continue bronchodilators 7. Alcohol dependency and Alcohol induced cardiomyopathy Fluid status is euvolemic, has not shown any signs of alcohol withdrawal Critical care time 32 minutes If patient continues to improve, tentative transfer to medical floors within the next 24-48 hours History Interval history: Patient tolerated CPAP trial well and is now extubated, he is on full face mask supplemental oxygen at the time. He states that his breathing is okay, he denies shortness of breath, he states that he is hungry and once he eats Hospitalist Physical - Physical exam Narrative exam: General: Nontoxic appearance, cachectic HEENT: MMM, EOMI cardiac: S1-S2 heard lungs: ventilated breath sounds, abdomen: soft, nontender, nondistended bowel sounds positive extremities: no edema clubbing or cyanosis Skin: no rash or lesion Neuro: No focal deficit - Constitutional Vitals: Temp Pulse Resp BP Pulse Ox 98.1 F 84 24 84/56 93 05/17/16 08:00 05/17/16 11:31 05/17/16 11:00 05/17/16 11:00 05/17/16 11:00 General appearance: Present: other (intubated) Results - Labs CBC & Chem 7: 05/15/16 04:05 05/17/16 05:40 Labs: Laboratory Last Values WBC 5.3 K/mm3 (4.5-11.0) 05/15/16 04:05 RBC 3.39 M/mm3 (3.65-5.03) L 05/15/16 04:05 Hgb 9.6 gm/dl (11.8-15.2) L 05/15/16 04:05 Hct 29.3 % (35.5-45.6) L 05/15/16 04:05 MCV 86 fl (84-94) 05/15/16 04:05 MCH 28 pg (28-32) 05/15/16 04:05 MCHC 33 % (32-34) 05/15/16 04:05 RDW 16.8 % (13.2-15.2) H 05/15/16 04:05 Plt Count 102 K/mm3 (140-440) L 05/15/16 04:05 Lymph % (Auto) 14.4 % (13.4-35.0) 05/14/16 10:30 [place] % (Auto) 11.2 % (0.0-7.3) H 05/14/16 10:30 Eos % (Auto) 0.9 % (0.0-4.3) 05/14/16 10:30 Baso % (Auto) 0.3 % (0.0-1.8) 05/14/16 10:30 Lymph # 0.7 K/mm3 (1.2-5.4) L 05/14/16 10:30 Gregory # 0.6 K/mm3 (0.0-0.8) 05/14/16 10:30 Eos # 0.0 K/mm3 (0.0-0.4) 05/14/16 10:30 Baso # 0.0 K/mm3 (0.0-0.1) 05/14/16 10:30 Add Manual Diff Complete 05/10/16 04:25 Total Counted 100 05/10/16 04:25 Seg Neutrophils % 73.2 % (40.0-70.0) H 05/14/16 10:30 Seg Neuts % (Manual) 92.0 % (40.0-70.0) H 05/10/16 04:25 Band Neutrophils % 3.0 % 05/10/16 04:25 Lymphocytes % (Manual) 0 % (13.4-35.0) L 05/10/16 04:25 Reactive Lymphs % (Man) 0 % 05/10/16 04:25 Monocytes % (Manual) 4.0 % (0.0-7.3) 05/10/16 04:25 Eosinophils % (Manual) 0 % (0.0-4.3) 05/10/16 04:25 Basophils % (Manual) 0 % (0.0-1.8) 05/10/16 04:25 Metamyelocytes % 0 % 05/10/16 04:25 Myelocytes % 1.0 % 05/10/16 04:25 Promyelocytes % 0 % 05/10/16 04:25 Blast Cells % 0 % 05/10/16 04:25 Nucleated RBC % Not Reportable 05/10/16 04:25 Seg Neutrophils # 3.6 K/mm3 (1.8-7.7) 05/14/16 10:30 Seg Neutrophils # Man 19.0 K/mm3 (1.8-7.7) H 05/10/16 04:25 Band Neutrophils # 0.6 K/mm3 05/10/16 04:25 Abs Lymphs (Manual) 1169 cells/uL (850-3900) 05/11/16 06:55 Lymphocytes # (Manual) 0.0 K/mm3 (1.2-5.4) L 05/10/16 04:25 Abs React Lymphs (Man) 0.0 K/mm3 05/10/16 04:25 Monocytes # (Manual) 0.8 K/mm3 (0.0-0.8) 05/10/16 04:25 Eosinophils # (Manual) 0.0 K/mm3 (0.0-0.4) 05/10/16 04:25 Basophils # (Manual) 0.0 K/mm3 (0.0-0.1) 05/10/16 04:25 Metamyelocytes # 0.0 K/mm3 05/10/16 04:25 Myelocytes # 0.2 K/mm3 05/10/16 04:25 Promyelocytes # 0.0 K/mm3 05/10/16 04:25 Blast Cells # 0.0 K/mm3 05/10/16 04:25 WBC Morphology Not Reportable 05/10/16 04:25 Hypersegmented Neuts Not Reportable 05/10/16 04:25 Hyposegmented Neuts Not Reportable 05/10/16 04:25 Hypogranular Neuts Not Reportable 05/10/16 04:25 Smudge Cells Not Reportable 05/10/16 04:25 Toxic Granulation Not Reportable 05/10/16 04:25 Toxic Vacuolation Not Reportable 05/10/16 04:25 Dohle Bodies Not Reportable 05/10/16 04:25 Pelger-Huet Anomaly Not Reportable 05/10/16 04:25 Amari Rods Not Reportable 05/10/16 04:25 Platelet Estimate Appears decreased 05/10/16 04:25 Clumped Platelets Not Reportable 05/10/16 04:25 Plt Clumps, EDTA Not Reportable 05/10/16 04:25 Large Platelets Not Reportable 05/10/16 04:25 Giant Platelets Not Reportable 05/10/16 04:25 Platelet Satelliting Not Reportable 05/10/16 04:25 Plt Morphology Comment Not Reportable 05/10/16 04:25 RBC Morphology Not Reportable 05/10/16 04:25 Dimorphic RBCs Not Reportable 05/10/16 04:25 Polychromasia Not Reportable 05/10/16 04:25 Hypochromasia Not Reportable 05/10/16 04:25 Poikilocytosis Not Reportable 05/10/16 04:25 Anisocytosis 1+ 05/10/16 04:25 Microcytosis Not Reportable 05/10/16 04:25 Macrocytosis Not Reportable 05/10/16 04:25 Spherocytes Not Reportable 05/10/16 04:25 Pappenheimer Bodies Not Reportable 05/10/16 04:25 Sickle Cells Not Reportable 05/10/16 04:25 Target Cells Not Reportable 05/10/16 04:25 Tear Drop Cells Not Reportable 05/10/16 04:25 Ovalocytes Not Reportable 05/10/16 04:25 Helmet Cells Not Reportable 05/10/16 04:25 [place] Bodies Not Reportable 05/10/16 04:25 [place] Rings Not Reportable 05/10/16 04:25 [place] Cells Not Reportable 05/10/16 04:25 Bite Cells Not Reportable 05/10/16 04:25 Crenated Cell Not Reportable 05/10/16 04:25 Elliptocytes Not Reportable 05/10/16 04:25 Acanthocytes (Spur) Not Reportable 05/10/16 04:25 Rouleaux Not Reportable 05/10/16 04:25 Hemoglobin C Crystals Not Reportable 05/10/16 04:25 Schistocytes Not Reportable 05/10/16 04:25 Malaria parasites Not Reportable 05/10/16 04:25 Kasi Bodies Not Reportable 05/10/16 04:25 Hem Pathologist Commnt No 05/10/16 04:25 PT 16.6 Sec. (12.2-14.9) H 05/09/16 12:06 INR 1.35 (0.87-1.13) H 05/09/16 12:06 APTT 27.4 Sec. (24.2-36.6) 05/09/16 12:06 POC ABG pH 7.481 (7.35-7.45) H 05/16/16 10:47 POC ABG pCO2 43.7 (35-45) 05/16/16 10:47 POC ABG pO2 58 (80-105) L 05/16/16 10:47 POC ABG HCO3 32.6 05/16/16 10:47 POC ABG Total CO2 34 05/16/16 10:47 POC ABG O2 Sat 91 05/16/16 10:47 POC ABG Base Excess 9 05/16/16 10:47 FiO2 30 % 05/16/16 10:47 Sodium 137 mmol/L (137-145) 05/17/16 05:40 Potassium 3.3 mmol/L (3.6-5.0) L 05/17/16 05:40 Chloride 97.3 mmol/L (98-107) L 05/17/16 05:40 Carbon Dioxide 30 mmol/L (22-30) 05/17/16 05:40 Anion Gap 13 mmol/L 05/17/16 05:40 BUN 5 mg/dL (9-20) L 05/17/16 05:40 Creatinine 0.3 mg/dL (0.8-1.5) L 05/17/16 05:40 Estimated GFR > 60 ml/min 05/17/16 05:40 BUN/Creatinine Ratio 16.66 % 05/17/16 05:40 Glucose 65 mg/dL (75-100) L 05/17/16 05:40 POC Glucose 74 (70-105) 05/17/16 05:47 Lactic Acid 1.0 mmol/L (0.7-2.0) 05/10/16 09:55 Calcium 7.4 mg/dL (8.4-10.2) L 05/17/16 05:40 Phosphorus 3.3 mg/dL (2.5-4.5) 05/17/16 05:40 Magnesium 1.5 mg/dL (1.7-2.3) L 05/17/16 05:40 Total Bilirubin 0.4 mg/dL (0.1-1.2) 05/13/16 12:30 AST 19 units/L (5-40) 05/13/16 12:30 ALT 13 units/L (7-56) 05/13/16 12:30 Alkaline Phosphatase 53 units/L (35-129) 05/13/16 12:30 Ammonia 33.0 umol/L (25-60) 05/09/16 23:00 Total Creatine Kinase 193 units/L (55-170) H 05/10/16 17:30 CK-MB (CK-2) 12.2 ng/mL (0.0-4.0) H 05/10/16 17:30 CK-MB (CK-2) Rel Index 6.3 (0-4) H 05/10/16 17:30 Troponin T 0.092 ng/mL (0.00-0.029) H 05/10/16 17:30 Total Protein 4.4 g/dL (6.3-8.2) L 05/13/16 12:30 Albumin 1.8 g/dL (3.9-5) L 05/13/16 12:30 Albumin/Globulin Ratio 0.7 % 05/13/16 12:30 Triglycerides 77 mg/dL (2-149) 05/10/16 09:55 Cholesterol 56 mg/dL (50-199) 05/10/16 09:55 LDL Cholesterol Direct 13 mg/dL (50-130) L 05/10/16 09:55 HDL Cholesterol 28 mg/dL (40-59) L 05/10/16 09:55 Cholesterol/HDL Ratio 2.00 % 05/10/16 09:55 Lipase 82 units/L (13-60) H 05/09/16 12:06 Urine Color Yellow (Yellow) 05/09/16 12:51 Urine Turbidity Slightly-cloudy (Clear) 05/09/16 12:51 Urine pH 6.0 (5.0-7.0) 05/09/16 12:51 Ur Specific [place] 1.019 (1.003-1.030) 05/09/16 12:51 Urine Protein 100 mg/dl mg/dL (Negative) 05/09/16 12:51 Urine Glucose (UA) Neg mg/dL (Negative) 05/09/16 12:51 Urine Ketones Neg mg/dL (Negative) 05/09/16 12:51 Urine Blood Neg (Negative) 05/09/16 12:51 Urine Nitrite Neg (Negative) 05/09/16 12:51 Urine Bilirubin Neg (Negative) 05/09/16 12:51 Urine Urobilinogen < 2.0 mg/dL (<2.0) 05/09/16 12:51 Ur Leukocyte Esterase Mod (Negative) 05/09/16 12:51 Urine WBC (Auto) > 182.0 /HPF (0.0-6.0) H 05/09/16 12:51 Urine RBC (Auto) 9.0 /HPF (0.0-6.0) 05/09/16 12:51 U Epithel Cells (Auto) 1.0 /HPF (0-13.0) 05/09/16 12:51 Urine Bacteria (Auto) 1+ /HPF (Negative) 05/09/16 12:51 Urine Mucus Few /HPF 05/09/16 12:51 Vancomycin Trough 7.5 ug/mL (5.0-20.0) 05/13/16 06:00 Urine Opiates Screen Presumptive negative 05/09/16 12:51 Urine Methadone Screen Presumptive negative 05/09/16 12:51 Ur Barbiturates Screen Presumptive negative 05/09/16 12:51 Ur Phencyclidine Scrn Presumptive negative 05/09/16 12:51 Ur Amphetamines Screen Presumptive negative 05/09/16 12:51 U Benzodiazepines Scrn Presumptive negative 05/09/16 12:51 Urine Cocaine Screen Presumptive negative 05/09/16 12:51 U Marijuana (THC) Screen Presumptive negative 05/09/16 12:51 Drugs of Abuse Note Disclamer 05/09/16 12:51 Plasma/Serum Alcohol < 0.01 gm% (0-0.07) 05/09/16 12:24 Lymph Enumerat CD4/CD8 0.24 (0.86-5.00) L 05/11/16 06:55 % CD3 Cells 89 % (57-85) H 05/11/16 06:55 Absolute CD3 Count 1035 cells/uL (840-3060) 05/11/16 06:55 % CD4 Cells 17 % (30-61) L 05/11/16 06:55 Absolute CD4 Count 200 cells/uL (490-1740) L 05/11/16 06:55 % CD8 Cells 73 % (12-42) H 05/11/16 06:55 Absolute CD8 Count 838 cells/uL (180-1170) 05/11/16 06:55 % CD19 Cells 5 % (6-29) L 05/11/16 06:55 Absolute CD19 Count 59 cells/uL (110-660) L 05/11/16 06:55 Hep Bs Antigen Non-reactive (Negative) 05/10/16 04:25 Hep B Core Total Ab Nonreactive (Nonreactive) 05/10/16 04:25 Hepatitis C Antibody Non-reactive (NonReactive) 05/10/16 04:25 HIV-1 RNA PCR copies/ml 614036 copies/mL (<20) H 05/11/16 06:55 HIV-1 RNA (PCR) log 5.42 Log cps/mL (<1.30) H 05/11/16 06:55 Blood Type A POSITIVE 05/09/16 12:06 Antibody Screen Negative 05/09/16 12:06 Crossmatch See Detail 05/09/16 12:06
--- NOTE | 2016-05-17 11:45 | Progress Note ---
Assessment and Plan Assessment and plan: 58M who is presented with GIB, and acute blood loss anemia, s/p EGD with large cratered duodenal ulcer, not amenable to endoscopic therapy. He is s/p IR intervention yesterday with GDA embolization. He became hypotensive and acidotic requiring intubation and pressor. successfully weaned off vent since 1. GIB s/p EGD with large cratered duodenal ulcer, not amenable to endoscopic therapy. He is s/p IR intervention with GDA embolization. Hemoglobin is stable, continue PPI, advise smoking cessation. If patient rebleeds will likely need Surgery intervention 2. Acute blood loss anemia transfuse to keep Hg above 9 3. Septic Shock Patient became hyptensive, there was concern for sepsis, he was treated with broad-spectrum antibiotics and pressors. He was weaned off pressors. Blood cultures showed Bacteroides bacteremia, and his antibiotics where tailored appropriately, infectious disease input appreciated. 4. Acute respiratory failure, with hypoxia Has now been extubated, continued to wean him off oxygen 5. HIV Has not been on treatments, CD4 count is 200, ID following 6. COPD Continue bronchodilators, continue steroids, continue to wean oxygen 7. Alcohol dependency and Alcohol induced cardiomyopathy Fluid status is euvolemic, has not shown any signs of alcohol withdrawal 8. Hypokalemia, replete by mouth 9. Hypotension? off pressors, his baseline SBP appears to range between 90-110, his MAP has been in the low 60s, Give 1 litre NS Critical care time 32 minutes We'll continue to wean him off oxygen, patient is improving, if he continues to improve tentative transfer to medical floor later today. History Interval history: extubated since 05/16, unfortunately he had a large melanotic stool at 12:30 pm today Hospitalist Physical - Physical exam Narrative exam: General: Nontoxic appearance, cachectic HEENT: MMM, EOMI cardiac: S1-S2 heard lungs: Decreased air entry, no wheezing abdomen: soft, nontender, nondistended bowel sounds positive extremities: no edema clubbing or cyanosis Skin: no rash or lesion Neuro: No focal deficit - Constitutional Vitals: Temp Pulse Resp BP Pulse Ox 98.1 F 84 24 84/56 93 05/17/16 08:00 05/17/16 11:31 05/17/16 11:00 05/17/16 11:00 05/17/16 11:00 General appearance: Present: other (intubated) Results - Labs CBC & Chem 7: 05/17/16 13:41 05/17/16 05:40 Labs: Laboratory Last Values WBC 5.3 K/mm3 (4.5-11.0) 05/15/16 04:05 RBC 3.39 M/mm3 (3.65-5.03) L 05/15/16 04:05 Hgb 9.6 gm/dl (11.8-15.2) L 05/15/16 04:05 Hct 29.3 % (35.5-45.6) L 05/15/16 04:05 MCV 86 fl (84-94) 05/15/16 04:05 MCH 28 pg (28-32) 05/15/16 04:05 MCHC 33 % (32-34) 05/15/16 04:05 RDW 16.8 % (13.2-15.2) H 05/15/16 04:05 Plt Count 102 K/mm3 (140-440) L 05/15/16 04:05 Lymph % (Auto) 14.4 % (13.4-35.0) 05/14/16 10:30 [place] % (Auto) 11.2 % (0.0-7.3) H 05/14/16 10:30 Eos % (Auto) 0.9 % (0.0-4.3) 05/14/16 10:30 Baso % (Auto) 0.3 % (0.0-1.8) 05/14/16 10:30 Lymph # 0.7 K/mm3 (1.2-5.4) L 05/14/16 10:30 [place] # 0.6 K/mm3 (0.0-0.8) 05/14/16 10:30 Eos # 0.0 K/mm3 (0.0-0.4) 05/14/16 10:30 Baso # 0.0 K/mm3 (0.0-0.1) 05/14/16 10:30 Add Manual Diff Complete 05/10/16 04:25 Total Counted 100 05/10/16 04:25 Seg Neutrophils % 73.2 % (40.0-70.0) H 05/14/16 10:30 Seg Neuts % (Manual) 92.0 % (40.0-70.0) H 05/10/16 04:25 Band Neutrophils % 3.0 % 05/10/16 04:25 Lymphocytes % (Manual) 0 % (13.4-35.0) L 05/10/16 04:25 Reactive Lymphs % (Man) 0 % 05/10/16 04:25 Monocytes % (Manual) 4.0 % (0.0-7.3) 05/10/16 04:25 Eosinophils % (Manual) 0 % (0.0-4.3) 05/10/16 04:25 Basophils % (Manual) 0 % (0.0-1.8) 05/10/16 04:25 Metamyelocytes % 0 % 05/10/16 04:25 Myelocytes % 1.0 % 05/10/16 04:25 Promyelocytes % 0 % 05/10/16 04:25 Blast Cells % 0 % 05/10/16 04:25 Nucleated RBC % Not Reportable 05/10/16 04:25 Seg Neutrophils # 3.6 K/mm3 (1.8-7.7) 05/14/16 10:30 Seg Neutrophils # Man 19.0 K/mm3 (1.8-7.7) H 05/10/16 04:25 Band Neutrophils # 0.6 K/mm3 05/10/16 04:25 Abs Lymphs (Manual) 1169 cells/uL (850-3900) 05/11/16 06:55 Lymphocytes # (Manual) 0.0 K/mm3 (1.2-5.4) L 05/10/16 04:25 Abs React Lymphs (Man) 0.0 K/mm3 05/10/16 04:25 Monocytes # (Manual) 0.8 K/mm3 (0.0-0.8) 05/10/16 04:25 Eosinophils # (Manual) 0.0 K/mm3 (0.0-0.4) 05/10/16 04:25 Basophils # (Manual) 0.0 K/mm3 (0.0-0.1) 05/10/16 04:25 Metamyelocytes # 0.0 K/mm3 05/10/16 04:25 Myelocytes # 0.2 K/mm3 05/10/16 04:25 Promyelocytes # 0.0 K/mm3 05/10/16 04:25 Blast Cells # 0.0 K/mm3 05/10/16 04:25 WBC Morphology Not Reportable 05/10/16 04:25 Hypersegmented Neuts Not Reportable 05/10/16 04:25 Hyposegmented Neuts Not Reportable 05/10/16 04:25 Hypogranular Neuts Not Reportable 05/10/16 04:25 Smudge Cells Not Reportable 05/10/16 04:25 Toxic Granulation Not Reportable 05/10/16 04:25 Toxic Vacuolation Not Reportable 05/10/16 04:25 Dohle Bodies Not Reportable 05/10/16 04:25 Pelger-Huet Anomaly Not Reportable 05/10/16 04:25 Amari Rods Not Reportable 05/10/16 04:25 Platelet Estimate Appears decreased 05/10/16 04:25 Clumped Platelets Not Reportable 05/10/16 04:25 Plt Clumps, EDTA Not Reportable 05/10/16 04:25 Large Platelets Not Reportable 05/10/16 04:25 Giant Platelets Not Reportable 05/10/16 04:25 Platelet Satelliting Not Reportable 05/10/16 04:25 Plt Morphology Comment Not Reportable 05/10/16 04:25 RBC Morphology Not Reportable 05/10/16 04:25 Dimorphic RBCs Not Reportable 05/10/16 04:25 Polychromasia Not Reportable 05/10/16 04:25 Hypochromasia Not Reportable 05/10/16 04:25 Poikilocytosis Not Reportable 05/10/16 04:25 Anisocytosis 1+ 05/10/16 04:25 Microcytosis Not Reportable 05/10/16 04:25 Macrocytosis Not Reportable 05/10/16 04:25 Spherocytes Not Reportable 05/10/16 04:25 Pappenheimer Bodies Not Reportable 05/10/16 04:25 Sickle Cells Not Reportable 05/10/16 04:25 Target Cells Not Reportable 05/10/16 04:25 Tear Drop Cells Not Reportable 05/10/16 04:25 Ovalocytes Not Reportable 05/10/16 04:25 Helmet Cells Not Reportable 05/10/16 04:25 [place] Bodies Not Reportable 05/10/16 04:25 [place] Rings Not Reportable 05/10/16 04:25 [place] Cells Not Reportable 05/10/16 04:25 Bite Cells Not Reportable 05/10/16 04:25 Crenated Cell Not Reportable 05/10/16 04:25 Elliptocytes Not Reportable 05/10/16 04:25 Acanthocytes (Spur) Not Reportable 05/10/16 04:25 Rouleaux Not Reportable 05/10/16 04:25 Hemoglobin C Crystals Not Reportable 05/10/16 04:25 Schistocytes Not Reportable 05/10/16 04:25 Malaria parasites Not Reportable 05/10/16 04:25 Kasi Bodies Not Reportable 05/10/16 04:25 Hem Pathologist Commnt No 05/10/16 04:25 PT 16.6 Sec. (12.2-14.9) H 05/09/16 12:06 INR 1.35 (0.87-1.13) H 05/09/16 12:06 APTT 27.4 Sec. (24.2-36.6) 05/09/16 12:06 POC ABG pH 7.481 (7.35-7.45) H 05/16/16 10:47 POC ABG pCO2 43.7 (35-45) 05/16/16 10:47 POC ABG pO2 58 (80-105) L 05/16/16 10:47 POC ABG HCO3 32.6 05/16/16 10:47 POC ABG Total CO2 34 05/16/16 10:47 POC ABG O2 Sat 91 05/16/16 10:47 POC ABG Base Excess 9 05/16/16 10:47 FiO2 30 % 05/16/16 10:47 Sodium 137 mmol/L (137-145) 05/17/16 05:40 Potassium 3.3 mmol/L (3.6-5.0) L 05/17/16 05:40 Chloride 97.3 mmol/L (98-107) L 05/17/16 05:40 Carbon Dioxide 30 mmol/L (22-30) 05/17/16 05:40 Anion Gap 13 mmol/L 05/17/16 05:40 BUN 5 mg/dL (9-20) L 05/17/16 05:40 Creatinine 0.3 mg/dL (0.8-1.5) L 05/17/16 05:40 Estimated GFR > 60 ml/min 05/17/16 05:40 BUN/Creatinine Ratio 16.66 % 05/17/16 05:40 Glucose 65 mg/dL (75-100) L 05/17/16 05:40 POC Glucose 74 (70-105) 05/17/16 05:47 Lactic Acid 1.0 mmol/L (0.7-2.0) 05/10/16 09:55 Calcium 7.4 mg/dL (8.4-10.2) L 05/17/16 05:40 Phosphorus 3.3 mg/dL (2.5-4.5) 05/17/16 05:40 Magnesium 1.5 mg/dL (1.7-2.3) L 05/17/16 05:40 Total Bilirubin 0.4 mg/dL (0.1-1.2) 05/13/16 12:30 AST 19 units/L (5-40) 05/13/16 12:30 ALT 13 units/L (7-56) 05/13/16 12:30 Alkaline Phosphatase 53 units/L (35-129) 05/13/16 12:30 Ammonia 33.0 umol/L (25-60) 05/09/16 23:00 Total Creatine Kinase 193 units/L (55-170) H 05/10/16 17:30 CK-MB (CK-2) 12.2 ng/mL (0.0-4.0) H 05/10/16 17:30 CK-MB (CK-2) Rel Index 6.3 (0-4) H 05/10/16 17:30 Troponin T 0.092 ng/mL (0.00-0.029) H 05/10/16 17:30 Total Protein 4.4 g/dL (6.3-8.2) L 05/13/16 12:30 Albumin 1.8 g/dL (3.9-5) L 05/13/16 12:30 Albumin/Globulin Ratio 0.7 % 05/13/16 12:30 Triglycerides 77 mg/dL (2-149) 05/10/16 09:55 Cholesterol 56 mg/dL (50-199) 05/10/16 09:55 LDL Cholesterol Direct 13 mg/dL (50-130) L 05/10/16 09:55 HDL Cholesterol 28 mg/dL (40-59) L 05/10/16 09:55 Cholesterol/HDL Ratio 2.00 % 05/10/16 09:55 Lipase 82 units/L (13-60) H 05/09/16 12:06 Urine Color Yellow (Yellow) 05/09/16 12:51 Urine Turbidity Slightly-cloudy (Clear) 05/09/16 12:51 Urine pH 6.0 (5.0-7.0) 05/09/16 12:51 Ur Specific [place] 1.019 (1.003-1.030) 05/09/16 12:51 Urine Protein 100 mg/dl mg/dL (Negative) 05/09/16 12:51 Urine Glucose (UA) Neg mg/dL (Negative) 05/09/16 12:51 Urine Ketones Neg mg/dL (Negative) 05/09/16 12:51 Urine Blood Neg (Negative) 05/09/16 12:51 Urine Nitrite Neg (Negative) 05/09/16 12:51 Urine Bilirubin Neg (Negative) 05/09/16 12:51 Urine Urobilinogen < 2.0 mg/dL (<2.0) 05/09/16 12:51 Ur Leukocyte Esterase Mod (Negative) 05/09/16 12:51 Urine WBC (Auto) > 182.0 /HPF (0.0-6.0) H 05/09/16 12:51 Urine RBC (Auto) 9.0 /HPF (0.0-6.0) 05/09/16 12:51 U Epithel Cells (Auto) 1.0 /HPF (0-13.0) 05/09/16 12:51 Urine Bacteria (Auto) 1+ /HPF (Negative) 05/09/16 12:51 Urine Mucus Few /HPF 05/09/16 12:51 Vancomycin Trough 7.5 ug/mL (5.0-20.0) 05/13/16 06:00 Urine Opiates Screen Presumptive negative 05/09/16 12:51 Urine Methadone Screen Presumptive negative 05/09/16 12:51 Ur Barbiturates Screen Presumptive negative 05/09/16 12:51 Ur Phencyclidine Scrn Presumptive negative 05/09/16 12:51 Ur Amphetamines Screen Presumptive negative 05/09/16 12:51 U Benzodiazepines Scrn Presumptive negative 05/09/16 12:51 Urine Cocaine Screen Presumptive negative 05/09/16 12:51 U Marijuana (THC) Screen Presumptive negative 05/09/16 12:51 Drugs of Abuse Note Disclamer 05/09/16 12:51 Plasma/Serum Alcohol < 0.01 gm% (0-0.07) 05/09/16 12:24 Lymph Enumerat CD4/CD8 0.24 (0.86-5.00) L 05/11/16 06:55 % CD3 Cells 89 % (57-85) H 05/11/16 06:55 Absolute CD3 Count 1035 cells/uL (840-3060) 05/11/16 06:55 % CD4 Cells 17 % (30-61) L 05/11/16 06:55 Absolute CD4 Count 200 cells/uL (490-1740) L 05/11/16 06:55 % CD8 Cells 73 % (12-42) H 05/11/16 06:55 Absolute CD8 Count 838 cells/uL (180-1170) 05/11/16 06:55 % CD19 Cells 5 % (6-29) L 05/11/16 06:55 Absolute CD19 Count 59 cells/uL (110-660) L 05/11/16 06:55 Hep Bs Antigen Non-reactive (Negative) 05/10/16 04:25 Hep B Core Total Ab Nonreactive (Nonreactive) 05/10/16 04:25 Hepatitis C Antibody Non-reactive (NonReactive) 05/10/16 04:25 HIV-1 RNA PCR copies/ml 204397 copies/mL (<20) H 05/11/16 06:55 HIV-1 RNA (PCR) log 5.42 Log cps/mL (<1.30) H 05/11/16 06:55 Blood Type A POSITIVE 05/09/16 12:06 Antibody Screen Negative 05/09/16 12:06 Crossmatch See Detail 05/09/16 12:06
[2016-05-17] MEDS: CLEOCIN PO SCH ×2 (11:59→17:11)
[2016-05-17] MEDS ORDERED: NACL 0.9% 1000 ML 1,000 ML IV ONE (12:49)
[2016-05-17 14:05] LABS: Hematocrit 33.8 % (35.5-45.6)
[2016-05-17] MEDS: D5/0.45NS 1,000 ML IV SCH (16:56)
[2016-05-17] MEDS ORDERED: TRIPLE ANTIBIOTIC TP ONE (18:00)
--- NOTE | 2016-05-17 18:43 | Progress Note ---
Subjective Date of service: 05/17/16 Principal diagnosis: Acute blood loss/anemia/duodenal ulcer Interval history: Patient is awake. Continues to improve. Extubated. VS - No fever cHEST - B/L MILD RHONCHI CVS - S1S2 abd - bs+ assessment 1. Sepsis 2. Pneumonia 3. hiv/aids 4.resp failure 5. copd 6.GI Bleed. 7. Bacteremia sec to bacteroides ( patient already on clindamycin) recommendation Continue current iv abx. cbc/bmp in am Objective - Constitutional Vitals: Vital Signs Temp Pulse Resp BP Pulse Ox 97.9 F 74 20 114/72 97 05/17/16 16:26 05/17/16 16:26 05/17/16 16:26 05/17/16 16:26 05/17/16 16:26 Temperature -Last 24 Hours Temperature 97.9 F Temperature 97.4 F Temperature 98.1 F Temperature 97.9 F Temperature 97.3 F Temperature 97.9 F - Labs CBC & Chem 7: 05/17/16 13:41 05/17/16 05:40 Labs: Abnormal lab results 05/17/16 05/17/16 05/17/16 Range/Units 05:40 11:51 13:41 Hgb 11.0 L (11.8-15.2) gm/dl Hct 33.8 L (35.5-45.6) % Potassium 3.3 L (3.6-5.0) mmol/L Chloride 97.3 L (98-107) mmol/L BUN 5 L (9-20) mg/dL Creatinine 0.3 L (0.8-1.5) mg/dL Glucose 65 L (75-100) mg/dL POC Glucose 114 H (70-105) Calcium 7.4 L (8.4-10.2) mg/dL Magnesium 1.5 L (1.7-2.3) mg/dL
[2016-05-18] MEDS: NOVOLOG SUB-Q SCH ×5 (00:05→23:45)
[2016-05-18] MEDS: CLEOCIN PO SCH ×5 (01:00→23:45)
[2016-05-18] MEDS: DUONEB 0.5 MG-3 MG/3 ML SOLN IH SCH ×4 (02:43→21:04)
[2016-05-18] MEDS: D5/0.45NS 1,000 ML IV SCH (06:08)
[2016-05-18] MEDS: BROVANA NEBU IH SCH ×2 (07:57→21:04)
[2016-05-18] MEDS: PULMICORT IH SCH ×2 (07:57→21:04)
--- NOTE | 2016-05-18 09:39 | Progress Note ---
Assessment and Plan 56 y/o male with acute respiratory failure, systolic heart failure, and duodenal ulcer. 1. Wean FIO2 as tolerated 2. Abx therapy per ID Subjective Date of service: 05/18/16 Principal diagnosis: Acute blood loss/anemia/duodenal ulcer Interval history: No acute events. Successful transition out of ICU. Currently sitting up in bed off oxygen. Wants to sit up on the side of the bed or in the chair to eat breakfast. Objective Vital Signs - 12hr 05/17/16 05/18/16 05/18/16 22:00 00:00 02:45 Temperature 98.5 F Pulse Rate [ 83 Left Throughout ] Pulse Rate [ Right Dorsalis Pedis] Pulse Rate [ 98 H Right] Respiratory 18 Rate Respiratory 25 H Rate [Left Throughout] Blood Pressure 106/59 Blood Pressure [Left Arm] O2 Sat by Pulse 95 91 Oximetry 05/18/16 05/18/16 05/18/16 03:24 04:00 08:00 Temperature 98.3 F 98.1 F Pulse Rate [ 92 H Left Throughout ] Pulse Rate [ 96 H Right Dorsalis Pedis] Pulse Rate [ 88 Right] Respiratory 18 20 Rate Respiratory 24 Rate [Left Throughout] Blood Pressure 100/57 Blood Pressure 104/72 [Left Arm] O2 Sat by Pulse 96 Oximetry Constitutional: alert Eyes: non-icteric ENT: oropharynx dry Neck: supple, no JVD Effort: normal, mildly labored Ascultation: Bilateral: clear, diminished breath sounds, wheezes, rhonchi ( occasional ) Cardiovascular: regular rate and rhythm Gastrointestinal: hypoactive bowel sounds, soft, non-tender Extremities: no cyanosis, no edema Neurologic: normal mental status, non-focal exam, pupils equal and round, CN II- XII normal CBC and BMP: 05/17/16 13:41 05/17/16 05:40 ABG, PT/INR, D-dimer: ABG POC ABG pH 7.481 (7.35-7.45) H 05/16/16 10:47 POC ABG pCO2 43.7 (35-45) 05/16/16 10:47 POC ABG pO2 58 (80-105) L 05/16/16 10:47 POC ABG HCO3 32.6 05/16/16 10:47 POC ABG Total CO2 34 05/16/16 10:47 POC ABG O2 Sat 91 05/16/16 10:47 PT/INR, D-dimer PT 16.6 Sec. (12.2-14.9) H 05/09/16 12:06 INR 1.35 (0.87-1.13) H 05/09/16 12:06 Abnormal lab findings: Abnormal Labs 05/09/16 05/10/16 05/10/16 23:00 02:46 04:25 WBC 22.4 H 20.7 H RBC 5.05 H Hgb Hct 45.8 H D RDW 17.9 H 18.0 H Plt Count 70 L 68 L Lymph % (Auto) [place] % (Auto) Lymph # Seg Neutrophils % Seg Neuts % (Manual) 92.0 H 92.0 H Lymphocytes % (Manual) 1.0 L 0 L Seg Neutrophils # Seg Neutrophils # Man 20.6 H 19.0 H Lymphocytes # (Manual) 0.2 L 0.0 L POC ABG pH POC ABG pCO2 POC ABG pO2 Sodium Potassium Chloride Carbon Dioxide BUN Creatinine Glucose POC Glucose Calcium Phosphorus Magnesium Total Creatine Kinase CK-MB (CK-2) CK-MB (CK-2) Rel Index Troponin T Total Protein Albumin LDL Cholesterol Direct HDL Cholesterol Lymph Enumerat CD4/CD8 % CD3 Cells % CD4 Cells Absolute CD4 Count % CD8 Cells % CD19 Cells Absolute CD19 Count HIV-1 RNA PCR copies/ml HIV-1 RNA (PCR) log 05/10/16 05/10/16 05/10/16 04:25 09:55 11:13 WBC RBC Hgb Hct RDW Plt Count Lymph % (Auto) [place] % (Auto) Lymph # Seg Neutrophils % Seg Neuts % (Manual) Lymphocytes % (Manual) Seg Neutrophils # Seg Neutrophils # Man Lymphocytes # (Manual) POC ABG pH 7.152 L POC ABG pCO2 65.4 H POC ABG pO2 48 L Sodium Potassium Chloride 110.4 H Carbon Dioxide BUN 21 H Creatinine Glucose 47 L POC Glucose Calcium 5.7 L* Phosphorus Magnesium Total Creatine Kinase CK-MB (CK-2) 11.5 H CK-MB (CK-2) Rel Index 7.6 H Troponin T 0.105 H* Total Protein 3.4 L Albumin 1.8 L LDL Cholesterol Direct 13 L HDL Cholesterol 28 L Lymph Enumerat CD4/CD8 % CD3 Cells % CD4 Cells Absolute CD4 Count % CD8 Cells % CD19 Cells Absolute CD19 Count HIV-1 RNA PCR copies/ml HIV-1 RNA (PCR) log 05/10/16 05/10/16 05/10/16 13:28 14:05 14:18 WBC RBC Hgb Hct RDW Plt Count Lymph % (Auto) [place] % (Auto) Lymph # Seg Neutrophils % Seg Neuts % (Manual) Lymphocytes % (Manual) Seg Neutrophils # Seg Neutrophils # Man Lymphocytes # (Manual) POC ABG pH 7.199 L POC ABG pCO2 56.9 H POC ABG pO2 67 L Sodium Potassium Chloride Carbon Dioxide BUN Creatinine Glucose POC Glucose < 40 L 109 H Calcium Phosphorus Magnesium Total Creatine Kinase CK-MB (CK-2) CK-MB (CK-2) Rel Index Troponin T Total Protein Albumin LDL Cholesterol Direct HDL Cholesterol Lymph Enumerat CD4/CD8 % CD3 Cells % CD4 Cells Absolute CD4 Count % CD8 Cells % CD19 Cells Absolute CD19 Count HIV-1 RNA PCR copies/ml HIV-1 RNA (PCR) log 05/10/16 05/10/16 05/10/16 16:02 17:30 17:30 WBC RBC Hgb 11.1 L Hct 34.9 L D RDW Plt Count Lymph % (Auto) [place] % (Auto) Lymph # Seg Neutrophils % Seg Neuts % (Manual) Lymphocytes % (Manual) Seg Neutrophils # Seg Neutrophils # Man Lymphocytes # (Manual) POC ABG pH 7.307 L POC ABG pCO2 POC ABG pO2 Sodium Potassium Chloride Carbon Dioxide BUN Creatinine Glucose POC Glucose Calcium Phosphorus Magnesium Total Creatine Kinase 193 H CK-MB (CK-2) 12.2 H CK-MB (CK-2) Rel Index 6.3 H Troponin T 0.092 H Total Protein Albumin LDL Cholesterol Direct HDL Cholesterol Lymph Enumerat CD4/CD8 % CD3 Cells % CD4 Cells Absolute CD4 Count % CD8 Cells % CD19 Cells Absolute CD19 Count HIV-1 RNA PCR copies/ml HIV-1 RNA (PCR) log 05/10/16 05/10/16 05/11/16 18:42 23:03 03:00 WBC 14.9 H RBC Hgb 10.3 L Hct 32.3 L RDW 18.2 H Plt Count 97 L Lymph % (Auto) [place] % (Auto) Lymph # Seg Neutrophils % Seg Neuts % (Manual) Lymphocytes % (Manual) Seg Neutrophils # Seg Neutrophils # Man Lymphocytes # (Manual) POC ABG pH POC ABG pCO2 POC ABG pO2 Sodium Potassium Chloride Carbon Dioxide BUN Creatinine Glucose POC Glucose 113 H 204 H Calcium Phosphorus Magnesium Total Creatine Kinase CK-MB (CK-2) CK-MB (CK-2) Rel Index Troponin T Total Protein Albumin LDL Cholesterol Direct HDL Cholesterol Lymph Enumerat CD4/CD8 % CD3 Cells % CD4 Cells Absolute CD4 Count % CD8 Cells % CD19 Cells Absolute CD19 Count HIV-1 RNA PCR copies/ml HIV-1 RNA (PCR) log 05/11/16 05/11/16 05/11/16 03:21 04:00 06:55 WBC RBC Hgb Hct RDW Plt Count Lymph % (Auto) [place] % (Auto) Lymph # Seg Neutrophils % Seg Neuts % (Manual) Lymphocytes % (Manual) Seg Neutrophils # Seg Neutrophils # Man Lymphocytes # (Manual) POC ABG pH POC ABG pCO2 POC ABG pO2 Sodium Potassium Chloride 111.5 H Carbon Dioxide BUN 26 H Creatinine Glucose 207 H POC Glucose 217 H Calcium 6.4 L Phosphorus Magnesium 1.4 L Total Creatine Kinase CK-MB (CK-2) CK-MB (CK-2) Rel Index Troponin T Total Protein Albumin LDL Cholesterol Direct HDL Cholesterol Lymph Enumerat CD4/CD8 0.24 L % CD3 Cells 89 H % CD4 Cells 17 L Absolute CD4 Count 200 L % CD8 Cells 73 H % CD19 Cells 5 L Absolute CD19 Count 59 L HIV-1 RNA PCR copies/ml HIV-1 RNA (PCR) log 05/11/16 05/11/16 05/11/16 06:55 10:57 11:48 WBC RBC Hgb Hct RDW Plt Count Lymph % (Auto) [place] % (Auto) Lymph # Seg Neutrophils % Seg Neuts % (Manual) Lymphocytes % (Manual) Seg Neutrophils # Seg Neutrophils # Man Lymphocytes # (Manual) POC ABG pH POC ABG pCO2 POC ABG pO2 46 L 75 L Sodium Potassium Chloride Carbon Dioxide BUN Creatinine Glucose POC Glucose Calcium Phosphorus Magnesium Total Creatine Kinase CK-MB (CK-2) CK-MB (CK-2) Rel Index Troponin T Total Protein Albumin LDL Cholesterol Direct HDL Cholesterol Lymph Enumerat CD4/CD8 % CD3 Cells % CD4 Cells Absolute CD4 Count % CD8 Cells % CD19 Cells Absolute CD19 Count HIV-1 RNA PCR copies/ml 516697 H HIV-1 RNA (PCR) log 5.42 H 05/11/16 05/11/16 05/11/16 12:17 17:11 23:38 WBC RBC Hgb Hct RDW Plt Count Lymph % (Auto) [place] % (Auto) Lymph # Seg Neutrophils % Seg Neuts % (Manual) Lymphocytes % (Manual) Seg Neutrophils # Seg Neutrophils # Man Lymphocytes # (Manual) POC ABG pH POC ABG pCO2 POC ABG pO2 Sodium Potassium Chloride Carbon Dioxide BUN Creatinine Glucose POC Glucose 232 H 204 H 126 H Calcium Phosphorus Magnesium Total Creatine Kinase CK-MB (CK-2) CK-MB (CK-2) Rel Index Troponin T Total Protein Albumin LDL Cholesterol Direct HDL Cholesterol Lymph Enumerat CD4/CD8 % CD3 Cells % CD4 Cells Absolute CD4 Count % CD8 Cells % CD19 Cells Absolute CD19 Count HIV-1 RNA PCR copies/ml HIV-1 RNA (PCR) log 05/12/16 05/12/16 05/12/16 05:00 05:00 05:00 WBC RBC 3.12 L Hgb 8.9 L Hct 27.0 L RDW 17.8 H Plt Count 72 L Lymph % (Auto) 9.2 L [place] % (Auto) Lymph # 0.9 L Seg Neutrophils % 84.0 H Seg Neuts % (Manual) Lymphocytes % (Manual) Seg Neutrophils # 8.1 H Seg Neutrophils # Man Lymphocytes # (Manual) POC ABG pH POC ABG pCO2 POC ABG pO2 Sodium Potassium 3.4 L Chloride 110.2 H Carbon Dioxide BUN 23 H Creatinine 0.5 L Glucose 172 H POC Glucose Calcium 7.3 L Phosphorus 1.5 L D Magnesium 1.6 L Total Creatine Kinase CK-MB (CK-2) CK-MB (CK-2) Rel Index Troponin T Total Protein 3.7 L Albumin 1.7 L LDL Cholesterol Direct HDL Cholesterol Lymph Enumerat CD4/CD8 % CD3 Cells % CD4 Cells Absolute CD4 Count % CD8 Cells % CD19 Cells Absolute CD19 Count HIV-1 RNA PCR copies/ml HIV-1 RNA (PCR) log 05/12/16 05/12/16 05/12/16 05:18 05:44 12:26 WBC RBC Hgb Hct RDW Plt Count Lymph % (Auto) [place] % (Auto) Lymph # Seg Neutrophils % Seg Neuts % (Manual) Lymphocytes % (Manual) Seg Neutrophils # Seg Neutrophils # Man Lymphocytes # (Manual) POC ABG pH POC ABG pCO2 POC ABG pO2 64 L Sodium Potassium Chloride Carbon Dioxide BUN Creatinine Glucose POC Glucose 183 H 134 H Calcium Phosphorus Magnesium Total Creatine Kinase CK-MB (CK-2) CK-MB (CK-2) Rel Index Troponin T Total Protein Albumin LDL Cholesterol Direct HDL Cholesterol Lymph Enumerat CD4/CD8 % CD3 Cells % CD4 Cells Absolute CD4 Count % CD8 Cells % CD19 Cells Absolute CD19 Count HIV-1 RNA PCR copies/ml HIV-1 RNA (PCR) log 05/12/16 05/13/16 05/13/16 18:28 00:10 04:49 WBC RBC Hgb Hct RDW Plt Count Lymph % (Auto) [place] % (Auto) Lymph # Seg Neutrophils % Seg Neuts % (Manual) Lymphocytes % (Manual) Seg Neutrophils # Seg Neutrophils # Man Lymphocytes # (Manual) POC ABG pH POC ABG pCO2 POC ABG pO2 66 L Sodium Potassium Chloride Carbon Dioxide BUN Creatinine Glucose POC Glucose 119 H 152 H Calcium Phosphorus Magnesium Total Creatine Kinase CK-MB (CK-2) CK-MB (CK-2) Rel Index Troponin T Total Protein Albumin LDL Cholesterol Direct HDL Cholesterol Lymph Enumerat CD4/CD8 % CD3 Cells % CD4 Cells Absolute CD4 Count % CD8 Cells % CD19 Cells Absolute CD19 Count HIV-1 RNA PCR copies/ml HIV-1 RNA (PCR) log 05/13/16 05/13/16 05/13/16 06:00 06:22 12:15 WBC RBC Hgb Hct RDW Plt Count Lymph % (Auto) [place] % (Auto) Lymph # Seg Neutrophils % Seg Neuts % (Manual) Lymphocytes % (Manual) Seg Neutrophils # Seg Neutrophils # Man Lymphocytes # (Manual) POC ABG pH POC ABG pCO2 POC ABG pO2 Sodium Potassium 3.5 L Chloride Carbon Dioxide BUN Creatinine 0.3 L Glucose 105 H POC Glucose 114 H 128 H Calcium 7.3 L Phosphorus Magnesium 1.5 L Total Creatine Kinase CK-MB (CK-2) CK-MB (CK-2) Rel Index Troponin T Total Protein Albumin LDL Cholesterol Direct HDL Cholesterol Lymph Enumerat CD4/CD8 % CD3 Cells % CD4 Cells Absolute CD4 Count % CD8 Cells % CD19 Cells Absolute CD19 Count HIV-1 RNA PCR copies/ml HIV-1 RNA (PCR) log 05/13/16 05/13/16 05/13/16 12:30 12:30 18:02 WBC RBC 3.53 L Hgb 9.8 L Hct 30.9 L RDW 17.6 H Plt Count 88 L Lymph % (Auto) 9.6 L [place] % (Auto) 9.8 H Lymph # 0.5 L Seg Neutrophils % 79.9 H Seg Neuts % (Manual) Lymphocytes % (Manual) Seg Neutrophils # Seg Neutrophils # Man Lymphocytes # (Manual) POC ABG pH POC ABG pCO2 POC ABG pO2 Sodium Potassium Chloride Carbon Dioxide BUN Creatinine 0.3 L Glucose 113 H POC Glucose 123 H Calcium 7.2 L Phosphorus Magnesium Total Creatine Kinase CK-MB (CK-2) CK-MB (CK-2) Rel Index Troponin T Total Protein 4.4 L Albumin 1.8 L LDL Cholesterol Direct HDL Cholesterol Lymph Enumerat CD4/CD8 % CD3 Cells % CD4 Cells Absolute CD4 Count % CD8 Cells % CD19 Cells Absolute CD19 Count HIV-1 RNA PCR copies/ml HIV-1 RNA (PCR) log 05/13/16 05/14/16 05/14/16 23:19 05:00 05:00 WBC RBC Hgb Hct RDW Plt Count Lymph % (Auto) [place] % (Auto) Lymph # Seg Neutrophils % Seg Neuts % (Manual) Lymphocytes % (Manual) Seg Neutrophils # Seg Neutrophils # Man Lymphocytes # (Manual) POC ABG pH POC ABG pCO2 POC ABG pO2 Sodium 136 L Potassium Chloride 97.9 L Carbon Dioxide 31 H BUN 8 L Creatinine 0.2 L Glucose 231 H POC Glucose 106 H Calcium 7.3 L Phosphorus 4.8 H D Magnesium Total Creatine Kinase CK-MB (CK-2) CK-MB (CK-2) Rel Index Troponin T Total Protein Albumin LDL Cholesterol Direct HDL Cholesterol Lymph Enumerat CD4/CD8 % CD3 Cells % CD4 Cells Absolute CD4 Count % CD8 Cells % CD19 Cells Absolute CD19 Count HIV-1 RNA PCR copies/ml HIV-1 RNA (PCR) log 05/14/16 05/14/16 05/15/16 05:33 10:30 00:28 WBC RBC 3.39 L Hgb 9.5 L Hct 29.3 L RDW 17.2 H Plt Count 85 L Lymph % (Auto) [place] % (Auto) 11.2 H Lymph # 0.7 L Seg Neutrophils % 73.2 H Seg Neuts % (Manual) Lymphocytes % (Manual) Seg Neutrophils # Seg Neutrophils # Man Lymphocytes # (Manual) POC ABG pH 7.492 H POC ABG pCO2 POC ABG pO2 Sodium Potassium Chloride Carbon Dioxide BUN Creatinine Glucose POC Glucose 156 H Calcium Phosphorus Magnesium Total Creatine Kinase CK-MB (CK-2) CK-MB (CK-2) Rel Index Troponin T Total Protein Albumin LDL Cholesterol Direct HDL Cholesterol Lymph Enumerat CD4/CD8 % CD3 Cells % CD4 Cells Absolute CD4 Count % CD8 Cells % CD19 Cells Absolute CD19 Count HIV-1 RNA PCR copies/ml HIV-1 RNA (PCR) log 05/15/16 05/15/16 05/15/16 04:05 04:05 05:15 WBC RBC 3.39 L Hgb 9.6 L Hct 29.3 L RDW 16.8 H Plt Count 102 L Lymph % (Auto) [place] % (Auto) Lymph # Seg Neutrophils % Seg Neuts % (Manual) Lymphocytes % (Manual) Seg Neutrophils # Seg Neutrophils # Man Lymphocytes # (Manual) POC ABG pH 7.524 H POC ABG pCO2 POC ABG pO2 Sodium Potassium Chloride Carbon Dioxide 33 H BUN Creatinine 0.3 L Glucose 112 H POC Glucose Calcium 7.6 L Phosphorus Magnesium Total Creatine Kinase CK-MB (CK-2) CK-MB (CK-2) Rel Index Troponin T Total Protein Albumin LDL Cholesterol Direct HDL Cholesterol Lymph Enumerat CD4/CD8 % CD3 Cells % CD4 Cells Absolute CD4 Count % CD8 Cells % CD19 Cells Absolute CD19 Count HIV-1 RNA PCR copies/ml HIV-1 RNA (PCR) log 05/15/16 05/15/16 05/16/16 06:03 10:47 05:16 WBC RBC Hgb Hct RDW Plt Count Lymph % (Auto) [place] % (Auto) Lymph # Seg Neutrophils % Seg Neuts % (Manual) Lymphocytes % (Manual) Seg Neutrophils # Seg Neutrophils # Man Lymphocytes # (Manual) POC ABG pH 7.468 H POC ABG pCO2 POC ABG pO2 60 L Sodium Potassium Chloride Carbon Dioxide BUN Creatinine Glucose POC Glucose 125 H 107 H Calcium Phosphorus Magnesium Total Creatine Kinase CK-MB (CK-2) CK-MB (CK-2) Rel Index Troponin T Total Protein Albumin LDL Cholesterol Direct HDL Cholesterol Lymph Enumerat CD4/CD8 % CD3 Cells % CD4 Cells Absolute CD4 Count % CD8 Cells % CD19 Cells Absolute CD19 Count HIV-1 RNA PCR copies/ml HIV-1 RNA (PCR) log 05/16/16 05/16/16 05/17/16 08:20 10:47 05:40 WBC RBC Hgb Hct RDW Plt Count Lymph % (Auto) [place] % (Auto) Lymph # Seg Neutrophils % Seg Neuts % (Manual) Lymphocytes % (Manual) Seg Neutrophils # Seg Neutrophils # Man Lymphocytes # (Manual) POC ABG pH 7.481 H POC ABG pCO2 POC ABG pO2 58 L Sodium 134 L Potassium 3.3 L Chloride 94.7 L 97.3 L Carbon Dioxide 34 H BUN 7 L 5 L Creatinine 0.2 L 0.3 L Glucose 65 L POC Glucose Calcium 7.6 L 7.4 L Phosphorus Magnesium 1.5 L Total Creatine Kinase CK-MB (CK-2) CK-MB (CK-2) Rel Index Troponin T Total Protein Albumin LDL Cholesterol Direct HDL Cholesterol Lymph Enumerat CD4/CD8 % CD3 Cells % CD4 Cells Absolute CD4 Count % CD8 Cells % CD19 Cells Absolute CD19 Count HIV-1 RNA PCR copies/ml HIV-1 RNA (PCR) log 05/17/16 05/17/16 05/18/16 11:51 13:41 06:06 WBC RBC Hgb 11.0 L Hct 33.8 L RDW Plt Count Lymph % (Auto) [place] % (Auto) Lymph # Seg Neutrophils % Seg Neuts % (Manual) Lymphocytes % (Manual) Seg Neutrophils # Seg Neutrophils # Man Lymphocytes # (Manual) POC ABG pH POC ABG pCO2 POC ABG pO2 Sodium Potassium Chloride Carbon Dioxide BUN Creatinine Glucose POC Glucose 114 H 137 H Calcium Phosphorus Magnesium Total Creatine Kinase CK-MB (CK-2) CK-MB (CK-2) Rel Index Troponin T Total Protein Albumin LDL Cholesterol Direct HDL Cholesterol Lymph Enumerat CD4/CD8 % CD3 Cells % CD4 Cells Absolute CD4 Count % CD8 Cells % CD19 Cells Absolute CD19 Count HIV-1 RNA PCR copies/ml HIV-1 RNA (PCR) log
[2016-05-18] MEDS: PROTONIX PO SCH ×2 (10:34→23:45)
[2016-05-18] MEDS: ATIVAN PO PRN (12:03)
--- NOTE | 2016-05-18 14:11 | Discharge Summary ---
Providers - Providers Date of Admission: 05/09/16 13:20 Attending physician: NAMAN GONSALEZ 05/09/16 13:24 Consult to Physician [CONS] Urgent Consulting Provider: RENZO MAYS Reason For Exam: GI bleed Notified:: yes 05/09/16 13:26 Consult to Physician [CONS] Routine Consulting Provider: NUNO VAUGHN Reason For Exam: elevated troponin Place consult to:: [facility] Notified:: -- Phone number called:: [phone] Was contact made?: No If yes, spoke with:: placed on list Time called:: 07:36 05/09/16 17:18 Consult to Physician [CONS] Routine Consulting Provider: LUANNE AL Reason For Exam: GI bleed Place consult to:: dr al Notified:: as Phone number called:: Consult to Physician [CONS] Urgent Consulting Provider: MATY POSADA Reason For Exam: Duodenal ulcer Notified:: Left VM 05/10/16 12:39 Consult to Physician [CONS] Urgent Consulting Provider: DIMITRI AVITIA Reason For Exam: infectious disease management Place consult to:: office Notified:: office Phone number called:: [phone] Was contact made?: Yes Time called:: 12:00 05/10/16 20:09 Consult to Wound/ET Nurse [CONS] Routine Reason For Exam: wound eval sacrum 05/18/16 09:52 Physical Therapy Evaluation and Treat [CONS] Routine Comment: Reason For Exam: weak Primary care physician: NISREEN WISEMAN MD Hospitalization Condition: Critical Disposition: STILL A PATIENT Core Measure Documentation - Palliative Care Palliative Care/ Comfort Measures: Not Applicable Exam - Constitutional Vitals: Temp Pulse Resp BP Pulse Ox 98.1 F 88 20 104/72 96 05/18/16 08:00 05/18/16 08:08 05/18/16 08:08 05/18/16 08:00 05/18/16 08:00 Plan Follow up with: PRIMARY MD IVONE [Primary Care Provider] - 3-5 Days
--- NOTE | 2016-05-18 14:23 | Progress Note ---
Assessment and Plan 56yo WM: Acute respiratory failure-->extubated 05/16 per pulmonary Hypotension-->resolved Sepsis antibiotics per ID Elevated troponin-->may be due to demand ischemia minimally elevated but flat Echo: EF 30-35%, mild AR, mild MR, mild-moderate TR, RVSP 48mmHg Cardiomyopathy EF 30-35% possibly alcoholic will hold off on initiation of BB or ACEI due to recent hypotension Hypokalemia replace to keep potassium ~ 4 Hypomagnesemia replace to keep magnesium ~ 2 Bleeding duodenal ulcer/Anemia s/p coil embolization of gastroduodenal artery ETOH abuse Tobacco abuse HIV Stable cardiac status. Continue current management. The patient has been seen in conjunction with Dr. Calvillo who agrees with the assessment and plan of care. Subjective Date of service: 05/18/16 Principal diagnosis: Acute blood loss/anemia/duodenal ulcer Interval history: The patient is resting in bed. He appears somewhat confused. No acute distress noted. Objective Last Vital Signs Temp 98.1 F 05/18/16 08:00 Pulse 110 H 05/18/16 13:23 Resp 20 05/18/16 13:23 BP 104/72 05/18/16 08:00 Pulse Ox 96 05/18/16 08:00 - Physical Examination General: No Apparent Distress (pt. confused) HEENT: Positive: Normocephaly, Mucus Membranes Moist Neck: Positive: neck supple, trachea midline Cardiac: Positive: Reg Rate and Rhythm, S1/S2 Lungs: Positive: Rhonchi Neuro: Positive: Other (pt. awake but confused) Abdomen: Positive: Soft Skin: Positive: Clear. Negative: Rash Extremities: Present: upper extr. pulses, lower extr. pulses. Absent: edema - Imaging and Cardiology EKG: report reviewed, image reviewed Echo: report reviewed (04/2016: EF 30-35%, mild AR, mild MR, mild-moderate TR, RVSP 48mmHg) - EKG Sinus rhythms and dysrhythmias: sinus rhythm Repolarization changes or abnormalities: nonspecific abnormality, ST segment, and/or T wave
--- NOTE | 2016-05-18 19:15 | Progress Note ---
Subjective Date of service: 05/18/16 Principal diagnosis: Acute blood loss/anemia/duodenal ulcer Interval history: Patient is awake. Continues to improve. Extubated. VS - No fever cHEST - B/L MILD RHONCHI CVS - S1S2 abd - bs+ assessment 1. Sepsis 2. Pneumonia 3. hiv/aids 4.resp failure 5. copd 6.GI Bleed. 7. Bacteremia sec to bacteroides ( patient already on clindamycin) recommendation D/C PLANNING ON ORAL CLINDAMYCIN 600MG EVERY 8HRLY FOR 10DAYS. Objective - Constitutional Vitals: Vital Signs Temp Pulse Resp BP Pulse Ox 98.4 F 98 H 20 110/68 96 05/18/16 16:00 05/18/16 16:00 05/18/16 16:00 05/18/16 16:00 05/18/16 10:00 Temperature -Last 24 Hours Temperature 98.4 F Temperature 98.1 F Temperature 98.3 F Temperature 98.5 F Temperature 98.4 F - Labs CBC & Chem 7: 05/17/16 13:41 05/17/16 05:40 Labs: Abnormal lab results 05/18/16 05/18/16 05/18/16 Range/Units 06:06 11:35 16:45 POC Glucose 137 H 167 H 251 H (70-105)
[2016-05-19] MEDS: DUONEB 0.5 MG-3 MG/3 ML SOLN IH SCH ×2 (02:27→08:50)
--- NOTE | 2016-05-19 03:27 | Progress Note ---
Assessment and Plan - Patient Problems (1) Respiratory failure Current Visit: Yes Status: Resolved Qualifiers: Chronicity: C Respiratory failure complication: R Plan to address problem: Supplemental oxygen as clinically indicated,ambulation, pulmonary toilet, incentive spirometry (2) Pneumonia Current Visit: Yes Status: Resolved Qualifiers: Pneumonia type: P Aspiration pneumonia type: A Laterality: L Lung location: L Plan to address problem: Continue abx, D/C planning with oral abx (3) Sepsis Current Visit: Yes Status: Resolved Qualifiers: Sepsis type: S Plan to address problem: Continue current abx regimen, ID consulted. (4) Debility Current Visit: Yes Status: Acute Plan to address problem: PT consulted: Discussed care plan. recommend SNF/Rehab placement. Pt declines at this time, discussed with case management. Pt again offered therapy by case management and patient continues to decline therapy. (5) GI bleed Current Visit: Yes Status: Resolved Qualifiers: GI bleed type/associated pathology: gastrointestinal hemorrhage with hematemesis Gastritis type: G Qualified Code(s): K92.0 - Hematemesis Plan to address problem: supportive care, PPI therapy, HGB stable at this time. 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 Pt states that he wants to go home. Pt informed of concerns regarding safety. PT unable to conduct ADL, ambulate independently, and conduct transfers. PT consulted. Pt refuses SNF/Rehab placement. Hospitalist Physical - Constitutional Vitals: Temp Pulse Resp BP Pulse Ox 98.3 F 96 H 20 117/70 96 05/19/16 00:00 05/19/16 02:28 05/19/16 02:28 05/19/16 00:00 05/18/16 21:08 General appearance: Present: no acute distress, other (intubated) - EENT Eyes: Present: PERRL, EOM intact ENT: hearing intact - Neck Neck: Present: supple - Respiratory Respiratory effort: normal Respiratory: bilateral: diminished - Cardiovascular Rhythm: regular Heart Sounds: Present: S1 & S2 - Extremities Extremities: no ischemia Peripheral Pulses: within normal limits - Abdominal General gastrointestinal: soft, non-tender, non-distended - Integumentary Integumentary: Present: clear, dry - Psychiatric Psychiatric: appropriate mood/affect, cooperative - Neurologic Neurologic: CNII-XII intact, moves all extremities, no gait normal - Allied Health Allied health notes reviewed: PT, case management Results - Labs CBC & Chem 7: 05/17/16 13:41 05/17/16 05:40 Labs: Laboratory Last Values WBC 5.3 K/mm3 (4.5-11.0) 05/15/16 04:05 RBC 3.39 M/mm3 (3.65-5.03) L 05/15/16 04:05 Hgb 11.0 gm/dl (11.8-15.2) L 05/17/16 13:41 Hct 33.8 % (35.5-45.6) L 05/17/16 13:41 MCV 86 fl (84-94) 05/15/16 04:05 MCH 28 pg (28-32) 05/15/16 04:05 MCHC 33 % (32-34) 05/15/16 04:05 RDW 16.8 % (13.2-15.2) H 05/15/16 04:05 Plt Count 102 K/mm3 (140-440) L 05/15/16 04:05 Lymph % (Auto) 14.4 % (13.4-35.0) 05/14/16 10:30 Bledsoe % (Auto) 11.2 % (0.0-7.3) H 05/14/16 10:30 Eos % (Auto) 0.9 % (0.0-4.3) 05/14/16 10:30 Baso % (Auto) 0.3 % (0.0-1.8) 05/14/16 10:30 Lymph # 0.7 K/mm3 (1.2-5.4) L 05/14/16 10:30 Bledsoe # 0.6 K/mm3 (0.0-0.8) 05/14/16 10:30 Eos # 0.0 K/mm3 (0.0-0.4) 05/14/16 10:30 Baso # 0.0 K/mm3 (0.0-0.1) 05/14/16 10:30 Add Manual Diff Complete 05/10/16 04:25 Total Counted 100 05/10/16 04:25 Seg Neutrophils % 73.2 % (40.0-70.0) H 05/14/16 10:30 Seg Neuts % (Manual) 92.0 % (40.0-70.0) H 05/10/16 04:25 Band Neutrophils % 3.0 % 05/10/16 04:25 Lymphocytes % (Manual) 0 % (13.4-35.0) L 05/10/16 04:25 Reactive Lymphs % (Man) 0 % 05/10/16 04:25 Monocytes % (Manual) 4.0 % (0.0-7.3) 05/10/16 04:25 Eosinophils % (Manual) 0 % (0.0-4.3) 05/10/16 04:25 Basophils % (Manual) 0 % (0.0-1.8) 05/10/16 04:25 Metamyelocytes % 0 % 05/10/16 04:25 Myelocytes % 1.0 % 05/10/16 04:25 Promyelocytes % 0 % 05/10/16 04:25 Blast Cells % 0 % 05/10/16 04:25 Nucleated RBC % Not Reportable 05/10/16 04:25 Seg Neutrophils # 3.6 K/mm3 (1.8-7.7) 05/14/16 10:30 Seg Neutrophils # Man 19.0 K/mm3 (1.8-7.7) H 05/10/16 04:25 Band Neutrophils # 0.6 K/mm3 05/10/16 04:25 Abs Lymphs (Manual) 1169 cells/uL (850-3900) 05/11/16 06:55 Lymphocytes # (Manual) 0.0 K/mm3 (1.2-5.4) L 05/10/16 04:25 Abs React Lymphs (Man) 0.0 K/mm3 05/10/16 04:25 Monocytes # (Manual) 0.8 K/mm3 (0.0-0.8) 05/10/16 04:25 Eosinophils # (Manual) 0.0 K/mm3 (0.0-0.4) 05/10/16 04:25 Basophils # (Manual) 0.0 K/mm3 (0.0-0.1) 05/10/16 04:25 Metamyelocytes # 0.0 K/mm3 05/10/16 04:25 Myelocytes # 0.2 K/mm3 05/10/16 04:25 Promyelocytes # 0.0 K/mm3 05/10/16 04:25 Blast Cells # 0.0 K/mm3 05/10/16 04:25 WBC Morphology Not Reportable 05/10/16 04:25 Hypersegmented Neuts Not Reportable 05/10/16 04:25 Hyposegmented Neuts Not Reportable 05/10/16 04:25 Hypogranular Neuts Not Reportable 05/10/16 04:25 Smudge Cells Not Reportable 05/10/16 04:25 Toxic Granulation Not Reportable 05/10/16 04:25 Toxic Vacuolation Not Reportable 05/10/16 04:25 Dohle Bodies Not Reportable 05/10/16 04:25 Pelger-Huet Anomaly Not Reportable 05/10/16 04:25 Amari Rods Not Reportable 05/10/16 04:25 Platelet Estimate Appears decreased 05/10/16 04:25 Clumped Platelets Not Reportable 05/10/16 04:25 Plt Clumps, EDTA Not Reportable 05/10/16 04:25 Large Platelets Not Reportable 05/10/16 04:25 Giant Platelets Not Reportable 05/10/16 04:25 Platelet Satelliting Not Reportable 05/10/16 04:25 Plt Morphology Comment Not Reportable 05/10/16 04:25 RBC Morphology Not Reportable 05/10/16 04:25 Dimorphic RBCs Not Reportable 05/10/16 04:25 Polychromasia Not Reportable 05/10/16 04:25 Hypochromasia Not Reportable 05/10/16 04:25 Poikilocytosis Not Reportable 05/10/16 04:25 Anisocytosis 1+ 05/10/16 04:25 Microcytosis Not Reportable 05/10/16 04:25 Macrocytosis Not Reportable 05/10/16 04:25 Spherocytes Not Reportable 05/10/16 04:25 Pappenheimer Bodies Not Reportable 05/10/16 04:25 Sickle Cells Not Reportable 05/10/16 04:25 Target Cells Not Reportable 05/10/16 04:25 Tear Drop Cells Not Reportable 05/10/16 04:25 Ovalocytes Not Reportable 05/10/16 04:25 Helmet Cells Not Reportable 05/10/16 04:25 Fenton-Jette Bodies Not Reportable 05/10/16 04:25 [place] Rings Not Reportable 05/10/16 04:25 Ron Cells Not Reportable 05/10/16 04:25 Bite Cells Not Reportable 05/10/16 04:25 Crenated Cell Not Reportable 05/10/16 04:25 Elliptocytes Not Reportable 05/10/16 04:25 Acanthocytes (Spur) Not Reportable 05/10/16 04:25 Rouleaux Not Reportable 05/10/16 04:25 Hemoglobin C Crystals Not Reportable 05/10/16 04:25 Schistocytes Not Reportable 05/10/16 04:25 Malaria parasites Not Reportable 05/10/16 04:25 Kasi Bodies Not Reportable 05/10/16 04:25 Hem Pathologist Commnt No 05/10/16 04:25 PT 16.6 Sec. (12.2-14.9) H 05/09/16 12:06 INR 1.35 (0.87-1.13) H 05/09/16 12:06 APTT 27.4 Sec. (24.2-36.6) 05/09/16 12:06 POC ABG pH 7.481 (7.35-7.45) H 05/16/16 10:47 POC ABG pCO2 43.7 (35-45) 05/16/16 10:47 POC ABG pO2 58 (80-105) L 05/16/16 10:47 POC ABG HCO3 32.6 05/16/16 10:47 POC ABG Total CO2 34 05/16/16 10:47 POC ABG O2 Sat 91 05/16/16 10:47 POC ABG Base Excess 9 05/16/16 10:47 FiO2 30 % 05/16/16 10:47 Sodium 137 mmol/L (137-145) 05/17/16 05:40 Potassium 3.3 mmol/L (3.6-5.0) L 05/17/16 05:40 Chloride 97.3 mmol/L (98-107) L 05/17/16 05:40 Carbon Dioxide 30 mmol/L (22-30) 05/17/16 05:40 Anion Gap 13 mmol/L 05/17/16 05:40 BUN 5 mg/dL (9-20) L 05/17/16 05:40 Creatinine 0.3 mg/dL (0.8-1.5) L 05/17/16 05:40 Estimated GFR > 60 ml/min 05/17/16 05:40 BUN/Creatinine Ratio 16.66 % 05/17/16 05:40 Glucose 65 mg/dL (75-100) L 05/17/16 05:40 POC Glucose 143 (70-105) H 05/18/16 21:31 Lactic Acid 1.0 mmol/L (0.7-2.0) 05/10/16 09:55 Calcium 7.4 mg/dL (8.4-10.2) L 05/17/16 05:40 Phosphorus 3.3 mg/dL (2.5-4.5) 05/17/16 05:40 Magnesium 1.5 mg/dL (1.7-2.3) L 05/17/16 05:40 Total Bilirubin 0.4 mg/dL (0.1-1.2) 05/13/16 12:30 AST 19 units/L (5-40) 05/13/16 12:30 ALT 13 units/L (7-56) 05/13/16 12:30 Alkaline Phosphatase 53 units/L (35-129) 05/13/16 12:30 Ammonia 33.0 umol/L (25-60) 05/09/16 23:00 Total Creatine Kinase 193 units/L (55-170) H 05/10/16 17:30 CK-MB (CK-2) 12.2 ng/mL (0.0-4.0) H 05/10/16 17:30 CK-MB (CK-2) Rel Index 6.3 (0-4) H 05/10/16 17:30 Troponin T 0.092 ng/mL (0.00-0.029) H 05/10/16 17:30 Total Protein 4.4 g/dL (6.3-8.2) L 05/13/16 12:30 Albumin 1.8 g/dL (3.9-5) L 05/13/16 12:30 Albumin/Globulin Ratio 0.7 % 05/13/16 12:30 Triglycerides 77 mg/dL (2-149) 05/10/16 09:55 Cholesterol 56 mg/dL (50-199) 05/10/16 09:55 LDL Cholesterol Direct 13 mg/dL (50-130) L 05/10/16 09:55 HDL Cholesterol 28 mg/dL (40-59) L 05/10/16 09:55 Cholesterol/HDL Ratio 2.00 % 05/10/16 09:55 Lipase 82 units/L (13-60) H 05/09/16 12:06 Urine Color Yellow (Yellow) 05/09/16 12:51 Urine Turbidity Slightly-cloudy (Clear) 05/09/16 12:51 Urine pH 6.0 (5.0-7.0) 05/09/16 12:51 Ur Specific [place] 1.019 (1.003-1.030) 05/09/16 12:51 Urine Protein 100 mg/dl mg/dL (Negative) 05/09/16 12:51 Urine Glucose (UA) Neg mg/dL (Negative) 05/09/16 12:51 Urine Ketones Neg mg/dL (Negative) 05/09/16 12:51 Urine Blood Neg (Negative) 05/09/16 12:51 Urine Nitrite Neg (Negative) 05/09/16 12:51 Urine Bilirubin Neg (Negative) 05/09/16 12:51 Urine Urobilinogen < 2.0 mg/dL (<2.0) 05/09/16 12:51 Ur Leukocyte Esterase Mod (Negative) 05/09/16 12:51 Urine WBC (Auto) > 182.0 /HPF (0.0-6.0) H 05/09/16 12:51 Urine RBC (Auto) 9.0 /HPF (0.0-6.0) 05/09/16 12:51 U Epithel Cells (Auto) 1.0 /HPF (0-13.0) 05/09/16 12:51 Urine Bacteria (Auto) 1+ /HPF (Negative) 05/09/16 12:51 Urine Mucus Few /HPF 05/09/16 12:51 Vancomycin Trough 7.5 ug/mL (5.0-20.0) 05/13/16 06:00 Urine Opiates Screen Presumptive negative 05/09/16 12:51 Urine Methadone Screen Presumptive negative 05/09/16 12:51 Ur Barbiturates Screen Presumptive negative 05/09/16 12:51 Ur Phencyclidine Scrn Presumptive negative 05/09/16 12:51 Ur Amphetamines Screen Presumptive negative 05/09/16 12:51 U Benzodiazepines Scrn Presumptive negative 05/09/16 12:51 Urine Cocaine Screen Presumptive negative 05/09/16 12:51 U Marijuana (THC) Screen Presumptive negative 05/09/16 12:51 Drugs of Abuse Note Disclamer 05/09/16 12:51 Plasma/Serum Alcohol < 0.01 gm% (0-0.07) 05/09/16 12:24 Lymph Enumerat CD4/CD8 0.24 (0.86-5.00) L 05/11/16 06:55 % CD3 Cells 89 % (57-85) H 05/11/16 06:55 Absolute CD3 Count 1035 cells/uL (840-3060) 05/11/16 06:55 % CD4 Cells 17 % (30-61) L 05/11/16 06:55 Absolute CD4 Count 200 cells/uL (490-1740) L 05/11/16 06:55 % CD8 Cells 73 % (12-42) H 05/11/16 06:55 Absolute CD8 Count 838 cells/uL (180-1170) 05/11/16 06:55 % CD19 Cells 5 % (6-29) L 05/11/16 06:55 Absolute CD19 Count 59 cells/uL (110-660) L 05/11/16 06:55 Hep Bs Antigen Non-reactive (Negative) 05/10/16 04:25 Hep B Core Total Ab Nonreactive (Nonreactive) 05/10/16 04:25 Hepatitis C Antibody Non-reactive (NonReactive) 05/10/16 04:25 HIV-1 RNA PCR copies/ml [id number] copies/mL (<20) H 05/11/16 06:55 HIV-1 RNA (PCR) log 5.42 Log cps/mL (<1.30) H 05/11/16 06:55 Blood Type A POSITIVE 05/09/16 12:06 Antibody Screen Negative 05/09/16 12:06 Crossmatch See Detail 05/09/16 12:06
[2016-05-19] MEDS: CLEOCIN PO SCH (06:00)
[2016-05-19] MEDS: NOVOLOG SUB-Q SCH (08:15)
[2016-05-19] MEDS: BROVANA NEBU IH SCH (08:36)
[2016-05-19] MEDS: PULMICORT IH SCH (08:50)
[2016-05-19 09:01] VITALS: BP 117/62
--- NOTE | 2016-05-19 09:09 | Progress Note ---
Assessment and Plan 56 y/o male with acute respiratory failure, systolic heart failure, and duodenal ulcer. 1. Abx therapy per ID, reviewed their last note 2. Home O2 set up per CM 3. Please discharge on BID Pulmicort/Brovana and PRN neb treatments. 4. No objection to discharge from pulmonary standpoint. Subjective Date of service: 05/19/16 Principal diagnosis: Acute blood loss/anemia/duodenal ulcer Interval history: No acute events. Qualifies for home O2. Wants to go home. currently undergoing neb treatment. No family at bedside. Objective Vital Signs - 12hr 05/18/16 05/18/16 05/19/16 21:08 22:00 00:00 Temperature 98.3 F Pulse Rate [ 86 Left Radial] Pulse Rate [ Left Throughout ] Pulse Rate [ Right Dorsalis Pedis] Pulse Rate [ 86 Right] Respiratory 18 Rate Respiratory Rate [Left Throughout] Blood Pressure 117/70 Blood Pressure [Left Arm] O2 Sat by Pulse 96 Oximetry 05/19/16 05/19/16 05/19/16 02:28 02:41 08:00 Temperature 98.5 F Pulse Rate [ Left Radial] Pulse Rate [ 96 H 97 H Left Throughout ] Pulse Rate [ 20 L Right Dorsalis Pedis] Pulse Rate [ Right] Respiratory 20 Rate Respiratory 20 18 Rate [Left Throughout] Blood Pressure Blood Pressure 117/62 [Left Arm] O2 Sat by Pulse Oximetry 05/19/16 05/19/16 08:35 08:55 Temperature Pulse Rate [ Left Radial] Pulse Rate [ Left Throughout ] Pulse Rate [ Right Dorsalis Pedis] Pulse Rate [ Right] Respiratory Rate Respiratory Rate [Left Throughout] Blood Pressure Blood Pressure [Left Arm] O2 Sat by Pulse 77 L 95 Oximetry Constitutional: alert Eyes: non-icteric ENT: oropharynx dry Neck: supple, no JVD Effort: normal, mildly labored Ascultation: Bilateral: clear, diminished breath sounds, wheezes, rhonchi ( occasional ) Cardiovascular: regular rate and rhythm Gastrointestinal: hypoactive bowel sounds, soft, non-tender Extremities: no cyanosis, no edema Neurologic: normal mental status, non-focal exam, pupils equal and round, CN II- XII normal CBC and BMP: 05/17/16 13:41 05/17/16 05:40 ABG, PT/INR, D-dimer: ABG POC ABG pH 7.481 (7.35-7.45) H 05/16/16 10:47 POC ABG pCO2 43.7 (35-45) 05/16/16 10:47 POC ABG pO2 58 (80-105) L 05/16/16 10:47 POC ABG HCO3 32.6 05/16/16 10:47 POC ABG Total CO2 34 05/16/16 10:47 POC ABG O2 Sat 91 05/16/16 10:47 PT/INR, D-dimer PT 16.6 Sec. (12.2-14.9) H 05/09/16 12:06 INR 1.35 (0.87-1.13) H 05/09/16 12:06 Abnormal lab findings: Abnormal Labs 05/09/16 05/10/16 05/10/16 23:00 02:46 04:25 WBC 22.4 H 20.7 H RBC 5.05 H Hgb Hct 45.8 H D RDW 17.9 H 18.0 H Plt Count 70 L 68 L Lymph % (Auto) [place] % (Auto) Lymph # Seg Neutrophils % Seg Neuts % (Manual) 92.0 H 92.0 H Lymphocytes % (Manual) 1.0 L 0 L Seg Neutrophils # Seg Neutrophils # Man 20.6 H 19.0 H Lymphocytes # (Manual) 0.2 L 0.0 L POC ABG pH POC ABG pCO2 POC ABG pO2 Sodium Potassium Chloride Carbon Dioxide BUN Creatinine Glucose POC Glucose Calcium Phosphorus Magnesium Total Creatine Kinase CK-MB (CK-2) CK-MB (CK-2) Rel Index Troponin T Total Protein Albumin LDL Cholesterol Direct HDL Cholesterol Lymph Enumerat CD4/CD8 % CD3 Cells % CD4 Cells Absolute CD4 Count % CD8 Cells % CD19 Cells Absolute CD19 Count HIV-1 RNA PCR copies/ml HIV-1 RNA (PCR) log 05/10/16 05/10/16 05/10/16 04:25 09:55 11:13 WBC RBC Hgb Hct RDW Plt Count Lymph % (Auto) [place] % (Auto) Lymph # Seg Neutrophils % Seg Neuts % (Manual) Lymphocytes % (Manual) Seg Neutrophils # Seg Neutrophils # Man Lymphocytes # (Manual) POC ABG pH 7.152 L POC ABG pCO2 65.4 H POC ABG pO2 48 L Sodium Potassium Chloride 110.4 H Carbon Dioxide BUN 21 H Creatinine Glucose 47 L POC Glucose Calcium 5.7 L* Phosphorus Magnesium Total Creatine Kinase CK-MB (CK-2) 11.5 H CK-MB (CK-2) Rel Index 7.6 H Troponin T 0.105 H* Total Protein 3.4 L Albumin 1.8 L LDL Cholesterol Direct 13 L HDL Cholesterol 28 L Lymph Enumerat CD4/CD8 % CD3 Cells % CD4 Cells Absolute CD4 Count % CD8 Cells % CD19 Cells Absolute CD19 Count HIV-1 RNA PCR copies/ml HIV-1 RNA (PCR) log 05/10/16 05/10/16 05/10/16 13:28 14:05 14:18 WBC RBC Hgb Hct RDW Plt Count Lymph % (Auto) [place] % (Auto) Lymph # Seg Neutrophils % Seg Neuts % (Manual) Lymphocytes % (Manual) Seg Neutrophils # Seg Neutrophils # Man Lymphocytes # (Manual) POC ABG pH 7.199 L POC ABG pCO2 56.9 H POC ABG pO2 67 L Sodium Potassium Chloride Carbon Dioxide BUN Creatinine Glucose POC Glucose < 40 L 109 H Calcium Phosphorus Magnesium Total Creatine Kinase CK-MB (CK-2) CK-MB (CK-2) Rel Index Troponin T Total Protein Albumin LDL Cholesterol Direct HDL Cholesterol Lymph Enumerat CD4/CD8 % CD3 Cells % CD4 Cells Absolute CD4 Count % CD8 Cells % CD19 Cells Absolute CD19 Count HIV-1 RNA PCR copies/ml HIV-1 RNA (PCR) log 05/10/16 05/10/16 05/10/16 16:02 17:30 17:30 WBC RBC Hgb 11.1 L Hct 34.9 L D RDW Plt Count Lymph % (Auto) [place] % (Auto) Lymph # Seg Neutrophils % Seg Neuts % (Manual) Lymphocytes % (Manual) Seg Neutrophils # Seg Neutrophils # Man Lymphocytes # (Manual) POC ABG pH 7.307 L POC ABG pCO2 POC ABG pO2 Sodium Potassium Chloride Carbon Dioxide BUN Creatinine Glucose POC Glucose Calcium Phosphorus Magnesium Total Creatine Kinase 193 H CK-MB (CK-2) 12.2 H CK-MB (CK-2) Rel Index 6.3 H Troponin T 0.092 H Total Protein Albumin LDL Cholesterol Direct HDL Cholesterol Lymph Enumerat CD4/CD8 % CD3 Cells % CD4 Cells Absolute CD4 Count % CD8 Cells % CD19 Cells Absolute CD19 Count HIV-1 RNA PCR copies/ml HIV-1 RNA (PCR) log 05/10/16 05/10/16 05/11/16 18:42 23:03 03:00 WBC 14.9 H RBC Hgb 10.3 L Hct 32.3 L RDW 18.2 H Plt Count 97 L Lymph % (Auto) [place] % (Auto) Lymph # Seg Neutrophils % Seg Neuts % (Manual) Lymphocytes % (Manual) Seg Neutrophils # Seg Neutrophils # Man Lymphocytes # (Manual) POC ABG pH POC ABG pCO2 POC ABG pO2 Sodium Potassium Chloride Carbon Dioxide BUN Creatinine Glucose POC Glucose 113 H 204 H Calcium Phosphorus Magnesium Total Creatine Kinase CK-MB (CK-2) CK-MB (CK-2) Rel Index Troponin T Total Protein Albumin LDL Cholesterol Direct HDL Cholesterol Lymph Enumerat CD4/CD8 % CD3 Cells % CD4 Cells Absolute CD4 Count % CD8 Cells % CD19 Cells Absolute CD19 Count HIV-1 RNA PCR copies/ml HIV-1 RNA (PCR) log 05/11/16 05/11/16 05/11/16 03:21 04:00 06:55 WBC RBC Hgb Hct RDW Plt Count Lymph % (Auto) [place] % (Auto) Lymph # Seg Neutrophils % Seg Neuts % (Manual) Lymphocytes % (Manual) Seg Neutrophils # Seg Neutrophils # Man Lymphocytes # (Manual) POC ABG pH POC ABG pCO2 POC ABG pO2 Sodium Potassium Chloride 111.5 H Carbon Dioxide BUN 26 H Creatinine Glucose 207 H POC Glucose 217 H Calcium 6.4 L Phosphorus Magnesium 1.4 L Total Creatine Kinase CK-MB (CK-2) CK-MB (CK-2) Rel Index Troponin T Total Protein Albumin LDL Cholesterol Direct HDL Cholesterol Lymph Enumerat CD4/CD8 0.24 L % CD3 Cells 89 H % CD4 Cells 17 L Absolute CD4 Count 200 L % CD8 Cells 73 H % CD19 Cells 5 L Absolute CD19 Count 59 L HIV-1 RNA PCR copies/ml HIV-1 RNA (PCR) log 05/11/16 05/11/16 05/11/16 06:55 10:57 11:48 WBC RBC Hgb Hct RDW Plt Count Lymph % (Auto) [place] % (Auto) Lymph # Seg Neutrophils % Seg Neuts % (Manual) Lymphocytes % (Manual) Seg Neutrophils # Seg Neutrophils # Man Lymphocytes # (Manual) POC ABG pH POC ABG pCO2 POC ABG pO2 46 L 75 L Sodium Potassium Chloride Carbon Dioxide BUN Creatinine Glucose POC Glucose Calcium Phosphorus Magnesium Total Creatine Kinase CK-MB (CK-2) CK-MB (CK-2) Rel Index Troponin T Total Protein Albumin LDL Cholesterol Direct HDL Cholesterol Lymph Enumerat CD4/CD8 % CD3 Cells % CD4 Cells Absolute CD4 Count % CD8 Cells % CD19 Cells Absolute CD19 Count HIV-1 RNA PCR copies/ml 123655 H HIV-1 RNA (PCR) log 5.42 H 05/11/16 05/11/16 05/11/16 12:17 17:11 23:38 WBC RBC Hgb Hct RDW Plt Count Lymph % (Auto) [place] % (Auto) Lymph # Seg Neutrophils % Seg Neuts % (Manual) Lymphocytes % (Manual) Seg Neutrophils # Seg Neutrophils # Man Lymphocytes # (Manual) POC ABG pH POC ABG pCO2 POC ABG pO2 Sodium Potassium Chloride Carbon Dioxide BUN Creatinine Glucose POC Glucose 232 H 204 H 126 H Calcium Phosphorus Magnesium Total Creatine Kinase CK-MB (CK-2) CK-MB (CK-2) Rel Index Troponin T Total Protein Albumin LDL Cholesterol Direct HDL Cholesterol Lymph Enumerat CD4/CD8 % CD3 Cells % CD4 Cells Absolute CD4 Count % CD8 Cells % CD19 Cells Absolute CD19 Count HIV-1 RNA PCR copies/ml HIV-1 RNA (PCR) log 05/12/16 05/12/16 05/12/16 05:00 05:00 05:00 WBC RBC 3.12 L Hgb 8.9 L Hct 27.0 L RDW 17.8 H Plt Count 72 L Lymph % (Auto) 9.2 L [place] % (Auto) Lymph # 0.9 L Seg Neutrophils % 84.0 H Seg Neuts % (Manual) Lymphocytes % (Manual) Seg Neutrophils # 8.1 H Seg Neutrophils # Man Lymphocytes # (Manual) POC ABG pH POC ABG pCO2 POC ABG pO2 Sodium Potassium 3.4 L Chloride 110.2 H Carbon Dioxide BUN 23 H Creatinine 0.5 L Glucose 172 H POC Glucose Calcium 7.3 L Phosphorus 1.5 L D Magnesium 1.6 L Total Creatine Kinase CK-MB (CK-2) CK-MB (CK-2) Rel Index Troponin T Total Protein 3.7 L Albumin 1.7 L LDL Cholesterol Direct HDL Cholesterol Lymph Enumerat CD4/CD8 % CD3 Cells % CD4 Cells Absolute CD4 Count % CD8 Cells % CD19 Cells Absolute CD19 Count HIV-1 RNA PCR copies/ml HIV-1 RNA (PCR) log 05/12/16 05/12/16 05/12/16 05:18 05:44 12:26 WBC RBC Hgb Hct RDW Plt Count Lymph % (Auto) [place] % (Auto) Lymph # Seg Neutrophils % Seg Neuts % (Manual) Lymphocytes % (Manual) Seg Neutrophils # Seg Neutrophils # Man Lymphocytes # (Manual) POC ABG pH POC ABG pCO2 POC ABG pO2 64 L Sodium Potassium Chloride Carbon Dioxide BUN Creatinine Glucose POC Glucose 183 H 134 H Calcium Phosphorus Magnesium Total Creatine Kinase CK-MB (CK-2) CK-MB (CK-2) Rel Index Troponin T Total Protein Albumin LDL Cholesterol Direct HDL Cholesterol Lymph Enumerat CD4/CD8 % CD3 Cells % CD4 Cells Absolute CD4 Count % CD8 Cells % CD19 Cells Absolute CD19 Count HIV-1 RNA PCR copies/ml HIV-1 RNA (PCR) log 05/12/16 05/13/16 05/13/16 18:28 00:10 04:49 WBC RBC Hgb Hct RDW Plt Count Lymph % (Auto) [place] % (Auto) Lymph # Seg Neutrophils % Seg Neuts % (Manual) Lymphocytes % (Manual) Seg Neutrophils # Seg Neutrophils # Man Lymphocytes # (Manual) POC ABG pH POC ABG pCO2 POC ABG pO2 66 L Sodium Potassium Chloride Carbon Dioxide BUN Creatinine Glucose POC Glucose 119 H 152 H Calcium Phosphorus Magnesium Total Creatine Kinase CK-MB (CK-2) CK-MB (CK-2) Rel Index Troponin T Total Protein Albumin LDL Cholesterol Direct HDL Cholesterol Lymph Enumerat CD4/CD8 % CD3 Cells % CD4 Cells Absolute CD4 Count % CD8 Cells % CD19 Cells Absolute CD19 Count HIV-1 RNA PCR copies/ml HIV-1 RNA (PCR) log 05/13/16 05/13/16 05/13/16 06:00 06:22 12:15 WBC RBC Hgb Hct RDW Plt Count Lymph % (Auto) [place] % (Auto) Lymph # Seg Neutrophils % Seg Neuts % (Manual) Lymphocytes % (Manual) Seg Neutrophils # Seg Neutrophils # Man Lymphocytes # (Manual) POC ABG pH POC ABG pCO2 POC ABG pO2 Sodium Potassium 3.5 L Chloride Carbon Dioxide BUN Creatinine 0.3 L Glucose 105 H POC Glucose 114 H 128 H Calcium 7.3 L Phosphorus Magnesium 1.5 L Total Creatine Kinase CK-MB (CK-2) CK-MB (CK-2) Rel Index Troponin T Total Protein Albumin LDL Cholesterol Direct HDL Cholesterol Lymph Enumerat CD4/CD8 % CD3 Cells % CD4 Cells Absolute CD4 Count % CD8 Cells % CD19 Cells Absolute CD19 Count HIV-1 RNA PCR copies/ml HIV-1 RNA (PCR) log 05/13/16 05/13/16 05/13/16 12:30 12:30 18:02 WBC RBC 3.53 L Hgb 9.8 L Hct 30.9 L RDW 17.6 H Plt Count 88 L Lymph % (Auto) 9.6 L [place] % (Auto) 9.8 H Lymph # 0.5 L Seg Neutrophils % 79.9 H Seg Neuts % (Manual) Lymphocytes % (Manual) Seg Neutrophils # Seg Neutrophils # Man Lymphocytes # (Manual) POC ABG pH POC ABG pCO2 POC ABG pO2 Sodium Potassium Chloride Carbon Dioxide BUN Creatinine 0.3 L Glucose 113 H POC Glucose 123 H Calcium 7.2 L Phosphorus Magnesium Total Creatine Kinase CK-MB (CK-2) CK-MB (CK-2) Rel Index Troponin T Total Protein 4.4 L Albumin 1.8 L LDL Cholesterol Direct HDL Cholesterol Lymph Enumerat CD4/CD8 % CD3 Cells % CD4 Cells Absolute CD4 Count % CD8 Cells % CD19 Cells Absolute CD19 Count HIV-1 RNA PCR copies/ml HIV-1 RNA (PCR) log 05/13/16 05/14/16 05/14/16 23:19 05:00 05:00 WBC RBC Hgb Hct RDW Plt Count Lymph % (Auto) [place] % (Auto) Lymph # Seg Neutrophils % Seg Neuts % (Manual) Lymphocytes % (Manual) Seg Neutrophils # Seg Neutrophils # Man Lymphocytes # (Manual) POC ABG pH POC ABG pCO2 POC ABG pO2 Sodium 136 L Potassium Chloride 97.9 L Carbon Dioxide 31 H BUN 8 L Creatinine 0.2 L Glucose 231 H POC Glucose 106 H Calcium 7.3 L Phosphorus 4.8 H D Magnesium Total Creatine Kinase CK-MB (CK-2) CK-MB (CK-2) Rel Index Troponin T Total Protein Albumin LDL Cholesterol Direct HDL Cholesterol Lymph Enumerat CD4/CD8 % CD3 Cells % CD4 Cells Absolute CD4 Count % CD8 Cells % CD19 Cells Absolute CD19 Count HIV-1 RNA PCR copies/ml HIV-1 RNA (PCR) log 05/14/16 05/14/16 05/15/16 05:33 10:30 00:28 WBC RBC 3.39 L Hgb 9.5 L Hct 29.3 L RDW 17.2 H Plt Count 85 L Lymph % (Auto) [place] % (Auto) 11.2 H Lymph # 0.7 L Seg Neutrophils % 73.2 H Seg Neuts % (Manual) Lymphocytes % (Manual) Seg Neutrophils # Seg Neutrophils # Man Lymphocytes # (Manual) POC ABG pH 7.492 H POC ABG pCO2 POC ABG pO2 Sodium Potassium Chloride Carbon Dioxide BUN Creatinine Glucose POC Glucose 156 H Calcium Phosphorus Magnesium Total Creatine Kinase CK-MB (CK-2) CK-MB (CK-2) Rel Index Troponin T Total Protein Albumin LDL Cholesterol Direct HDL Cholesterol Lymph Enumerat CD4/CD8 % CD3 Cells % CD4 Cells Absolute CD4 Count % CD8 Cells % CD19 Cells Absolute CD19 Count HIV-1 RNA PCR copies/ml HIV-1 RNA (PCR) log 05/15/16 05/15/16 05/15/16 04:05 04:05 05:15 WBC RBC 3.39 L Hgb 9.6 L Hct 29.3 L RDW 16.8 H Plt Count 102 L Lymph % (Auto) [place] % (Auto) Lymph # Seg Neutrophils % Seg Neuts % (Manual) Lymphocytes % (Manual) Seg Neutrophils # Seg Neutrophils # Man Lymphocytes # (Manual) POC ABG pH 7.524 H POC ABG pCO2 POC ABG pO2 Sodium Potassium Chloride Carbon Dioxide 33 H BUN Creatinine 0.3 L Glucose 112 H POC Glucose Calcium 7.6 L Phosphorus Magnesium Total Creatine Kinase CK-MB (CK-2) CK-MB (CK-2) Rel Index Troponin T Total Protein Albumin LDL Cholesterol Direct HDL Cholesterol Lymph Enumerat CD4/CD8 % CD3 Cells % CD4 Cells Absolute CD4 Count % CD8 Cells % CD19 Cells Absolute CD19 Count HIV-1 RNA PCR copies/ml HIV-1 RNA (PCR) log 05/15/16 05/15/16 05/16/16 06:03 10:47 05:16 WBC RBC Hgb Hct RDW Plt Count Lymph % (Auto) [place] % (Auto) Lymph # Seg Neutrophils % Seg Neuts % (Manual) Lymphocytes % (Manual) Seg Neutrophils # Seg Neutrophils # Man Lymphocytes # (Manual) POC ABG pH 7.468 H POC ABG pCO2 POC ABG pO2 60 L Sodium Potassium Chloride Carbon Dioxide BUN Creatinine Glucose POC Glucose 125 H 107 H Calcium Phosphorus Magnesium Total Creatine Kinase CK-MB (CK-2) CK-MB (CK-2) Rel Index Troponin T Total Protein Albumin LDL Cholesterol Direct HDL Cholesterol Lymph Enumerat CD4/CD8 % CD3 Cells % CD4 Cells Absolute CD4 Count % CD8 Cells % CD19 Cells Absolute CD19 Count HIV-1 RNA PCR copies/ml HIV-1 RNA (PCR) log 05/16/16 05/16/16 05/17/16 08:20 10:47 05:40 WBC RBC Hgb Hct RDW Plt Count Lymph % (Auto) [place] % (Auto) Lymph # Seg Neutrophils % Seg Neuts % (Manual) Lymphocytes % (Manual) Seg Neutrophils # Seg Neutrophils # Man Lymphocytes # (Manual) POC ABG pH 7.481 H POC ABG pCO2 POC ABG pO2 58 L Sodium 134 L Potassium 3.3 L Chloride 94.7 L 97.3 L Carbon Dioxide 34 H BUN 7 L 5 L Creatinine 0.2 L 0.3 L Glucose 65 L POC Glucose Calcium 7.6 L 7.4 L Phosphorus Magnesium 1.5 L Total Creatine Kinase CK-MB (CK-2) CK-MB (CK-2) Rel Index Troponin T Total Protein Albumin LDL Cholesterol Direct HDL Cholesterol Lymph Enumerat CD4/CD8 % CD3 Cells % CD4 Cells Absolute CD4 Count % CD8 Cells % CD19 Cells Absolute CD19 Count HIV-1 RNA PCR copies/ml HIV-1 RNA (PCR) log 05/17/16 05/17/16 05/18/16 11:51 13:41 06:06 WBC RBC Hgb 11.0 L Hct 33.8 L RDW Plt Count Lymph % (Auto) [place] % (Auto) Lymph # Seg Neutrophils % Seg Neuts % (Manual) Lymphocytes % (Manual) Seg Neutrophils # Seg Neutrophils # Man Lymphocytes # (Manual) POC ABG pH POC ABG pCO2 POC ABG pO2 Sodium Potassium Chloride Carbon Dioxide BUN Creatinine Glucose POC Glucose 114 H 137 H Calcium Phosphorus Magnesium Total Creatine Kinase CK-MB (CK-2) CK-MB (CK-2) Rel Index Troponin T Total Protein Albumin LDL Cholesterol Direct HDL Cholesterol Lymph Enumerat CD4/CD8 % CD3 Cells % CD4 Cells Absolute CD4 Count % CD8 Cells % CD19 Cells Absolute CD19 Count HIV-1 RNA PCR copies/ml HIV-1 RNA (PCR) log 05/18/16 05/18/16 05/18/16 11:35 16:45 21:31 WBC RBC Hgb Hct RDW Plt Count Lymph % (Auto) [place] % (Auto) Lymph # Seg Neutrophils % Seg Neuts % (Manual) Lymphocytes % (Manual) Seg Neutrophils # Seg Neutrophils # Man Lymphocytes # (Manual) POC ABG pH POC ABG pCO2 POC ABG pO2 Sodium Potassium Chloride Carbon Dioxide BUN Creatinine Glucose POC Glucose 167 H 251 H 143 H Calcium Phosphorus Magnesium Total Creatine Kinase CK-MB (CK-2) CK-MB (CK-2) Rel Index Troponin T Total Protein Albumin LDL Cholesterol Direct HDL Cholesterol Lymph Enumerat CD4/CD8 % CD3 Cells % CD4 Cells Absolute CD4 Count % CD8 Cells % CD19 Cells Absolute CD19 Count HIV-1 RNA PCR copies/ml HIV-1 RNA (PCR) log 05/19/16 06:21 WBC RBC Hgb Hct RDW Plt Count Lymph % (Auto) [place] % (Auto) Lymph # Seg Neutrophils % Seg Neuts % (Manual) Lymphocytes % (Manual) Seg Neutrophils # Seg Neutrophils # Man Lymphocytes # (Manual) POC ABG pH POC ABG pCO2 POC ABG pO2 Sodium Potassium Chloride Carbon Dioxide BUN Creatinine Glucose POC Glucose 132 H Calcium Phosphorus Magnesium Total Creatine Kinase CK-MB (CK-2) CK-MB (CK-2) Rel Index Troponin T Total Protein Albumin LDL Cholesterol Direct HDL Cholesterol Lymph Enumerat CD4/CD8 % CD3 Cells % CD4 Cells Absolute CD4 Count % CD8 Cells % CD19 Cells Absolute CD19 Count HIV-1 RNA PCR copies/ml HIV-1 RNA (PCR) log
[2016-05-19] MEDS: PROTONIX PO SCH (10:36)
--- NOTE | 2016-05-19 12:20 | Progress Note ---
Assessment and Plan 56yo WM: Acute respiratory failure-->extubated 05/16 per pulmonary Hypotension-->resolved Sepsis antibiotics per ID Elevated troponin-->may be due to demand ischemia minimally elevated but flat Echo: EF 30-35%, mild AR, mild MR, mild-moderate TR, RVSP 48mmHg Cardiomyopathy EF 30-35% possibly alcoholic will hold off on initiation of BB or ACEI due to recent hypotension Hypokalemia replace to keep potassium ~ 4 Hypomagnesemia replace to keep magnesium ~ 2 Bleeding duodenal ulcer/Anemia s/p coil embolization of gastroduodenal artery ETOH abuse Tobacco abuse HIV Stable cardiac status. Continue current management. The patient has been seen in conjunction with Dr. Calvillo who agrees with the assessment and plan of care. Subjective Date of service: 05/19/16 Principal diagnosis: Acute blood loss/anemia/duodenal ulcer Interval history: The patient is resting in bed. Appears somewhat confused. No acute distress noted. Objective Last Vital Signs Temp 98.5 F 05/19/16 08:00 Pulse 88 05/19/16 08:00 Resp 18 05/19/16 08:00 BP 117/62 05/19/16 08:00 Pulse Ox 95 05/19/16 08:55 - Physical Examination General: No Apparent Distress (pt. confused) HEENT: Positive: Normocephaly, Mucus Membranes Moist Neck: Positive: neck supple, trachea midline Cardiac: Positive: Reg Rate and Rhythm, S1/S2 Lungs: Positive: Rhonchi Neuro: Positive: Other (pt. awake but confused) Abdomen: Positive: Soft Skin: Positive: Clear. Negative: Rash Extremities: Present: upper extr. pulses, lower extr. pulses. Absent: edema - Imaging and Cardiology EKG: report reviewed, image reviewed Echo: report reviewed (04/2016: EF 30-35%, mild AR, mild MR, mild-moderate TR, RVSP 48mmHg) - EKG Sinus rhythms and dysrhythmias: sinus rhythm Repolarization changes or abnormalities: nonspecific abnormality, ST segment, and/or T wave
== END 2016-05-19 12:25 | disposition hospice, home (50) | DRG 974 ==
LOC: ED 11:48 → CC1 13:20 → 3A 05-17 13:28
PROVIDERS: ADMIT Internal Medicine; ATTEND Internal Medicine
PROC: 0W3P8ZZ Control Bleeding in Gastrointestinal Tract, Via Natural or Artificial Opening Endoscopic (ICD-10-PCS; principal; 2016-05-09)
PROC: 3E0G8GC Introduction of Other Therapeutic Substance into Upper GI, Via Natural or Artificial Opening Endoscopic (ICD-10-PCS; 2016-05-09)
PROC: 04L33DZ Occlusion of Hepatic Artery with Intraluminal Device, Percutaneous Approach (ICD-10-PCS; 2016-05-09)
PROC: B41G1ZZ Fluoroscopy of Left Lower Extremity Arteries using Low Osmolar Contrast (ICD-10-PCS; 2016-05-09)
PROC: B41B1ZZ Fluoroscopy of Other Intra-Abdominal Arteries using Low Osmolar Contrast (ICD-10-PCS; 2016-05-09)
PROC: B41J1ZZ Fluoroscopy of Other Lower Arteries using Low Osmolar Contrast (ICD-10-PCS; 2016-05-09)
PROC: B4141ZZ Fluoroscopy of Superior Mesenteric Artery using Low Osmolar Contrast (ICD-10-PCS; 2016-05-09)
PROC: B5191ZZ Fluoroscopy of Inferior Vena Cava using Low Osmolar Contrast (ICD-10-PCS; 2016-05-09)
PROC: 30233N1 Transfusion of Nonautologous Red Blood Cells into Peripheral Vein, Percutaneous Approach (ICD-10-PCS; 2016-05-09)
PROC: 0BH17EZ Insertion of Endotracheal Airway into Trachea, Via Natural or Artificial Opening (ICD-10-PCS; 2016-05-10)
PROC: 4A033R1 Measurement of Arterial Saturation, Peripheral, Percutaneous Approach (ICD-10-PCS; 2016-05-14)
PROC: 4A033R1 Measurement of Arterial Saturation, Peripheral, Percutaneous Approach (ICD-10-PCS; 2016-05-15)
PROC: 5A1955Z Respiratory Ventilation, Greater than 96 Consecutive Hours (ICD-10-PCS; 2016-05-16)
PROC: 4A033R1 Measurement of Arterial Saturation, Peripheral, Percutaneous Approach (ICD-10-PCS; 2016-05-16)
DX: A41.9 Sepsis, unspecified organism (principal); R65.21 Severe sepsis with septic shock; B20 Human immunodeficiency virus [HIV] disease; K26.0 Acute duodenal ulcer with hemorrhage; J18.9 Pneumonia, unspecified organism; J96.01 Acute respiratory failure with hypoxia; J44.9 Chronic obstructive pulmonary disease, unspecified; D62 Acute posthemorrhagic anemia; F17.210 Nicotine dependence, cigarettes, uncomplicated; E87.6 Hypokalemia; E83.42 Hypomagnesemia; I42.6 Alcoholic cardiomyopathy; K70.30 Alcoholic cirrhosis of liver without ascites; E16.2 Hypoglycemia, unspecified; D69.6 Thrombocytopenia, unspecified; F10.20 Alcohol dependence, uncomplicated; R54 Age-related physical debility; Z96.642 Presence of left artificial hip joint
CPT/HCPCS: 31500; 36415; 36556; 36600; 37242; 71010; 74176; 75726; 80048; 80053; 80061; 80202; 80307; 80320; 81001; 82024; 82140; 82271; 82550; 82553; 82803; 82962; 83690; 83735; 84100; 84484; 85007; 85014; 85018; 85025; 85027; 85610; 85730; 86705; 86706; 86803; 86850; 86900; 86901; 86920; 87040; 87076; 87086; 87205; 87536; 88305; 88342; 90670; 90686; 93005; 93010; 93306; 94002; 94003; 94640; 94660; 94760; 96361; 96374; 96375; A6250; C1751; C1769; C1887; C9113; G0480; J0171; J1644; J1815; J1940; J1956; J2060; J2250; J2354; J2370; J2543; J2704; J2920; J3246; J3370; J3475; J3480; J7030; J7040; J7050; P9016; Q9967